=== PATIENT | female | born 1955 | race Caucasian/White ===

== ENCOUNTER → 2020-01-13 12:17 | Outpatient (CLI) | payer BC, SELFPAY ==
[2020-01-13 12:22] LABS: Bacteria 0 SEEN /hpf (None Seen); Mucous, Urine 0 SEEN /hpf (<or=2+); Red Blood Cells-Urine 0 SEEN /hpf (0-5); Squamous Epithelial Cells - UA 0 SEEN /hpf (5-10); White Blood Cells 0 SEEN /hpf (0-5)
[2020-01-13 14:05] LABS: Color, Urine Yellow (Yellow); Glucose, Dipstick 1000 mg/dl (Normal); Ketone-Dipstick Negative (Negative); Leukocyte Esterase-Dipstick Negative /ul (Negative); Nitrite-Dipstick Negative (Negative); Occult Blood-Urine Negative /ul (Negative); Protein-Dipstick Negative (Negative); Urine Bilirubin Dipstick Negative (Negative); Urine Clarity Clear (Clear); Urine Urobilinogen Normal (Normal)
[2020-01-13 14:06] LABS: Absolute Lymphocyte Count 1.62 X10^3/uL (0.83-4.51); Absolute Neutrophil Count 3.5 X10^3/uL (2.0-7.7); Basophil# 0.04 X10^3/uL; Basophil% 0.7 % (0-1); Eosinophil# 0.11 X10^3/uL; Eosinophils% 1.9 % (0-5); Hematocrit 42.9 % (37-47); Hemoglobin 14.7 g/dL (12.0-15.0); Lymphocyte # 1.62 X10^3/ul (4.0); Lymphocyte % 28.3 % (19-41); Mean Corp Hgb Conc 34.3 g/dL (32-36); Mean Corpuscular Hgb 30.1 pg (27.0-32.0); Mean Corpuscular Volume 87.7 fL (81-99); Monocyte# 0.44 X10^3/uL; Monocyte% 7.7 % (0-10); NRBC Flagged by Analyzer 0 % (0-5); Neutrophil # 3.49 X10^3/uL (2.7-7.7); Neutrophil % 61.1 % (47-70); Platelet Count 203 K/mm3 (150-450); RBC Distribution Width CV 12.2 % (11.6-14.6); RBC Distribution Width SD 39.2 fl (35.1-43.9); Red Blood Count 4.89 M/mm3 (4.2-5.4); White Blood Count 5.7 K/mm3 (4.4-11.0)
[2020-01-13 14:43] LABS: AST(SGOT) 16 U/L (15-37); Alanine Aminotransfer ALT/SGPT 37 U/L (13-56); Albumin, Serum 3.6 g/dL (3.2-5.0); Alkaline Phosphatase 80 U/L (45-117); Anion Gap 8 (5-15); BUN 10 mg/dL (7-18); BUN/Creat Ratio 13.3 RATIO (10-20); Chloride 100 mmol/L (98-107); Cholesterol 216 mg/dL (200); Creatinine, Serum 0.75 mg/dL (0.55-1.02); EST Glomerular Filtration Rate 83 mL/min (>60); Est Glom Filt Rate - Afr Amer 100 mL/min (>60); Globulin 3.5 g/dL (2.2-4.2); Glucose 293 mg/dL (74-106); High Density Lipoprotein 50 mg/dL; Potassium 3.8 mmol/L (3.5-5.1); Protein, Total 7.1 g/dL (6.4-8.2); Sodium Level 134 mmol/L (136-145); Thyroid Stim Hormone (TSH) 1.49 uIU/mL (0.358-3.74); Triglycerides 144 mg/dL; Very Low Density Lipoprotein 29 mg/dL (5-40)
[2020-01-13 14:46] LABS: Hemoglobin A1c 12.8 % (4.2-6.3)
[2020-01-13 15:17] LABS: Microalbumin,Random Urine 5.9 mg/L (NO RANGE EST.); Microalbumin:Creatinine Ratio 43.7 mg/g CRE (<30 mg/g CRE)
== END ==
PROVIDERS: PCP Family Medicine; Referring Provider Family Medicine; Visit Provider Family Medicine
DX: E11.9 Type 2 diabetes mellitus without complications (principal); I10 Essential (primary) hypertension
CPT/HCPCS: 36415; 80053; 80061; 81001; 82043; 82570; 83036; 84443; 85025

== ENCOUNTER → 2020-01-21 11:19 | Outpatient (CLI) | payer BC, SELFPAY ==
--- NOTE | 2020-01-21 11:29 | US_ITS ---
STUDY: THYROID ULTRASOUND REASON FOR EXAM: Female, 64 years old. Palpable nodule TECHNIQUE: Ultrasound evaluation of the thyroid was performed with real-time and static pyle-scale imaging. COMPARISON: None. FINDINGS: RIGHT LOBE: The right lobe of the thyroid gland measures 4.1 x 1.3 x 1.5 cm. There is a homogeneous echotexture. There is a 7 mm cyst. LEFT LOBE: The left lobe of the thyroid gland measures 4.2 x 1.2 x 1.4 cm. There is a homogeneous echotexture. There are no demonstrated solid, cystic or complex lesions. ISTHMUS: The isthmus measures 0.4 cm. The regional lymph nodes are normal. US/Thyroid IMPRESSION: Normal size homogeneous thyroid gland with 7 mm simple cyst. No suspicious solid mass lesion or hyperemia Electronically Signed: Lucian Fallon MD at 12:23 EST , Service support ,
== END ==
PROVIDERS: PCP Family Medicine; Referring Provider Family Medicine; Visit Provider Family Medicine
DX: E04.1 Nontoxic single thyroid nodule (principal)
CPT/HCPCS: 76536

== ENCOUNTER → 2020-04-05 11:54 | Outpatient (CLI) | payer BC, SELFPAY ==
[2020-04-05 15:00] LABS: Absolute Lymphocyte Count 1.96 X10^3/uL (0.83-4.51); Absolute Neutrophil Count 5.4 X10^3/uL (2.0-7.7); Basophil# 0.04 X10^3/uL; Basophil% 0.5 % (0-1); Eosinophil# 0.14 X10^3/uL; Eosinophils% 1.7 % (0-5); Hematocrit 45.6 % (37-47); Hemoglobin 14.9 g/dL (12.0-15.0); Lymphocyte # 1.96 X10^3/ul (4.0); Lymphocyte % 24.1 % (19-41); Mean Corp Hgb Conc 32.7 g/dL (32-36); Mean Corpuscular Hgb 29.6 pg (27.0-32.0); Mean Corpuscular Volume 90.7 fL (81-99); Mean Platelet Vol. 11.5 fl (6.2-12.0); Monocyte% 7.4 % (0-10); NRBC Flagged by Analyzer 0 % (0-5); Neutrophil # 5.36 X10^3/uL (2.7-7.7); Neutrophil % 66.1 % (47-70); Platelet Count 249 K/mm3 (150-450); RBC Distribution Width CV 12.1 % (11.6-14.6); RBC Distribution Width SD 39.9 fl (35.1-43.9); Red Blood Count 5.03 M/mm3 (4.2-5.4); White Blood Count 8.1 K/mm3 (4.4-11.0)
[2020-04-05 15:07] LABS: Hemoglobin A1c 7.6 % (3.8-5.6)
[2020-04-05 15:12] LABS: AST(SGOT) 13 U/L (15-37); Alanine Aminotransfer ALT/SGPT 30 U/L (13-56); Albumin, Serum 3.8 g/dL (3.2-5.0); Alkaline Phosphatase 85 U/L (45-117); Anion Gap 6 (5-15); BUN 13 mg/dL (7-18); BUN/Creat Ratio 17.9 RATIO (10-20); Calcium,Total 9.7 mg/dL (8.5-10.1); Chloride 102 mmol/L (98-107); Cholesterol 132 mg/dL (200); Creatinine, Serum 0.73 mg/dL (0.55-1.02); EST Glomerular Filtration Rate 85 mL/min (>60); Est Glom Filt Rate - Afr Amer 103 mL/min (>60); Globulin 3.9 g/dL (2.2-4.2); Glucose 122 mg/dL (74-106); High Density Lipoprotein 52 mg/dL; Potassium 4.3 mmol/L (3.5-5.1); Protein, Total 7.7 g/dL (6.4-8.2); Sodium Level 137 mmol/L (136-145); Triglycerides 83 mg/dL; Very Low Density Lipoprotein 17 mg/dL (5-40)
[2020-04-05 15:18] LABS: Creatinine, Urine (random) < 13.00 mg/dL (NO RANGE EST.); Microalbumin,Random Urine 5.6 mg/L (NO RANGE EST.)
== END ==
PROVIDERS: PCP Family Medicine; Visit Provider Family Medicine
DX: I10 Essential (primary) hypertension (principal); E11.65 Type 2 diabetes mellitus with hyperglycemia; E78.5 Hyperlipidemia, unspecified; R80.9 Proteinuria, unspecified
CPT/HCPCS: 36415; 80053; 80061; 82043; 82570; 83036; 85025

== ENCOUNTER 2020-06-11 17:45 | Emergency (ER) | payer BC, SELFPAY ==
[2020-06-11 17:57] VITALS: BP 107/61; PULSE 97; RESP 22; TEMP 36.9; O2SAT 97; BMI 32.3
--- NOTE | 2020-06-11 18:04 | ED.VIS.GEN ---
History of Present Illness Chief Complaint: Upper Extremity Injury Informant: Patient Narrative: Patient is a 65-year-old female with a past medical history of hypertension and diabetes who presents to the emergency department for left wrist injury. She states she was walking on the sidewalk whenever she tripped. She fell onto her left arm. She does have a deformity to the left wrist. Patient is right-handed at baseline. Sensation in her hand. She did hit her face on the cement but denies any loss of consciousness. She has an abrasion to her nose and upper lip. She denies loose teeth or malalignment with her jaw. No neck pain or back pain. No other injury to her extremities except for minor abrasions to her knees. She is not on any anticoagulation. She did feel slightly nauseous due to pain. EMS did put her in an air splint upon arrival. Past Medical History - Allergies and Home Meds Allergies/Adverse Reactions: Allergies meperidine [From Demerol] Allergy (Verified 06/11/20 17:46) NEEDS FOLLOW-UP Primary Care Physician: Bobby Vazquez MD [Primary Care Provider] - Pavan Sim MD [STAFF PHYSICIAN] - 2 Days Prior records reviewed: Yes Past Medical History: - - Hypertension, diabetes Lives: Spouse/ Significant Other Smoking Status: Never smoker Alcohol: None Review of Systems All systems negative except as indicated General: Denies: Chills, Fever, Sweats Eyes: Denies: Visual changes - bilaterally, Diplopia ENT: Denies: Rhinorrhea, Sore throat Cardiovascular: Denies: Chest pain, Palpitations Respiratory: Denies: Dyspnea, Cough, Dyspnea on exertion Gastrointestinal: Reports: Nausea. Denies: Abdominal pain, Vomiting Genitourinary: Denies: Dysuria, Hematuria, Frequency Musculoskeletal: Reports: Swelling - Left wrist, Extremity Pain. Denies: Neck pain, Back pain Skin: Reports: Wounds - Abrasion to knees. Denies: Rash Neurological: Denies: Headache, Weakness, Numbness Physical Exam Vital Signs/Narrative: Vital Signs Temp Pulse Resp BP Pulse Ox 06/11/20 17:57 98.4 F 97 22 H 107/61 97 Inital Vital Signs reviewed: Yes General: Well nourished, Well developed, No Acute Distress Head: Normocephalic, - - Superficial abrasion over nose and upper lip.. Negative for: Tenderness Eyes: Perrl, EOMI ENT: Moist mucous membranes, No rhinorrhea Neck: Supple, Nontender, - - No spinal tenderness and has good range of motion. Cardiovascular: Regular rate, Regular rhythm, No murmurs Respiratory: No distress, CTA bilaterally, Chest nontender Abdomen: Soft, Nontender, Nondistended, Normal bowel sounds Back: Nontender, Normal Inspection. Negative for: Spinal tenderness Extremities: No edema, Tenderness - Left wrist, - - There is a deformity to left wrist. 2+ radial pulse. 2-second capillary refill. Good transfill technician strength. No loss of sensation. Skin: Normal color, No rash Neurological: Alert, Oriented x3, Cranial nerves II-XII grossly intact, Normal Strength, Normal Sensation Psychological: Normal affect, Normal Mood Diagnostic/Tx/Re-eval - Medical Decision Making Patient presents to the emergency department for left wrist injury after a fall. Will obtain x-rays and treat symptomatically with morphine and Zofran. X-ray showed a distal comminuted radial fracture. This is only mildly displaced and reduction was not attempted. She was placed into a sugar tong splint and given a sling. Will send She for pain management at home. She is also given a follow-up with orthopedic surgery. I did discuss trying to get her rings off here in the emergency department but she states that they will not come off. She is refusing to have them cut off. She states she will come back if her hand starts to swell. She is given return precautions for compartment syndrome as well. She otherwise is to follow-up with orthopedic doctor. At this time will discharge home in stable condition. She understands and is agreeable with this plan. Procedures - Upper Extremity Splints Upper Extremity Splint: Orthoglass, - - Sugar tong Splint Fabrication: Fabricated Location: Left - Patient neurovascularly intact post splinting. ED Disposition - Plan for ED Patient: Disposition: Home or Assisted Living Diagnosis: Distal radius fracture, left Instructions: ED WRIST FRACTURE General Prescriptions: Hydrocodone/Acetaminophen [Richardson 5-325 Tablet] 1 ea PO Q8H PRN PRN 3 Days #8 tab PRN Reason: Pain Score 6-10/10 Transmission Status: Received by [id number] Referrals: Bobby Vazquez MD [Primary Care Provider] - Pavan Sim MD [STAFF PHYSICIAN] - 2 Days
[2020-06-11] MEDS: Ondansetron 4 MG/2 ML Vial IV (18:15)
[2020-06-11] MEDS: Morphine 4 MG/ML Syringe IV (18:18)
[2020-06-11 18:28] VITALS: BP 120/61; PULSE 92; RESP 20; O2SAT 100
--- NOTE | 2020-06-11 18:30 | RAD_ITS ---
STUDY: X-RAY - LEFT RADIUS AND ULNA REASON FOR EXAM: Female, 65 years old. Fall TECHNIQUE: Two view(s) of the forearm. COMPARISON: None. FINDINGS: There is an impacted fracture of the distal radius with overlying soft tissue swelling. The remainder the visualized osseous structures are intact. There are no radiodense foreign bodies. RAD/Forearm 2 Views IMPRESSION: Impacted fracture of the distal radius with overlying soft tissue swelling. Electronically Signed: Pavan Wood, at 18:54 EDT Tel , Service support ,
--- NOTE | 2020-06-11 18:30 | RAD_ITS ---
STUDY: X-RAY - LEFT WRIST REASON FOR EXAM: Female, 65 years old. Fall. TECHNIQUE: Three view(s) of the wrist were obtained. COMPARISON: None. FINDINGS: There is a comminuted, impacted fracture of the distal radius with intra-articular extension. The remainder the visualized osseous structures are intact. There is soft tissue swelling noted. There are no radiodense foreign bodies. RAD/Wrist min 3 Views IMPRESSION: Comminuted, impacted fracture of the distal radius with intra-articular extension. Soft tissue swelling. Electronically Signed: Pavan Wood, at 18:54 EDT Tel , Service support ,
[2020-06-11] MEDS: HYDROcodone Bitartrate/Apap 5/325 Tablet PO (19:32)
== END 2020-06-11 19:43 | disposition home or self-care (01) ==
PROVIDERS: Emergency Provider Emergency Medicine; PCP Family Medicine
DX: S52.502A Unspecified fracture of the lower end of left radius, initial encounter for closed fracture (principal); S80.212A Abrasion, left knee, initial encounter; S80.211A Abrasion, right knee, initial encounter; S00.31XA Abrasion of nose, initial encounter; W18.09XA Striking against other object with subsequent fall, initial encounter; Y93.01 Activity, walking, marching and hiking; Y92.9 Unspecified place or not applicable; Y99.9 Unspecified external cause status; E11.9 Type 2 diabetes mellitus without complications; I10 Essential (primary) hypertension; Z79.4 Long term (current) use of insulin; Z79.899 Other long term (current) drug therapy
CPT/HCPCS: 29125; 73090; 73110; 96374; 96375; 99285; J7030; A4216; J2405

== ENCOUNTER → 2020-07-13 12:42 | Outpatient (CLI) | payer BC, SELFPAY ==
[2020-07-13 16:06] LABS: AST(SGOT) 13 U/L (15-37); Alanine Aminotransfer ALT/SGPT 40 U/L (13-56); Albumin, Serum 3.8 g/dL (3.2-5.0); Alkaline Phosphatase 78 U/L (45-117); Anion Gap 5 (5-15); BUN 11 mg/dL (7-18); BUN/Creat Ratio 16.5 RATIO (10-20); Chloride 103 mmol/L (98-107); Cholesterol 121 mg/dL (200); Creatinine, Serum 0.67 mg/dL (0.55-1.02); EST Glomerular Filtration Rate 94 mL/min (>60); Est Glom Filt Rate - Afr Amer 114 mL/min (>60); Globulin 3.8 g/dL (2.2-4.2); Glucose 111 mg/dL (74-106); High Density Lipoprotein 51 mg/dL; Potassium 3.7 mmol/L (3.5-5.1); Protein, Total 7.6 g/dL (6.4-8.2); Sodium Level 139 mmol/L (136-145); Triglycerides 64 mg/dL; Very Low Density Lipoprotein 13 mg/dL (5-40)
[2020-07-13 16:08] LABS: Hemoglobin A1c 7.1 % (3.8-5.6)
[2020-07-13 16:24] LABS: Microalbumin,Random Urine 5.6 mg/L (NO RANGE EST.); Microalbumin:Creatinine Ratio 11.8 mg/g CRE (<30 mg/g CRE)
== END ==
PROVIDERS: PCP Family Medicine; Referring Provider Family Medicine; Visit Provider Family Medicine
DX: E11.65 Type 2 diabetes mellitus with hyperglycemia (principal); E78.5 Hyperlipidemia, unspecified; R80.9 Proteinuria, unspecified
CPT/HCPCS: 36415; 80053; 80061; 82043; 82570; 83036

== ENCOUNTER → 2020-11-07 11:33 | Outpatient (CLI) | payer BC, SELFPAY ==
[2020-11-07 15:55] LABS: AST(SGOT) 11 U/L (15-37); Alanine Aminotransfer ALT/SGPT 28 U/L (13-56); Albumin, Serum 3.6 g/dL (3.2-5.0); Alkaline Phosphatase 82 U/L (45-117); Anion Gap 8 (5-15); BUN 9 mg/dL (7-18); BUN/Creat Ratio 12.4 RATIO (10-20); Chloride 99 mmol/L (98-107); Cholesterol 118 mg/dL (200); Creatinine, Serum 0.72 mg/dL (0.55-1.02); EST Glomerular Filtration Rate 86 mL/min (>60); Est Glom Filt Rate - Afr Amer 104 mL/min (>60); Globulin 3.7 g/dL (2.2-4.2); Glucose 156 mg/dL (74-106); High Density Lipoprotein 45 mg/dL; Potassium 3.9 mmol/L (3.5-5.1); Protein, Total 7.3 g/dL (6.4-8.2); Sodium Level 136 mmol/L (136-145); Triglycerides 83 mg/dL; Very Low Density Lipoprotein 17 mg/dL (5-40)
[2020-11-07 16:09] LABS: Creatinine, Urine (random) < 13.00 mg/dL (NO RANGE EST.); Microalbumin,Random Urine < 5.0 mg/L (NO RANGE EST.)
[2020-11-07 16:29] LABS: Hemoglobin A1c 6.9 % (3.8-5.6)
== END ==
PROVIDERS: PCP Family Medicine; Referring Provider Family Medicine; Visit Provider Family Medicine
DX: E11.65 Type 2 diabetes mellitus with hyperglycemia (principal); E78.5 Hyperlipidemia, unspecified
CPT/HCPCS: 36415; 80053; 80061; 82043; 82570; 83036

== ENCOUNTER 2021-01-14 09:35 | Emergency (ER) | payer BC, SELFPAY ==
[2021-01-14 09:36] VITALS: BP 149/98; PULSE 110; RESP 16; TEMP 36.6; O2SAT 98; BMI 32.7
[2021-01-14] MEDS: Tetracaine 0.5% Ophthalmic Bottle OPHTHALMIC (10:08)
[2021-01-14] MEDS: Ondansetron ODT 4 MG Tablet PO (10:08)
[2021-01-14] MEDS: Fluorescein 1 MG STRIP 1 STRIP OPHTHALMIC (10:08)
--- NOTE | 2021-01-14 10:26 | ED.DCSUM_ITS ---
- ER Visit Summary Date of Service: 01/14/21 Chief Complaint: Rash History of Present Illness: The patient is a [address] Vazquez. She reports that she has a rash to the right side of her forehead that began yesterday and throbbing pain to her right eye that began yesterday as well. She denies any change in her vision. She does not wear contacts. Patient complains subjective fever and chills. She is been nausea and vomited twice. No blood in her emesis. Physical Examination: Vitals: Stable. Afebrile. General: Well-nourished and well-developed. Head: Normocephalic atraumatic. Eyes: Involvement of her upper eyelid with shingles. There is erythema centrally. Diffuse conjunctival injection on the right. There is no fluorescein dye uptake. No dendritic lesions. No Johnson sign. Neck: Supple, no lymphadenopathy. No JVD. Nontender. Cardiovascular: Regular rate and rhythm. No murmurs. Respiratory: No respiratory distress. Clear to auscultation bilaterally. Abdominal: Soft, nontender, nondistended, normal bowel sounds. No guarding, rebound, or peritoneal signs. Back: Nontender. Extremities: Nontender, no edema. Skin: Vesicular rash to the right side of her forehead in a V1 distribution. Neurologic: Alert and oriented ?3. Cranial nerves II through XII are intact. Normal strength and sensation. Psych: Normal affect. Emergency Department Course and Treatment: Visual acuity is 20/20 OS/OD/OU. Patient was given Zofran and acyclovir p.o. She refused pain medications or an IV. Treatment Plan: Given the proximity of this to her right eye she was discussed with Dr. Cespedes. He would like to have erythromycin ointment placed in her eye. He does not want her to plate be placed on antiviral eyedrops. He will see her in the office now. Return to the emergency department for any worsening symptoms. Disposition: To home in improved and stable condition. Impression: 1. Shingles V1 distribution on right. This note was generated with [employer] software. It may contain incorrect words, spelling, and punctuation that were not noted in review of the chart prior to signing ED Disposition - Plan for ED Patient: Instructions: ED Shingles (Herpes Zoster) Prescriptions: Ondansetron [Zofran Odt] 4 mg PO Q8H PRN PRN #10 tab PRN Reason: Nausea Acyclovir [Zovirax] 800 mg PO 5X/DAY #35 tab Referrals: Hernandez Cespedes MD [STAFF PHYSICIAN] - As soon as possible Bobby Vazquez MD [Primary Care Provider] - 1 Week if not improving
[2021-01-14] MEDS: Acyclovir 800 MG Tablet PO (10:46)
--- NOTE | 2021-01-14 10:53 | ED.RN ---
DISCHARGE INSTRUCTIONS GIVEN TO AND REVIEWED WITH PATIENT, PATIENT DENIES QUESTIONS OR CONCERNS AND VOICES UNDERSTANDING OF DISCHARGE INSTRUCTIONS. PT INSTRUCTED TO GO TO OPHTHALMOLOGY FROM ED. PT AMBULATES OUT OF ROOM WITHOUT DIFFICULTY.
== END 2021-01-14 11:01 | disposition home or self-care (01) ==
PROVIDERS: Emergency Provider Emergency Medicine; PCP Family Medicine
DX: B02.9 Zoster without complications (principal); R11.2 Nausea with vomiting, unspecified; Z79.4 Long term (current) use of insulin; Z79.899 Other long term (current) drug therapy
CPT/HCPCS: 99284

== ENCOUNTER → 2021-03-28 14:18 | Outpatient (CLI) | payer BC, SELFPAY ==
[2021-03-28 18:28] LABS: ALB/GLOB Ratio 1.1 RATIO (0.9-2.4); AST(SGOT) 17 U/L (15-37); Alanine Aminotransfer ALT/SGPT 35 U/L (13-56); Albumin, Serum 3.7 g/dL (3.2-5.0); Alkaline Phosphatase 76 U/L (45-117); Anion Gap 8 (5-15); BUN 10 mg/dL (7-18); BUN/Creat Ratio 14.3 RATIO (10-20); Calcium,Total 9.1 mg/dL (8.5-10.1); Chloride 101 mmol/L (98-107); Cholesterol 130 mg/dL (200); EST Glomerular Filtration Rate 89 mL/min (>60); Est Glom Filt Rate - Afr Amer 108 mL/min (>60); Globulin 3.4 g/dL (2.2-4.2); Glucose 139 mg/dL (74-106); High Density Lipoprotein 50 mg/dL; Potassium 3.5 mmol/L (3.5-5.1); Protein, Total 7.1 g/dL (6.4-8.2); Sodium Level 138 mmol/L (136-145); Triglycerides 107 mg/dL; Very Low Density Lipoprotein 21 mg/dL (5-40)
[2021-03-28 18:51] LABS: Microalbumin,Random Urine 5.5 mg/L (NO RANGE EST.); Microalbumin:Creatinine Ratio 14.6 mg/g CRE (<30 mg/g CRE)
== END ==
PROVIDERS: PCP Family Medicine; Referring Provider Family Medicine; Visit Provider Family Medicine
DX: E11.65 Type 2 diabetes mellitus with hyperglycemia (principal); E78.5 Hyperlipidemia, unspecified; R80.9 Proteinuria, unspecified
CPT/HCPCS: 36415; 80053; 80061; 82043; 82570

== ENCOUNTER → 2021-04-05 12:33 | Outpatient (CLI) | payer BC, SELFPAY ==
--- NOTE | 2021-04-05 12:37 | US_ITS ---
STUDY: THYROID ULTRASOUND REASON FOR EXAM: Female, 66 years old. Abnormal thyroid function tests TECHNIQUE: Ultrasound evaluation of the thyroid was performed with real-time and static pyle-scale imaging. COMPARISON: None. FINDINGS: RIGHT LOBE: The right lobe of the thyroid gland measures 4.3 x 1.0 x 1.6 cm. There is a homogeneous echotexture. There is a solid/cystic 0.4 cm nodule LEFT LOBE: The left lobe of the thyroid gland measures 5.1 x 1.2 x 1.4 cm. There is a homogeneous echotexture. There are no demonstrated solid, cystic or complex lesions. ISTHMUS: The isthmus measures 1.5 mm. The regional lymph nodes are normal. US/Thyroid IMPRESSION: Enlarged left thyroid lobe Solid/cystic 4 mm nodule in the right thyroid lobe, no specific follow-up needed Electronically Signed: Lucian Fallon MD at 13:49 EDT , Service support ,
== END ==
PROVIDERS: PCP Family Medicine; Referring Provider Family Medicine; Visit Provider Family Medicine
DX: E04.1 Nontoxic single thyroid nodule (principal)
CPT/HCPCS: 76536

== ENCOUNTER → 2021-06-20 14:20 | Outpatient (CLI) | payer BC, SELFPAY ==
[2021-06-20 18:00] LABS: Absolute Lymphocyte Count 1.92 X10^3/uL (0.83-4.51); Absolute Neutrophil Count 6.2 X10^3/uL (2.0-7.7); Basophil# 0.04 X10^3/uL; Basophil% 0.5 % (0-1); Eosinophil# 0.11 X10^3/uL; Eosinophils% 1.2 % (0-5); Hemoglobin 13.9 g/dL (12.0-15.0); Lymphocyte # 1.92 X10^3/ul (0.83-4.51); Lymphocyte % 21.7 % (19-41); Mean Corp Hgb Conc 33.1 g/dL (32-36); Mean Corpuscular Hgb 29.4 pg (27.0-32.0); Mean Corpuscular Volume 88.8 fL (81-99); Mean Platelet Vol. 11.4 fl (6.2-12.0); Monocyte# 0.59 X10^3/uL; Monocyte% 6.7 % (0-10); NRBC Flagged by Analyzer 0 % (0-5); Neutrophil # 6.15 X10^3/uL (2.7-7.7); Neutrophil % 69.7 % (47-70); Platelet Count 282 K/mm3 (150-450); RBC Distribution Width CV 12.2 % (11.6-14.6); RBC Distribution Width SD 39.8 fl (35.1-43.9); Red Blood Count 4.73 M/mm3 (4.2-5.4); White Blood Count 8.8 K/mm3 (4.4-11.0)
[2021-06-20 18:25] LABS: Microalbumin,Random Urine 5.9 mg/L (NO RANGE EST.); Microalbumin:Creatinine Ratio 10.4 mg/g CRE (<30 mg/g CRE)
[2021-06-20 18:36] LABS: ALB/GLOB Ratio 1.2 RATIO (0.9-2.4); AST(SGOT) 18 U/L (15-37); Alanine Aminotransfer ALT/SGPT 35 U/L (13-56); Alkaline Phosphatase 74 U/L (45-117); Anion Gap 7 (5-15); BUN 10 mg/dL (7-18); BUN/Creat Ratio 13.4 RATIO (10-20); Calcium,Total 9.3 mg/dL (8.5-10.1); Chloride 101 mmol/L (98-107); Cholesterol 114 mg/dL (200); Creatinine, Serum 0.75 mg/dL (0.55-1.02); EST Glomerular Filtration Rate 83 mL/min (>60); Est Glom Filt Rate - Afr Amer 100 mL/min (>60); Globulin 3.3 g/dL (2.2-4.2); Glucose 88 mg/dL (74-106); High Density Lipoprotein 46 mg/dL; Protein, Total 7.3 g/dL (6.4-8.2); Sodium Level 138 mmol/L (136-145); Triglycerides 88 mg/dL
[2021-06-20 18:37] LABS: Very Low Density Lipoprotein 18 mg/dL (5-40)
[2021-06-20 22:22] LABS: Hemoglobin A1c 7.4 % (3.8-5.6)
== END ==
PROVIDERS: PCP Family Medicine; Visit Provider Family Medicine
DX: E11.65 Type 2 diabetes mellitus with hyperglycemia (principal)
CPT/HCPCS: 36415; 80053; 80061; 82043; 82570; 83036; 85025

== ENCOUNTER → 2021-09-21 09:46 | Outpatient (CLI) | payer BC, SELFPAY ==
[2021-09-21 12:37] LABS: Hemoglobin A1c 8.5 % (3.8-5.6)
[2021-09-21 12:39] LABS: ALB/GLOB Ratio 0.9 RATIO (0.9-2.4); AST(SGOT) 8 U/L (15-37); Alanine Aminotransfer ALT/SGPT 27 U/L (13-56); Albumin, Serum 3.5 g/dL (3.2-5.0); Alkaline Phosphatase 80 U/L (45-117); Anion Gap 7 (5-15); BUN 13 mg/dL (7-18); BUN/Creat Ratio 17.4 RATIO (10-20); Calcium,Total 9.3 mg/dL (8.5-10.1); Chloride 98 mmol/L (98-107); Cholesterol 124 mg/dL (200); Creatinine, Serum 0.75 mg/dL (0.55-1.02); EST Glomerular Filtration Rate 83 mL/min (>60); Est Glom Filt Rate - Afr Amer 100 mL/min (>60); Globulin 3.9 g/dL (2.2-4.2); Glucose 222 mg/dL (74-106); High Density Lipoprotein 48 mg/dL; Potassium 3.8 mmol/L (3.5-5.1); Protein, Total 7.4 g/dL (6.4-8.2); Sodium Level 135 mmol/L (136-145); Triglycerides 82 mg/dL; Very Low Density Lipoprotein 16 mg/dL (5-40)
== END ==
PROVIDERS: PCP Family Medicine; Referring Provider Family Medicine; Visit Provider Family Medicine
DX: E11.65 Type 2 diabetes mellitus with hyperglycemia (principal)
CPT/HCPCS: 36415; 80053; 80061; 83036

== ENCOUNTER 2021-12-28 10:40 | Outpatient (CLI) | payer BC, SELFPAY ==
[2021-12-28 12:07] LABS: Absolute Lymphocyte Count 1.74 X10^3/uL (0.83-4.51); Absolute Neutrophil Count 5.9 X10^3/uL (2.0-7.7); Basophil# 0.04 X10^3/uL; Basophil% 0.5 % (0-1); Eosinophil# 0.16 X10^3/uL; Eosinophils% 1.9 % (0-5); Hematocrit 43.2 % (37-47); Hemoglobin 14.4 g/dL (12.0-15.0); Lymphocyte # 1.74 X10^3/ul (0.83-4.51); Lymphocyte % 20.5 % (19-41); Mean Corp Hgb Conc 33.3 g/dL (32-36); Mean Corpuscular Hgb 29.4 pg (27.0-32.0); Mean Corpuscular Volume 88.2 fL (81-99); Mean Platelet Vol. 10.6 fl (6.2-12.0); Monocyte# 0.65 X10^3/uL; Monocyte% 7.7 % (0-10); NRBC Flagged by Analyzer 0 % (0-5); Neutrophil # 5.86 X10^3/uL (2.7-7.7); Neutrophil % 69.2 % (47-70); Platelet Count 238 K/mm3 (150-450); RBC Distribution Width SD 41.9 fl (35.1-43.9); White Blood Count 8.5 K/mm3 (4.4-11.0)
[2021-12-28 12:22] LABS: BUN 16 mg/dL (7-18); Creatinine, Serum 0.77 mg/dL (0.55-1.02); Glucose 119 mg/dL (74-106)
[2021-12-28 12:23] LABS: AST(SGOT) 13 U/L (15-37); Alanine Aminotransfer ALT/SGPT 27 U/L (13-56); Albumin, Serum 3.7 g/dL (3.2-5.0); Alkaline Phosphatase 74 U/L (45-117); Anion Gap 6 (5-15); BUN/Creat Ratio 20.7 RATIO (10-20); Chloride 103 mmol/L (98-107); Cholesterol 123 mg/dL (200); EST Glomerular Filtration Rate 79 mL/min (>60); Est Glom Filt Rate - Afr Amer 96 mL/min (>60); Globulin 3.7 g/dL (2.2-4.2); High Density Lipoprotein 50 mg/dL; Potassium 3.8 mmol/L (3.5-5.1); Protein, Total 7.4 g/dL (6.4-8.2); Sodium Level 137 mmol/L (136-145); Triglycerides 88 mg/dL; Very Low Density Lipoprotein 18 mg/dL (5-40)
[2021-12-28 12:46] LABS: Creatinine, Urine (random) < 13.00 mg/dL (NO RANGE EST.); Microalbumin,Random Urine < 5.0 mg/L (NO RANGE EST.)
== END 2021-12-28 23:59 | disposition home or self-care (01) ==
LOC: MFPLAB 10:41
PROVIDERS: PCP Family Medicine; Referring Provider Family Medicine; Visit Provider Family Medicine
DX: E11.59 Type 2 diabetes mellitus with other circulatory complications (principal); E11.65 Type 2 diabetes mellitus with hyperglycemia; E11.29 Type 2 diabetes mellitus with other diabetic kidney complication; E66.9 Obesity, unspecified
CPT/HCPCS: 36415; 80053; 80061; 82043; 82570; 83036; 85025

== ENCOUNTER → 2022-03-29 | Outpatient (CLI) | payer BC, SELFPAY ==
[2022-03-29 12:26] LABS: Absolute Lymphocyte Count 1.56 X10^3/uL (0.83-4.51); Absolute Neutrophil Count 5.2 X10^3/uL (2.0-7.7); Basophil# 0.04 X10^3/uL; Basophil% 0.5 % (0-1); Eosinophil# 0.19 X10^3/uL; Eosinophils% 2.5 % (0-5); Hematocrit 43.6 % (37-47); Hemoglobin 14.3 g/dL (12.0-15.0); Lymphocyte # 1.56 X10^3/ul (0.83-4.51); Lymphocyte % 20.5 % (19-41); Mean Corp Hgb Conc 32.8 g/dL (32-36); Mean Corpuscular Hgb 29.5 pg (27.0-32.0); Mean Corpuscular Volume 89.9 fL (81-99); Mean Platelet Vol. 10.8 fl (6.2-12.0); Monocyte# 0.59 X10^3/uL; Monocyte% 7.8 % (0-10); NRBC Flagged by Analyzer 0 % (0-5); Neutrophil # 5.19 X10^3/uL (2.7-7.7); Neutrophil % 68.3 % (47-70); Platelet Count 253 K/mm3 (150-450); RBC Distribution Width SD 42.6 fl (35.1-43.9); Red Blood Count 4.85 M/mm3 (4.2-5.4); White Blood Count 7.6 K/mm3 (4.4-11.0)
[2022-03-29 12:50] LABS: Hemoglobin A1c 7.1 % (3.8-5.6)
[2022-03-29 12:55] LABS: AST(SGOT) 16 U/L (15-37); Alanine Aminotransfer ALT/SGPT 30 U/L (13-56); Albumin, Serum 3.7 g/dL (3.2-5.0); Alkaline Phosphatase 68 U/L (45-117); Anion Gap 7 (5-15); BUN 21 mg/dL (7-18); BUN/Creat Ratio 26.2 RATIO (10-20); Calcium,Total 9.2 mg/dL (8.5-10.1); Chloride 103 mmol/L (98-107); Cholesterol 132 mg/dL (200); EST Glomerular Filtration Rate 76 mL/min (>60); Est Glom Filt Rate - Afr Amer 92 mL/min (>60); Globulin 3.7 g/dL (2.2-4.2); Glucose 126 mg/dL (74-106); High Density Lipoprotein 49 mg/dL; Protein, Total 7.4 g/dL (6.4-8.2); Sodium Level 138 mmol/L (136-145); Triglycerides 91 mg/dL; Very Low Density Lipoprotein 18 mg/dL (5-40)
[2022-03-29 12:59] LABS: Microalbumin,Random Urine < 5.0 mg/L (NO RANGE EST.)
== END | disposition home or self-care (01) ==
LOC: MFPLAB 10:44
PROVIDERS: PCP Family Medicine; Visit Provider Family Medicine
DX: E11.65 Type 2 diabetes mellitus with hyperglycemia (principal); E11.69 Type 2 diabetes mellitus with other specified complication; E11.29 Type 2 diabetes mellitus with other diabetic kidney complication; E66.9 Obesity, unspecified
CPT/HCPCS: 36415; 80053; 80061; 82043; 82570; 83036; 85025

== ENCOUNTER → 2022-08-01 | Outpatient (CLI) | payer BC, SELFPAY ==
[2022-08-01 15:03] LABS: Absolute Lymphocyte Count 1.78 X10^3/uL (0.83-4.51); Absolute Neutrophil Count 5.2 X10^3/uL (2.0-7.7); Basophil# 0.04 X10^3/uL; Basophil% 0.5 % (0-1); Eosinophil# 0.13 X10^3/uL; Eosinophils% 1.7 % (0-5); Hematocrit 43.7 % (37-47); Hemoglobin 14.8 g/dL (12.0-15.0); Lymphocyte # 1.78 X10^3/ul (0.83-4.51); Lymphocyte % 23.2 % (19-41); Mean Corp Hgb Conc 33.9 g/dL (32-36); Mean Corpuscular Hgb 30.4 pg (27.0-32.0); Mean Corpuscular Volume 89.7 fL (81-99); Mean Platelet Vol. 11.4 fl (6.2-12.0); Monocyte# 0.47 X10^3/uL; Monocyte% 6.1 % (0-10); NRBC Flagged by Analyzer 0 % (0-5); Neutrophil # 5.21 X10^3/uL (2.7-7.7); Neutrophil % 68.1 % (47-70); Platelet Count 239 K/mm3 (150-450); RBC Distribution Width CV 13.2 % (11.6-14.6); RBC Distribution Width SD 43.8 fl (35.1-43.9); Red Blood Count 4.87 M/mm3 (4.2-5.4); White Blood Count 7.7 K/mm3 (4.4-11.0)
[2022-08-01 15:20] LABS: AST(SGOT) 14 U/L (15-37); Alanine Aminotransfer ALT/SGPT 29 U/L (13-56); Albumin, Serum 3.7 g/dL (3.2-5.0); Alkaline Phosphatase 72 U/L (45-117); Anion Gap 8 (5-15); BUN 18 mg/dL (7-18); BUN/Creat Ratio 20.2 RATIO (10-20); Calcium,Total 9.4 mg/dL (8.5-10.1); Chloride 103 mmol/L (98-107); Cholesterol 119 mg/dL (200); Creatinine, Serum 0.89 mg/dL (0.55-1.02); EST Glomerular Filtration Rate 67 mL/min (>60); Est Glom Filt Rate - Afr Amer 81 mL/min (>60); Globulin 3.7 g/dL (2.2-4.2); Glucose 99 mg/dL (74-106); High Density Lipoprotein 44 mg/dL; Potassium 3.9 mmol/L (3.5-5.1); Protein, Total 7.4 g/dL (6.4-8.2); Sodium Level 138 mmol/L (136-145); Triglycerides 114 mg/dL; Very Low Density Lipoprotein 23 mg/dL (5-40)
[2022-08-01 15:21] LABS: Hemoglobin A1c 6.8 % (3.8-5.6)
[2022-08-01 15:52] LABS: Microalbumin,Random Urine < 5.0 mg/L (NO RANGE EST.)
== END | disposition home or self-care (01) ==
LOC: MFPLAB 11:40
PROVIDERS: PCP Family Medicine; Referring Provider Family Medicine; Visit Provider Family Medicine
DX: E11.69 Type 2 diabetes mellitus with other specified complication (principal); E11.29 Type 2 diabetes mellitus with other diabetic kidney complication
CPT/HCPCS: 36415; 80053; 80061; 82043; 82570; 83036; 85025

== ENCOUNTER → 2022-12-13 | Outpatient (CLI) | payer BC, SELFPAY ==
[2022-12-13 12:13] LABS: Absolute Lymphocyte Count 1.68 X10^3/uL (0.83-4.51); Absolute Neutrophil Count 5.8 X10^3/uL (2.0-7.7); Basophil# 0.04 X10^3/uL; Basophil% 0.5 % (0-1); Eosinophil# 0.14 X10^3/uL; Eosinophils% 1.7 % (0-5); Hemoglobin 14.9 g/dL (12.0-15.0); Lymphocyte # 1.68 X10^3/ul (0.83-4.51); Lymphocyte % 20.2 % (19-41); Mean Corp Hgb Conc 32.4 g/dL (32-36); Mean Corpuscular Hgb 29.1 pg (27.0-32.0); Mean Corpuscular Volume 89.8 fL (81-99); Mean Platelet Vol. 11.2 fl (6.2-12.0); Monocyte# 0.63 X10^3/uL; Monocyte% 7.6 % (0-10); NRBC Flagged by Analyzer 0 % (0-5); Neutrophil # 5.82 X10^3/uL (2.7-7.7); Neutrophil % 69.8 % (47-70); Platelet Count 233 K/mm3 (150-450); RBC Distribution Width CV 12.7 % (11.6-14.6); RBC Distribution Width SD 41.8 fl (35.1-43.9); Red Blood Count 5.12 M/mm3 (4.2-5.4); White Blood Count 8.3 K/mm3 (4.4-11.0)
[2022-12-13 13:51] LABS: ALB/GLOB Ratio 1.2 RATIO (0.9-2.4); AST(SGOT) 9 U/L (15-37); Alanine Aminotransfer ALT/SGPT 27 U/L (13-56); Albumin, Serum 3.7 g/dL (3.2-5.0); Alkaline Phosphatase 73 U/L (45-117); Anion Gap 10 (5-15); BUN 16 mg/dL (7-18); Calcium,Total 9.3 mg/dL (8.5-10.1); Chloride 101 mmol/L (98-107); Cholesterol 120 mg/dL (200); Creatinine, Serum 0.76 mg/dL (0.55-1.02); EST Glomerular Filtration Rate 80 mL/min (>60); Est Glom Filt Rate - Afr Amer 97 mL/min (>60); Globulin 3.2 g/dL (2.2-4.2); Glucose 128 mg/dL (74-106); High Density Lipoprotein 46 mg/dL; Protein, Total 6.9 g/dL (6.4-8.2); Sodium Level 138 mmol/L (136-145); Triglycerides 103 mg/dL; Very Low Density Lipoprotein 21 mg/dL (5-40)
[2022-12-13 13:53] LABS: Hemoglobin A1c 7.2 % (3.8-5.6)
== END | disposition home or self-care (01) ==
PROVIDERS: PCP Family Medicine; Referring Provider Family Medicine; Visit Provider Nurse Practitioner Family
DX: E11.59 Type 2 diabetes mellitus with other circulatory complications (principal); E11.69 Type 2 diabetes mellitus with other specified complication
CPT/HCPCS: 36415; 80053; 80061; 83036; 85025

== ENCOUNTER → 2023-03-13 | Outpatient (CLI) | payer BC, SELFPAY ==
[2023-03-13 12:42] LABS: Absolute Lymphocyte Count 1.41 X10^3/uL (0.83-4.51); Absolute Neutrophil Count 4.5 X10^3/uL (2.0-7.7); Basophil# 0.03 X10^3/uL; Basophil% 0.5 % (0-1); Eosinophil# 0.13 X10^3/uL; Lymphocyte # 1.41 X10^3/ul (0.83-4.51); Lymphocyte % 21.7 % (19-41); Mean Corp Hgb Conc 32.6 g/dL (32-36); Mean Corpuscular Hgb 29.4 pg (27.0-32.0); Mean Corpuscular Volume 90.1 fL (81-99); Mean Platelet Vol. 10.8 fl (6.2-12.0); Monocyte% 6.2 % (0-10); NRBC Flagged by Analyzer 0 % (0-5); Neutrophil % 69.3 % (47-70); Platelet Count 229 K/mm3 (150-450); RBC Distribution Width CV 13.3 % (11.6-14.6); RBC Distribution Width SD 43.7 fl (35.1-43.9); Red Blood Count 4.77 M/mm3 (4.2-5.4); White Blood Count 6.5 K/mm3 (4.4-11.0)
[2023-03-13 13:11] LABS: Microalbumin,Random Urine < 5.0 mg/L (NO RANGE EST.)
[2023-03-13 13:16] LABS: Hemoglobin A1c 6.4 % (3.8-5.6)
[2023-03-13 13:25] LABS: ALB/GLOB Ratio 0.9 RATIO (0.9-2.4); AST(SGOT) 20 U/L (15-37); Alanine Aminotransfer ALT/SGPT 44 U/L (13-56); Albumin, Serum 3.5 g/dL (3.2-5.0); Alkaline Phosphatase 66 U/L (45-117); Anion Gap 5 (5-15); BUN 15 mg/dL (7-18); BUN/Creat Ratio 22.2 RATIO (10-20); Chloride 106 mmol/L (98-107); Cholesterol 107 mg/dL (200); Creatinine, Serum 0.68 mg/dL (0.55-1.02); EST Glomerular Filtration Rate 92 mL/min (>60); Est Glom Filt Rate - Afr Amer 111 mL/min (>60); Globulin 3.7 g/dL (2.2-4.2); Glucose 92 mg/dL (74-106); High Density Lipoprotein 41 mg/dL; Potassium 3.8 mmol/L (3.5-5.1); Protein, Total 7.2 g/dL (6.4-8.2); Sodium Level 137 mmol/L (136-145); Thyroid Stim Hormone (TSH) 1.57 uIU/mL (0.358-3.74); Triglycerides 84 mg/dL; Very Low Density Lipoprotein 17 mg/dL (5-40)
== END | disposition home or self-care (01) ==
LOC: MFPLAB 10:56
PROVIDERS: PCP Family Medicine; Visit Provider Family Medicine
DX: E11.69 Type 2 diabetes mellitus with other specified complication (principal); E11.29 Type 2 diabetes mellitus with other diabetic kidney complication
CPT/HCPCS: 36415; 80053; 80061; 82043; 82570; 83036; 84443; 85025

== ENCOUNTER → 2023-07-18 | Outpatient (CLI) | payer BC, SELFPAY ==
[2023-07-18 15:23] LABS: Absolute Lymphocyte Count 1.75 X10^3/uL (0.83-4.51); Absolute Neutrophil Count 5.6 X10^3/uL (2.0-7.7); Basophil# 0.04 X10^3/uL; Basophil% 0.5 % (0-1); Eosinophil# 0.12 X10^3/uL; Eosinophils% 1.5 % (0-5); Hematocrit 44.3 % (37-47); Hemoglobin 14.3 g/dL (12.0-15.0); Lymphocyte # 1.75 X10^3/ul (0.83-4.51); Lymphocyte % 21.8 % (19-41); Mean Corp Hgb Conc 32.3 g/dL (32-36); Mean Corpuscular Hgb 29.9 pg (27.0-32.0); Mean Corpuscular Volume 92.5 fL (81-99); Mean Platelet Vol. 11.4 fl (6.2-12.0); Monocyte# 0.54 X10^3/uL; Monocyte% 6.7 % (0-10); NRBC Flagged by Analyzer 0 % (0-5); Neutrophil # 5.55 X10^3/uL (2.7-7.7); Neutrophil % 69.1 % (47-70); Platelet Count 239 K/mm3 (150-450); RBC Distribution Width CV 13.2 % (11.6-14.6); RBC Distribution Width SD 44.5 fl (35.1-43.9); Red Blood Count 4.79 M/mm3 (4.2-5.4)
[2023-07-18 15:43] LABS: ALB/GLOB Ratio 0.9 RATIO (0.9-2.4); AST(SGOT) 12 U/L (15-37); Alanine Aminotransfer ALT/SGPT 27 U/L (13-56); Albumin, Serum 3.5 g/dL (3.2-5.0); Alkaline Phosphatase 71 U/L (45-117); Anion Gap 6 (5-15); BUN 15 mg/dL (7-18); BUN/Creat Ratio 19.3 RATIO (10-20); Calcium,Total 9.3 mg/dL (8.5-10.1); Chloride 103 mmol/L (98-107); Cholesterol 118 mg/dL (200); Creatinine, Serum 0.78 mg/dL (0.55-1.02); EST Glomerular Filtration Rate 78 mL/min (>60); Est Glom Filt Rate - Afr Amer 95 mL/min (>60); Globulin 3.7 g/dL (2.2-4.2); Glucose 127 mg/dL (74-106); High Density Lipoprotein 44 mg/dL; Potassium 3.9 mmol/L (3.5-5.1); Protein, Total 7.2 g/dL (6.4-8.2); Sodium Level 137 mmol/L (136-145); Triglycerides 107 mg/dL; Very Low Density Lipoprotein 21 mg/dL (5-40)
== END | disposition home or self-care (01) ==
LOC: MFPLAB 11:45
PROVIDERS: PCP Family Medicine; Visit Provider Family Medicine
DX: E11.69 Type 2 diabetes mellitus with other specified complication (principal)
CPT/HCPCS: 36415; 80053; 80061; 85025

== ENCOUNTER → 2023-10-23 | Outpatient (CLI) | payer BC, SELFPAY ==
[2023-10-23 12:21] LABS: Absolute Lymphocyte Count 1.99 X10^3/uL (0.83-4.51); Absolute Neutrophil Count 6.1 X10^3/uL (2.0-7.7); Basophil# 0.04 X10^3/uL; Basophil% 0.5 % (0-1); Eosinophil# 0.13 X10^3/uL; Eosinophils% 1.5 % (0-5); Hematocrit 44.6 % (37-47); Hemoglobin 14.4 g/dL (12.0-15.0); Lymphocyte # 1.99 X10^3/ul (0.83-4.51); Lymphocyte % 22.5 % (19-41); Mean Corp Hgb Conc 32.3 g/dL (32-36); Mean Corpuscular Hgb 29.3 pg (27.0-32.0); Mean Corpuscular Volume 90.7 fL (81-99); Mean Platelet Vol. 10.9 fl (6.2-12.0); Monocyte# 0.55 X10^3/uL; Monocyte% 6.2 % (0-10); NRBC Flagged by Analyzer 0 % (0-5); Neutrophil # 6.13 X10^3/uL (2.7-7.7); Neutrophil % 69.1 % (47-70); Platelet Count 260 K/mm3 (150-450); RBC Distribution Width CV 13.1 % (11.6-14.6); RBC Distribution Width SD 43.5 fl (35.1-43.9); Red Blood Count 4.92 M/mm3 (4.2-5.4); White Blood Count 8.9 K/mm3 (4.4-11.0)
[2023-10-23 12:45] LABS: Creatinine, Urine (random) < 13.00 mg/dL (NO RANGE EST.); Microalbumin,Random Urine < 5.0 mg/L (NO RANGE EST.)
[2023-10-23 12:46] LABS: AST(SGOT) 15 U/L (15-37); Alanine Aminotransfer ALT/SGPT 25 U/L (13-56); Albumin, Serum 3.6 g/dL (3.2-5.0); Alkaline Phosphatase 73 U/L (45-117); Anion Gap 7 (5-15); BUN 17 mg/dL (7-18); BUN/Creat Ratio 22.5 RATIO (10-20); Calcium,Total 8.9 mg/dL (8.5-10.1); Chloride 101 mmol/L (98-107); Cholesterol 141 mg/dL (200); Creatinine, Serum 0.76 mg/dL (0.55-1.02); EST Glomerular Filtration Rate 81 mL/min (>60); Est Glom Filt Rate - Afr Amer 98 mL/min (>60); Globulin 3.7 g/dL (2.2-4.2); Glucose 133 mg/dL (74-106); High Density Lipoprotein 48 mg/dL; Potassium 3.6 mmol/L (3.5-5.1); Protein, Total 7.3 g/dL (6.4-8.2); Sodium Level 136 mmol/L (136-145); Triglycerides 93 mg/dL; Very Low Density Lipoprotein 19 mg/dL (5-40)
[2023-10-23 13:43] LABS: Hemoglobin A1c 6.8 % (3.8-5.6)
== END | disposition home or self-care (01) ==
LOC: MFPLAB 10:50
PROVIDERS: PCP Family Medicine; Visit Provider Family Medicine
DX: E11.8 Type 2 diabetes mellitus with unspecified complications (principal)
CPT/HCPCS: 36415; 80053; 80061; 82043; 82570; 83036; 85025

== ENCOUNTER → 2024-05-15 | Outpatient (CLI) | payer BC, SELFPAY ==
[2024-05-15 12:11] LABS: Absolute Neutrophil Count 4.9 X10^3/uL (2.0-7.7); Basophil# 0.06 X10^3/uL; Basophil% 0.8 % (0-1); Eosinophils% 5.3 % (0-5); Hematocrit 42.2 % (37-47); Hemoglobin 14.1 g/dL (12.0-15.0); Lymphocyte % 22.4 % (19-41); Mean Corp Hgb Conc 33.4 g/dL (32-36); Mean Corpuscular Hgb 29.7 pg (27.0-32.0); Mean Corpuscular Volume 88.8 fL (81-99); Monocyte# 0.53 X10^3/uL; NRBC Flagged by Analyzer 0 % (0-5); Neutrophil # 4.87 X10^3/uL (2.7-7.7); Neutrophil % 64.2 % (47-70); Platelet Count 245 K/mm3 (150-450); RBC Distribution Width SD 42.7 fl (35.1-43.9); Red Blood Count 4.75 M/mm3 (4.2-5.4); White Blood Count 7.6 K/mm3 (4.4-11.0)
[2024-05-15 12:32] LABS: Microalbumin,Random Urine < 5.0 mg/L (NO RANGE EST.)
[2024-05-15 12:34] LABS: Hemoglobin A1c 7.8 % (3.8-5.6)
[2024-05-15 12:45] LABS: ALB/GLOB Ratio 1.2 RATIO (0.9-2.4); AST(SGOT) 20 U/L (15-37); Alanine Aminotransfer ALT/SGPT 43 U/L (13-56); Albumin, Serum 3.7 g/dL (3.2-5.0); Alkaline Phosphatase 65 U/L (45-117); Anion Gap 10 (5-15); BUN 15 mg/dL (7-18); BUN/Creat Ratio 20.8 RATIO (10-20); Calcium,Total 9.1 mg/dL (8.5-10.1); Chloride 106 mmol/L (98-107); Cholesterol 126 mg/dL (200); Creatinine, Serum 0.72 mg/dL (0.55-1.02); EST Glomerular Filtration Rate 85 mL/min (>60); Est Glom Filt Rate - Afr Amer 103 mL/min (>60); Globulin 3.2 g/dL (2.2-4.2); Glucose 106 mg/dL (74-106); High Density Lipoprotein 42 mg/dL; Potassium 3.8 mmol/L (3.5-5.1); Protein, Total 6.9 g/dL (6.4-8.2); Sodium Level 139 mmol/L (136-145); Thyroid Stim Hormone (TSH) 2.17 uIU/mL (0.358-3.74); Triglycerides 127 mg/dL; Very Low Density Lipoprotein 25 mg/dL (5-40)
== END | disposition home or self-care (01) ==
LOC: MFPLAB 10:54
PROVIDERS: PCP Family Medicine; Visit Provider Family Medicine
DX: E11.8 Type 2 diabetes mellitus with unspecified complications (principal)
CPT/HCPCS: 36415; 80053; 80061; 82043; 82570; 83036; 84443; 85025

== ENCOUNTER → 2024-08-19 | Outpatient (CLI) | payer BC, SELFPAY ==
[2024-08-19 11:27] LABS: Mucous, Urine 0 SEEN /hpf (<or=2+); Red Blood Cells-Urine 0 SEEN /hpf (0-5)
[2024-08-19 15:21] LABS: Absolute Lymphocyte Count 1.54 X10^3/uL (0.83-4.51); Absolute Neutrophil Count 5.2 X10^3/uL (2.0-7.7); Basophil# 0.05 X10^3/uL; Basophil% 0.7 % (0-1); Eosinophil# 0.13 X10^3/uL; Eosinophils% 1.8 % (0-5); Hematocrit 45.7 % (37-47); Hemoglobin 15.6 g/dL (12.0-15.0); Lymphocyte # 1.54 X10^3/ul (0.83-4.51); Mean Corp Hgb Conc 34.1 g/dL (32-36); Mean Corpuscular Hgb 30.6 pg (27.0-32.0); Mean Corpuscular Volume 89.8 fL (81-99); Monocyte# 0.41 X10^3/uL; Monocyte% 5.6 % (0-10); NRBC Flagged by Analyzer 0 % (0-5); Neutrophil # 5.18 X10^3/uL (2.7-7.7); Neutrophil % 70.6 % (47-70); Platelet Count 251 K/mm3 (150-450); RBC Distribution Width CV 12.8 % (11.6-14.6); RBC Distribution Width SD 42.1 fl (35.1-43.9); Red Blood Count 5.09 M/mm3 (4.2-5.4); White Blood Count 7.3 K/mm3 (4.4-11.0)
[2024-08-19 15:26] LABS: Color, Urine Yellow (Yellow); Glucose, Dipstick 1000 mg/dl (Normal); Ketone-Dipstick Negative (Negative); Leukocyte Esterase-Dipstick Negative /ul (Negative); Nitrite-Dipstick Negative (Negative); Occult Blood-Urine Negative /ul (Negative); Protein-Dipstick Negative (Negative); Specific Gravity, Urine 1.015 (1.002-1.030); Urine Bilirubin Dipstick Negative (Negative); Urine Clarity Sl. Cloudy (Clear); Urine Urobilinogen Normal (Normal)
[2024-08-19 15:43] LABS: Hemoglobin A1c 7.7 % (3.8-5.6)
[2024-08-19 15:48] LABS: ALB/GLOB Ratio 1.1 RATIO (0.9-2.4); AST(SGOT) 19 U/L (15-37); Alanine Aminotransfer ALT/SGPT 33 U/L (13-56); Alkaline Phosphatase 79 U/L (45-117); Anion Gap 6 (5-15); BUN 19 mg/dL (7-18); BUN/Creat Ratio 21.5 RATIO (10-20); Calcium,Total 9.7 mg/dL (8.5-10.1); Chloride 103 mmol/L (98-107); Cholesterol 140 mg/dL (200); Creatinine, Serum 0.88 mg/dL (0.55-1.02); EST Glomerular Filtration Rate 67 mL/min (>60); Est Glom Filt Rate - Afr Amer 82 mL/min (>60); Globulin 3.5 g/dL (2.2-4.2); Glucose 124 mg/dL (74-106); High Density Lipoprotein 46 mg/dL; Potassium 4.6 mmol/L (3.5-5.1); Protein, Total 7.5 g/dL (6.4-8.2); Sodium Level 138 mmol/L (136-145); Triglycerides 134 mg/dL; Very Low Density Lipoprotein 27 mg/dL (5-40)
[2024-08-19 16:01] LABS: Bacteria 1+ /hpf (None Seen); Squamous Epithelial Cells - UA 0-5 SEEN /hpf (5-10); White Blood Cells 0-5 SEEN /hpf (0-5)
== END | disposition home or self-care (01) ==
LOC: MTLAB 11:15
PROVIDERS: PCP Family Medicine; Referring Provider Family Medicine; Visit Provider Family Medicine
DX: E11.8 Type 2 diabetes mellitus with unspecified complications (principal)
CPT/HCPCS: 36415; 80053; 80061; 81001; 83036; 85025

== ENCOUNTER 2024-09-03 13:51 | Outpatient (RCR) | payer BC, SELFPAY ==
[2024-09-03 14:06] VITALS: BP 153/81; PULSE 108; RESP 18; TEMP 37.1; BMI 34.3
--- NOTE | 2024-09-03 16:17 | PCM.WC.HP ---
History of Present Illness Date of Service: 09/03/24 Chief Complaint: Left posterior calf wound History of Wound: Josy Smith is a 69-year-old female who presents today for evaluation and management of a left posterior calf wound as referred by her primary care Dr. Vazquez. She reports that this ulceration has been present since the end of May of this year. She reports that around that time her AC had gone out in her house and was out for several weeks so her house was very warm and she noticed significantly increased lower extremity edema. Eventually, a blister formed on her posterior calf and after rupturing left behind this ulceration. At home, she has been caring for this by applying antibiotic ointment and leaving it open to air. She denies any expanding redness, warmth, excess drainage, foul odor. Her swelling has since improved back to her baseline. She does have significant bilateral lower extremity edema at baseline and this has been ongoing for several years. She is diabetic, last A1c was 7.7. She does not smoke. She denies any history of VTE. She does not wear compression, she reports it makes her legs and feet feel too hot. [facility] Home Medications ?Medication ?Instructions ?Recorded ?Last Taken ?Type hydrochlorothiazide 25 mg tablet 12.5 mg PO DAILY 06/11/20 Unknown History insulin degludec 200 unit/mL (3 42 units SQ BREAKFAST 06/11/20 Unknown History mL) subcutaneous pen losartan 100 mg tablet 100 mg PO DAILY 06/11/20 Unknown History mirabegron 50 mg tablet,extended 50 mg PO DAILY 06/11/20 Unknown History release 24 hr rosuvastatin 5 mg tablet 5 mg PO QHS 06/11/20 Unknown History sitagliptin phosphate 50 1 tab PO BIDCM 06/11/20 Unknown History mg-metformin 1,000 mg tablet acyclovir 800 mg tablet 800 mg PO 5X/DAY #35 tabs 01/14/21 Unknown Rx ondansetron 4 mg disintegrating 4 mg PO Q8H PRN PRN Nausea #10 tabs 01/14/21 Unknown Rx tablet Allergy/AdvReac Type Severity Reaction Status Date / Time dulaglutide (From Trulicity) Allergy Severe Constipatio Verified 09/03/24 14:18 n semaglutide (From Ozempic) Allergy Severe Constipatio Verified 09/03/24 14:18 n meperidine (From Demerol) Allergy NEEDS Verified 09/03/24 14:18 FOLLOW-UP atorvastatin (From Lipitor) AdvReac Mild Other Verified 09/03/24 14:18 Social History Smoking Status: Never smoker Vital Signs Vital Signs Vital Signs: 09/03/24 14:06 Temperature 98.8 F Temperature Source Temporal Pulse Rate 108 H Respiratory Rate 18 Blood Pressure 153/81 H Blood Pressure Mean 105 Blood Pressure Source Monitor Blood Pressure Position Sitting Blood Pressure Location Left Arm Oxygen Delivery Method Room Air Weight Weight: 200 lb Body Mass Index (BMI) 34.3 Physical Exam Const alert, oriented x3 and no apparent distress General Appearance: cooperative and anxious HEENT normocephalic, head/scalp atraumatic, hearing grossly normal bilaterally, external ears normal and external nose normal Eyes EOMs intact bilaterally General Eye: normal appearance of both eyes Neck General: normal visual inspection and trachea midline Resp normal respiratory effort Effort and Inspection: able to speak in complete sentences Cardio regular rate and regular rhythm Extremity Extremity Narrative: Bilateral lower extremity pitting edema, 1+ right leg and 2+ left leg. Skin Wounds: wounds noted Wound Narrative: Posterior left calf ulceration which measures 0.6 x 0.6 x 0.3 cm with moderate adherent slough at the base, but once debrided with pink well bleeding tissue. There is no tunneling or undermining. There is no erythema, focal edema/fluctuance/induration, drainage/purulence, foul odor. Neuro oriented x3, CN's II-XII intact bilaterally and moves all extremities Speech: speech normal Psych mental status grossly normal Appearance: grossly normal Attitude: engaged Speech: normal speech Mood & Affect: euthymic mood Judgement: judgement good Debridement Note Debridement Note Wound debrided: L posterior calf Laterality: Left Type of Debridement: Excisional debridement Anesthesia Used: 5% Lidocaine Gel Depth: Down to and including healthy tissue and in the subcutaneous layer Percentage of wound debrided: 100 Instrument Used: 3mm curette Tissue Removed: slough, devitalized tissue Severity: Fat Layer Exposed Amount of bleeding with debridement: Mild Bleeding Controlled with: Pressure Patient tolerated procedure: Patient tolerated procedure well Post-Debridement Measurements and Additional Note: Post-Debridement Measurements/Treatment BIJAN - Nurse 1 - General Ulcer Assessment Start: 09/03/24 14:04 Freq: Status: Active Protocol: CAMILLA Activity Type Activity Date Activity User E-sign Co-sign Detail Recorded Client Recorded Date Recorded By Document 10/17/24 14:06 KW [id number] 09/03/24 14:16 KW 09/03/24 14:06 WC - Today's Visit Information Type of service Initial Visit Arrival Mode Ambulatory Patient Identification Verified (Name & Yes ) Finger Stick Blood Sugar(mg/dl) (if 120 indicated): Blood Sugar Stated by Patient Height and Weight Height 5 ft 4 in Weight 200 lb Weight in Pounds 200.0 lbs Body Mass Index (BMI) 34.3 BMI Classification Obese BSA - Constantine 1.96 Vital Signs Temperature (97.8 F-99.1 F) 98.8 F Temperature Source Temporal Pulse Rate (60-100) 108 H Pulse Location Monitor Respiratory Rate (12-18) 18 Respiratory rate source Observation Oxygen Delivery Method Room Air Blood Pressure (90/60-120/80) 153/81 H Blood Pressure Mean 105 Source Monitor Position Sitting Blood Pressure Location Left Arm History Since Last Visit- (Skip if this is Patient's initial visit) Left Footwear Regular Shoe Right Footwear Regular Shoe Pain Scale: 0-10 Numeric Is Patient Pain Free? Yes Lower Extremity Assessment/ Foot Assessment/ Toe Nail Assessment Right -Posterior Tibial Palpable Yes -Posterior Tibial Doppler Multiphasic -Dorsalis Pedis Palpable Yes -Dorsalis Pedis Doppler Multiphasic -Hair Growth on Legs Yes -Hair Growth on Toes No -Thick No -Discolored No -Deformed No -Improper Length & Hygeine No Left -Posterior Tibial Palpable Yes -Posterior Tibial Doppler Multiphasic -Dorsalis Pedis Palpable Yes -Dorsalis Pedis Doppler Multiphasic -Extremity Color Red -Hair Growth on Legs Yes -Hair Growth on Toes No -Thick No -Discolored No -Deformed No -Improper Length & Hygeine No Communication Assessment Preferred language Polish Able to Read Yes Able to Write Yes Communication Tools None Caregiver Communication Skills No Impairment Impairment Right Hearing Abillity Normal Left Hearing Abillity Normal Visual Assistive Devices None Teaching Assessment Preferences Verbal,Written, Demonstration Barriers to Learning None Readiness To Learn Excellent Willingness to Engage in Self Management High Activies Readiness to Engage in Self Management High Activities Anxiety Level Calm Cooperation Cooperative Perception Coherent Interest in Health Problem Asks Questions Education Importance Acknowledges Need Does Patient Smoke tobacco or other Yes substances Smoking Status Never smoker Is Patient Diabetic Yes Functional Assessment Recent Decline in Ability to Perform Denies Any Declines Culture/Taoism/Bale Stacker Cultural/Taoism Needs that may affect No Treatment Plan Would you allow our hospital preschool principal to No meet you for the purpose of spiritual/ emotional support? Bale Stacker to contact place of sikh No WC - Nurse 1 - General Ulcer Measurement Start: 09/03/24 14:04 Freq: Status: Active Protocol: Activity Type Activity Date Activity User E-sign Co-sign Detail Recorded Client Recorded Date Recorded By Document 09/03/24 14:06 KW [id number] 09/03/24 14:16 09/03/24 14:06 Wound Center Nurse 1 #1 LT POST LE -Current Size (cm) - Length 0.6 -Current Size (cm) - Width 0.6 -Current Size (cm) - Depth 0.2 -Total Square Cm 0.36 -Date of Last Picture (Recall this 09/03/24 field) -Wound Margin Distinct, Outline Attached -Granulation Amt None Present (0 %) -Necrosis Amt Large (67-100%) -Necrotic Tissue Type Adherent Slough -Texture (Radha-wound Skin Appearance) Assessed -Moisture (Radha-wound Skin Appearance) Assessed -Color (Radha-wound Skin Appearance) Assessed, Erythema -Temperature (Radha-wound Skin No Abnormality Appearance) (Pt Warm) -Tenderness on Palpation (Radha-wound No Skin Appearance) -Ulcer Cleansing Rinsed/ Irrigated with Saline -Foul Odor after Cleansing No -Anesthetic Used 5% Lidocaine Gel Right Calf (cm) 30.4 Right Ankle (cm) 23 Left Calf (cm) 37 Left Ankle (cm) 25 WC - Nurse 2 - General Ulcer CM Notes Start: 09/03/24 14:04 Freq: Status: Active Protocol: Activity Type Activity Date Activity User E-sign Co-sign Detail Recorded Client Recorded Date Recorded By Document 09/03/24 14:27 [id number] 09/03/24 14:39 09/03/24 14:27 Wound Center Nurse 2 #1 LT POST LE -Time 14:27 -Correct Patient Yes -Correct Side, Site, Position Yes -Correct Procedure Yes -Procedure Performed Yes -Type of Procedure Debridement -Clinical Debridement Subcutaneous -Tissue Removed Subcutaneous -Post Debridement (cm) - Length 0.6 -Post Debridement (cm) - Width 0.6 -Post Debridement (cm) - Depth 0.3 -Total Square (Post) (cm) 0.36 -Area of Debridement (cm) - Length 0.6 -Area of Debridement (cm) - Width 0.6 -Total Square (Area) (cm) 0.36 -Tunneling No -Undermining/Tunneling No -Circular Undermining No -Wound/Ulcer Outcome Not Healed -Ulcer Cleansing Rinsed/ Irrigated with Saline -Foul Odor after Cleansing No -Bioengineered Tissue No -Bleeding Controlled with Pressure -Treatment Response Procedure Tolerated Well -Debridement - Subq, 1st 20sq cm Yes Pain Scale: 0-10 Numeric Is Patient Pain Free? Yes Charges/Coding Visit Charges Office Visits / Consults: 82330 OV L3 New 30min Procedures Integumentary [id number]: [id number] Connie subq tissue 20 sq cm/< Assessment/Plan Assessment/Plan (1) Ulcer of left calf with fat layer exposed: CODE(S): L97.222 - Non-pressure chronic ulcer of left calf with fat layer exposed (2) Type 2 diabetes mellitus: CODE(S): E11.9 - Type 2 diabetes mellitus without complications (3) Bilateral lower extremity edema: CODE(S): R60.0 - Localized edema PLAN: Plan For wound care, I have prescribed Santyl. She is instructed to apply a nickel thick layer of Santyl to the wound bed, cover with moist gauze followed by an [place] SAP border dressing. Change this dressing daily or more often as needed to keep clean and dry. With dressing changes, wash the area with soap and water and pat well to dry. It is okay to shower but no submerging the wound such as to take a bath or swim. We discussed the importance of compression in both wound healing and ultimately and prevention of recurrence as well. For now, we will apply double layer medium strength Tubigrip's bilaterally. Ultimately, she will need to get measured for compression stockings, may be able to obtain a more cooling type of fabric. She is out of town next week. She will return to see me in 2 weeks. She will call in or return sooner as needed.
--- NOTE | 2024-09-07 13:22 | WC ---
PHOTO 09/03/24 LEFT POST LE
== END 2024-09-18 11:59 | disposition home or self-care (01) ==
LOC: WC 13:51
PROVIDERS: PCP Family Medicine; Referring Provider Family Medicine; Visit Provider Physician Assistant
DX: E11.622 Type 2 diabetes mellitus with other skin ulcer (principal); L97.222 Non-pressure chronic ulcer of left calf with fat layer exposed; Z79.4 Long term (current) use of insulin; R60.0 Localized edema; Z79.84 Long term (current) use of oral hypoglycemic drugs; Z79.899 Other long term (current) drug therapy
CPT/HCPCS: 11042; 99203; G0463

== ENCOUNTER 2024-10-03 10:39 | Emergency (ER) | payer BC, SELFPAY ==
[2024-10-03 10:40] VITALS: BP 144/73; PULSE 102; RESP 16; TEMP 35.8; O2SAT 100; BMI 34.7
--- NOTE | 2024-10-03 11:14 | RAD_ITS ---
HISTORY: pain, wound. TECHNIQUE: XR Tibia/Fibula 2 Views. COMPARISON: None. FINDINGS: BONES : No acute fracture identified. Mineralization unremarkable. JOINTS: No dislocation. Joint spaces maintained. SOFT TISSUES: Mild soft tissue swelling of the leg. Moderate soft tissue swelling of the ankle. RAD/Tibia & Fibula 2 Views IMPRESSION: Soft tissue swelling of the left leg without acute osseous abnormality identified. Electronically Signed: Breana Santos MD at 12:13 EST ,
[2024-10-03 11:15] VITALS: O2SAT 98
--- NOTE | 2024-10-03 11:18 | ED.VIS.LOWEX ---
HPI History of Present Illness Chief Complaint: Wound Narrative Narrative: 69-year-old female past medical history of diabetes, has had a left lower extremity wound since the end of May, for the last 3 to 4 months. She states it started out as a water blister, and her primary care provider sent her to the wound care clinic. She started having problems and pain on a small area/ulcer that she has had for the last few months. On Saturday, she started having pain of her left lower extremity. She states she was told to wear compression stockings. She remove them this morning and noticed a lot of redness to the anterior aspect of her left lower extremity. Additionally, she is having a lot of pain in the area of a small ulcer behind her leg. She has noticed clear drainage from the area. She felt feverish over the last few days. No nausea or vomiting, no other symptoms. PFSH PFSH Home Medications ?Medication ?Instructions ?Recorded ?Last Taken ?Type hydrochlorothiazide 25 mg tablet 12.5 mg PO DAILY 06/11/20 Unknown History insulin degludec 200 unit/mL (3 42 units SQ BREAKFAST 06/11/20 Unknown History mL) subcutaneous pen losartan 100 mg tablet 100 mg PO DAILY 06/11/20 Unknown History mirabegron 50 mg tablet,extended 50 mg PO DAILY 06/11/20 Unknown History release 24 hr rosuvastatin 5 mg tablet 5 mg PO QHS 06/11/20 Unknown History sitagliptin phosphate 50 1 tab PO BIDCM 06/11/20 Unknown History mg-metformin 1,000 mg tablet acyclovir 800 mg tablet 800 mg PO 5X/DAY #35 tabs 01/14/21 Unknown Rx ondansetron 4 mg disintegrating 4 mg PO Q8H PRN PRN Nausea #10 tabs 01/14/21 Unknown Rx tablet amoxicillin 875 mg-potassium 1 tab PO BID #20 tabs 10/03/24 Unknown Rx clavulanate 125 mg tablet tramadol 50 mg tablet 50 mg PO Q6H PRN pain #12 tabs 10/03/24 Unknown Rx Allergy/AdvReac Type Severity Reaction Status Date / Time dulaglutide (From Trulicity) Allergy Severe Constipatio Verified 09/03/24 14:18 n semaglutide (From Ozempic) Allergy Severe Constipatio Verified 09/03/24 14:18 n meperidine (From Demerol) Allergy NEEDS Verified 09/03/24 14:18 FOLLOW-UP atorvastatin (From Lipitor) AdvReac Mild Other Verified 09/03/24 14:18 Social History Smoking Status: Never smoker ROS ROS ED ROS Narrative Constitutional: Positive subjective fever over the last few days, occasional chills. HEENT: No sore throat. No neck pain. No loss of vision. No rhinorrhea. Cardiovascular: No chest pain. No palpitations. Positive pedal edema. Respiratory: No cough, no shortness of breath. Abdominal: No abdominal pain. No nausea. No vomiting. Genitourinary: No dysuria. No hematuria. Musculoskeletal: Posterior left lower extremity pain. No arthralgias. Neurologic: No headaches. No dizziness. No lightheadedness. Skin: No rash. Positive redness to left anterior tibial area. Psychiatric: No depression. No anxiety. EXAM Physical Exam Narrative Exam Narrative: Afebrile. Vital signs noted. Nontoxic-appearing. Head is normocephalic and atraumatic. Cardiovascular examination reveals a regular rate and rhythm with intermittent tachycardia just above 100 bpm. Lungs are clear to auscultation bilaterally. Abdomen soft and nontender with normal active bowel sounds. Inspection of the left lower extremity does show mild pedal edema with clear drainage from a small ulceration on the posterior calf, or little more distally. There is anterior erythema on the anterior tibial area. Palpable dorsalis pedis pulse. No crepitance. Const Vital Signs: 10/03/24 10:40 10/03/24 11:15 10/03/24 11:41 Temperature 96.4 F L 98.2 F Temperature Source Temporal Oral Pulse Rate 102 H 94 Respiratory Rate 16 19 H Blood Pressure 144/73 H 158/91 H Blood Pressure Mean 96 113 Pulse Ox 100 98 98 Oxygen Delivery Method Room Air Room Air 10/03/24 12:00 Temperature 98.4 F Temperature Source Oral Pulse Rate 89 Respiratory Rate 19 H Blood Pressure 141/78 H Blood Pressure Mean 99 Pulse Ox 98 Oxygen Delivery Method Room Air MDM MDM MDM Narrative Medical decision making narrative: Differential diagnosis includes but not limited to cellulitis with chronic lymphedema skin ulceration posteriorly. Lower on the differential is necrotizing fasciitis versus osteomyelitis. I have low concern for DVT, she is not having chest pain or shortness of breath. Given her clear drainage from her ulcer, I do feel that antibiotics are indicated. I will obtain baseline laboratories. This includes CBC and CMP, and I do feel lactic acid is indicated currently. She is not hypotensive. I reviewed her laboratory work and she has normal white count of 9.1, hemoglobin 14.5, hematocrit 44.4, platelet count normal at 220. CMP is significant for glucose of 165 with a normal anion gap of 7. Sodium and potassium are normal. Lactic acid normal at 1.3. X-rays of the left lower extremity/tibia and fibula interpreted by myself independently shows no evidence of gas in the tissue or bony erosion, no osteomyelitis. I reviewed the radiology report which confirms my independent interpretation and comments on soft tissue swelling. At this point in time, I feel she can be discharged for follow-up with the wound care center regarding the ulcer of her left lower extremity. Given that she has cellulitis she was given her first dose of Augmentin here in the emergency department and prescription to take twice a day for the next 10 days. She will continue wound care at home. Her leg ulceration was dressed by RN. I do not feel she requires observation currently and I have low suspicion for sepsis as she is not really meeting SIRS criteria and she is not tachycardic currently. She was also written a prescription for Ultram. Return instructions to the emergency department were reviewed. Disposition is discharged home in stable condition. History & Record Review Discussion w/independent historian: Patient Additional record(s) reviewed:: Prior ED visit Lab Data Attestation: I reviewed the patient's lab results. Labs: Laboratory Results - last 24 hr 10/03/24 11:28 WBC 9.1 RBC 4.89 Hgb 14.5 Hct 44.4 MCV 90.8 MCH 29.7 MCHC 32.7 RDW Std Deviation 44.2 H RDW Coeff of Ale 13.3 Plt Count 220 MPV 10.8 Immature Gran % (Auto) 0.400 Neut % (Auto) 71.2 H Lymph % (Auto) 18.5 L Shannon % (Auto) 7.4 Eos % (Auto) 2.1 Baso % (Auto) 0.4 Absolute Neuts (auto) 6.5 Absolute Lymphs (auto) 1.69 Nucleated RBC % 0 Sodium 137 Potassium 3.6 Chloride 101 Carbon Dioxide 29.0 Anion Gap 7 BUN 17 Creatinine 0.78 Estim Creat Clear Calc 72.84 Est GFR (MDRD) Af Amer 94 Est GFR (MDRD) Non-Af 78 BUN/Creatinine Ratio 21.8 H Glucose 165 H Lactic Acid 1.3 Calcium 9.4 Total Bilirubin 0.60 AST 21 ALT 35 Alkaline Phosphatase 85 Total Protein 7.4 Albumin 3.7 Globulin 3.7 Albumin/Globulin Ratio 1.0 Radiography Diagnostic Testing: Clinical Impression(s) from Imaging Studies Tibia/Fibula X-Ray 10/03/24 11:14 IMPRESSION: Soft tissue swelling of the left leg without acute osseous abnormality identified. Electronically Signed: Breana Santos MD at 12:13 EST , Discharge Plan Triage Chief Complaint: Wound ED Provider: Nithin Fung Dx/Rx/DC Orders Clinical Impression: Ulcer of left calf with fat layer exposed, Cellulitis of left leg Instructions: ED Cellulitis, ED Venous Leg Ulcer, ED Wound Care Prescriptions: New amoxicillin-pot clavulanate 875-125 mg tablet 1 tab PO BID Qty: 20 0RF tramadol 50 mg tablet 50 mg PO Q6H PRN (Reason: pain) Qty: 12 0RF No Action hydrochlorothiazide 25 MG tablet 12.5 mg PO DAILY losartan 100 MG tablet 100 mg PO DAILY rosuvastatin 5 MG tablet 5 mg PO QHS sitagliptin phos-metformin 1 TABLET tablet 1 tab PO BIDCM mirabegron 50 MG tablet extended release 24 hr 50 mg PO DAILY insulin degludec 200 unit/mL (3 mL) insulin pen 42 units SQ BREAKFAST acyclovir 800 MG tablet 800 mg PO 5X/DAY Qty: 35 0RF ondansetron 4 MG tablet 4 mg PO Q8H PRN PRN (Reason: Nausea) Qty: 10 0RF Primary Care Provider: Bobby Vazquez Referrals: Bobby Vazquez MD [Primary Care Provider] - 3-5 Days if not improving [facility] [Non-Staff] - 3-5 Days Activity Restrictions/Additional Instructions: Continue wound care as previously directed. Take antibiotics. Follow-up with wound care center as scheduled on . Return with fever, drainage of pus from the ulcer. New or worsening symptoms. Print Language: Estonian Disposition Disposition: Home, Self Care
[2024-10-03 11:41] VITALS: BP 158/91; PULSE 94; RESP 19; TEMP 36.8; O2SAT 98
[2024-10-03 11:55] LABS: AST(SGOT) 21 U/L (15-37); Absolute Lymphocyte Count 1.69 X10^3/uL (0.83-4.51); Absolute Neutrophil Count 6.5 X10^3/uL (2.0-7.7); Alanine Aminotransfer ALT/SGPT 35 U/L (13-56); Albumin, Serum 3.7 g/dL (3.2-5.0); Alkaline Phosphatase 85 U/L (45-117); Anion Gap 7 (5-15); BUN 17 mg/dL (7-18); BUN/Creat Ratio 21.8 RATIO (10-20); Basophil# 0.04 X10^3/uL; Basophil% 0.4 % (0-1); Calcium,Total 9.4 mg/dL (8.5-10.1); Chloride 101 mmol/L (98-107); Creatinine, Serum 0.78 mg/dL (0.55-1.02); EST Glomerular Filtration Rate 78 mL/min (>60); Eosinophil# 0.19 X10^3/uL; Eosinophils% 2.1 % (0-5); Est Glom Filt Rate - Afr Amer 94 mL/min (>60); Estimated Creatinine Clearance 72.84 ml/min; Globulin 3.7 g/dL (2.2-4.2); Glucose 165 mg/dL (74-106); Hematocrit 44.4 % (37-47); Hemoglobin 14.5 g/dL (12.0-15.0); Lymphocyte # 1.69 X10^3/ul (0.83-4.51); Lymphocyte % 18.5 % (19-41); Mean Corp Hgb Conc 32.7 g/dL (32-36); Mean Corpuscular Hgb 29.7 pg (27.0-32.0); Mean Corpuscular Volume 90.8 fL (81-99); Mean Platelet Vol. 10.8 fl (6.2-12.0); Monocyte# 0.68 X10^3/uL; Monocyte% 7.4 % (0-10); NRBC Flagged by Analyzer 0 % (0-5); Neutrophil # 6.49 X10^3/uL (2.7-7.7); Neutrophil % 71.2 % (47-70); Platelet Count 220 K/mm3 (150-450); Potassium 3.6 mmol/L (3.5-5.1); Protein, Total 7.4 g/dL (6.4-8.2); RBC Distribution Width CV 13.3 % (11.6-14.6); RBC Distribution Width SD 44.2 fl (35.1-43.9); Red Blood Count 4.89 M/mm3 (4.2-5.4); Sodium Level 137 mmol/L (136-145); White Blood Count 9.1 K/mm3 (4.4-11.0)
[2024-10-03 12:00] VITALS: BP 141/78; PULSE 89; RESP 19; TEMP 36.9; O2SAT 98
[2024-10-03 12:05] LABS: Lactic Acid 1.3 mmol/L (0.4-1.9)
--- NOTE | 2024-10-03 12:33 | ED.RN ---
Patient assisted with ambulating to the bathroom. Patient did state that she had increased pain upon ambulation.
[2024-10-03] MEDS: Amox/Clavulanate 875 MG Tablet PO (12:56)
[2024-10-03 12:57] VITALS: BP 110/59; PULSE 78; RESP 19; TEMP 36.8; O2SAT 97
== END 2024-10-03 12:58 | disposition home or self-care (01) ==
PROVIDERS: Emergency Provider Emergency Medicine; PCP Family Medicine; Visit Provider Emergency Medicine
DX: E11.622 Type 2 diabetes mellitus with other skin ulcer (principal); L97.222 Non-pressure chronic ulcer of left calf with fat layer exposed; E11.628 Type 2 diabetes mellitus with other skin complications; Z79.4 Long term (current) use of insulin; L03.116 Cellulitis of left lower limb; Z79.84 Long term (current) use of oral hypoglycemic drugs
CPT/HCPCS: 73590; 80053; 83605; 85025; 99283; J2405

== ENCOUNTER 2024-10-08 13:51 | Outpatient (RCR) | payer BC, SELFPAY ==
[2024-09-18 00:51] VITALS: BP 153/81; PULSE 108; RESP 18; TEMP 37.1; BMI 34.3
[2024-10-08 14:06] VITALS: BP 130/71; PULSE 102; RESP 15; TEMP 36.3; BMI 34.3
--- NOTE | 2024-10-08 17:38 | HP.PCM_ITS ---
History of Present Illness Date of Service: 10/08/24 Chief Complaint: Left posterior calf wound History of Wound: Josy Smith is a 69-year-old female who returns today for management of a left posterior calf wound. It seen her little over a month ago for the same wound and she was lost to follow-up. Then last week she developed increased redness and pain at the wound along with fevers and presented to the ER. She was prescribed Augmentin and referred back here. Since her last visit, along with the symptoms of infection she also notes the wounds seem to enlarge. She also now has a blister on the anterior aspect of the left nelson. She has not been wearing compression because she reports it was too painful against the wound. She has not really been elevating, she reports she does not have anywhere in her home to elevate. Recall the following: This ulceration has been present since the end of May of this year. She reports that around that time her AC had gone out in her house and was out for several weeks so her house was very warm and she noticed significantly increased lower extremity edema. Eventually, a blister formed on her posterior calf and after rupturing left behind this ulceration. At home, she has been caring for this by applying antibiotic ointment and leaving it open to air. She denies any expanding redness, warmth, excess drainage, foul odor. Her swelling has since improved back to her baseline. She does have significant bilateral lower extremity edema at baseline and this has been ongoing for several years. She is diabetic, last A1c was 7.7. She does not smoke. She denies any history of VTE. She does not wear compression, she reports it makes her legs and feet feel too hot. [facility] Home Medications ?Medication ?Instructions ?Recorded ?Last Taken ?Type hydrochlorothiazide 25 mg tablet 12.5 mg PO DAILY 06/11/20 Unknown History insulin degludec 200 unit/mL (3 42 units SQ BREAKFAST 06/11/20 Unknown History mL) subcutaneous pen losartan 100 mg tablet 100 mg PO DAILY 06/11/20 Unknown History mirabegron 50 mg tablet,extended 50 mg PO DAILY 06/11/20 Unknown History release 24 hr rosuvastatin 5 mg tablet 5 mg PO QHS 06/11/20 Unknown History sitagliptin phosphate 50 1 tab PO BIDCM 06/11/20 Unknown History mg-metformin 1,000 mg tablet acyclovir 800 mg tablet 800 mg PO 5X/DAY #35 tabs 01/14/21 Unknown Rx ondansetron 4 mg disintegrating 4 mg PO Q8H PRN PRN Nausea #10 tabs 01/14/21 Unknown Rx tablet amoxicillin 875 mg-potassium 1 tab PO BID #20 tabs 10/03/24 Unknown Rx clavulanate 125 mg tablet tramadol 50 mg tablet 50 mg PO Q6H PRN pain #12 tabs 10/03/24 Unknown Rx Allergy/AdvReac Type Severity Reaction Status Date / Time dulaglutide (From Trulicity) Allergy Severe Constipatio Verified 09/03/24 14:18 n semaglutide (From Ozempic) Allergy Severe Constipatio Verified 09/03/24 14:18 n meperidine (From Demerol) Allergy NEEDS Verified 09/03/24 14:18 FOLLOW-UP atorvastatin (From Lipitor) AdvReac Mild Other Verified 09/03/24 14:18 Social History Smoking Status: Never smoker Vital Signs Vital Signs Vital Signs: 10/08/24 14:06 Temperature 97.3 F L Temperature Source Temporal Pulse Rate 102 H Respiratory Rate 15 Blood Pressure 130/71 H Blood Pressure Mean 90 Blood Pressure Source Monitor Blood Pressure Position Sitting Blood Pressure Location Left Arm Weight Weight: 200 lb Body Mass Index (BMI) 34.3 Physical Exam Const alert, oriented x3 and no apparent distress General Appearance: cooperative and anxious HEENT normocephalic, head/scalp atraumatic, hearing grossly normal bilaterally, external ears normal and external nose normal Eyes EOMs intact bilaterally General Eye: normal appearance of both eyes Neck General: normal visual inspection and trachea midline Resp normal respiratory effort Effort and Inspection: able to speak in complete sentences Cardio regular rate and regular rhythm Extremity Extremity Narrative: Bilateral lower extremity pitting edema, 1+ right leg and 2+ left leg. Skin Wounds: wounds noted Wound Narrative: Posterior left calf ulceration which is now significantly enlarged to 5.2 x 6.4 x 0.3 cm with moderate slough at the base, but otherwise pink well bleeding tissue. There is no tunneling or undermining. There is no erythema, focal edema/fluctuance/induration, drainage/purulence, foul odor. She also has a large fluid-filled blister on the anterior left nelson which asim sures 4.8 x 5.5 cm Neuro oriented x3, CN's II-XII intact bilaterally and moves all extremities Speech: speech normal Psych mental status grossly normal Appearance: grossly normal Attitude: engaged Speech: normal speech Mood & Affect: euthymic mood Judgement: judgement good Debridement Note Debridement Note Wound debrided: Left posterior calf Type of Debridement: Selective debridement Anesthesia Used: 4% Lidocaine Solution Depth: Down to and including healthy tissue (Epidermis/dermis) Percentage of wound debrided: 50 Instrument Used: - (Moistened gauze) Tissue Removed: Slough Severity: Fat Layer Exposed Amount of bleeding with debridement: None Patient tolerated procedure: Patient tolerated procedure well Post-Debridement Measurements and Additional Note: Post-Debridement Measurements/Treatment - Nurse 1 - General Ulcer Assessment Start: 10/08/24 14:06 Freq: Status: Active Protocol: CAMILLA Activity Type Activity Date Activity User E-sign Co-sign Detail Recorded Client Recorded Date Recorded By Document 10/08/24 14:06 ML [id number] 10/08/24 14:14 ML Edit Result 10/08/24 14:06 ML (1) [id number] 10/08/24 14:16 ML (1) Temperature (97.8 F-99.1 F) => 97.3 F L Temperature Source => Temporal Pulse Rate (60-100) => 102 H Pulse Location => Monitor Respiratory Rate (12-18) => 15 Respiratory rate source => Observation Blood Pressure (90/60-120/80) => 130/71 H Blood Pressure Mean => 90 Source => Monitor Position => Sitting Blood Pressure Location => Left Arm 10/08/24 14:06 - Today's Visit Information Type of service Follow-up Visit (Physician/ROOM SERVICE ASSOCIATE ) Arrival Mode Ambulatory Transfer Assistance None Patient Identification Verified (Name & Yes ) Patient Requires Transmission-Based No Precautions Height and Weight Body Mass Index (BMI) 34.3 BMI Classification Obese Vital Signs Temperature (97.8 F-99.1 F) 97.3 F L Temperature Source Temporal Pulse Rate (60-100) 102 H Pulse Location Monitor Respiratory Rate (12-18) 15 Respiratory rate source Observation Blood Pressure (90/60-120/80) 130/71 H Blood Pressure Mean 90 Source Monitor Position Sitting Blood Pressure Location Left Arm History Since Last Visit- (Skip if this is Patient's initial visit) Have you changed medications since your No last visit? Any new allergies or adverse reactions No Had a fall/change in ADL's that may No increase risk of falls Signs or symptoms of abuse and/or No neglect since last visit Have you been in the hospital since your Yes last visit? Has dressing in place as prescribed No Has compression in place as prescribed N/A Has offloadiing in place as prescribed N/A Experienced any changes in pain level or No management Pain Scale: 0-10 Numeric Is Patient Pain Free? Yes WC - Nurse 1 - General Ulcer Measurement Start: 10/08/24 14:06 Freq: Status: Active Protocol: Activity Type Activity Date Activity User E-sign Co-sign Detail Recorded Client Recorded Date Recorded By Document 10/08/24 14:06 ML [id number] 10/08/24 14:14 ML 10/08/24 14:06 Wound Center Nurse 1 #1 LT POST LE -Current Size (cm) - Length 8 -Current Size (cm) - Width 3 -Current Size (cm) - Depth 0.1 -Total Square Cm 24 -Exudate Amt Medium -Exudate Type Serosanguineous -Wound Margin Distinct, Outline Attached -Granulation Amt Medium (34-66%) -Slough/Fibrin No -Necrosis Amt None Present (0 %) -Texture (Radha-wound Skin Appearance) Not Assessed -Moisture (Radha-wound Skin Appearance) Weeping -Color (Radha-wound Skin Appearance) Assessed -Temperature (Radha-wound Skin No Abnormality Appearance) (Pt Warm) -Tenderness on Palpation (Radha-wound No Skin Appearance) -Ulcer Cleansing Rinsed/ Irrigated with Saline -Foul Odor after Cleansing No -Anesthetic Used 5% Lidocaine Gel Right Calf (cm) 38 Right Ankle (cm) 24 Left Calf (cm) 45 Left Ankle (cm) 29 WC - Nurse 2 - General Ulcer CM Notes Start: 10/08/24 14:06 Freq: Status: Active Protocol: Activity Type Activity Date Activity User E-sign Co-sign Detail Recorded Client Recorded Date Recorded By Document 10/08/24 14:33 GM [id number] 10/08/24 14:47 GM Edit Result 10/08/24 14:33 GM (1) [id number] 10/08/24 16:07 GM (1) #1 LT POST LE - Debridement, Open, ea addt'l 20sq cm => 1 or part thereof 10/08/24 14:33 Wound Center Nurse 2 #2 Left Anterior Lower Leg -Time 14:37 -Correct Patient Yes -Correct Side, Site, Position Yes -Wound Comment(s) Blister from edema 4.8x5.5 #1 LT POST LE -Time 14:37 -Correct Patient Yes -Correct Side, Site, Position Yes -Correct Procedure Yes -Procedure Performed Yes -Type of Procedure Debridement -Clinical Debridement Epidermis / Dermis -Tissue Removed Epidermis -Post Debridement (cm) - Length 5.2 -Post Debridement (cm) - Width 6.4 -Post Debridement (cm) - Depth 0.3 -Total Square (Post) (cm) 33.28 -Area of Debridement (cm) - Length 5.2 -Area of Debridement (cm) - Width 6.4 -Total Square (Area) (cm) 33.28 -Tunneling No -Undermining/Tunneling No -Circular Undermining No -Wound/Ulcer Outcome Not Healed -Ulcer Cleansing Rinsed/ Irrigated with Saline -Foul Odor after Cleansing No -Bioengineered Tissue No -Bleeding Controlled with Pressure -Treatment Response Procedure Tolerated Well -Debridement - Open, 1st 20sq cm Yes -Debridement, Open, ea addt'l 20sq cm 1 or part thereof Pain Scale: 0-10 Numeric Is Patient Pain Free? Yes WC - Nurse 3 - General Ulcer D/C NN Start: 10/08/24 14:06 Freq: Status: Active Protocol: Activity Type Activity Date Activity User E-sign Co-sign Detail Recorded Client Recorded Date Recorded By Document 10/08/24 15:07 [facility] [id number] 10/08/24 15:09 [facility] 10/08/24 15:07 Wound Care Center Nurse 3 #2 Left Anterior Lower Leg -Ulcer Cleansing Rinsed/ Irrigated with Saline -Foul Odor after Cleansing No -Primary Dressing Applied NonAdherent Contact Layer -Primary Dressing Covered/Secured with Dry Gauze & Roll Gauze, Secured with Tape -Other Covering abd #1 LT POST LE -Ulcer Cleansing Rinsed/ Irrigated with Saline -Foul Odor after Cleansing No -Primary Dressing Applied Aquacel AG 4x4, Optilok 6.5x10 -Primary Dressing Covered/Secured with Dry Gauze & Roll Gauze, Secured with Tape -Aquacel AG 4x4 2 -Optilok 6.5x10 1 Left -Tubular Bandage Single Layer -Size of Tubigrip Used Size E -Size E ($) 1 Treatment Response Procedure Tolerated Well Pain Scale: 0-10 Numeric Is Patient Pain Free? Yes WC - Visit Discharge Discharge Condition Stable Ambulatory Status Ambulatory Transportation Private Auto Charges/Coding Wound Center CF Procedures [id number]: 25091 RMVL DEVITAL TIS 20 CM/< Multi Select Codes Wound Center CF Procedures [id number]: [id number] RMVL DEVITAL TIS 20 CM/< Assessment/Plan Assessment/Plan (1) Ulcer of left calf with fat layer exposed: CODE(S): L97.222 - Non-pressure chronic ulcer of left calf with fat layer exposed (2) Type 2 diabetes mellitus: CODE(S): E11.9 - Type 2 diabetes mellitus without complications (3) Bilateral lower extremity edema: CODE(S): R60.0 - Localized edema PLAN: Plan I did obtain wound cultures today. Will follow-up on C&S results and adjust antibiotic regimen as indicated. For wound care, wash the area with antibacterial soap and water then pat to dry, then apply Aquacel silver to the wound bed followed by dry dressing including superabsorbent pad followed by Kerlix/gauze wrap. For the blister, cover with Adaptic and then included dry gauze wrap as above. We again discussed the importance of compression in both wound healing and ultimately and prevention of recurrence as well. I asked that she try to wear the Tubigrip's, hopefully this will be more comfortable as the infection resolves. Will use single layer medium strength Tubigrip's bilaterally. Ultimately, she will need to get measured for compression stockings, may be able to obtain a more cooling type of fabric. I also discussed with her the importance of elevating her legs at all times of rest. Nothing particularly special is necessary. Can sit on a couch and elevate the legs on a few pillows or can lie on a bed with legs elevated on a few pillows or sit in a recliner with legs elevated. Is important not to sit for long periods of time with the legs completely dependent as this will exacerbate her edema and therefore delayed wound healing further. Next week is Thanksgiving so we will plan for her to return in 2 weeks, call sooner with any concerns.
--- NOTE | 2024-10-12 11:20 | WC ---
PTS WOUND CX POSITIVE FOR PSEUDOMONAS. NI AMBROSE WILL CALL IN CIPRO RX TO PHARMACY OF CHOICE. ADVISE PT TO TAKE A PROBIOTIC AND AVOID STRENUOUS ACTIVITY. ATTEMPTED TO NOTIFY PT. NO ANSWER. VOICEMAIL IS FULL. MSG LEFT FOR TO HAVE PT CALL FACILITY.
== END 2024-10-17 23:59 | disposition home or self-care (01) ==
LOC: WC 13:51
PROVIDERS: PCP Family Medicine; Referring Provider Family Medicine; Visit Provider Physician Assistant
DX: E11.622 Type 2 diabetes mellitus with other skin ulcer (principal); L97.222 Non-pressure chronic ulcer of left calf with fat layer exposed; Z79.4 Long term (current) use of insulin; R60.0 Localized edema; S80.822A Blister (nonthermal), left lower leg, initial encounter; X58.XXXA Exposure to other specified factors, initial encounter; Z79.84 Long term (current) use of oral hypoglycemic drugs; Z79.899 Other long term (current) drug therapy
CPT/HCPCS: 87070; 87075; 87077; 87186; 87205; 97597; 97598; 99213; G0463

== ENCOUNTER 2024-11-05 15:30 | Outpatient (RCR) | payer BC, SELFPAY ==
[2024-10-18 00:29] VITALS: BP 153/81; PULSE 108; RESP 18; TEMP 37.1; BMI 34.3
[2024-10-22 14:23] VITALS: RESP 18; TEMP 36.2; BMI 34.3
--- NOTE | 2024-10-23 07:19 | PN.PCM_ITS ---
History of Present Illness Date of Service: 10/22/24 Chief Complaint: Left posterior calf wound History of Wound: Josy Smith is a 69-year-old female who presents today for evaluation and management of a left posterior calf wound as referred by her primary care Dr. Vazquez. She reports that this ulceration has been present since the end of May of this year. She reports that around that time her AC had gone out in her house and was out for several weeks so her house was very warm and she noticed significantly increased lower extremity edema. Eventually, a blister formed on her posterior calf and after rupturing left behind this ulceration. At home, she has been caring for this by applying antibiotic ointment and leaving it open to air. She denies any expanding redness, warmth, excess drainage, foul odor. Her swelling has since improved back to her baseline. She does have significant bilateral lower extremity edema at baseline and this has been ongoing for several years. She is diabetic, last A1c was 7.7. She does not smoke. She denies any history of VTE. She does not wear compression, she reports it makes her legs and feet feel too hot. Subjective Subjective She has been taking the cipro as prescribed, no adverse effects to this point. She has been performing wound care as directed, no issues with this. She reports overall less pain around the wounds but she worries they are enlarging. She has not been wearing compression, she reports she wore the compression stockings to bed one night this week and had so much discomfort that she then stopped wearing them. Objective Data Objective Data Vital Signs: Vital Signs Temp Pulse Resp BP O2 Del Method 97.1 F L 108 H 18 153/81 H Room Air 10/22/24 14:23 10/18/24 00:29 10/22/24 14:23 10/18/24 00:29 10/22/24 14:23 Oxygen Delivery Method Room Air Weight: 200 lb Body Mass Index (BMI) 34.3 Charges/Coding Procedures Integumentary 111xxx-113xx: [id number] Connie subq tissue 20 sq cm/< (debridement dermis/epidermis) Physical Exam Const alert, oriented x3 and no apparent distress General Appearance: cooperative and anxious HEENT normocephalic, head/scalp atraumatic, hearing grossly normal bilaterally, external ears normal and external nose normal Eyes EOMs intact bilaterally General Eye: normal appearance of both eyes Neck General: normal visual inspection and trachea midline Resp normal respiratory effort Effort and Inspection: able to speak in complete sentences Cardio regular rate and regular rhythm Extremity Extremity Narrative: Bilateral lower extremity pitting edema, 1+ right leg and 2+ left leg. Skin Wounds: wounds noted Wound Narrative: Posterior left calf ulceration cluster with mild slough at the base, but otherwise pink well bleeding tissue. There is no tunneling or undermining. There is no erythema, focal edema/fluctuance/induration, drainage/purulence, foul odor. Prior large fluid-filled blister on the anterior nelson has resolved/healed, re- epithelialized. Neuro oriented x3, CN's II-XII intact bilaterally and moves all extremities Speech: speech normal Psych mental status grossly normal Appearance: grossly normal Attitude: engaged Speech: normal speech Mood & Affect: euthymic mood Judgement: judgement good Debridement Note Debridement Note Wound debrided: L posterior calf Laterality: Left Type of Debridement: Selective debridement Anesthesia Used: 5% Lidocaine Gel Depth: Down to and including healthy tissue (limited to epidermis/dermis) Percentage of wound debrided: 70 Instrument Used: - (moistened gauze) Tissue Removed: slough Severity: Limited To Skin Breakdown Amount of bleeding with debridement: Mild Bleeding Controlled with: Pressure Patient tolerated procedure: Patient tolerated procedure well Post-Debridement Measurements and Additional Note: Post-Debridement Measurements/Treatment - Nurse 1 - General Ulcer Assessment Start: 10/22/24 14:22 Freq: Status: Active Protocol: WC.LOWEXT Activity Type Activity Date Activity User E-sign Co-sign Detail Recorded Client Recorded Date Recorded By Document 10/22/24 14:23 [id number] 10/22/24 14:38 10/22/24 14:23 - Today's Visit Information Type of service Follow-up Visit (Physician/CLINICAL PRODUCT SPECIALIST ) Arrival Mode Ambulatory Accompanied by Patient Identification Verified (Name & Yes ) Height and Weight Body Mass Index (BMI) 34.3 BMI Classification Obese Vital Signs Temperature (97.8 F-99.1 F) 97.1 F L Temperature Source Temporal Pulse Location Monitor Respiratory Rate (12-18) 18 Respiratory rate source Observation Oxygen Delivery Method Room Air Source Monitor Position Sitting Blood Pressure Location Left Arm History Since Last Visit- (Skip if this is Patient's initial visit) Have you changed medications since your No last visit? Any new allergies or adverse reactions No Had a fall/change in ADL's that may No increase risk of falls Signs or symptoms of abuse and/or No neglect since last visit Have you been in the hospital since your No last visit? Has dressing in place as prescribed Yes Has compression in place as prescribed Yes Has offloadiing in place as prescribed N/A Experienced any changes in pain level or No management Left Footwear Regular Shoe Right Footwear Regular Shoe Pain Scale: 0-10 Numeric Is Patient Pain Free? Yes WC - Nurse 1 - General Ulcer Measurement Start: 10/22/24 14:22 Freq: Status: Active Protocol: Activity Type Activity Date Activity User E-sign Co-sign Detail Recorded Client Recorded Date Recorded By Document 10/22/24 14:23 [email or web address] [id number] 10/22/24 14:38 KW 10/22/24 14:23 Wound Center Nurse 1 #2 Left Anterior Lower Leg -Current Size (cm) - Length 2 -Current Size (cm) - Width 2 -Current Size (cm) - Depth 0 -Total Square Cm 4 -Date of Last Picture (Recall this 10/22/24 field) -Exudate Amt Small -Exudate Type Serosanguineous -Wound Margin Distinct, Outline Attached -Granulation Amt Large (67-100%) -Granulation Quality Red -Necrosis Amt Medium (34-66%) -Necrotic Tissue Type Adherent Slough -Texture (Radha-wound Skin Appearance) Assessed -Moisture (Radha-wound Skin Appearance) Assessed,Dry/ Scaly -Color (Radha-wound Skin Appearance) Assessed -Temperature (Radha-wound Skin No Abnormality Appearance) (Pt Warm) -Tenderness on Palpation (Radha-wound No Skin Appearance) -Ulcer Cleansing Rinsed/ Irrigated with Saline -Foul Odor after Cleansing No -Anesthetic Used 4% Lidocaine Solution #1 LT POST LE -Current Size (cm) - Length 8 -Current Size (cm) - Width 6 -Current Size (cm) - Depth 0.3 -Total Square Cm 48 -Date of Last Picture (Recall this 10/22/24 field) -Photo Taken Yes -Exudate Amt Small -Exudate Type Serosanguineous -Wound Margin Distinct, Outline Attached -Granulation Amt Large (67-100%) -Granulation Quality Red -Necrosis Amt Small (1-33%) -Necrotic Tissue Type Adherent Slough -Texture (Radha-wound Skin Appearance) Assessed -Moisture (Radha-wound Skin Appearance) Assessed,Dry/ Scaly -Color (Radha-wound Skin Appearance) Assessed -Temperature (Radha-wound Skin No Abnormality Appearance) (Pt Warm) -Tenderness on Palpation (Radha-wound No Skin Appearance) -Ulcer Cleansing Rinsed/ Irrigated with Saline -Foul Odor after Cleansing No -Anesthetic Used 4% Lidocaine Solution Left Calf (cm) 40 Left Ankle (cm) 26.8 WC - Nurse 2 - General Ulcer CM Notes Start: 10/22/24 14:22 Freq: Status: Active Protocol: Activity Type Activity Date Activity User E-sign Co-sign Detail Recorded Client Recorded Date Recorded By Document 10/22/24 15:00 [id number] 10/22/24 15:04 10/22/24 15:00 Wound Center Nurse 2 #1 LT POST LE -Time 15:02 -Correct Patient Yes -Correct Side, Site, Position Yes -Correct Procedure Yes -Procedure Performed Yes -Type of Procedure Debridement -Clinical Debridement Epidermis / Dermis -Tissue Removed Epidermis -Post Debridement (cm) - Length 6.0 -Post Debridement (cm) - Width 7.0 -Post Debridement (cm) - Depth 0.2 -Total Square (Post) (cm) 42.00 -Area of Debridement (cm) - Length 6.0 -Area of Debridement (cm) - Width 7.0 -Total Square (Area) (cm) 42.00 -Tunneling No -Undermining/Tunneling No -Circular Undermining No -Wound/Ulcer Outcome Not Healed -Ulcer Cleansing Rinsed/ Irrigated with Saline -Foul Odor after Cleansing No -Bioengineered Tissue No -Bleeding Controlled with NA -Treatment Response Procedure Tolerated Well -Debridement - Open, 1st 20sq cm Yes -Debridement, Open, ea addt'l 20sq cm 2 or part thereof Pain Scale: 0-10 Numeric Is Patient Pain Free? Yes WC - Nurse 3 - General Ulcer D/C NN Start: 10/22/24 14:22 Freq: Status: Active Protocol: Activity Type Activity Date Activity User E-sign Co-sign Detail Recorded Client Recorded Date Recorded By Document 10/22/24 15:18 [email or web address] [id number] 10/22/24 15:20 KW 10/22/24 15:18 Wound Care Center Nurse 3 #2 Left Anterior Lower Leg -Primary Dressing Covered/Secured with Dry Gauze #1 LT POST LE -Primary Dressing Applied Aquacel AG 4x4, Optilok 6.5x10 -Primary Dressing Covered/Secured with Dry Gauze & Roll Gauze, Secured with Tape -Aquacel AG 4x4 1 -Optilok 6.5x10 1 Right -Tubular Bandage Single Layer -Size of Tubigrip Used Size E -Size E ($) 1 Left -Tubular Bandage Single Layer -Size of Tubigrip Used Size E -Size E ($) 1 Pain Scale: 0-10 Numeric Is Patient Pain Free? Yes WC - Visit Discharge Discharge Condition Stable Ambulatory Status Ambulatory Transportation Private Auto Medication Reconcilliation completed & No provided to patient/care provider Clinical Summary of Care Provided Yes Assessment/Plan Assessment/Plan (1) Ulcer of left calf with fat layer exposed: CODE(S): L97.222 - Non-pressure chronic ulcer of left calf with fat layer exposed (2) Type 2 diabetes mellitus: CODE(S): E11.9 - Type 2 diabetes mellitus without complications (3) Bilateral lower extremity edema: CODE(S): R60.0 - Localized edema PLAN: Plan Wound culture grew Pseudomonas aeruginosa. I prescribed Cipro 500mg BID x 14 days, she is tolerating this well so far. For wound care, continue to wash the area with antibacterial soap and water then pat to dry, then apply Aquacel silver to the wound bed followed by dry dressing including superabsorbent pad followed by Kerlix/gauze wrap. We again discussed the importance of compression in both wound healing and ultimately and prevention of recurrence as well. I have instructed her to wear the Tubigrips during the day but remove them to sleep at night. She should apply them first thing in the morning and remove just before bed. Will use single layer medium strength Tubigrip's bilaterally. Ultimately, she will need to get measured for compression stockings, may be able to obtain a more cooling type of fabric. I also discussed with her the importance of elevating her legs at all times of rest. It is important not to sit for long periods of time with the legs completely dependent as this will exacerbate her edema and therefore delayed wound healing further. Return to the clinic in 1 week, call or return sooner as needed.
--- NOTE | 2024-10-23 12:39 | WC ---
PHOTO 10/22/24 LEFT POST LE
[2024-10-29 15:34] VITALS: BP 154/68; PULSE 107; RESP 16; TEMP 36.4; BMI 34.3
--- NOTE | 2024-10-29 16:28 | PCM.WC.PN ---
History of Present Illness Date of Service: 10/29/24 Chief Complaint: Left posterior calf wound History of Wound: Josy Smith is a 69-year-old female who presents today for evaluation and management of a left posterior calf wound as referred by her primary care Dr. Vazquez. She reports that this ulceration has been present since the end of May of this year. She reports that around that time her AC had gone out in her house and was out for several weeks so her house was very warm and she noticed significantly increased lower extremity edema. Eventually, a blister formed on her posterior calf and after rupturing left behind this ulceration. At home, she has been caring for this by applying antibiotic ointment and leaving it open to air. She denies any expanding redness, warmth, excess drainage, foul odor. Her swelling has since improved back to her baseline. She does have significant bilateral lower extremity edema at baseline and this has been ongoing for several years. She is diabetic, last A1c was 7.7. She does not smoke. She denies any history of VTE. She does not wear compression, she reports it makes her legs and feet feel too hot. Subjective Subjective She is having burning pain at the wound when applying the Aquacel Silver. She has also been applying a lidocaine patch directly over the wound. She completed antibiotics, does feel the pain is overall improved from initial presentation. Objective Data Objective Data Vital Signs: Vital Signs Temp Pulse Resp BP O2 Del Method 97.5 F L 107 H 16 154/68 H Room Air 10/29/24 15:34 10/29/24 15:34 10/29/24 15:34 10/29/24 15:34 10/29/24 15:34 Oxygen Delivery Method Room Air Weight: 200 lb Body Mass Index (BMI) 34.3 Charges/Coding Procedures Integumentary 111xxx-113xx: [id number] Connie subq tissue 20 sq cm/< (debridement dermis/epidermis) Physical Exam Const alert, oriented x3 and no apparent distress General Appearance: cooperative and anxious HEENT normocephalic, head/scalp atraumatic, hearing grossly normal bilaterally, external ears normal and external nose normal Eyes EOMs intact bilaterally General Eye: normal appearance of both eyes Neck General: normal visual inspection and trachea midline Resp normal respiratory effort Effort and Inspection: able to speak in complete sentences Cardio regular rate and regular rhythm Extremity Extremity Narrative: Bilateral lower extremity pitting edema, 1+ right leg and 2+ left leg. Skin Wounds: wounds noted Wound Narrative: Posterior left calf ulceration cluster with mild slough at the base, but otherwise pink well bleeding tissue. There is no tunneling or undermining. There is no erythema, focal edema/fluctuance/induration, drainage/purulence, foul odor. Prior large fluid-filled blister on the anterior nelson has resolved/healed, re-epithelialized. Neuro oriented x3, CN's II-XII intact bilaterally and moves all extremities Speech: speech normal Psych mental status grossly normal Appearance: grossly normal Attitude: engaged Speech: normal speech Mood & Affect: euthymic mood Judgement: judgement good Debridement Note Debridement Note Wound debrided: L posterior calf Laterality: Left Type of Debridement: Selective debridement Anesthesia Used: 5% Lidocaine Gel Depth: Down to and including healthy tissue (limited to epidermis/dermis) Percentage of wound debrided: 70 Instrument Used: - (moistened gauze) Tissue Removed: slough Severity: Limited To Skin Breakdown Amount of bleeding with debridement: Mild Bleeding Controlled with: Pressure Patient tolerated procedure: Patient tolerated procedure well Post-Debridement Measurements and Additional Note: Post-Debridement Measurements/Treatment - Nurse 1 - General Ulcer Assessment Start: 10/22/24 14:22 Freq: Status: Active Protocol: CAMILLA Activity Type Activity Date Activity User E-sign Co-sign Detail Recorded Client Recorded Date Recorded By Document 10/22/24 14:23 [id number] 10/22/24 14:38 Document 10/29/24 15:34 [facility] [id number] 10/29/24 15:46 [facility] 10/22/24 10/29/24 14:23 15:34 - Today's Visit Information Type of service Follow-up Visit Follow-up Visit (Physician/[employer]PARTMENT MANAGER (Physician/[employer] DEPARTMENT MANAGER ) ) Arrival Mode Ambulatory Ambulatory Transfer Assistance None Accompanied by husb Patient Identification Verified (Name & Yes Yes ) Patient Requires Transmission-Based No Precautions Height and Weight Body Mass Index (BMI) 34.3 34.3 BMI Classification Obese Obese Vital Signs Temperature (97.8 F-99.1 F) 97.1 F L 97.5 F L Temperature Source Temporal Temporal Pulse Rate (60-100) 107 H Pulse Location Monitor Monitor Respiratory Rate (12-18) 18 16 Respiratory rate source Observation Observation Oxygen Delivery Method Room Air Room Air Blood Pressure (90/60-120/80) 154/68 H Blood Pressure Mean (mm Hg) 96 Source Monitor Monitor Position Sitting Sitting Blood Pressure Location Left Arm Left Forearm History Since Last Visit- (Skip if this is Patient's initial visit) Have you changed medications since your No No last visit? Any new allergies or adverse reactions No No Had a fall/change in ADL's that may No No increase risk of falls Signs or symptoms of abuse and/or No No neglect since last visit Have you been in the hospital since your No No last visit? Has dressing in place as prescribed Yes Yes Has compression in place as prescribed Yes Yes Has offloadiing in place as prescribed N/A N/A Experienced any changes in pain level or No No management Left Footwear Regular Shoe Regular Shoe Right Footwear Regular Shoe Regular Shoe Pain Scale: 0-10 Numeric Is Patient Pain Free? Yes Yes WC - Nurse 1 - General Ulcer Measurement Start: 10/22/24 14:22 Freq: Status: Active Protocol: Activity Type Activity Date Activity User E-sign Co-sign Detail Recorded Client Recorded Date Recorded By Document 10/22/24 14:23 KW [id number] 10/22/24 14:38 KW Document 10/29/24 15:34 [facility] [id number] 10/29/24 15:46 BM 10/22/24 10/29/24 14:23 15:34 Wound Center Nurse 1 #2 Left Anterior Lower Leg -Combined with other wound No -Current Size (cm) - Length 2 0.1 -Current Size (cm) - Width 2 0.1 -Current Size (cm) - Depth 0 0.1 -Total Square Cm 4 0.01 -Date of Last Picture (Recall this 10/22/24 10/29/24 field) -Photo Taken Yes -Epithelialization Medium 34-66% -Tunneling No -Undermining/Tunneling No -Circular Undermining No -Exudate Amt Small Small -Exudate Type Serosanguineous Serosanguineous -Wound Margin Distinct, Distinct, Outline Outline Attached Attached -Granulation Amt Large (67-100%) None Present (0 %) -Granulation Quality Red -Slough/Fibrin Yes -Necrosis Amt Medium (34-66%) Large (67-100%) -Necrotic Tissue Type Adherent Slough Adherent Slough -Texture (Radha-wound Skin Appearance) Assessed Assessed, Scarring -Moisture (Radha-wound Skin Appearance) Assessed,Dry/ Assessed,Dry/ Scaly Scaly -Color (Radha-wound Skin Appearance) Assessed Assessed -Temperature (Radha-wound Skin No Abnormality No Abnormality Appearance) (Pt Warm) (Pt Warm) -Tenderness on Palpation (Radha-wound No No Skin Appearance) -Ulcer Cleansing Rinsed/ Soap and Water Irrigated with Saline -Foul Odor after Cleansing No No -Anesthetic Used 4% Lidocaine 5% Lidocaine Solution Gel #1 LT POST LE -Combined with other wound No -Current Size (cm) - Length 8 2.5 -Current Size (cm) - Width 6 6.1 -Current Size (cm) - Depth 0.3 0.1 -Total Square Cm 48 15.25 -Date of Last Picture (Recall this 10/22/24 10/29/24 field) -Photo Taken Yes Yes -Epithelialization Small 1-33% -Tunneling No -Undermining/Tunneling No -Circular Undermining No -Exudate Amt Small Medium -Exudate Type Serosanguineous Serosanguineous -Wound Margin Distinct, Distinct, Outline Outline Attached Attached -Granulation Amt Large (67-100%) Small (1-33%) -Granulation Quality Red Red -Slough/Fibrin Yes -Necrosis Amt Small (1-33%) Large (67-100%) -Necrotic Tissue Type Adherent Slough Adherent Slough -Texture (Radha-wound Skin Appearance) Assessed Assessed, Scarring -Moisture (Radha-wound Skin Appearance) Assessed,Dry/ Assessed,Dry/ Scaly Scaly -Color (Radha-wound Skin Appearance) Assessed Assessed, Ecchymosis -Temperature (Radha-wound Skin No Abnormality No Abnormality Appearance) (Pt Warm) (Pt Warm) -Tenderness on Palpation (Radha-wound No No Skin Appearance) -Ulcer Cleansing Rinsed/ Rinsed/ Irrigated with Irrigated with Saline Saline -Foul Odor after Cleansing No No -Anesthetic Used 4% Lidocaine 5% Lidocaine Solution Gel Lower Limb Edema Present Yes Left Calf (cm) 40 39 Left Ankle (cm) 26.8 26.4 WC - Nurse 2 - General Ulcer CM Notes Start: 10/22/24 14:22 Freq: Status: Active Protocol: Activity Type Activity Date Activity User E-sign Co-sign Detail Recorded Client Recorded Date Recorded By Document 10/22/24 15:00 [id number] 10/22/24 15:04 Document 10/29/24 16:07 [id number] 10/29/24 16:09 10/22/24 10/29/24 15:00 16:07 Wound Center Nurse 2 #2 Left Anterior Lower Leg -Time 16:07 -Correct Patient Yes -Correct Side, Site, Position Yes -Correct Procedure No -Procedure Performed No -Tunneling No -Undermining/Tunneling No -Circular Undermining No -Wound/Ulcer Outcome Healed- Epithelialized -Foul Odor after Cleansing No -Bioengineered Tissue No -Bleeding Controlled with NA #1 LT POST LE -Time 15:02 16:08 -Correct Patient Yes Yes -Correct Side, Site, Position Yes Yes -Correct Procedure Yes Yes -Procedure Performed Yes Yes -Type of Procedure Debridement Debridement -Clinical Debridement Epidermis / Subcutaneous Dermis -Tissue Removed Epidermis Subcutaneous -Post Debridement (cm) - Length 6.0 6.0 -Post Debridement (cm) - Width 7.0 6.5 -Post Debridement (cm) - Depth 0.2 0.2 -Total Square (Post) (cm) 42.00 39.00 -Area of Debridement (cm) - Length 6.0 6.0 -Area of Debridement (cm) - Width 7.0 6.5 -Total Square (Area) (cm) 42.00 39.00 -Tunneling No No -Undermining/Tunneling No No -Circular Undermining No No -Wound/Ulcer Outcome Not Healed Not Healed -Ulcer Cleansing Rinsed/ Rinsed/ Irrigated with Irrigated with Saline Saline -Foul Odor after Cleansing No No -Bioengineered Tissue No No -Bleeding Controlled with NA Pressure -Treatment Response Procedure Procedure Tolerated Well Tolerated Well -Debridement - Open, 1st 20sq cm Yes -Debridement, Open, ea addt'l 20sq cm 2 or part thereof -Debridement - Subq, 1st 20sq cm Yes -Debridement, SubQ, ea addt'l 20sq cm 1 or part thereof Pain Scale: 0-10 Numeric Is Patient Pain Free? Yes Yes - Nurse 3 - General Ulcer D/C NN Start: 10/22/24 14:22 Freq: Status: Active Protocol: Activity Type Activity Date Activity User E-sign Co-sign Detail Recorded Client Recorded Date Recorded By Document 10/22/24 15:18 [id number] 10/22/24 15:20 KW Document 10/29/24 16:16 BM [id number] 10/29/24 16:18 [id number] 10/22/24 10/29/24 15:18 16:16 Wound Care Center Nurse 3 #2 Left Anterior Lower Leg -Ulcer Cleansing Rinsed/ Irrigated with Saline -Foul Odor after Cleansing No -Primary Dressing Applied C Hydrogel ($) -Other Dressing per dl district fire management officer -Primary Dressing Covered/Secured with Dry Gauze Dry Gauze & Roll Gauze, Secured with Tape #1 LT POST LE -Ulcer Cleansing Rinsed/ Irrigated with Saline -Foul Odor after Cleansing No -Primary Dressing Applied Aquacel AG 4x4, Aquacel Extra, Optilok 6.5x10 Optilok 6.5x10 -Other Dressing per dl district fire management officer -Primary Dressing Covered/Secured with Dry Gauze & Dry Gauze & Roll Gauze, Roll Gauze, Secured with Secured with Tape Tape -Aquacel Extra 1 -Aquacel AG 4x4 1 -Optilok 6.5x10 1 1 ble -Tubular Bandage Single Layer -Size of Tubigrip Used Size E -Size E ($) 2 Right -Tubular Bandage Single Layer -Size of Tubigrip Used Size E -Size E ($) 1 Left -Tubular Bandage Single Layer -Size of Tubigrip Used Size E -Size E ($) 1 Treatment Response Procedure Tolerated Well Pain Scale: 0-10 Numeric Is Patient Pain Free? Yes Yes WC - Visit Discharge Discharge Condition Stable Stable Ambulatory Status Ambulatory Ambulatory Transportation Private Auto Private Auto Accompanied by Medication Reconcilliation completed & No provided to patient/care provider Clinical Summary of Care Provided Yes Assessment/Plan Assessment/Plan (1) Ulcer of left calf with fat layer exposed: CODE(S): L97.222 - Non-pressure chronic ulcer of left calf with fat layer exposed (2) Type 2 diabetes mellitus: CODE(S): E11.9 - Type 2 diabetes mellitus without complications (3) Bilateral lower extremity edema: CODE(S): R60.0 - Localized edema PLAN: Plan Wound culture grew Pseudomonas aeruginosa. I prescribed Cipro 500mg BID x 14 days, she completed this. I think she is likely having an adverse reaction to the silver. Will change to Aquacel extra. I also emphasized that she should not be applying a lidocaine patch directly over the wound, ensure it is at least 5 cm away from wound edge. For wound care, continue to wash the area with antibacterial soap and water then pat to dry, switch to Aqucel extra to the wound bed followed by dry dressing including superabsorbent pad followed by Kerlix/gauze wrap. We again discussed the importance of compression in both wound healing and ultimately and prevention of recurrence as well. I have instructed her to wear the Tubigrips during the day but remove them to sleep at night. She should apply them first thing in the morning and remove just before bed. Will use single layer medium strength Tubigrip's bilaterally. Ultimately, she will need to get measured for compression stockings, may be able to obtain a more cooling type of fabric. I also discussed with her the importance of elevating her legs at all times of rest. It is important not to sit for long periods of time with the legs completely dependent as this will exacerbate her edema and therefore delayed wound healing further. Return to the clinic in 1 week, call or return sooner as needed.
--- NOTE | 2024-11-03 11:46 | WC ---
PHOTO 10/29/24 LEFT ANT LE
--- NOTE | 2024-11-03 11:46 | WC ---
PHOTO 10/28/24 LEFT LOWER LEG POST
[2024-11-05 15:19] VITALS: BP 139/83; PULSE 103; RESP 18; BMI 34.3
--- NOTE | 2024-11-05 17:29 | PCM.WC.PN ---
History of Present Illness Date of Service: 11/05/24 Chief Complaint: Left posterior calf wound History of Wound: Josy Smith is a 69-year-old female who presents today for evaluation and management of a left posterior calf wound as referred by her primary care Dr. Vazquez. She reports that this ulceration has been present since the end of May of this year. She reports that around that time her AC had gone out in her house and was out for several weeks so her house was very warm and she noticed significantly increased lower extremity edema. Eventually, a blister formed on her posterior calf and after rupturing left behind this ulceration. At home, she has been caring for this by applying antibiotic ointment and leaving it open to air. She denies any expanding redness, warmth, excess drainage, foul odor. Her swelling has since improved back to her baseline. She does have significant bilateral lower extremity edema at baseline and this has been ongoing for several years. She is diabetic, last A1c was 7.7. She does not smoke. She denies any history of VTE. She does not wear compression, she reports it makes her legs and feet feel too hot. Subjective Subjective Switched from Aquacel silver to Aquacel extra last week due to appearance of skin irritation and her report of burning sensation with application. She reports it still seems to burn even just with the Aquacel extra, she reports overall increased pain at the site of the wound. She has been cautious to place any lidocaine patches at least a hands-width away from the wound as directed. Unfortunately all of the area of skin that appeared irritated/macerated last week has broken down to ulceration. She reports to wearing the Tubigrips as directed. She admits she could be doing better with elevation. Objective Data Objective Data Vital Signs: Vital Signs Temp Pulse Resp BP O2 Del Method 97.5 F L 103 H 18 139/83 H Room Air 10/29/24 15:34 11/05/24 15:19 11/05/24 15:19 11/05/24 15:19 11/05/24 15:19 Oxygen Delivery Method Room Air Weight: 200 lb Body Mass Index (BMI) 34.3 Charges/Coding Visit Charges Office Visits / Consults: [id number] OV L3 Est 20min Physical Exam Const alert, oriented x3 and no apparent distress General Appearance: cooperative and anxious HEENT normocephalic, head/scalp atraumatic, hearing grossly normal bilaterally, external ears normal and external nose normal Eyes EOMs intact bilaterally General Eye: normal appearance of both eyes Neck General: normal visual inspection and trachea midline Resp normal respiratory effort Effort and Inspection: able to speak in complete sentences Extremity Extremity Narrative: Bilateral lower extremity pitting edema, 1+ right leg and 2+ left leg. Skin Wounds: wounds noted Wound Narrative: Posterior left calf ulceration cluster with mild slough at the base, but otherwise pink well bleeding tissue. There is no tunneling or undermining. There is no erythema, focal edema/fluctuance/induration, drainage/purulence, foul odor. Enlarged this week. Prior large fluid-filled blister on the anterior nelson has resolved/healed, re-epithelialized. Neuro oriented x3, CN's II-XII intact bilaterally and moves all extremities Speech: speech normal Psych mental status grossly normal Appearance: grossly normal Attitude: engaged Speech: normal speech Mood & Affect: euthymic mood Judgement: judgement good Debridement Note Debridement Note No debridement was completed: No debridement was completed today Post-Debridement Measurements and Additional Note: Post-Debridement Measurements/Treatment - Nurse 1 - General Ulcer Assessment Start: 10/22/24 14:22 Freq: Status: Active Protocol: WC.LOWMARISSAT Activity Type Activity Date Activity User E-sign Co-sign Detail Recorded Client Recorded Date Recorded By Document 10/22/24 14:23 [id number] 10/22/24 14:38 Document 10/29/24 15:34 [facility] [id number] 10/29/24 15:46 [facility] Document 11/05/24 15:19 [id number] 11/05/24 15:27 10/22/24 10/29/24 11/05/24 14:23 15:34 15:19 - Today's Visit Information Type of service Follow-up Visit Follow-up Visit Follow-up Visit (Physician/WEIR FISHER (Physician/WEIR FISHER (Physician/WEIR FISHER ) ) ) Arrival Mode Ambulatory Ambulatory Ambulatory Transfer Assistance None Accompanied by husb Patient Identification Verified (Name & Yes Yes Yes ) Patient Requires Transmission-Based No Precautions Height and Weight Body Mass Index (BMI) 34.3 34.3 34.3 BMI Classification Obese Obese Obese Vital Signs Temperature (97.8 F-99.1 F) 97.1 F L 97.5 F L Temperature Source Temporal Temporal Pulse Rate (60-100) 107 H 103 H Pulse Location Monitor Monitor Monitor Respiratory Rate (12-18) 18 16 18 Respiratory rate source Observation Observation Observation Oxygen Delivery Method Room Air Room Air Room Air Blood Pressure (90/60-120/80) 154/68 H 139/83 H Blood Pressure Mean (mm Hg) 96 101 Source Monitor Monitor Monitor Position Sitting Sitting Semi-Fowlers Blood Pressure Location Left Arm Left Forearm Left Arm History Since Last Visit- (Skip if this is Patient's initial visit) Have you changed medications since your No No No last visit? Any new allergies or adverse reactions No No No Had a fall/change in ADL's that may No No No increase risk of falls Signs or symptoms of abuse and/or No No No neglect since last visit Have you been in the hospital since your No No No last visit? Has dressing in place as prescribed Yes Yes Yes Has compression in place as prescribed Yes Yes Yes Has offloadiing in place as prescribed N/A N/A N/A Experienced any changes in pain level or No No No management Left Footwear Regular Shoe Regular Shoe Regular Shoe Right Footwear Regular Shoe Regular Shoe Regular Shoe Pain Scale: 0-10 Numeric Is Patient Pain Free? Yes Yes Yes WC - Nurse 1 - General Ulcer Measurement Start: 10/22/24 14:22 Freq: Status: Active Protocol: Activity Type Activity Date Activity User E-sign Co-sign Detail Recorded Client Recorded Date Recorded By Document 10/22/24 14:23 [id number] 10/22/24 14:38 Document 10/29/24 15:34 [facility] [id number] 10/29/24 15:46 [facility] Document 11/05/24 15:19 [id number] 11/05/24 15:27 KW 10/22/24 10/29/24 11/05/24 14:23 15:34 15:19 Wound Center Nurse 1 #2 Left Anterior Lower Leg -Combined with other wound No -Current Size (cm) - Length 2 0.1 0 -Current Size (cm) - Width 2 0.1 0 -Current Size (cm) - Depth 0 0.1 0 -Total Square Cm 4 0.01 0 -Date of Last Picture (Recall this 10/22/24 10/29/24 11/05/24 field) -Photo Taken Yes -Epithelialization Medium 34-66% -Tunneling No -Undermining/Tunneling No -Circular Undermining No -Exudate Amt Small Small -Exudate Type Serosanguineous Serosanguineous -Wound Margin Distinct, Distinct, Outline Outline Attached Attached -Granulation Amt Large (67-100%) None Present (0 %) -Granulation Quality Red -Slough/Fibrin Yes -Necrosis Amt Medium (34-66%) Large (67-100%) -Necrotic Tissue Type Adherent Slough Adherent Slough -Texture (Radha-wound Skin Appearance) Assessed Assessed, Assessed Scarring -Moisture (Radha-wound Skin Appearance) Assessed,Dry/ Assessed,Dry/ Assessed,Dry/ Scaly Scaly Scaly -Color (Radha-wound Skin Appearance) Assessed Assessed Assessed -Temperature (Radha-wound Skin No Abnormality No Abnormality Appearance) (Pt Warm) (Pt Warm) -Tenderness on Palpation (Radha-wound No No Skin Appearance) -Ulcer Cleansing Rinsed/ Soap and Water Irrigated with Saline -Foul Odor after Cleansing No No -Anesthetic Used 4% Lidocaine 5% Lidocaine Solution Gel #1 LT POST LE -Combined with other wound No -Current Size (cm) - Length 8 2.5 6 -Current Size (cm) - Width 6 6.1 8.5 -Current Size (cm) - Depth 0.3 0.1 0.2 -Total Square Cm 48 15.25 51.0 -Date of Last Picture (Recall this 10/22/24 10/29/24 11/05/24 field) -Photo Taken Yes Yes -Epithelialization Small 1-33% -Tunneling No -Undermining/Tunneling No -Circular Undermining No -Exudate Amt Small Medium Small -Exudate Type Serosanguineous Serosanguineous Serosanguineous -Wound Margin Distinct, Distinct, Distinct, Outline Outline Outline Attached Attached Attached -Granulation Amt Large (67-100%) Small (1-33%) Large (67-100%) -Granulation Quality Red Red Red -Slough/Fibrin Yes -Necrosis Amt Small (1-33%) Large (67-100%) Medium (34-66%) -Necrotic Tissue Type Adherent Slough Adherent Slough Adherent Slough -Texture (Radha-wound Skin Appearance) Assessed Assessed, Assessed Scarring -Moisture (Radha-wound Skin Appearance) Assessed,Dry/ Assessed,Dry/ Assessed,Dry/ Scaly Scaly Scaly -Color (Radha-wound Skin Appearance) Assessed Assessed, Assessed, Ecchymosis Erythema -Temperature (Radha-wound Skin No Abnormality No Abnormality No Abnormality Appearance) (Pt Warm) (Pt Warm) (Pt Warm) -Tenderness on Palpation (Radha-wound No No No Skin Appearance) -Ulcer Cleansing Rinsed/ Rinsed/ Rinsed/ Irrigated with Irrigated with Irrigated with Saline Saline Saline -Foul Odor after Cleansing No No No -Anesthetic Used 4% Lidocaine 5% Lidocaine 5% Lidocaine Solution Gel Gel Lower Limb Edema Present Yes Left Calf (cm) 40 39 40.5 Left Ankle (cm) 26.8 26.4 26.5 WC - Nurse 2 - General Ulcer CM Notes Start: 10/22/24 14:22 Freq: Status: Active Protocol: Activity Type Activity Date Activity User E-sign Co-sign Detail Recorded Client Recorded Date Recorded By Document 10/22/24 15:00 [id number] 10/22/24 15:04 Document 10/29/24 16:07 [id number] 10/29/24 16:09 GM Document 11/05/24 15:50 [id number] 11/05/24 15:51 10/22/24 10/29/24 11/05/24 15:00 16:07 15:50 Wound Center Nurse 2 #2 Left Anterior Lower Leg -Time 16:07 -Correct Patient Yes -Correct Side, Site, Position Yes -Correct Procedure No -Procedure Performed No -Tunneling No -Undermining/Tunneling No -Circular Undermining No -Wound/Ulcer Outcome Healed- Epithelialized -Foul Odor after Cleansing No -Bioengineered Tissue No -Bleeding Controlled with NA #1 LT POST LE -Time 15:02 16:08 15:50 -Correct Patient Yes Yes Yes -Correct Side, Site, Position Yes Yes Yes -Correct Procedure Yes Yes No -Procedure Performed Yes Yes No -Type of Procedure Debridement Debridement -Clinical Debridement Epidermis / Subcutaneous Dermis -Tissue Removed Epidermis Subcutaneous -Post Debridement (cm) - Length 6.0 6.0 6.0 -Post Debridement (cm) - Width 7.0 6.5 8.3 -Post Debridement (cm) - Depth 0.2 0.2 0.2 -Total Square (Post) (cm) 42.00 39.00 49.80 -Area of Debridement (cm) - Length 6.0 6.0 -Area of Debridement (cm) - Width 7.0 6.5 -Total Square (Area) (cm) 42.00 39.00 -Tunneling No No No -Undermining/Tunneling No No No -Circular Undermining No No No -Wound/Ulcer Outcome Not Healed Not Healed Not Healed -Ulcer Cleansing Rinsed/ Rinsed/ Rinsed/ Irrigated with Irrigated with Irrigated with Saline Saline Saline -Foul Odor after Cleansing No No No -Bioengineered Tissue No No No -Bleeding Controlled with NA Pressure NA -Treatment Response Procedure Procedure Tolerated Well Tolerated Well -Offloading No -Debridement - Open, 1st 20sq cm Yes No -Debridement, Open, ea addt'l 20sq cm 2 or part thereof -Debridement - Subq, 1st 20sq cm Yes No -Debridement, SubQ, ea addt'l 20sq cm 1 or part thereof -Debridement - Muscle / Fascia, 1st No 20sq cm -Debridement - Bone, 1st 20sq cm No Pain Scale: 0-10 Numeric Is Patient Pain Free? Yes Yes Yes - Nurse 3 - General Ulcer D/C NN Start: 10/22/24 14:22 Freq: Status: Active Protocol: Activity Type Activity Date Activity User E-sign Co-sign Detail Recorded Client Recorded Date Recorded By Document 10/22/24 15:18 [id number] 10/22/24 15:20 Document 10/29/24 16:16 [facility] [id number] 10/29/24 16:18 [facility] Document 11/05/24 16:04 DL [id number] 11/05/24 16:05 DL 10/22/24 10/29/24 11/05/24 15:18 16:16 16:04 Wound Care Center Nurse 3 #2 Left Anterior Lower Leg -Ulcer Cleansing Rinsed/ Irrigated with Saline -Foul Odor after Cleansing No -Primary Dressing Applied C Hydrogel ($) -Other Dressing per dl hospice superintendent -Primary Dressing Covered/Secured with Dry Gauze Dry Gauze & Roll Gauze, Secured with Tape #1 LT POST LE -Ulcer Cleansing Rinsed/ Irrigated with Saline -Foul Odor after Cleansing No -Primary Dressing Applied Aquacel AG 4x4, Aquacel Extra, Aquacel Extra, Optilok 6.5x10 Optilok 6.5x10 Optilok 6.5x10 -Other Dressing per dl hospice superintendent -Primary Dressing Covered/Secured with Dry Gauze & Dry Gauze & Roll Gauze, Roll Gauze, Secured with Secured with Tape Tape -Aquacel Extra 1 1 -Aquacel AG 4x4 1 -Optilok 6.5x10 1 1 1 ble -Tubular Bandage Single Layer -Size of Tubigrip Used Size E -Size E ($) 2 Right -Tubular Bandage Single Layer -Size of Tubigrip Used Size E -Size E ($) 1 Left -Tubular Bandage Single Layer Single Layer -Size of Tubigrip Used Size E Size E -Size E ($) 1 1 Treatment Response Procedure Tolerated Well Pain Scale: 0-10 Numeric Is Patient Pain Free? Yes Yes Yes WC - Visit Discharge Discharge Condition Stable Stable Stable Ambulatory Status Ambulatory Ambulatory Ambulatory Transportation Private Auto Private Auto Private Auto Accompanied by Medication Reconcilliation completed & No No provided to patient/care provider Clinical Summary of Care Provided Yes Yes Assessment/Plan Assessment/Plan (1) Ulcer of left calf with fat layer exposed: CODE(S): L97.222 - Non-pressure chronic ulcer of left calf with fat layer exposed (2) Type 2 diabetes mellitus: CODE(S): E11.9 - Type 2 diabetes mellitus without complications (3) Bilateral lower extremity edema: CODE(S): R60.0 - Localized edema PLAN: Plan Due to increased pain and increased size of wound, obtained a wound culture today. She is going out of town for vacation starting tomorrow; due to this I have empirically prescribed cipro 500mg BID x 14 days based on her previous cultures; will adjust as needed per this new C&S. Did not debride due to her discomfort and overall minimal slough. For wound care, continue to wash the area with antibacterial soap and water then pat to dry, switch to Aquacel extra to the wound bed followed by dry dressing including superabsorbent pad followed by Kerlix/gauze wrap. We again discussed the importance of compression and elevation in both wound healing and ultimately and prevention of recurrence as well. Will use single layer medium strength Tubigrip's bilaterally. She is encouraged to elevate her legs at all times of rest, ideally at or above the level of her chest. At minimum, three times a day elevate legs above the level of the chest for 20-30 minutes to assist with edema management. For her upcoming trip, I encourage her to ensure she wears compression on the flight, get up and ambulate the aisle if possible or at least perform a set of calf pumps every half hour. Do not get in the pool or ocean. Make sure the wound is well covered and protected from any sand. Return to the clinic in 2 weeks.
== END 2024-11-17 23:59 | disposition home or self-care (01) ==
LOC: WC 15:30
PROVIDERS: PCP Family Medicine; Referring Provider Family Medicine; Visit Provider Physician Assistant
DX: L97.221 Non-pressure chronic ulcer of left calf limited to breakdown of skin (principal); E11.9 Type 2 diabetes mellitus without complications; Z79.4 Long term (current) use of insulin; R60.0 Localized edema; Z79.84 Long term (current) use of oral hypoglycemic drugs; Z79.899 Other long term (current) drug therapy; S80.822S Blister (nonthermal), left lower leg, sequela; X58.XXXS Exposure to other specified factors, sequela
CPT/HCPCS: 11042; 11045; 87070; 87075; 87077; 87186; 87205; 97597; 97598; 99213; G0463

== ENCOUNTER → 2024-11-19 | Outpatient (CLI) | payer BC, SELFPAY ==
[2024-11-19 11:07] LABS: Bacteria 0 SEEN /hpf (None Seen); Mucous, Urine 0 SEEN /hpf (<or=2+); Red Blood Cells-Urine 0 SEEN /hpf (0-5)
[2024-11-19 12:15] LABS: Color, Urine Straw (Yellow); Glucose, Dipstick 1000 mg/dl (Normal); Ketone-Dipstick Negative (Negative); Leukocyte Esterase-Dipstick 25 /ul (Negative); Nitrite-Dipstick Negative (Negative); Occult Blood-Urine Negative /ul (Negative); Protein-Dipstick Negative (Negative); Urine Bilirubin Dipstick Negative (Negative); Urine Clarity Clear (Clear); Urine Urobilinogen Normal (Normal)
[2024-11-19 12:26] LABS: Absolute Lymphocyte Count 1.46 X10^3/uL (0.83-4.51); Absolute Neutrophil Count 5.6 X10^3/uL (2.0-7.7); Basophil# 0.06 X10^3/uL; Basophil% 0.8 % (0-1); Eosinophil# 0.19 X10^3/uL; Eosinophils% 2.4 % (0-5); Hematocrit 44.6 % (37-47); Hemoglobin 14.5 g/dL (12.0-15.0); Lymphocyte # 1.46 X10^3/ul (0.83-4.51); Lymphocyte % 18.7 % (19-41); Mean Corp Hgb Conc 32.5 g/dL (32-36); Mean Corpuscular Hgb 29.4 pg (27.0-32.0); Mean Corpuscular Volume 90.5 fL (81-99); Monocyte# 0.51 X10^3/uL; Monocyte% 6.5 % (0-10); NRBC Flagged by Analyzer 0 % (0-5); Neutrophil # 5.57 X10^3/uL (2.7-7.7); Neutrophil % 71.3 % (47-70); Platelet Count 266 K/mm3 (150-450); RBC Distribution Width CV 13.2 % (11.6-14.6); RBC Distribution Width SD 43.8 fl (35.1-43.9); Red Blood Count 4.93 M/mm3 (4.2-5.4); White Blood Count 7.8 K/mm3 (4.4-11.0)
[2024-11-19 12:35] LABS: ALB/GLOB Ratio 1.2 RATIO (0.9-2.4); AST(SGOT) 16 U/L (15-37); Alanine Aminotransfer ALT/SGPT 31 U/L (13-56); Albumin, Serum 3.8 g/dL (3.2-5.0); Alkaline Phosphatase 65 U/L (45-117); Anion Gap 3 (5-15); BUN 18 mg/dL (7-18); BUN/Creat Ratio 22.8 RATIO (10-20); Calcium,Total 9.3 mg/dL (8.5-10.1); Chloride 104 mmol/L (98-107); Cholesterol 105 mg/dL (200); Creatinine, Serum 0.79 mg/dL (0.55-1.02); EST Glomerular Filtration Rate 77 mL/min (>60); Est Glom Filt Rate - Afr Amer 93 mL/min (>60); Globulin 3.3 g/dL (2.2-4.2); Glucose 95 mg/dL (74-106); High Density Lipoprotein 51 mg/dL; Protein, Total 7.1 g/dL (6.4-8.2); Sodium Level 137 mmol/L (136-145); Triglycerides 71 mg/dL; Very Low Density Lipoprotein 14 mg/dL (5-40)
[2024-11-19 12:38] LABS: Hemoglobin A1c 6.1 % (3.8-5.6)
[2024-11-19 12:59] LABS: Creatinine, Urine (random) < 13.00 mg/dL (NO RANGE EST.); Microalbumin,Random Urine < 5.0 mg/L (NO RANGE EST.)
[2024-11-19 13:13] LABS: Squamous Epithelial Cells - UA 0-5 SEEN /hpf (5-10); White Blood Cells 0-5 SEEN /hpf (0-5); Yeast-Urine 1+ /hpf (None Seen)
== END | disposition home or self-care (01) ==
LOC: MFPLAB 10:57
PROVIDERS: PCP Family Medicine; Visit Provider Family Medicine
DX: E11.8 Type 2 diabetes mellitus with unspecified complications (principal)
CPT/HCPCS: 36415; 80053; 80061; 81001; 82043; 82570; 83036; 85025

== ENCOUNTER 2024-12-10 15:30 | Outpatient (RCR) | payer BC, SELFPAY ==
[2024-11-18 00:41] VITALS: BP 153/81; PULSE 108; RESP 18; TEMP 37.1; BMI 34.3
[2024-11-19 15:11] VITALS: BP 158/66; PULSE 104; RESP 18; TEMP 36.2; BMI 34.3
--- NOTE | 2024-11-19 17:20 | PCM.WC.PN ---
History of Present Illness Date of Service: 11/19/24 Chief Complaint: Left posterior calf wound History of Wound: Josy Smith is a 69-year-old female who presents today for evaluation and management of a left posterior calf wound as referred by her primary care Dr. Vazquez. She reports that this ulceration has been present since the end of May of this year. She reports that around that time her AC had gone out in her house and was out for several weeks so her house was very warm and she noticed significantly increased lower extremity edema. Eventually, a blister formed on her posterior calf and after rupturing left behind this ulceration. At home, she has been caring for this by applying antibiotic ointment and leaving it open to air. She denies any expanding redness, warmth, excess drainage, foul odor. Her swelling has since improved back to her baseline. She does have significant bilateral lower extremity edema at baseline and this has been ongoing for several years. She is diabetic, last A1c was 7.7. She does not smoke. She denies any history of VTE. She does not wear compression, she reports it makes her legs and feet feel too hot. Subjective Subjective Radha returns to the wound center today after missing last week due to travel. She has not seen much improvement in her wound. She continues to have a lot of pain around her wound, at worse 8-9/10, sometimes brings her to tears at home. She has been applying lidocaine gel that she ordered online to the wound underneath the Aquacel. She is wearing compression as directed. Objective Data Objective Data Vital Signs: Vital Signs Temp Pulse Resp BP O2 Del Method 97.1 F L 104 H 18 158/66 H Room Air 11/19/24 15:11 11/19/24 15:11 11/19/24 15:11 11/19/24 15:11 11/19/24 15:11 Oxygen Delivery Method Room Air Weight: 200 lb Body Mass Index (BMI) 34.3 Charges/Coding Visit Charges Office Visits / Consults: [id number] OV L3 Est 20min Physical Exam Const alert, oriented x3 and no apparent distress General Appearance: cooperative and anxious HEENT normocephalic, head/scalp atraumatic, hearing grossly normal bilaterally, external ears normal and external nose normal Eyes EOMs intact bilaterally General Eye: normal appearance of both eyes Neck General: normal visual inspection and trachea midline Resp normal respiratory effort Effort and Inspection: able to speak in complete sentences Extremity Extremity Narrative: Bilateral lower extremity pitting edema, 1+ right leg and 2+ left leg. Skin Wounds: wounds noted Wound Narrative: Posterior left calf ulceration cluster with significant slough at the base, pink granular tissue visible at the base. It is stable in size. There is mild surrounding erythema but not extending proximally up the leg or distally to the foot. No excess warmth, purulence, foul odor, induration/fluctuance. There is no tunneling or undermining. Neuro oriented x3, CN's II-XII intact bilaterally and moves all extremities Speech: speech normal Psych mental status grossly normal Appearance: grossly normal Attitude: engaged Speech: normal speech Mood & Affect: euthymic mood Judgement: judgement good Debridement Note Debridement Note Wound debrided: L posterior calf Laterality: Left Type of Debridement: Selective debridement Anesthesia Used: 4% Lidocaine Solution Depth: Down to and including healthy tissue Percentage of wound debrided: 70 Instrument Used: - (moistened gauze) Tissue Removed: slough Severity: Limited To Skin Breakdown Amount of bleeding with debridement: None Patient tolerated procedure: Patient tolerated procedure well Post-Debridement Measurements and Additional Note: Post-Debridement Measurements/Treatment - Nurse 1 - General Ulcer Assessment Start: 11/19/24 15:11 Freq: Status: Active Protocol: CAMILLA Activity Type Activity Date Activity User E-sign Co-sign Detail Recorded Client Recorded Date Recorded By Document 11/19/24 15:11 [facility] [id number] 11/19/24 15:23 [facility] 11/19/24 15:11 - Today's Visit Information Type of service Follow-up Visit (Physician/[employer] ) Arrival Mode Ambulatory Transfer Assistance None Accompanied by Patient Identification Verified (Name & Yes ) Patient Requires Transmission-Based No Precautions Height and Weight Body Mass Index (BMI) 34.3 BMI Classification Obese Vital Signs Temperature (97.8 F-99.1 F) 97.1 F L Temperature Source Temporal Pulse Rate (60-100) 104 H Pulse Location Monitor Respiratory Rate (12-18) 18 Respiratory rate source Observation Oxygen Delivery Method Room Air Blood Pressure (90/60-120/80) 158/66 H Blood Pressure Mean (mm Hg) 96 Source Monitor Position Sitting Blood Pressure Location Left Arm History Since Last Visit- (Skip if this is Patient's initial visit) Have you changed medications since your No last visit? Any new allergies or adverse reactions No Had a fall/change in ADL's that may No increase risk of falls Signs or symptoms of abuse and/or No neglect since last visit Have you been in the hospital since your No last visit? Has dressing in place as prescribed Yes Has compression in place as prescribed Yes Has offloadiing in place as prescribed N/A Experienced any changes in pain level or No management Left Footwear Regular Shoe Right Footwear Regular Shoe Pain Scale: 0-10 Numeric Is Patient Pain Free? Yes WC - Nurse 1 - General Ulcer Measurement Start: 11/19/24 15:11 Freq: Status: Active Protocol: Activity Type Activity Date Activity User E-sign Co-sign Detail Recorded Client Recorded Date Recorded By Document 11/19/24 15:11 [facility] [id number] 11/19/24 15:23 [facility] 11/19/24 15:11 Wound Center Nurse 1 #3- L LAT SHORT -Combined with other wound No -Current Size (cm) - Length 1.6 -Current Size (cm) - Width 0.8 -Current Size (cm) - Depth 0.1 -Total Square Cm 1.28 -Date of Last Picture (Recall this 11/19/24 field) -Photo Taken Yes -Tunneling No -Undermining/Tunneling No -Circular Undermining No -Exudate Amt Medium -Exudate Type Serosanguineous -Wound Margin Distinct, Outline Attached -Granulation Amt Small (1-33%) -Granulation Quality Red -Slough/Fibrin Yes -Necrosis Amt Medium (34-66%) -Necrotic Tissue Type Adherent Slough -Texture (Radha-wound Skin Appearance) Assessed -Moisture (Radha-wound Skin Appearance) Assessed,Dry/ Scaly -Color (Radha-wound Skin Appearance) Assessed -Temperature (Radha-wound Skin No Abnormality Appearance) (Pt Warm) -Tenderness on Palpation (Radha-wound No Skin Appearance) -Ulcer Cleansing Soap and Water -Foul Odor after Cleansing No -Anesthetic Used 5% Lidocaine Gel #1 LT POST LE -Combined with other wound No -Current Size (cm) - Length 6.5 -Current Size (cm) - Width 8.5 -Current Size (cm) - Depth 0.1 -Total Square Cm 55.25 -Date of Last Picture (Recall this 11/19/24 field) -Photo Taken Yes -Epithelialization None Present -Tunneling No -Undermining/Tunneling No -Circular Undermining No -Exudate Amt Large -Exudate Type Serosanguineous -Wound Margin Distinct, Outline Attached -Granulation Amt Small (1-33%) -Granulation Quality Red -Slough/Fibrin Yes -Necrosis Amt Large (67-100%) -Necrotic Tissue Type Adherent Slough -Texture (Radha-wound Skin Appearance) Assessed -Moisture (Radha-wound Skin Appearance) Assessed,Dry/ Scaly -Color (Radha-wound Skin Appearance) Assessed -Temperature (Radha-wound Skin No Abnormality Appearance) (Pt Warm) -Tenderness on Palpation (Radha-wound No Skin Appearance) -Ulcer Cleansing Soap and Water -Foul Odor after Cleansing No -Anesthetic Used 4% Lidocaine Solution Lower Limb Edema Present Yes Left Calf (cm) 40.2 Left Ankle (cm) 26 WC - Nurse 2 - General Ulcer CM Notes Start: 11/19/24 15:11 Freq: Status: Active Protocol: Activity Type Activity Date Activity User E-sign Co-sign Detail Recorded Client Recorded Date Recorded By Document 11/19/24 15:33 [id number] 11/19/24 15:45 [facility] 11/19/24 15:33 Wound Center Nurse 2 #3- L LAT SHORT -Time 15:33 -Correct Patient Yes -Correct Side, Site, Position Yes -Correct Procedure Yes -Procedure Performed Yes -Type of Procedure Debridement -Clinical Debridement Epidermis / Dermis -Tissue Removed Epidermis -Post Debridement (cm) - Length 6.6 -Post Debridement (cm) - Width 7.0 -Post Debridement (cm) - Depth 0.1 -Total Square (Post) (cm) 46.20 -Area of Debridement (cm) - Length 6.6 -Area of Debridement (cm) - Width 7.0 -Total Square (Area) (cm) 46.20 -Tunneling No -Undermining/Tunneling No -Circular Undermining No -Wound/Ulcer Outcome Not Healed -Ulcer Cleansing Rinsed/ Irrigated with Saline -Foul Odor after Cleansing No -Bioengineered Tissue No -Bleeding Controlled with Pressure -Treatment Response Procedure Not Tolerated Well -Debridement - Open, 1st 20sq cm Yes -Debridement, Open, ea addt'l 20sq cm 2 or part thereof Pain Scale: 0-10 Numeric Is Patient Pain Free? Yes LEFT LATERAL LOWER LEG -Description Aching -Intensity 2 -Duration (hours) Chronic -Pain Behavior Moaning, Guarding -Alleviating Factors/Interventions Medication, Inactivity/ Resting,Will continue to monitor, Emotional Support WC - Nurse 3 - General Ulcer D/C NN Start: 11/19/24 15:11 Freq: Status: Active Protocol: Activity Type Activity Date Activity User E-sign Co-sign Detail Recorded Client Recorded Date Recorded By Document 11/19/24 15:49 DL [id number] 11/19/24 15:53 DL 11/19/24 15:49 Wound Care Center Nurse 3 #3- L LAT SHORT -Ulcer Cleansing Rinsed/ Irrigated with Saline -Foul Odor after Cleansing No -Primary Dressing Applied NonAdherent Contact Layer -Other Dressing GENTAMYCIN ONIT -Primary Dressing Covered/Secured with Dry Gauze & Roll Gauze, Secured with Tape #1 LT POST LE -Ulcer Cleansing Rinsed/ Irrigated with Saline -Foul Odor after Cleansing No -Primary Dressing Applied NonAdherent Contact Layer -Other Dressing Gentamycin oint -Primary Dressing Covered/Secured with Dry Gauze & Roll Gauze, Secured with Tape Left -Tubular Bandage Single Layer -Size of Tubigrip Used Size E -Size E ($) 1 Treatment Response Procedure Tolerated Well Pain Scale: 0-10 Numeric Is Patient Pain Free? Yes WC - Visit Discharge Discharge Condition Stable Ambulatory Status Ambulatory, Wheelchair Transportation Private Auto Notes: dressing applied per Chauncey Silva today. Assessment/Plan Assessment/Plan (1) Ulcer of left calf with fat layer exposed: CODE(S): L97.222 - Non-pressure chronic ulcer of left calf with fat layer exposed (2) Type 2 diabetes mellitus: CODE(S): E11.9 - Type 2 diabetes mellitus without complications (3) Bilateral lower extremity edema: CODE(S): R60.0 - Localized edema PLAN: Plan Culture grew enterococcus faecalis which was susceptible to all tested antibiotics including gentamicin. She has been on a few courses of oral antibiotics recently, no systemic symptoms, no worsening of the wound this week. Will elect to prescribed topical gentamicin ointment to be applied TID to the wound bed instead of pursuing oral or parenteral therapy/ID consult at this time though will need to consider if we do not see improvement. Provided selective debridement of top layer of slough with moistened gauze, she was not able to tolerate anything further. Due to her significant pain which has been very disruptive to her daily life and making it difficult to sleep, I will prescribed tramadol 50mg tab PO q 6 hours PRN. I advise that she take scheduled tylenol/ibuprofen and take this only as needed. We discussed that the expectation is not to completely eliminate her pain but rather to get it to a more manageable level as we try to address the underlying cause. For wound care, continue to wash the area with antibacterial soap and water then pat to dry, apply gentamicin ointment to the wound bed, cover with Adaptic followed by ABD and dry gauze wrap. Change three times daily or more often as needed to keep clean and dry. We again discussed the importance of compression and elevation in both wound healing and ultimately and prevention of recurrence as well. Will use single layer medium strength Tubigrip's bilaterally. She is encouraged to elevate her legs at all times of rest, ideally at or above the level of her chest. At minimum, three times a day elevate legs above the level of the chest for 20-30 minutes to assist with edema management. Return to the clinic in 1 week.
--- NOTE | 2024-11-23 11:25 | WC ---
PHOTO 11/19/23 LEFT LATERAL SHORT
--- NOTE | 2024-11-23 11:27 | WC ---
PHOTO 11/19/23 LEFT LOWER LEG
[2024-11-26 14:57] VITALS: BP 154/68; PULSE 107; RESP 18; TEMP 36.3; BMI 34.3
--- NOTE | 2024-11-26 15:32 | PN.PCM_ITS ---
History of Present Illness Date of Service: 11/26/24 Chief Complaint: Left posterior calf wound History of Wound: Josy Smith is a 69-year-old female who presents today for evaluation and management of a left posterior calf wound as referred by her primary care Dr. Vazquez. She reports that this ulceration has been present since the end of May of this year. She reports that around that time her AC had gone out in her house and was out for several weeks so her house was very warm and she noticed significantly increased lower extremity edema. Eventually, a blister formed on her posterior calf and after rupturing left behind this ulceration. At home, she has been caring for this by applying antibiotic ointment and leaving it open to air. She denies any expanding redness, warmth, excess drainage, foul odor. Her swelling has since improved back to her baseline. She does have significant bilateral lower extremity edema at baseline and this has been ongoing for several years. She is diabetic, last A1c was 7.7. She does not smoke. She denies any history of VTE. She does not wear compression, she reports it makes her legs and feet feel too hot. Subjective Subjective Radha reports that the pain around her wound has been a bit better this week. She is taking the tramadol only at night before bed, this is helping. She says she is elevating every chance she gets. As advised, she stopped applying the topical lidocaine to her wound. States at this time that she is apply dressings exactly as instructed. Objective Data Objective Data Vital Signs: Vital Signs Temp Pulse Resp BP O2 Del Method 97.3 F L 107 H 18 154/68 H Room Air 11/26/24 14:57 11/26/24 14:57 11/26/24 14:57 11/26/24 14:57 11/26/24 14:57 Oxygen Delivery Method Room Air Weight: 200 lb Body Mass Index (BMI) 34.3 Charges/Coding Procedures Integumentary 111xxx-113xx: [id number] Connie subq tissue 20 sq cm/< (wound area 48 sqcm) Physical Exam Const alert, oriented x3 and no apparent distress General Appearance: cooperative and anxious HEENT normocephalic, head/scalp atraumatic, hearing grossly normal bilaterally, external ears normal and external nose normal Eyes EOMs intact bilaterally General Eye: normal appearance of both eyes Neck General: normal visual inspection and trachea midline Resp normal respiratory effort Effort and Inspection: able to speak in complete sentences Extremity Extremity Narrative: Bilateral lower extremity pitting edema, 1+ right leg and 2+ left leg. Skin Wounds: wounds noted Wound Narrative: Posterior left calf ulceration cluster with significant increased yellow slough at the base, pink granular tissue visible at the base. It is stable in size. There is mild surrounding erythema but not extending proximally up the leg or distally to the foot. No excess warmth, purulence, foul odor, induration/fluctuance. There is no tunneling or undermining. Neuro oriented x3, CN's II-XII intact bilaterally and moves all extremities Speech: speech normal Psych mental status grossly normal Appearance: grossly normal Attitude: engaged Speech: normal speech Mood & Affect: euthymic mood Judgement: judgement good Debridement Note Debridement Note Wound debrided: L posterior calf Laterality: Left Type of Debridement: Excisional debridement Anesthesia Used: 4% Lidocaine Solution Depth: Down to and including healthy tissue and in the subcutaneous layer Percentage of wound debrided: 100 Instrument Used: 7mm curette Tissue Removed: slough Severity: Fat Layer Exposed Amount of bleeding with debridement: Mild Bleeding Controlled with: Pressure Patient tolerated procedure: Patient tolerated procedure well Post-Debridement Measurements and Additional Note: Post-Debridement Measurements/Treatment - Nurse 1 - General Ulcer Assessment Start: 11/19/24 15:11 Freq: Status: Active Protocol: CMAILLA Activity Type Activity Date Activity User E-sign Co-sign Detail Recorded Client Recorded Date Recorded By Document 11/19/24 15:11 [facility] [id number] 11/19/24 15:23 [facility] Document 11/26/24 14:57 [id number] 11/26/24 15:01 11/19/24 11/26/24 15:11 14:57 - Today's Visit Information Type of service Follow-up Visit Follow-up Visit (Physician/EARLY CHILDHOOD EDUCATOR AIDE (Physician/EARLY CHILDHOOD EDUCATOR AIDE ) ) Arrival Mode Ambulatory Ambulatory Transfer Assistance None Accompanied by Patient Identification Verified (Name & Yes Yes ) Patient Requires Transmission-Based No Precautions Height and Weight Body Mass Index (BMI) 34.3 34.3 BMI Classification Obese Obese Vital Signs Temperature (97.8 F-99.1 F) 97.1 F L 97.3 F L Temperature Source Temporal Temporal Pulse Rate (60-100) 104 H 107 H Pulse Location Monitor Monitor Respiratory Rate (12-18) 18 18 Respiratory rate source Observation Observation Oxygen Delivery Method Room Air Room Air Blood Pressure (90/60-120/80) 158/66 H 154/68 H Blood Pressure Mean (mm Hg) 96 96 Source Monitor Monitor Position Sitting Semi-Fowlers Blood Pressure Location Left Arm Left Arm History Since Last Visit- (Skip if this is Patient's initial visit) Have you changed medications since your No No last visit? Any new allergies or adverse reactions No No Had a fall/change in ADL's that may No No increase risk of falls Signs or symptoms of abuse and/or No No neglect since last visit Have you been in the hospital since your No No last visit? Has dressing in place as prescribed Yes Yes Has compression in place as prescribed Yes Yes Has offloadiing in place as prescribed N/A N/A Experienced any changes in pain level or No No management Left Footwear Regular Shoe Regular Shoe Right Footwear Regular Shoe Regular Shoe Pain Scale: 0-10 Numeric Is Patient Pain Free? Yes No LEFT LATERAL LOWER LEG -Description Sharp,Burning -Alleviating Factors/Interventions Medication, Medicate when due WC - Nurse 1 - General Ulcer Measurement Start: 11/19/24 15:11 Freq: Status: Active Protocol: Activity Type Activity Date Activity User E-sign Co-sign Detail Recorded Client Recorded Date Recorded By Document 11/19/24 15:11 [facility] [id number] 11/19/24 15:23 [facility] Document 11/26/24 14:57 [id number] 11/26/24 15:01 11/19/24 11/26/24 15:11 14:57 Wound Center Nurse 1 #3- L LAT SHORT -Combined with other wound No -Current Size (cm) - Length 1.6 6.7 -Current Size (cm) - Width 0.8 7.1 -Current Size (cm) - Depth 0.1 0.1 -Total Square Cm 1.28 47.57 -Date of Last Picture (Recall this 11/19/24 field) -Photo Taken Yes -Tunneling No -Undermining/Tunneling No -Circular Undermining No -Exudate Amt Medium Large -Exudate Type Serosanguineous Serosanguineous -Wound Margin Distinct, Distinct, Outline Outline Attached Attached -Granulation Amt Small (1-33%) Small (1-33%) -Granulation Quality [place] -Slough/Fibrin Yes -Necrosis Amt Medium (34-66%) Large (67-100%) -Necrotic Tissue Type Adherent Slough Adherent Slough -Texture (Radha-wound Skin Appearance) Assessed Assessed -Moisture (Radha-wound Skin Appearance) Assessed,Dry/ Assessed,Dry/ Scaly Scaly -Color (Radha-wound Skin Appearance) Assessed Assessed, Erythema -Temperature (Radha-wound Skin No Abnormality No Abnormality Appearance) (Pt Warm) (Pt Warm) -Tenderness on Palpation (Radha-wound No No Skin Appearance) -Ulcer Cleansing Soap and Water Rinsed/ Irrigated with Saline -Foul Odor after Cleansing No No -Anesthetic Used 5% Lidocaine 4% Lidocaine Gel Solution #1 LT POST LE -Combined with other wound No -Current Size (cm) - Length 6.5 6.7 -Current Size (cm) - Width 8.5 7.1 -Current Size (cm) - Depth 0.1 0.1 -Total Square Cm 55.25 47.57 -Date of Last Picture (Recall this 11/19/24 field) -Photo Taken Yes -Epithelialization None Present -Tunneling No -Undermining/Tunneling No -Circular Undermining No -Exudate Amt Large Large -Exudate Type Serosanguineous Serosanguineous -Wound Margin Distinct, Distinct, Outline Outline Attached Attached -Granulation Amt Small (1-33%) Small (1-33%) -Granulation Quality [place] -Slough/Fibrin Yes -Necrosis Amt Large (67-100%) Large (67-100%) -Necrotic Tissue Type Adherent Slough Adherent Slough -Texture (Radha-wound Skin Appearance) Assessed Assessed -Moisture (Radha-wound Skin Appearance) Assessed,Dry/ Assessed,Dry/ Scaly Scaly -Color (Radha-wound Skin Appearance) Assessed Assessed -Temperature (Radha-wound Skin No Abnormality No Abnormality Appearance) (Pt Warm) (Pt Warm) -Tenderness on Palpation (Radha-wound No No Skin Appearance) -Ulcer Cleansing Soap and Water Rinsed/ Irrigated with Saline -Foul Odor after Cleansing No No -Anesthetic Used 4% Lidocaine 4% Lidocaine Solution Solution Lower Limb Edema Present Yes Left Calf (cm) 40.2 39.5 Left Ankle (cm) 26 26.4 WC - Nurse 2 - General Ulcer CM Notes Start: 11/19/24 15:11 Freq: Status: Active Protocol: Activity Type Activity Date Activity User E-sign Co-sign Detail Recorded Client Recorded Date Recorded By Document 11/19/24 15:33 [id number] 11/19/24 15:45 Document 11/26/24 15:20 [id number] 11/26/24 15:26 11/19/24 11/26/24 15:33 15:20 Wound Center Nurse 2 #3- L LAT SHORT -Time 15:33 -Correct Patient Yes -Correct Side, Site, Position Yes -Correct Procedure Yes -Procedure Performed Yes -Type of Procedure Debridement -Clinical Debridement Epidermis / Dermis -Tissue Removed Epidermis -Post Debridement (cm) - Length 6.6 -Post Debridement (cm) - Width 7.0 -Post Debridement (cm) - Depth 0.1 -Total Square (Post) (cm) 46.20 -Area of Debridement (cm) - Length 6.6 -Area of Debridement (cm) - Width 7.0 -Total Square (Area) (cm) 46.20 -Tunneling No -Undermining/Tunneling No -Circular Undermining No -Wound/Ulcer Outcome Not Healed -Ulcer Cleansing Rinsed/ Irrigated with Saline -Foul Odor after Cleansing No -Bioengineered Tissue No -Bleeding Controlled with Pressure -Treatment Response Procedure Not Tolerated Well -Debridement - Open, 1st 20sq cm Yes -Debridement, Open, ea addt'l 20sq cm 2 or part thereof #1 LT POST LE -Time 15:20 -Correct Patient Yes -Correct Side, Site, Position Yes -Correct Procedure Yes -Procedure Performed Yes -Type of Procedure Debridement -Clinical Debridement Subcutaneous -Tissue Removed Subcutaneous -Post Debridement (cm) - Length 6.0 -Post Debridement (cm) - Width 8.0 -Post Debridement (cm) - Depth 0.1 -Total Square (Post) (cm) 48.00 -Area of Debridement (cm) - Length 6.0 -Area of Debridement (cm) - Width 8.0 -Total Square (Area) (cm) 48.00 -Tunneling No -Undermining/Tunneling No -Circular Undermining No -Wound/Ulcer Outcome Not Healed -Ulcer Cleansing Rinsed/ Irrigated with Saline -Foul Odor after Cleansing No -Bioengineered Tissue No -Bleeding Controlled with Pressure -Treatment Response Procedure Tolerated Well -Offloading No -Debridement - Subq, 1st 20sq cm Yes -Debridement, SubQ, ea addt'l 20sq cm 2 or part thereof Pain Scale: 0-10 Numeric Is Patient Pain Free? Yes Yes LEFT LATERAL LOWER LEG -Description Aching -Intensity 2 -Duration (hours) Chronic -Pain Behavior Moaning, Guarding -Alleviating Factors/Interventions Medication, Inactivity/ Resting,Will continue to monitor, Emotional Support - Nurse 3 - General Ulcer D/C NN Start: 11/19/24 15:11 Freq: Status: Active Protocol: Activity Type Activity Date Activity User E-sign Co-sign Detail Recorded Client Recorded Date Recorded By Document 11/19/24 15:49 DL [id number] 11/19/24 15:53 DL 11/19/24 15:49 Wound Care Center Nurse 3 #3- L LAT SHORT -Ulcer Cleansing Rinsed/ Irrigated with Saline -Foul Odor after Cleansing No -Primary Dressing Applied NonAdherent Contact Layer -Other Dressing GENTAMYCIN ONIT -Primary Dressing Covered/Secured with Dry Gauze & Roll Gauze, Secured with Tape #1 LT POST LE -Ulcer Cleansing Rinsed/ Irrigated with Saline -Foul Odor after Cleansing No -Primary Dressing Applied NonAdherent Contact Layer -Other Dressing Gentamycin oint -Primary Dressing Covered/Secured with Dry Gauze & Roll Gauze, Secured with Tape Left -Tubular Bandage Single Layer -Size of Tubigrip Used Size E -Size E ($) 1 Treatment Response Procedure Tolerated Well Pain Scale: 0-10 Numeric Is Patient Pain Free? Yes WC - Visit Discharge Discharge Condition Stable Ambulatory Status Ambulatory, Wheelchair Transportation Private Auto Notes: dressing applied per Chauncey Silva today. Assessment/Plan Assessment/Plan (1) Ulcer of left calf with fat layer exposed: CODE(S): L97.222 - Non-pressure chronic ulcer of left calf with fat layer exposed (2) Type 2 diabetes mellitus: CODE(S): E11.9 - Type 2 diabetes mellitus without complications (3) Bilateral lower extremity edema: CODE(S): R60.0 - Localized edema PLAN: Plan Culture grew enterococcus faecalis which was susceptible to all tested antibiotics including gentamicin. She has been on a few courses of oral antibiotics recently, no systemic symptoms, no worsening of the wound this week. For now, will continue to apply Gentamicin ointment at least BID (TID if possible). Will need to consider ID referral if we do not see improvement. She had significant amount of yellow slough covering the entire wound bed today. She was agreeable to sharp debridement which I did perform and she tolerated well overall. For wound care, continue to wash the area with antibacterial soap and water then pat to dry, apply gentamicin ointment to the wound bed, cover with Adaptic followed by ABD and dry gauze wrap. Change three times daily or more often as needed to keep clean and dry. We again discussed the importance of compression and elevation in both wound healing and ultimately and prevention of recurrence as well. Will use single layer medium strength Tubigrip's bilaterally. She is encouraged to elevate her legs at all times of rest, ideally at or above the level of her chest. At minimum, three times a day elevate legs above the level of the chest for 20-30 minutes to assist with edema management. Return to the clinic in 1 week.
[2024-12-03 14:36] VITALS: BP 142/65; PULSE 106; RESP 16; TEMP 35.8; BMI 34.3
--- NOTE | 2024-12-04 07:17 | PCM.WC.PN ---
History of Present Illness Date of Service: 12/03/24 Chief Complaint: Left posterior calf wound History of Wound: Josy Smith is a 69-year-old female who presents today for evaluation and management of a left posterior calf wound as referred by her primary care Dr. Vazquez. She reports that this ulceration has been present since the end of May of this year. She reports that around that time her AC had gone out in her house and was out for several weeks so her house was very warm and she noticed significantly increased lower extremity edema. Eventually, a blister formed on her posterior calf and after rupturing left behind this ulceration. At home, she has been caring for this by applying antibiotic ointment and leaving it open to air. She denies any expanding redness, warmth, excess drainage, foul odor. Her swelling has since improved back to her baseline. She does have significant bilateral lower extremity edema at baseline and this has been ongoing for several years. She is diabetic, last A1c was 7.7. She does not smoke. She denies any history of VTE. She does not wear compression, she reports it makes her legs and feet feel too hot. Subjective Subjective Overall, the pain around her wound has been better over this last week though she notes it was bad last night when she was trying to sleep. She has been applying the gentamicin ointment and performing other wound care as directed. She has not had any worsened drainage, foul odor, redness. Her swelling appears much improved this week, she said she did ultimately tolerate the higher compression Tubigrips last week. Objective Data Objective Data Vital Signs: Vital Signs Temp Pulse Resp BP O2 Del Method 96.4 F L 106 H 16 142/65 H Room Air 12/03/24 14:36 12/03/24 14:36 12/03/24 14:36 12/03/24 14:36 12/03/24 14:36 Oxygen Delivery Method Room Air Weight: 200 lb Body Mass Index (BMI) 34.3 Charges/Coding Procedures Integumentary 111xxx-113xx: [id number] Connie subq tissue 20 sq cm/< (wound area 36.92 sqcm) Physical Exam Const alert, oriented x3 and no apparent distress General Appearance: cooperative and anxious HEENT normocephalic, head/scalp atraumatic, hearing grossly normal bilaterally, external ears normal and external nose normal Eyes EOMs intact bilaterally General Eye: normal appearance of both eyes Neck General: normal visual inspection and trachea midline Resp normal respiratory effort Effort and Inspection: able to speak in complete sentences Extremity Extremity Narrative: Bilateral lower extremity pitting edema, 1+ right leg and 2+ left leg. Skin Wounds: wounds noted Wound Narrative: Posterior left calf ulceration cluster with improved but still moderate burden of yellow slough at the base, pink granular tissue visible at the base. It is improved in size this week. There is mild reactive erythema just around the wound margins but not extending proximally up the leg or distally to the foot. No excess warmth, purulence, foul odor, induration/fluctuance. There is no tunneling or undermining. Neuro oriented x3, CN's II-XII intact bilaterally and moves all extremities Speech: speech normal Psych mental status grossly normal Appearance: grossly normal Attitude: engaged Speech: normal speech Mood & Affect: euthymic mood Judgement: judgement good Debridement Note Debridement Note Wound debrided: L posterior calf Laterality: Left Type of Debridement: Excisional debridement Anesthesia Used: 4% Lidocaine Solution Depth: Down to and including healthy tissue and in the subcutaneous layer Percentage of wound debrided: 100 Instrument Used: 7mm curette Tissue Removed: slough Severity: Fat Layer Exposed Amount of bleeding with debridement: Mild Bleeding Controlled with: Pressure Patient tolerated procedure: Patient tolerated procedure well Post-Debridement Measurements and Additional Note: Post-Debridement Measurements/Treatment - Nurse 1 - General Ulcer Assessment Start: 11/19/24 15:11 Freq: Status: Active Protocol: [email or web address].[place] Activity Type Activity Date Activity User E-sign Co-sign Detail Recorded Client Recorded Date Recorded By Document 11/19/24 15:11 [facility] [id number] 11/19/24 15:23 [facility] Document 11/26/24 14:57 KW [id number] 11/26/24 15:01 KW Document 12/03/24 14:36 KW [id number] 12/03/24 14:40 KW 11/19/24 11/26/24 12/03/24 15:11 14:57 14:36 - Today's Visit Information Type of service Follow-up Visit Follow-up Visit Follow-up Visit (Physician/GAS MAIN FITTER HELPER (Physician/GAS MAIN FITTER HELPER (Physician/GAS MAIN FITTER HELPER ) ) ) Arrival Mode Ambulatory Ambulatory Ambulatory Transfer Assistance None Accompanied by Patient Identification Verified (Name & Yes Yes ) Patient Requires Transmission-Based No Precautions Height and Weight Body Mass Index (BMI) 34.3 34.3 34.3 BMI Classification Obese Obese Obese Vital Signs Temperature (97.8 F-99.1 F) 97.1 F L 97.3 F L 96.4 F L Temperature Source Temporal Temporal Temporal Pulse Rate (60-100) 104 H 107 H 106 H Pulse Location Monitor Monitor Monitor Respiratory Rate (12-18) 18 18 16 Respiratory rate source Observation Observation Observation Oxygen Delivery Method Room Air Room Air Room Air Blood Pressure (90/60-120/80) 158/66 H 154/68 H 142/65 H Blood Pressure Mean (mm Hg) 96 96 90 Source Monitor Monitor Monitor Position Sitting Semi-Fowlers Semi-Fowlers Blood Pressure Location Left Arm Left Arm Left Arm History Since Last Visit- (Skip if this is Patient's initial visit) Have you changed medications since your No No No last visit? Any new allergies or adverse reactions No No No Had a fall/change in ADL's that may No No No increase risk of falls Signs or symptoms of abuse and/or No No No neglect since last visit Have you been in the hospital since your No No No last visit? Has dressing in place as prescribed Yes Yes Yes Has compression in place as prescribed Yes Yes Yes Has offloadiing in place as prescribed N/A N/A N/A Experienced any changes in pain level or No No No management Left Footwear Regular Shoe Regular Shoe Regular Shoe Right Footwear Regular Shoe Regular Shoe Regular Shoe Pain Scale: 0-10 Numeric Is Patient Pain Free? Yes No Yes LEFT LATERAL LOWER LEG -Description Sharp,Burning -Alleviating Factors/Interventions Medication, Medicate when due WC - Nurse 1 - General Ulcer Measurement Start: 11/19/24 15:11 Freq: Status: Active Protocol: Activity Type Activity Date Activity User E-sign Co-sign Detail Recorded Client Recorded Date Recorded By Document 11/19/24 15:11 BM [id number] 11/19/24 15:23 BMF Document 11/26/24 14:57 KW [id number] 11/26/24 15:01 KW Document 12/03/24 14:36 KW [id number] 12/03/24 14:40 KW 11/19/24 11/26/24 12/03/24 15:11 14:57 14:36 Wound Center Nurse 1 #3- L LAT SHORT -Combined with other wound No -Current Size (cm) - Length 1.6 6.7 -Current Size (cm) - Width 0.8 7.1 -Current Size (cm) - Depth 0.1 0.1 -Total Square Cm 1.28 47.57 -Date of Last Picture (Recall this 11/19/24 field) -Photo Taken Yes -Tunneling No -Undermining/Tunneling No -Circular Undermining No -Exudate Amt Medium Large -Exudate Type Serosanguineous Serosanguineous -Wound Margin Distinct, Distinct, Outline Outline Attached Attached -Granulation Amt Small (1-33%) Small (1-33%) -Granulation Quality Red [place] -Slough/Fibrin Yes -Necrosis Amt Medium (34-66%) Large (67-100%) -Necrotic Tissue Type Adherent Slough Adherent Slough -Texture (Radha-wound Skin Appearance) Assessed Assessed -Moisture (Radha-wound Skin Appearance) Assessed,Dry/ Assessed,Dry/ Scaly Scaly -Color (Radha-wound Skin Appearance) Assessed Assessed, Erythema -Temperature (Radha-wound Skin No Abnormality No Abnormality Appearance) (Pt Warm) (Pt Warm) -Tenderness on Palpation (Radha-wound No No Skin Appearance) -Ulcer Cleansing Soap and Water Rinsed/ Irrigated with Saline -Foul Odor after Cleansing No No -Anesthetic Used 5% Lidocaine 4% Lidocaine Gel Solution #1 LT POST LE -Combined with other wound No -Current Size (cm) - Length 6.5 6.7 6 -Current Size (cm) - Width 8.5 7.1 7.6 -Current Size (cm) - Depth 0.1 0.1 0.1 -Total Square Cm 55.25 47.57 45.6 -Date of Last Picture (Recall this 11/19/24 field) -Photo Taken Yes -Epithelialization None Present Small 1-33% -Tunneling No -Undermining/Tunneling No -Circular Undermining No -Exudate Amt Large Large Medium -Exudate Type Serosanguineous Serosanguineous Serosanguineous -Wound Margin Distinct, Distinct, Distinct, Outline Outline Outline Attached Attached Attached -Granulation Amt Small (1-33%) Small (1-33%) Small (1-33%) -Granulation Quality [place] -Slough/Fibrin Yes -Necrosis Amt Large (67-100%) Large (67-100%) Large (67-100%) -Necrotic Tissue Type Adherent Slough Adherent Slough Adherent Slough -Texture (Radha-wound Skin Appearance) Assessed Assessed Assessed -Moisture (Radha-wound Skin Appearance) Assessed,Dry/ Assessed,Dry/ Assessed Scaly Scaly -Color (Radha-wound Skin Appearance) Assessed Assessed Assessed, Erythema -Temperature (Radha-wound Skin No Abnormality No Abnormality No Abnormality Appearance) (Pt Warm) (Pt Warm) (Pt Warm) -Tenderness on Palpation (Radha-wound No No No Skin Appearance) -Ulcer Cleansing Soap and Water Rinsed/ Soap and Water Irrigated with Saline -Foul Odor after Cleansing No No No -Anesthetic Used 4% Lidocaine 4% Lidocaine 5% Lidocaine Solution Solution Gel Lower Limb Edema Present Yes Left Calf (cm) 40.2 39.5 38.8 Left Ankle (cm) 26 26.4 25.1 WC - Nurse 2 - General Ulcer CM Notes Start: 11/19/24 15:11 Freq: Status: Active Protocol: Activity Type Activity Date Activity User E-sign Co-sign Detail Recorded Client Recorded Date Recorded By Document 11/19/24 15:33 [id number] 11/19/24 15:45 Document 11/26/24 15:20 [id number] 11/26/24 15:26 Document 12/03/24 14:54 [id number] 12/03/24 15:03 11/19/24 11/26/24 12/03/24 15:33 15:20 14:54 Wound Center Nurse 2 #3- L LAT SHORT -Time 15:33 -Correct Patient Yes -Correct Side, Site, Position Yes -Correct Procedure Yes -Procedure Performed Yes -Type of Procedure Debridement -Clinical Debridement Epidermis / Dermis -Tissue Removed Epidermis -Post Debridement (cm) - Length 6.6 -Post Debridement (cm) - Width 7.0 -Post Debridement (cm) - Depth 0.1 -Total Square (Post) (cm) 46.20 -Area of Debridement (cm) - Length 6.6 -Area of Debridement (cm) - Width 7.0 -Total Square (Area) (cm) 46.20 -Tunneling No -Undermining/Tunneling No -Circular Undermining No -Wound/Ulcer Outcome Not Healed -Ulcer Cleansing Rinsed/ Irrigated with Saline -Foul Odor after Cleansing No -Bioengineered Tissue No -Bleeding Controlled with Pressure -Treatment Response Procedure Not Tolerated Well -Debridement - Open, 1st 20sq cm Yes -Debridement, Open, ea addt'l 20sq cm 2 or part thereof #1 LT POST LE -Time 15:20 14:54 -Correct Patient Yes Yes -Correct Side, Site, Position Yes Yes -Correct Procedure Yes Yes -Procedure Performed Yes Yes -Type of Procedure Debridement Debridement -Clinical Debridement Subcutaneous Subcutaneous -Tissue Removed Subcutaneous Subcutaneous -Post Debridement (cm) - Length 6.0 5.2 -Post Debridement (cm) - Width 8.0 7.1 -Post Debridement (cm) - Depth 0.1 0.2 -Total Square (Post) (cm) 48.00 36.92 -Area of Debridement (cm) - Length 6.0 5.2 -Area of Debridement (cm) - Width 8.0 7.1 -Total Square (Area) (cm) 48.00 36.92 -Tunneling No No -Undermining/Tunneling No No -Circular Undermining No No -Wound/Ulcer Outcome Not Healed Not Healed -Ulcer Cleansing Rinsed/ Rinsed/ Irrigated with Irrigated with Saline Saline -Foul Odor after Cleansing No No -Bioengineered Tissue No No -Bleeding Controlled with Pressure Pressure -Treatment Response Procedure Procedure Tolerated Well Tolerated Well -Offloading No -Debridement - Subq, 1st 20sq cm Yes Yes -Debridement, SubQ, ea addt'l 20sq cm 2 or part thereof Pain Scale: 0-10 Numeric Is Patient Pain Free? Yes Yes Yes LEFT LATERAL LOWER LEG -Description Aching -Intensity 2 -Duration (hours) Chronic -Pain Behavior Moaning, Guarding -Alleviating Factors/Interventions Medication, Inactivity/ Resting,Will continue to monitor, Emotional Support - Nurse 3 - General Ulcer D/C NN Start: 11/19/24 15:11 Freq: Status: Active Protocol: Activity Type Activity Date Activity User E-sign Co-sign Detail Recorded Client Recorded Date Recorded By Document 11/19/24 15:49 DL [id number] 11/19/24 15:53 DL Document 11/26/24 15:38 KW [id number] 11/26/24 15:39 KW Document 12/03/24 15:15 DL [id number] 12/03/24 15:17 DL 11/19/24 11/26/24 12/03/24 15:49 15:38 15:15 Wound Care Center Nurse 3 #3- L LAT SHORT -Ulcer Cleansing Rinsed/ Irrigated with Saline -Foul Odor after Cleansing No -Primary Dressing Applied NonAdherent Contact Layer -Other Dressing GENTAMYCIN ONIT -Primary Dressing Covered/Secured with Dry Gauze & Roll Gauze, Secured with Tape #1 LT POST LE -Ulcer Cleansing Rinsed/ Rinsed/ Irrigated with Irrigated with Saline Saline -Foul Odor after Cleansing No No -Primary Dressing Applied NonAdherent NonAdherent Contact Layer Contact Layer -Primary Dressing Applied NonAdherent Contact Layer -Other Dressing Gentamycin oint Gentamycin oint -Primary Dressing Covered/Secured with Dry Gauze & Dry Gauze & Dry Gauze & Roll Gauze, Roll Gauze, Roll Gauze, Secured with Secured with Secured with Tape Tape Tape Left -Tubular Bandage Single Layer Single Layer Single Layer -Size of Tubigrip Used Size E Size E Size E -Size E ($) 1 1 1 Treatment Response Procedure Procedure Tolerated Well Tolerated Well Pain Scale: 0-10 Numeric Is Patient Pain Free? Yes Yes Yes WC - Visit Discharge Discharge Condition Stable Stable Stable Ambulatory Status Ambulatory, Ambulatory Ambulatory Wheelchair Transportation Private Auto Private Auto Private Auto Medication Reconcilliation completed & No provided to patient/care provider Clinical Summary of Care Provided Yes Notes: dressing applied per Chauncey Silva today. Assessment/Plan Assessment/Plan (1) Ulcer of left calf with fat layer exposed: CODE(S): L97.222 - Non-pressure chronic ulcer of left calf with fat layer exposed (2) Type 2 diabetes mellitus: CODE(S): E11.9 - Type 2 diabetes mellitus without complications (3) Bilateral lower extremity edema: CODE(S): R60.0 - Localized edema PLAN: Plan Debridement was quite painful for her today so not able to remove as much slough as last week, but still made some improvement. She is instructed to apply the Gentamicin as directed until she has used the entire tube, then change back to Santyl. For wound care, continue to wash the area with antibacterial soap and water then pat to dry. Until the tube runs out, apply gentamicin ointment to the wound bed, cover with Adaptic followed by ABD and dry gauze wrap. Change three times daily or more often as needed to keep clean and dry. If the gentamicin is completed then instead apply nickel-thick layer of santyl followed by lightly moistened gauze followed by ABD and dry gauze wrap. Change at least once daily, more often as needed to manage drainage. She actually did tolerate the increase to high-strength Tubigrips last week and ended up continuing to use that instead of reducing down to the mediums. Her swelling has noticeably improved. Will continue high-strength tubigrips for compression. She is encouraged to continue with leg elevation at all times of rest. Return to the clinic in 1 week.
[2024-12-10 16:22] VITALS: BP 159/81; PULSE 101; RESP 18; TEMP 35.8; BMI 34.3
--- NOTE | 2024-12-10 17:58 | PCM.WC.PN ---
History of Present Illness Date of Service: 12/10/24 Chief Complaint: Left posterior calf wound History of Wound: Josy Smith is a 69-year-old female who presents today for evaluation and management of a left posterior calf wound as referred by her primary care Dr. Vazquez. She reports that this ulceration has been present since the end of May of this year. She reports that around that time her AC had gone out in her house and was out for several weeks so her house was very warm and she noticed significantly increased lower extremity edema. Eventually, a blister formed on her posterior calf and after rupturing left behind this ulceration. At home, she has been caring for this by applying antibiotic ointment and leaving it open to air. She denies any expanding redness, warmth, excess drainage, foul odor. Her swelling has since improved back to her baseline. She does have significant bilateral lower extremity edema at baseline and this has been ongoing for several years. She is diabetic, last A1c was 7.7. She does not smoke. She denies any history of VTE. She does not wear compression, she reports it makes her legs and feet feel too hot. Subjective Subjective She has been doing well with the high-strength Tubigrip's for compression and her swelling is improving. Pain/discomforts been generally stable over this week. She uses tramadol responsibly only as needed, typically just at night to allow her to be able to be comfortable enough to fall asleep. I last prescribed her 1 week supply on 11/19/2024 which she has stretched to this point, but only has 3-4 tabs left. She is continue to apply the gentamicin ointment this past week, has just a bit left. Objective Data Objective Data Vital Signs: Vital Signs Temp Pulse Resp BP O2 Del Method 96.5 F L 101 H 18 159/81 H Room Air 12/10/24 16:22 12/10/24 16:22 12/10/24 16:22 12/10/24 16:22 12/10/24 16:22 Oxygen Delivery Method Room Air Weight: 200 lb Body Mass Index (BMI) 34.3 Charges/Coding Procedures Integumentary [id number]: [id number] Connie subq tissue 20 sq cm/< (wound area 46 sqcm) Physical Exam Const alert, oriented x3 and no apparent distress General Appearance: cooperative and anxious HEENT normocephalic, head/scalp atraumatic, hearing grossly normal bilaterally, external ears normal and external nose normal Eyes EOMs intact bilaterally General Eye: normal appearance of both eyes Neck General: normal visual inspection and trachea midline Resp normal respiratory effort Effort and Inspection: able to speak in complete sentences Extremity Extremity Narrative: Bilateral lower extremity pitting edema, 1+ right leg and 2+ left leg. Skin Wounds: wounds noted Wound Narrative: Posterior left calf ulceration cluster with moderate burden of yellow slough at the base, pink granular tissue visible at the base. It is improved in size this week. There is mild reactive erythema just around the wound margins but not extending proximally up the leg or distally to the foot. No excess warmth, purulence, foul odor, induration/fluctuance. There is no tunneling or undermining. Neuro oriented x3, CN's II-XII intact bilaterally and moves all extremities Speech: speech normal Psych mental status grossly normal Appearance: grossly normal Attitude: engaged Speech: normal speech Mood & Affect: euthymic mood Judgement: judgement good Debridement Note Debridement Note Wound debrided: L posterior calf Laterality: Left Type of Debridement: Excisional debridement Anesthesia Used: 4% Lidocaine Solution Depth: Down to and including healthy tissue and in the subcutaneous layer Percentage of wound debrided: 100 Instrument Used: 7mm curette Tissue Removed: slough Severity: Fat Layer Exposed Amount of bleeding with debridement: Mild Bleeding Controlled with: Pressure Patient tolerated procedure: Patient tolerated procedure well Post-Debridement Measurements and Additional Note: Post-Debridement Measurements/Treatment - Nurse 1 - General Ulcer Assessment Start: 11/19/24 15:11 Freq: Status: Active Protocol: CAMILLA Activity Type Activity Date Activity User E-sign Co-sign Detail Recorded Client Recorded Date Recorded By Document 11/19/24 15:11 [facility] [id number] 11/19/24 15:23 BM Document 11/26/24 14:57 KW [id number] 11/26/24 15:01 KW Document 12/03/24 14:36 KW [id number] 12/03/24 14:40 KW Document 12/10/24 16:22 KW [id number] 12/10/24 16:24 KW 11/19/24 11/26/24 12/03/24 15:11 14:57 14:36 - Today's Visit Information Type of service Follow-up Visit Follow-up Visit Follow-up Visit (Physician/BAND SAW FILER (Physician/BAND SAW FILER (Physician/BAND SAW FILER ) ) ) Arrival Mode Ambulatory Ambulatory Ambulatory Transfer Assistance None Accompanied by Patient Identification Verified (Name & Yes Yes ) Patient Requires Transmission-Based No Precautions Height and Weight Body Mass Index (BMI) 34.3 34.3 34.3 BMI Classification Obese Obese Obese Vital Signs Temperature (97.8 F-99.1 F) 97.1 F L 97.3 F L 96.4 F L Temperature Source Temporal Temporal Temporal Pulse Rate (60-100) 104 H 107 H 106 H Pulse Location Monitor Monitor Monitor Respiratory Rate (12-18) 18 18 16 Respiratory rate source Observation Observation Observation Oxygen Delivery Method Room Air Room Air Room Air Blood Pressure (90/60-120/80) 158/66 H 154/68 H 142/65 H Blood Pressure Mean (mm Hg) 96 96 90 Source Monitor Monitor Monitor Position Sitting Semi-Fowlers Semi-Fowlers Blood Pressure Location Left Arm Left Arm Left Arm History Since Last Visit- (Skip if this is Patient's initial visit) Have you changed medications since your No No No last visit? Any new allergies or adverse reactions No No No Had a fall/change in ADL's that may No No No increase risk of falls Signs or symptoms of abuse and/or No No No neglect since last visit Have you been in the hospital since your No No No last visit? Has dressing in place as prescribed Yes Yes Yes Has compression in place as prescribed Yes Yes Yes Has offloadiing in place as prescribed N/A N/A N/A Experienced any changes in pain level or No No No management Left Footwear Regular Shoe Regular Shoe Regular Shoe Right Footwear Regular Shoe Regular Shoe Regular Shoe Pain Scale: 0-10 Numeric Is Patient Pain Free? Yes No Yes LEFT LATERAL LOWER LEG -Description Sharp,Burning -Alleviating Factors/Interventions Medication, Medicate when due 12/10/24 16:22 WC - Today's Visit Information Type of service Follow-up Visit (Physician/BAND SAW FILER ) Arrival Mode Ambulatory Transfer Assistance Accompanied by Patient Identification Verified (Name & Yes ) Patient Requires Transmission-Based Precautions Height and Weight Body Mass Index (BMI) 34.3 BMI Classification Obese Vital Signs Temperature (97.8 F-99.1 F) 96.5 F L Temperature Source Temporal Pulse Rate (60-100) 101 H Pulse Location Monitor Respiratory Rate (12-18) 18 Respiratory rate source Observation Oxygen Delivery Method Room Air Blood Pressure (90/60-120/80) 159/81 H Blood Pressure Mean (mm Hg) 107 Source Monitor Position Semi-Fowlers Blood Pressure Location Left Arm History Since Last Visit- (Skip if this is Patient's initial visit) Have you changed medications since your No last visit? Any new allergies or adverse reactions No Had a fall/change in ADL's that may No increase risk of falls Signs or symptoms of abuse and/or No neglect since last visit Have you been in the hospital since your No last visit? Has dressing in place as prescribed Yes Has compression in place as prescribed Yes Has offloadiing in place as prescribed N/A Experienced any changes in pain level or No management Left Footwear Regular Shoe Right Footwear Regular Shoe Pain Scale: 0-10 Numeric Is Patient Pain Free? No LEFT LATERAL LOWER LEG -Description Burning -Alleviating Factors/Interventions WC - Nurse 1 - General Ulcer Measurement Start: 11/19/24 15:11 Freq: Status: Active Protocol: Activity Type Activity Date Activity User E-sign Co-sign Detail Recorded Client Recorded Date Recorded By Document 11/19/24 15:11 [facility] [id number] 11/19/24 15:23 BM Document 11/26/24 14:57 KW [id number] 11/26/24 15:01 KW Document 12/03/24 14:36 KW [id number] 12/03/24 14:40 KW Document 12/10/24 16:22 KW [id number] 12/10/24 16:24 KW 11/19/24 11/26/24 12/03/24 15:11 14:57 14:36 Wound Center Nurse 1 #3- L LAT SHORT -Combined with other wound No -Current Size (cm) - Length 1.6 6.7 -Current Size (cm) - Width 0.8 7.1 -Current Size (cm) - Depth 0.1 0.1 -Total Square Cm 1.28 47.57 -Date of Last Picture (Recall this 11/19/24 field) -Photo Taken Yes -Tunneling No -Undermining/Tunneling No -Circular Undermining No -Exudate Amt Medium Large -Exudate Type Serosanguineous Serosanguineous -Wound Margin Distinct, Distinct, Outline Outline Attached Attached -Granulation Amt Small (1-33%) Small (1-33%) -Granulation Quality [place] -Slough/Fibrin Yes -Necrosis Amt Medium (34-66%) Large (67-100%) -Necrotic Tissue Type Adherent Slough Adherent Slough -Texture (Radha-wound Skin Appearance) Assessed Assessed -Moisture (Radha-wound Skin Appearance) Assessed,Dry/ Assessed,Dry/ Scaly Scaly -Color (Radha-wound Skin Appearance) Assessed Assessed, Erythema -Temperature (Radha-wound Skin No Abnormality No Abnormality Appearance) (Pt Warm) (Pt Warm) -Tenderness on Palpation (Radha-wound No No Skin Appearance) -Ulcer Cleansing Soap and Water Rinsed/ Irrigated with Saline -Foul Odor after Cleansing No No -Anesthetic Used 5% Lidocaine 4% Lidocaine Gel Solution #1 LT POST LE -Combined with other wound No -Current Size (cm) - Length 6.5 6.7 6 -Current Size (cm) - Width 8.5 7.1 7.6 -Current Size (cm) - Depth 0.1 0.1 0.1 -Total Square Cm 55.25 47.57 45.6 -Date of Last Picture (Recall this 11/19/24 field) -Photo Taken Yes -Epithelialization None Present Small 1-33% -Tunneling No -Undermining/Tunneling No -Circular Undermining No -Exudate Amt Large Large Medium -Exudate Type Serosanguineous Serosanguineous Serosanguineous -Wound Margin Distinct, Distinct, Distinct, Outline Outline Outline Attached Attached Attached -Granulation Amt Small (1-33%) Small (1-33%) Small (1-33%) -Granulation Quality [place] -Slough/Fibrin Yes -Necrosis Amt Large (67-100%) Large (67-100%) Large (67-100%) -Necrotic Tissue Type Adherent Slough Adherent Slough Adherent Slough -Texture (Radha-wound Skin Appearance) Assessed Assessed Assessed -Moisture (Radha-wound Skin Appearance) Assessed,Dry/ Assessed,Dry/ Assessed Scaly Scaly -Color (Radha-wound Skin Appearance) Assessed Assessed Assessed, Erythema -Temperature (Radha-wound Skin No Abnormality No Abnormality No Abnormality Appearance) (Pt Warm) (Pt Warm) (Pt Warm) -Tenderness on Palpation (Radha-wound No No No Skin Appearance) -Ulcer Cleansing Soap and Water Rinsed/ Soap and Water Irrigated with Saline -Foul Odor after Cleansing No No No -Anesthetic Used 4% Lidocaine 4% Lidocaine 5% Lidocaine Solution Solution Gel Lower Limb Edema Present Yes Left Calf (cm) 40.2 39.5 38.8 Left Ankle (cm) 26 26.4 25.1 12/10/24 16:22 Wound Center Nurse 1 #3- L LAT SHORT -Combined with other wound -Current Size (cm) - Length -Current Size (cm) - Width -Current Size (cm) - Depth -Total Square Cm -Date of Last Picture (Recall this field) -Photo Taken -Tunneling -Undermining/Tunneling -Circular Undermining -Exudate Amt -Exudate Type -Wound Margin -Granulation Amt -Granulation Quality -Slough/Fibrin -Necrosis Amt -Necrotic Tissue Type -Texture (Radha-wound Skin Appearance) -Moisture (Radha-wound Skin Appearance) -Color (Radha-wound Skin Appearance) -Temperature (Radha-wound Skin Appearance) -Tenderness on Palpation (Radha-wound Skin Appearance) -Ulcer Cleansing -Foul Odor after Cleansing -Anesthetic Used #1 LT POST LE -Combined with other wound -Current Size (cm) - Length 6.1 -Current Size (cm) - Width 6.7 -Current Size (cm) - Depth 0.1 -Total Square Cm 40.87 -Date of Last Picture (Recall this field) -Photo Taken -Epithelialization -Tunneling -Undermining/Tunneling -Circular Undermining -Exudate Amt Medium -Exudate Type Serosanguineous -Wound Margin Distinct, Outline Attached -Granulation Amt Large (67-100%) -Granulation Quality [place] -Slough/Fibrin -Necrosis Amt Medium (34-66%) -Necrotic Tissue Type Adherent Slough -Texture (Radha-wound Skin Appearance) Assessed -Moisture (Radha-wound Skin Appearance) Assessed -Color (Radha-wound Skin Appearance) Assessed -Temperature (Radha-wound Skin No Abnormality Appearance) (Pt Warm) -Tenderness on Palpation (Radha-wound No Skin Appearance) -Ulcer Cleansing Rinsed/ Irrigated with Saline -Foul Odor after Cleansing No -Anesthetic Used 5% Lidocaine Gel Lower Limb Edema Present Left Calf (cm) 37.2 Left Ankle (cm) 24.7 WC - Nurse 2 - General Ulcer CM Notes Start: 11/19/24 15:11 Freq: Status: Active Protocol: Activity Type Activity Date Activity User E-sign Co-sign Detail Recorded Client Recorded Date Recorded By Document 11/19/24 15:33 GM [id number] 11/19/24 15:45 GM Document 11/26/24 15:20 GM [id number] 11/26/24 15:26 GM Document 12/03/24 14:54 GM [id number] 12/03/24 15:03 GM Edit Result 12/03/24 14:54 GM (1) [id number] 12/09/24 15:11 GM Document 12/10/24 16:34 GM [id number] 12/10/24 16:42 GM (1) #1 LT POST LE - Debridement, SubQ, ea addt'l 20sq cm => 1 or part thereof 11/19/24 11/26/24 12/03/24 15:33 15:20 14:54 Wound Center Nurse 2 #3- L LAT SHORT -Time 15:33 -Correct Patient Yes -Correct Side, Site, Position Yes -Correct Procedure Yes -Procedure Performed Yes -Type of Procedure Debridement -Clinical Debridement Epidermis / Dermis -Tissue Removed Epidermis -Post Debridement (cm) - Length 6.6 -Post Debridement (cm) - Width 7.0 -Post Debridement (cm) - Depth 0.1 -Total Square (Post) (cm) 46.20 -Area of Debridement (cm) - Length 6.6 -Area of Debridement (cm) - Width 7.0 -Total Square (Area) (cm) 46.20 -Tunneling No -Undermining/Tunneling No -Circular Undermining No -Wound/Ulcer Outcome Not Healed -Ulcer Cleansing Rinsed/ Irrigated with Saline -Foul Odor after Cleansing No -Bioengineered Tissue No -Bleeding Controlled with Pressure -Treatment Response Procedure Not Tolerated Well -Debridement - Open, 1st 20sq cm Yes -Debridement, Open, ea addt'l 20sq cm 2 or part thereof #1 LT POST LE -Time 15:20 14:54 -Correct Patient Yes Yes -Correct Side, Site, Position Yes Yes -Correct Procedure Yes Yes -Procedure Performed Yes Yes -Type of Procedure Debridement Debridement -Clinical Debridement Subcutaneous Subcutaneous -Tissue Removed Subcutaneous Subcutaneous -Post Debridement (cm) - Length 6.0 5.2 -Post Debridement (cm) - Width 8.0 7.1 -Post Debridement (cm) - Depth 0.1 0.2 -Total Square (Post) (cm) 48.00 36.92 -Area of Debridement (cm) - Length 6.0 5.2 -Area of Debridement (cm) - Width 8.0 7.1 -Total Square (Area) (cm) 48.00 36.92 -Tunneling No No -Undermining/Tunneling No No -Circular Undermining No No -Wound/Ulcer Outcome Not Healed Not Healed -Ulcer Cleansing Rinsed/ Rinsed/ Irrigated with Irrigated with Saline Saline -Foul Odor after Cleansing No No -Bioengineered Tissue No No -Bleeding Controlled with Pressure Pressure -Treatment Response Procedure Procedure Tolerated Well Tolerated Well -Offloading No -Debridement - Subq, 1st 20sq cm Yes Yes -Debridement, SubQ, ea addt'l 20sq cm 2 1 or part thereof Pain Scale: 0-10 Numeric Is Patient Pain Free? Yes Yes Yes LEFT LATERAL LOWER LEG -Description Aching -Intensity 2 -Duration (hours) Chronic -Pain Behavior Moaning, Guarding -Alleviating Factors/Interventions Medication, Inactivity/ Resting,Will continue to monitor, Emotional Support 12/10/24 16:34 Wound Center Nurse 2 #3- L LAT SHORT -Time -Correct Patient -Correct Side, Site, Position -Correct Procedure -Procedure Performed -Type of Procedure -Clinical Debridement -Tissue Removed -Post Debridement (cm) - Length -Post Debridement (cm) - Width -Post Debridement (cm) - Depth -Total Square (Post) (cm) -Area of Debridement (cm) - Length -Area of Debridement (cm) - Width -Total Square (Area) (cm) -Tunneling -Undermining/Tunneling -Circular Undermining -Wound/Ulcer Outcome -Ulcer Cleansing -Foul Odor after Cleansing -Bioengineered Tissue -Bleeding Controlled with -Treatment Response -Debridement - Open, 1st 20sq cm -Debridement, Open, ea addt'l 20sq cm or part thereof #1 LT POST LE -Time 16:35 -Correct Patient Yes -Correct Side, Site, Position Yes -Correct Procedure Yes -Procedure Performed Yes -Type of Procedure Debridement -Clinical Debridement Subcutaneous -Tissue Removed Subcutaneous -Post Debridement (cm) - Length 6.0 -Post Debridement (cm) - Width 7.7 -Post Debridement (cm) - Depth 0.2 -Total Square (Post) (cm) 46.20 -Area of Debridement (cm) - Length 6.0 -Area of Debridement (cm) - Width 7.7 -Total Square (Area) (cm) 46.20 -Tunneling No -Undermining/Tunneling No -Circular Undermining No -Wound/Ulcer Outcome Not Healed -Ulcer Cleansing Rinsed/ Irrigated with Saline -Foul Odor after Cleansing No -Bioengineered Tissue No -Bleeding Controlled with Pressure -Treatment Response Procedure Tolerated Well -Offloading -Debridement - Subq, 1st 20sq cm Yes -Debridement, SubQ, ea addt'l 20sq cm 2 or part thereof Pain Scale: 0-10 Numeric Is Patient Pain Free? Yes LEFT LATERAL LOWER LEG -Description -Intensity -Duration (hours) -Pain Behavior -Alleviating Factors/Interventions WC - Nurse 3 - General Ulcer D/C NN Start: 11/19/24 15:11 Freq: Status: Active Protocol: Activity Type Activity Date Activity User E-sign Co-sign Detail Recorded Client Recorded Date Recorded By Document 11/19/24 15:49 DL [id number] 11/19/24 15:53 DL Document 11/26/24 15:38 KW [id number] 11/26/24 15:39 KW Document 12/03/24 15:15 DL [id number] 12/03/24 15:17 DL Document 12/10/24 16:49 BMF [id number] 12/10/24 16:51 BMF 11/19/24 11/26/24 12/03/24 15:49 15:38 15:15 Wound Care Center Nurse 3 #3- L LAT SHORT -Ulcer Cleansing Rinsed/ Irrigated with Saline -Foul Odor after Cleansing No -Primary Dressing Applied NonAdherent Contact Layer -Other Dressing GENTAMYCIN ONIT -Primary Dressing Covered/Secured with Dry Gauze & Roll Gauze, Secured with Tape #1 LT POST LE -Ulcer Cleansing Rinsed/ Rinsed/ Irrigated with Irrigated with Saline Saline -Foul Odor after Cleansing No No -Primary Dressing Applied NonAdherent NonAdherent Contact Layer Contact Layer -Primary Dressing Applied NonAdherent Contact Layer -Other Dressing Gentamycin oint Gentamycin oint -Primary Dressing Covered/Secured with Dry Gauze & Dry Gauze & Dry Gauze & Roll Gauze, Roll Gauze, Roll Gauze, Secured with Secured with Secured with Tape Tape Tape Left -Tubular Bandage Single Layer Single Layer Single Layer -Size of Tubigrip Used Size E Size E Size E -Size E ($) 1 1 1 Treatment Response Procedure Procedure Tolerated Well Tolerated Well Pain Scale: 0-10 Numeric Is Patient Pain Free? Yes Yes Yes WC - Visit Discharge Discharge Condition Stable Stable Stable Ambulatory Status Ambulatory, Ambulatory Ambulatory Wheelchair Transportation Private Auto Private Auto Private Auto Accompanied by Medication Reconcilliation completed & No provided to patient/care provider Clinical Summary of Care Provided Yes Notes: dressing applied per Chauncey Silva today. 12/10/24 16:49 Wound Care Center Nurse 3 #3- L LAT SHORT -Ulcer Cleansing -Foul Odor after Cleansing -Primary Dressing Applied -Other Dressing -Primary Dressing Covered/Secured with #1 LT POST LE -Ulcer Cleansing Rinsed/ Irrigated with Saline -Foul Odor after Cleansing No -Primary Dressing Applied -Primary Dressing Applied NonAdherent Contact Layer -Other Dressing ATB OINT, ABD PAD; DRSG PER DL RELIGIOUS ACTIVITIES DIRECTOR -Primary Dressing Covered/Secured with Dry Gauze & Roll Gauze, Secured with Tape Left -Tubular Bandage Single Layer -Size of Tubigrip Used Size E -Size E ($) 1 Treatment Response Procedure Tolerated Well Pain Scale: 0-10 Numeric Is Patient Pain Free? Yes WC - Visit Discharge Discharge Condition Stable Ambulatory Status Ambulatory Transportation Private Auto Accompanied by Medication Reconcilliation completed & provided to patient/care provider Clinical Summary of Care Provided Notes: Assessment/Plan Assessment/Plan (1) Ulcer of left calf with fat layer exposed: CODE(S): L97.222 - Non-pressure chronic ulcer of left calf with fat layer exposed (2) Type 2 diabetes mellitus: CODE(S): E11.9 - Type 2 diabetes mellitus without complications (3) Bilateral lower extremity edema: CODE(S): R60.0 - Localized edema PLAN: Plan Debridement was quite painful for her today so not able to remove as much slough as last week, but still made some improvement. She is instructed to apply the Gentamicin as directed until she has used the entire tube, then change back to Santyl. Will plan for Misonix at her next visit. For wound care, continue to wash the area with antibacterial soap and water then pat to dry. Until the tube runs out, apply gentamicin ointment to the wound bed, cover with Adaptic followed by ABD and dry gauze wrap. Change three times daily or more often as needed to keep clean and dry. If the gentamicin is completed then instead apply nickel-thick layer of santyl followed by lightly moistened gauze followed by ABD and dry gauze wrap. Change at least once daily, more often as needed to manage drainage. She actually did tolerate the increase to high-strength Tubigrips last week and ended up continuing to use that instead of reducing down to the mediums. Her swelling has noticeably improved. Will continue high-strength tubigrips for compression. She is encouraged to continue with leg elevation at all times of rest. Return to the clinic in 2 weeks to see me as I am out next week, but encouraged to call for courtesy visit if she feels wound is looking worse or other concerns arise next week.
== END 2024-12-18 23:59 | disposition home or self-care (01) ==
LOC: WC 15:30
PROVIDERS: PCP Family Medicine; Referring Provider Family Medicine; Visit Provider Physician Assistant
DX: L97.222 Non-pressure chronic ulcer of left calf with fat layer exposed (principal); E11.9 Type 2 diabetes mellitus without complications; Z79.4 Long term (current) use of insulin; R60.0 Localized edema; S80.822S Blister (nonthermal), left lower leg, sequela; X58.XXXS Exposure to other specified factors, sequela; Z79.891 Long term (current) use of opiate analgesic; Z79.899 Other long term (current) drug therapy
CPT/HCPCS: 11042; 11045; 97597; 97598

== ENCOUNTER 2025-01-14 14:45 | Outpatient (RCR) | payer BC, SELFPAY ==
[2024-12-19 01:05] VITALS: BP 159/81; PULSE 101; RESP 18; TEMP 35.8; BMI 34.3
[2024-12-24 15:06] VITALS: BP 131/59; PULSE 103; RESP 20; TEMP 36.3; BMI 34.3
--- NOTE | 2024-12-24 16:47 | PN.PCM_ITS ---
History of Present Illness Date of Service: 12/24/24 Chief Complaint: Left posterior calf wound History of Wound: Josy Smith is a 69-year-old female who presents today for evaluation and management of a left posterior calf wound as referred by her primary care Dr. Vazquez. She reports that this ulceration has been present since the end of May of this year. She reports that around that time her AC had gone out in her house and was out for several weeks so her house was very warm and she noticed significantly increased lower extremity edema. Eventually, a blister formed on her posterior calf and after rupturing left behind this ulceration. At home, she has been caring for this by applying antibiotic ointment and leaving it open to air. She denies any expanding redness, warmth, excess drainage, foul odor. Her swelling has since improved back to her baseline. She does have significant bilateral lower extremity edema at baseline and this has been ongoing for several years. She is diabetic, last A1c was 7.7. She does not smoke. She denies any history of VTE. She does not wear compression, she reports it makes her legs and feet feel too hot. Subjective Subjective Josy is doing quite well this week, she has noticed much less pain but perhaps some increased itching around the wound. She is also noticing less drainage. She has no new concerns. Objective Data Objective Data Vital Signs: Vital Signs Temp Pulse Resp BP 97.4 F L 103 H 20 H 131/59 H 12/24/24 15:06 12/24/24 15:06 12/24/24 15:06 12/24/24 15:06 Weight: 200 lb Body Mass Index (BMI) 34.3 Charges/Coding Procedures Integumentary 111xxx-113xx: [id number] Connie subq tissue 20 sq cm/< (wound area 41.76 sqcm) Physical Exam Const alert, oriented x3 and no apparent distress General Appearance: cooperative and anxious HEENT normocephalic, head/scalp atraumatic, hearing grossly normal bilaterally, external ears normal and external nose normal Eyes EOMs intact bilaterally General Eye: normal appearance of both eyes Neck General: normal visual inspection and trachea midline Resp normal respiratory effort Effort and Inspection: able to speak in complete sentences Extremity Extremity Narrative: Bilateral lower extremity pitting edema, trace right leg and 1+ left leg. Skin Wounds: wounds noted Wound Narrative: Posterior left calf ulceration cluster with moderate but reduced burden of yellow slough at the base compared to last visit, pink granular tissue visible at the base. It is improved in size this week. There is mild reactive erythema just around the wound margins but not extending proximally up the leg or distally to the foot. No excess warmth, purulence, foul odor, induration/fluctuance. There is no tunneling or undermining. Do not appreciate any significant drainage. Neuro oriented x3, CN's II-XII intact bilaterally and moves all extremities Speech: speech normal Psych mental status grossly normal Appearance: grossly normal Attitude: engaged Speech: normal speech Mood & Affect: euthymic mood Judgement: judgement good Debridement Note Debridement Note Wound debrided: L posterior calf Laterality: Left Type of Debridement: Excisional debridement and - (Misonix) Anesthesia Used: 4% Lidocaine Solution Depth: Down to and including healthy tissue and in the subcutaneous layer Percentage of wound debrided: 100 Instrument Used: - (Misonix) Tissue Removed: slough Severity: Fat Layer Exposed Amount of bleeding with debridement: Mild Bleeding Controlled with: Pressure Patient tolerated procedure: Patient tolerated procedure well Post-Debridement Measurements and Additional Note: Post-Debridement Measurements/Treatment - Nurse 1 - General Ulcer Assessment Start: 12/24/24 15:06 Freq: Status: Active Protocol: [facility] Activity Type Activity Date Activity User E-sign Co-sign Detail Recorded Client Recorded Date Recorded By Document 12/24/24 15:06 DL [id number] 12/24/24 15:13 DL 12/24/24 15:06 - Today's Visit Information Type of service Follow-up Visit (Physician/INDUSTRIAL CLEANING TECHNICIAN ) Arrival Mode Ambulatory Transfer Assistance None Patient Identification Verified (Name & Yes ) Patient Requires Transmission-Based No Precautions Height and Weight Body Mass Index (BMI) 34.3 BMI Classification Obese Vital Signs Temperature (97.8 F-99.1 F) 97.4 F L Temperature Source Temporal Pulse Rate (60-100) 103 H Pulse Location Monitor Respiratory Rate (12-18) 20 H Respiratory rate source Observation Blood Pressure (90/60-120/80) 131/59 H Blood Pressure Mean (mm Hg) 83 Source Monitor History Since Last Visit- (Skip if this is Patient's initial visit) Have you changed medications since your No last visit? Any new allergies or adverse reactions No Had a fall/change in ADL's that may No increase risk of falls Signs or symptoms of abuse and/or No neglect since last visit Have you been in the hospital since your No last visit? Has dressing in place as prescribed Yes Has compression in place as prescribed Yes Has offloadiing in place as prescribed Yes Experienced any changes in pain level or No management Pain Scale: 0-10 Numeric Is Patient Pain Free? Yes WC - Nurse 1 - General Ulcer Measurement Start: 12/24/24 15:06 Freq: Status: Active Protocol: Activity Type Activity Date Activity User E-sign Co-sign Detail Recorded Client Recorded Date Recorded By Document 12/24/24 15:06 DL [id number] 12/24/24 15:13 DL 12/24/24 15:06 Wound Center Nurse 1 #1 LT POST LE -Current Size (cm) - Length 5.7 -Current Size (cm) - Width 7 -Current Size (cm) - Depth 0.1 -Total Square Cm 39.9 -Exudate Amt Medium -Exudate Type Serosanguineous -Wound Margin Distinct, Outline Attached -Granulation Amt None Present (0 %) -Necrosis Amt Large (67-100%) -Necrotic Tissue Type Adherent Slough -Structure Exposed N/A -Texture (Radha-wound Skin Appearance) Scarring -Moisture (Radha-wound Skin Appearance) Dry/Scaly -Color (Radha-wound Skin Appearance) Erythema -Temperature (Radha-wound Skin No Abnormality Appearance) (Pt Warm) -Ulcer Cleansing Rinsed/ Irrigated with Saline -Foul Odor after Cleansing No -Anesthetic Used 4% Lidocaine Solution Left Calf (cm) 38.5 Left Ankle (cm) 25.5 WC - Nurse 2 - General Ulcer CM Notes Start: 12/24/24 15:06 Freq: Status: Active Protocol: Activity Type Activity Date Activity User E-sign Co-sign Detail Recorded Client Recorded Date Recorded By Document 12/24/24 16:00 GM [id number] 12/24/24 16:08 GM Edit Result 12/24/24 16:00 GM (1) [id number] 12/24/24 16:16 GM (1) #1 LT POST LE - Post Debridement (cm) - Length => 5.8 - Post Debridement (cm) - Width => 7.2 - Post Debridement (cm) - Depth => 0.2 - Total Square (Post) (cm) => 41.76 - Area of Debridement (cm) - Length => 5.8 - Area of Debridement (cm) - Width => 7.2 - Total Square (Area) (cm) => 41.76 - Debridement, SubQ, ea addt'l 20sq cm => 2 or part thereof 12/24/24 16:00 Wound Center Nurse 2 #1 LT POST LE -Time 16:00 -Correct Patient Yes -Correct Side, Site, Position Yes -Correct Procedure Yes -Procedure Performed Yes -Type of Procedure Debridement -Clinical Debridement Subcutaneous -Tissue Removed Subcutaneous -Post Debridement (cm) - Length 5.8 -Post Debridement (cm) - Width 7.2 -Post Debridement (cm) - Depth 0.2 -Total Square (Post) (cm) 41.76 -Area of Debridement (cm) - Length 5.8 -Area of Debridement (cm) - Width 7.2 -Total Square (Area) (cm) 41.76 -Tunneling No -Undermining/Tunneling No -Circular Undermining No -Wound/Ulcer Outcome Not Healed -Ulcer Cleansing Rinsed/ Irrigated with Saline -Foul Odor after Cleansing No -Bioengineered Tissue No -Bleeding Controlled with Pressure -Treatment Response Procedure Tolerated Well -Debridement - Subq, 1st 20sq cm Yes -Debridement, SubQ, ea addt'l 20sq cm 2 or part thereof Pain Scale: 0-10 Numeric Is Patient Pain Free? Yes - Nurse 3 - General Ulcer D/C NN Start: 12/24/24 15:06 Freq: Status: Active Protocol: Activity Type Activity Date Activity User E-sign Co-sign Detail Recorded Client Recorded Date Recorded By Document 12/24/24 16:17 DL [id number] 12/24/24 16:19 DL 12/24/24 16:17 Wound Care Center Nurse 3 #1 LT POST LE -Ulcer Cleansing Rinsed/ Irrigated with Saline -Foul Odor after Cleansing No -Other Dressing HYDROGEL -Primary Dressing Covered/Secured with Dry Gauze & Roll Gauze, Secured with Tape Left -Tubular Bandage Single Layer -Size of Tubigrip Used Size E -Size E ($) 1 Treatment Response Procedure Tolerated Well Pain Scale: 0-10 Numeric Is Patient Pain Free? Yes WC - Visit Discharge Discharge Condition Stable Ambulatory Status Ambulatory Transportation Private Auto Notes: Pt to resume santyl at home. Assessment/Plan Assessment/Plan (1) Ulcer of left calf with fat layer exposed: CODE(S): L97.222 - Non-pressure chronic ulcer of left calf with fat layer exposed (2) Type 2 diabetes mellitus: CODE(S): E11.9 - Type 2 diabetes mellitus without complications (3) Bilateral lower extremity edema: CODE(S): R60.0 - Localized edema PLAN: Plan She really tolerated the Misonix well this week, she did overall find it more comfortable than sharp debridement with the curette. Will plan to continue with this. Her wound culture showed no significant bacterial growth but did grow mild- moderate Lisbeth. Will treat with diflucan 150mg tab once and monitor for improvement. For wound care, continue to wash the area with antibacterial soap and water then pat to dry. Apply nickel-thick layer of santyl followed by lightly moistened gauze followed by ABD and dry gauze wrap. Change at least once daily, more often as needed to manage drainage and keep the area clean and dry. She continues to tolerate high-strength tubigrips so will continue with these, she has had noticeable improvement in her edema. She is encouraged to continue with leg elevation at all times of rest. Return to the clinic in 1 week.
[2024-12-31 14:27] VITALS: BP 142/69; PULSE 100; RESP 20; TEMP 36.3; BMI 34.3
--- NOTE | 2024-12-31 21:49 | PN.PCM_ITS ---
History of Present Illness Date of Service: 12/31/24 Chief Complaint: Left posterior calf wound History of Wound: Josy Smith is a 69-year-old female who presents today for evaluation and management of a left posterior calf wound as referred by her primary care Dr. Vazquez. She reports that this ulceration has been present since the end of May of this year. She reports that around that time her AC had gone out in her house and was out for several weeks so her house was very warm and she noticed significantly increased lower extremity edema. Eventually, a blister formed on her posterior calf and after rupturing left behind this ulceration. At home, she has been caring for this by applying antibiotic ointment and leaving it open to air. She denies any expanding redness, warmth, excess drainage, foul odor. Her swelling has since improved back to her baseline. She does have significant bilateral lower extremity edema at baseline and this has been ongoing for several years. She is diabetic, last A1c was 7.7. She does not smoke. She denies any history of VTE. She does not wear compression, she reports it makes her legs and feet feel too hot. Subjective Subjective Josy is doing well this week, she has noticed improved itching this week. She has no new concerns. Objective Data Objective Data Vital Signs: Vital Signs Temp Pulse Resp BP 97.3 F L 100 20 H 142/69 H 12/31/24 14:27 12/31/24 14:27 12/31/24 14:27 12/31/24 14:27 Weight: 200 lb Body Mass Index (BMI) 34.3 Charges/Coding Procedures Integumentary 111xxx-113xx: 24830 Connie subq tissue 20 sq cm/< (wound area 35.19 sqcm) Physical Exam Const alert, oriented x3 and no apparent distress General Appearance: cooperative and anxious HEENT normocephalic, head/scalp atraumatic, hearing grossly normal bilaterally, external ears normal and external nose normal Eyes EOMs intact bilaterally General Eye: normal appearance of both eyes Neck General: normal visual inspection and trachea midline Resp normal respiratory effort Effort and Inspection: able to speak in complete sentences Extremity Extremity Narrative: Bilateral lower extremity pitting edema, trace right leg and 1+ left leg. Skin Wounds: wounds noted Wound Narrative: Posterior left calf ulceration cluster with moderate but reduced burden of yellow slough at the base compared to last visit, pink granular tissue visible at the base. There are two tissue buds centrally. It is improved in size this week. There is mild reactive erythema just around the wound margins but not extending proximally up the leg or distally to the foot. No excess warmth, purulence, foul odor, induration/fluctuance. There is no tunneling or undermining. Do not appreciate any significant drainage. Neuro oriented x3, CN's II-XII intact bilaterally and moves all extremities Speech: speech normal Psych mental status grossly normal Appearance: grossly normal Attitude: engaged Speech: normal speech Mood & Affect: euthymic mood Judgement: judgement good Debridement Note Debridement Note Wound debrided: L posterior calf Laterality: Left Type of Debridement: Excisional debridement and - (Misonix) Anesthesia Used: 4% Lidocaine Solution Depth: Down to and including healthy tissue and in the subcutaneous layer Percentage of wound debrided: 100 Instrument Used: - (Misonix) Tissue Removed: slough Severity: Fat Layer Exposed Amount of bleeding with debridement: Mild Bleeding Controlled with: Pressure Patient tolerated procedure: Patient tolerated procedure well Post-Debridement Measurements and Additional Note: Post-Debridement Measurements/Treatment - Nurse 1 - General Ulcer Assessment Start: 12/24/24 15:06 Freq: Status: Active Protocol: [email or web address] Activity Type Activity Date Activity User E-sign Co-sign Detail Recorded Client Recorded Date Recorded By Document 12/24/24 15:06 DL [id number] 12/24/24 15:13 DL Document 12/31/24 14:27 DL [id number] 12/31/24 14:29 DL 12/24/24 12/31/24 15:06 14:27 - Today's Visit Information Type of service Follow-up Visit Follow-up Visit (Physician/PRECISION AGRICULTURE TECHNICIAN (Physician/PRECISION AGRICULTURE TECHNICIAN ) ) Arrival Mode Ambulatory Ambulatory Transfer Assistance None None Patient Identification Verified (Name & Yes Yes ) Patient Requires Transmission-Based No No Precautions Height and Weight Body Mass Index (BMI) 34.3 34.3 BMI Classification Obese Obese Vital Signs Temperature (97.8 F-99.1 F) 97.4 F L 97.3 F L Temperature Source Temporal Temporal Pulse Rate (60-100) 103 H 100 Pulse Location Monitor Monitor Respiratory Rate (12-18) 20 H 20 H Respiratory rate source Observation Observation Blood Pressure (90/60-120/80) 131/59 H 142/69 H Blood Pressure Mean (mm Hg) 83 93 Source Monitor Monitor History Since Last Visit- (Skip if this is Patient's initial visit) Have you changed medications since your No No last visit? Any new allergies or adverse reactions No No Had a fall/change in ADL's that may No No increase risk of falls Signs or symptoms of abuse and/or No No neglect since last visit Have you been in the hospital since your No No last visit? Has dressing in place as prescribed Yes Yes Has compression in place as prescribed Yes Yes Has offloadiing in place as prescribed Yes N/A Experienced any changes in pain level or No No management Pain Scale: 0-10 Numeric Is Patient Pain Free? Yes Yes WC - Nurse 1 - General Ulcer Measurement Start: 12/24/24 15:06 Freq: Status: Active Protocol: Activity Type Activity Date Activity User E-sign Co-sign Detail Recorded Client Recorded Date Recorded By Document 12/24/24 15:06 DL [id number] 12/24/24 15:13 DL Document 12/31/24 14:27 DL [id number] 12/31/24 14:29 DL 12/24/24 12/31/24 15:06 14:27 Wound Center Nurse 1 #1 LT POST LE -Current Size (cm) - Length 5.7 3.5 -Current Size (cm) - Width 7 7.5 -Current Size (cm) - Depth 0.1 0.1 -Total Square Cm 39.9 26.25 -Photo Taken Yes -Exudate Amt Medium Medium -Exudate Type Serosanguineous Serosanguineous -Wound Margin Distinct, Distinct, Outline Outline Attached Attached -Granulation Amt None Present (0 Small (1-33%) %) -Granulation Quality [place] -Necrosis Amt Large (67-100%) Large (67-100%) -Necrotic Tissue Type Adherent Slough Adherent Slough -Structure Exposed N/A N/A -Texture (Radha-wound Skin Appearance) Scarring Scarring -Moisture (Radha-wound Skin Appearance) Dry/Scaly No Abnormality -Color (Radha-wound Skin Appearance) Erythema No Abnormality -Temperature (Radha-wound Skin No Abnormality No Abnormality Appearance) (Pt Warm) (Pt Warm) -Tenderness on Palpation (Radha-wound No Skin Appearance) -Ulcer Cleansing Rinsed/ Soap and Water Irrigated with Saline -Foul Odor after Cleansing No No -Anesthetic Used 4% Lidocaine 5% Lidocaine Solution Gel Left Calf (cm) 38.5 38 Left Ankle (cm) 25.5 25 WC - Nurse 2 - General Ulcer CM Notes Start: 12/24/24 15:06 Freq: Status: Active Protocol: Activity Type Activity Date Activity User E-sign Co-sign Detail Recorded Client Recorded Date Recorded By Document 12/24/24 16:00 GM [id number] 12/24/24 16:08 GM Edit Result 12/24/24 16:00 GM (1) [id number] 12/24/24 16:16 GM Document 12/31/24 15:02 GM [id number] 12/31/24 15:07 GM (1) #1 LT POST LE - Post Debridement (cm) - Length => 5.8 - Post Debridement (cm) - Width => 7.2 - Post Debridement (cm) - Depth => 0.2 - Total Square (Post) (cm) => 41.76 - Area of Debridement (cm) - Length => 5.8 - Area of Debridement (cm) - Width => 7.2 - Total Square (Area) (cm) => 41.76 - Debridement, SubQ, ea addt'l 20sq cm => 2 or part thereof 12/24/24 12/31/24 16:00 15:02 Wound Center Nurse 2 #1 LT POST LE -Time 16:00 15:02 -Correct Patient Yes Yes -Correct Side, Site, Position Yes Yes -Correct Procedure Yes Yes -Procedure Performed Yes Yes -Type of Procedure Debridement Debridement -Clinical Debridement Subcutaneous Subcutaneous -Tissue Removed Subcutaneous Subcutaneous -Post Debridement (cm) - Length 5.8 5.1 -Post Debridement (cm) - Width 7.2 6.9 -Post Debridement (cm) - Depth 0.2 0.1 -Total Square (Post) (cm) 41.76 35.19 -Area of Debridement (cm) - Length 5.8 5.1 -Area of Debridement (cm) - Width 7.2 6.9 -Total Square (Area) (cm) 41.76 35.19 -Tunneling No No -Undermining/Tunneling No No -Circular Undermining No No -Wound/Ulcer Outcome Not Healed Not Healed -Ulcer Cleansing Rinsed/ Rinsed/ Irrigated with Irrigated with Saline Saline -Foul Odor after Cleansing No No -Bioengineered Tissue No No -Bleeding Controlled with Pressure Pressure -Treatment Response Procedure Procedure Tolerated Well Tolerated Well -Debridement - Subq, 1st 20sq cm Yes Yes -Debridement, SubQ, ea addt'l 20sq cm 2 1 or part thereof Pain Scale: 0-10 Numeric Is Patient Pain Free? Yes Yes - Nurse 3 - General Ulcer D/C NN Start: 12/24/24 15:06 Freq: Status: Active Protocol: Activity Type Activity Date Activity User E-sign Co-sign Detail Recorded Client Recorded Date Recorded By Document 12/24/24 16:17 DL [id number] 12/24/24 16:19 DL Document 12/31/24 15:14 KW [id number] 12/31/24 15:15 KW 12/24/24 12/31/24 16:17 15:14 Wound Care Center Nurse 3 #1 LT POST LE -Ulcer Cleansing Rinsed/ Irrigated with Saline -Foul Odor after Cleansing No -Primary Dressing Applied NonAdherent Contact Layer -Other Dressing HYDROGEL HYDROGEL -Primary Dressing Covered/Secured with Dry Gauze & Dry Gauze & Roll Gauze, Roll Gauze, Secured with Secured with Tape Tape Left -Tubular Bandage Single Layer Single Layer -Size of Tubigrip Used Size E Size E -Size E ($) 1 1 Treatment Response Procedure Tolerated Well Pain Scale: 0-10 Numeric Is Patient Pain Free? Yes Yes - Visit Discharge Discharge Condition Stable Stable Ambulatory Status Ambulatory Ambulatory Transportation Private Auto Private Auto Medication Reconcilliation completed & No provided to patient/care provider Clinical Summary of Care Provided Yes Notes: Pt to resume santyl at home. Assessment/Plan Assessment/Plan (1) Ulcer of left calf with fat layer exposed: CODE(S): L97.222 - Non-pressure chronic ulcer of left calf with fat layer exposed (2) Type 2 diabetes mellitus: CODE(S): E11.9 - Type 2 diabetes mellitus without complications (3) Bilateral lower extremity edema: CODE(S): R60.0 - Localized edema PLAN: Plan She again tolerated the Misonix debridement well this week. For wound care, continue to wash the area with antibacterial soap and water then pat to dry. Apply nickel-thick layer of santyl followed by lightly moistened gauze followed by ABD and dry gauze wrap. Change at least once daily, more often as needed to manage drainage and keep the area clean and dry. She continues to tolerate high-strength tubigrips so will continue with these, she has had noticeable improvement in her edema. She is encouraged to continue with leg elevation at all times of rest. Return to the clinic in 1 week.
--- NOTE | 2025-01-01 09:46 | WC ---
PHOTO 12/31/24 [facility]
[2025-01-07 14:52] VITALS: BP 144/63; PULSE 90; RESP 16; TEMP 37.2; BMI 34.3
--- NOTE | 2025-01-07 17:06 | PN.PCM_ITS ---
History of Present Illness Date of Service: 01/07/25 Chief Complaint: Left posterior calf wound History of Wound: Josy Smith is a 69-year-old female who presents today for evaluation and management of a left posterior calf wound as referred by her primary care Dr. Vazquez. She reports that this ulceration has been present since the end of May of this year. She reports that around that time her AC had gone out in her house and was out for several weeks so her house was very warm and she noticed significantly increased lower extremity edema. Eventually, a blister formed on her posterior calf and after rupturing left behind this ulceration. At home, she has been caring for this by applying antibiotic ointment and leaving it open to air. She denies any expanding redness, warmth, excess drainage, foul odor. Her swelling has since improved back to her baseline. She does have significant bilateral lower extremity edema at baseline and this has been ongoing for several years. She is diabetic, last A1c was 7.7. She does not smoke. She denies any history of VTE. She does not wear compression, she reports it makes her legs and feet feel too hot. Subjective Subjective Josy has been doing well this week. She does need a tramadol refill, she has been using it very responsibly and only when absolutely necessary to allow her to sleep or right after debridement. She has not had any new concerns, drainage has remained fairly minimal now. Objective Data Objective Data Vital Signs: Vital Signs Temp Pulse Resp BP O2 Del Method 98.9 F 90 16 144/63 H Room Air 01/07/25 14:52 01/07/25 14:52 01/07/25 14:52 01/07/25 14:52 01/07/25 14:52 Oxygen Delivery Method Room Air Weight: 200 lb Body Mass Index (BMI) 34.3 Charges/Coding Procedures Integumentary 111xxx-113xx: 01956 Connie subq tissue 20 sq cm/< (wound area 32 sqcm) Physical Exam Const alert, oriented x3 and no apparent distress General Appearance: cooperative and anxious HEENT normocephalic, head/scalp atraumatic, hearing grossly normal bilaterally, external ears normal and external nose normal Eyes EOMs intact bilaterally General Eye: normal appearance of both eyes Neck General: normal visual inspection and trachea midline Resp normal respiratory effort Effort and Inspection: able to speak in complete sentences Extremity Extremity Narrative: Bilateral lower extremity pitting edema, trace right leg and 1+ left leg. Skin Wounds: wounds noted Wound Narrative: Posterior left calf ulceration cluster with moderate but reduced burden of yellow slough at the base compared to last visit, pink granular tissue visible at the base. There are multiple tissue buds centrally and the posterior aspect is really filling in. It is improved in size this week. There is mild reactive erythema just around the wound margins but not extending proximally up the leg or distally to the foot. No excess warmth, purulence, foul odor, induration/fluctuance. There is no tunneling or undermining. Do not appreciate any significant drainage. Neuro oriented x3, CN's II-XII intact bilaterally and moves all extremities Speech: speech normal Psych mental status grossly normal Appearance: grossly normal Attitude: engaged Speech: normal speech Mood & Affect: euthymic mood Judgement: judgement good Debridement Note Debridement Note Wound debrided: L posterior calf Laterality: Left Type of Debridement: Excisional debridement and - (Misonix) Anesthesia Used: 4% Lidocaine Solution Depth: Down to and including healthy tissue and in the subcutaneous layer Percentage of wound debrided: 100 Instrument Used: - (Misonix) Tissue Removed: slough Severity: Fat Layer Exposed Amount of bleeding with debridement: Mild Bleeding Controlled with: Pressure Patient tolerated procedure: Patient tolerated procedure well Post-Debridement Measurements and Additional Note: Post-Debridement Measurements/Treatment - Nurse 1 - General Ulcer Assessment Start: 12/24/24 15:06 Freq: Status: Active Protocol: [email or web address].[email or web address] Activity Type Activity Date Activity User E-sign Co-sign Detail Recorded Client Recorded Date Recorded By Document 12/24/24 15:06 DL [id number] 12/24/24 15:13 DL Document 12/31/24 14:27 DL [id number] 12/31/24 14:29 DL Document 01/07/25 14:52 [facility] [id number] 01/07/25 15:00 BM 12/24/24 12/31/24 01/07/25 15:06 14:27 14:52 - Today's Visit Information Type of service Follow-up Visit Follow-up Visit Follow-up Visit (Physician/OWNER OPERATOR (Physician/OWNER OPERATOR (Physician/OWNER OPERATOR ) ) ) Arrival Mode Ambulatory Ambulatory Ambulatory Transfer Assistance None None None Patient Identification Verified (Name & Yes Yes Yes ) Patient Requires Transmission-Based No No No Precautions Height and Weight Body Mass Index (BMI) 34.3 34.3 34.3 BMI Classification Obese Obese Obese Vital Signs Temperature (97.8 F-99.1 F) 97.4 F L 97.3 F L 98.9 F Temperature Source Temporal Temporal Temporal Pulse Rate (60-100) 103 H 100 90 Pulse Location Monitor Monitor Monitor Respiratory Rate (12-18) 20 H 20 H 16 Respiratory rate source Observation Observation Observation Oxygen Delivery Method Room Air Blood Pressure (90/60-120/80) 131/59 H 142/69 H 144/63 H Blood Pressure Mean (mm Hg) 83 93 90 Source Monitor Monitor Monitor Position Sitting Blood Pressure Location Left Arm History Since Last Visit- (Skip if this is Patient's initial visit) Have you changed medications since your No No No last visit? Any new allergies or adverse reactions No No No Had a fall/change in ADL's that may No No No increase risk of falls Signs or symptoms of abuse and/or No No No neglect since last visit Have you been in the hospital since your No No No last visit? Has dressing in place as prescribed Yes Yes Yes Has compression in place as prescribed Yes Yes Yes Has offloadiing in place as prescribed Yes N/A N/A Experienced any changes in pain level or No No No management Left Footwear Regular Shoe Right Footwear Regular Shoe Pain Scale: 0-10 Numeric Is Patient Pain Free? Yes Yes Yes WC - Nurse 1 - General Ulcer Measurement Start: 12/24/24 15:06 Freq: Status: Active Protocol: Activity Type Activity Date Activity User E-sign Co-sign Detail Recorded Client Recorded Date Recorded By Document 12/24/24 15:06 DL [id number] 12/24/24 15:13 DL Document 12/31/24 14:27 DL [id number] 12/31/24 14:29 DL Document 01/07/25 14:52 BM [id number] 01/07/25 15:00 BMF 12/24/24 12/31/24 01/07/25 15:06 14:27 14:52 Wound Center Nurse 1 #1 LT POST LE -Combined with other wound No -Current Size (cm) - Length 5.7 3.5 5.2 -Current Size (cm) - Width 7 7.5 6.1 -Current Size (cm) - Depth 0.1 0.1 0.1 -Total Square Cm 39.9 26.25 31.72 -Date of Last Picture (Recall this 01/07/25 field) -Photo Taken Yes -Epithelialization Small 1-33% -Tunneling No -Undermining/Tunneling No -Circular Undermining No -Exudate Amt Medium Medium Large -Exudate Type Serosanguineous Serosanguineous Serous -Wound Margin Distinct, Distinct, Distinct, Outline Outline Outline Attached Attached Attached -Granulation Amt None Present (0 Small (1-33%) None Present (0 %) %) -Granulation Quality [place] -Slough/Fibrin Yes -Necrosis Amt Large (67-100%) Large (67-100%) Large (67-100%) -Necrotic Tissue Type Adherent Slough Adherent Slough Adherent Slough -Structure Exposed N/A N/A -Texture (Radha-wound Skin Appearance) Scarring Scarring Assessed, Scarring -Moisture (Radha-wound Skin Appearance) Dry/Scaly No Abnormality Assessed -Color (Radha-wound Skin Appearance) Erythema No Abnormality Assessed -Temperature (Radha-wound Skin No Abnormality No Abnormality No Abnormality Appearance) (Pt Warm) (Pt Warm) (Pt Warm) -Tenderness on Palpation (Radha-wound No No Skin Appearance) -Ulcer Cleansing Rinsed/ Soap and Water Rinsed/ Irrigated with Irrigated with Saline Saline -Foul Odor after Cleansing No No No -Anesthetic Used 4% Lidocaine 5% Lidocaine 5% Lidocaine Solution Gel Gel Lower Limb Edema Present Yes Left Calf (cm) 38.5 38 37.2 Left Ankle (cm) 25.5 25 26 WC - Nurse 2 - General Ulcer CM Notes Start: 12/24/24 15:06 Freq: Status: Active Protocol: Activity Type Activity Date Activity User E-sign Co-sign Detail Recorded Client Recorded Date Recorded By Document 12/24/24 16:00 GM [id number] 12/24/24 16:08 GM Edit Result 12/24/24 16:00 GM (1) [id number] 12/24/24 16:16 GM Document 12/31/24 15:02 GM [id number] 12/31/24 15:07 GM Document 01/07/25 15:18 GM [id number] 01/07/25 15:24 GM (1) #1 LT POST LE - Post Debridement (cm) - Length => 5.8 - Post Debridement (cm) - Width => 7.2 - Post Debridement (cm) - Depth => 0.2 - Total Square (Post) (cm) => 41.76 - Area of Debridement (cm) - Length => 5.8 - Area of Debridement (cm) - Width => 7.2 - Total Square (Area) (cm) => 41.76 - Debridement, SubQ, ea addt'l 20sq cm => 2 or part thereof 12/24/24 12/31/24 01/07/25 16:00 15:02 15:18 Wound Center Nurse 2 #1 LT POST LE -Time 16: 15:02 15:18 -Correct Patient Yes Yes Yes -Correct Side, Site, Position Yes Yes Yes -Correct Procedure Yes Yes Yes -Procedure Performed Yes Yes Yes -Type of Procedure Debridement Debridement Debridement -Clinical Debridement Subcutaneous Subcutaneous Subcutaneous -Tissue Removed Subcutaneous Subcutaneous Subcutaneous -Post Debridement (cm) - Length 5.8 5.1 5.0 -Post Debridement (cm) - Width 7.2 6.9 6.4 -Post Debridement (cm) - Depth 0.2 0.1 0.1 -Total Square (Post) (cm) 41.76 35.19 32.00 -Area of Debridement (cm) - Length 5.8 5.1 5.0 -Area of Debridement (cm) - Width 7.2 6.9 6.4 -Total Square (Area) (cm) 41.76 35.19 32.00 -Tunneling No No No -Undermining/Tunneling No No No -Circular Undermining No No No -Wound/Ulcer Outcome Not Healed Not Healed Not Healed -Ulcer Cleansing Rinsed/ Rinsed/ Not Cleansed Irrigated with Irrigated with Saline Saline -Foul Odor after Cleansing No No No -Bioengineered Tissue No No No -Bleeding Controlled with Pressure Pressure Pressure -Treatment Response Procedure Procedure Procedure Tolerated Well Tolerated Well Tolerated Well -Offloading No -Debridement - Subq, 1st 20sq cm Yes Yes Yes -Debridement, SubQ, ea addt'l 20sq cm 2 1 1 or part thereof Pain Scale: 0-10 Numeric Is Patient Pain Free? Yes Yes Yes WC - Nurse 3 - General Ulcer D/C NN Start: 12/24/24 15:06 Freq: Status: Active Protocol: Activity Type Activity Date Activity User E-sign Co-sign Detail Recorded Client Recorded Date Recorded By Document 12/24/24 16:17 DL [id number] 12/24/24 16:19 DL Document 12/31/24 15:14 KW [id number] 12/31/24 15:15 KW Document 01/07/25 15:33 KW [id number] 01/07/25 15:34 KW 12/24/24 12/31/24 01/07/25 16:17 15:14 15:33 Wound Care Center Nurse 3 #1 LT POST LE -Ulcer Cleansing Rinsed/ Irrigated with Saline -Foul Odor after Cleansing No -Primary Dressing Applied NonAdherent Contact Layer -Other Dressing HYDROGEL HYDROGEL -Primary Dressing Covered/Secured with Dry Gauze & Dry Gauze & Roll Gauze, Roll Gauze, Secured with Secured with Tape Tape Left -Tubular Bandage Single Layer Single Layer -Size of Tubigrip Used Size E Size E -Size E ($) 1 1 Treatment Response Procedure Tolerated Well Pain Scale: 0-10 Numeric Is Patient Pain Free? Yes Yes Yes WC - Visit Discharge Discharge Condition Stable Stable Stable Ambulatory Status Ambulatory Ambulatory Ambulatory Transportation Private Auto Private Auto Private Auto Medication Reconcilliation completed & No provided to patient/care provider Clinical Summary of Care Provided Yes Notes: Pt to resume santyl at home. #1 LT POST LE -Ulcer Cleansing Rinsed/ Irrigated with Saline -Foul Odor after Cleansing No -Primary Dressing Applied NonAdherent Contact Layer -Other Dressing hydrogel -Primary Dressing Covered/Secured with Dry Gauze & Roll Gauze, Secured with Tape Left -Tubular Bandage Single Layer -Size of Tubigrip Used Size E -Size E ($) 1 Treatment Response Procedure Tolerated Well Assessment/Plan Assessment/Plan (1) Ulcer of left calf with fat layer exposed: CODE(S): L97.222 - Non-pressure chronic ulcer of left calf with fat layer exposed (2) Type 2 diabetes mellitus: CODE(S): E11.9 - Type 2 diabetes mellitus without complications (3) Bilateral lower extremity edema: CODE(S): R60.0 - Localized edema PLAN: Plan She again tolerated the Misonix debridement well this week. For wound care, continue to wash the area with antibacterial soap and water then pat to dry. Apply nickel-thick layer of santyl followed by lightly moistened gauze followed by ABD and dry gauze wrap. Change at least once daily, more often as needed to manage drainage and keep the area clean and dry. She continues to tolerate high-strength tubigrips so will continue with these, she has had noticeable improvement in her edema. She is encouraged to continue with leg elevation at all times of rest. Return to the clinic in 1 week.
--- NOTE | 2025-01-08 12:22 | WC ---
PHOTO 01/07/25 Left Post LE
[2025-01-14 14:53] VITALS: BP 128/55; PULSE 103; RESP 18; TEMP 36; BMI 34.3
--- NOTE | 2025-01-14 18:17 | PN.PCM_ITS ---
History of Present Illness Date of Service: 01/14/25 Chief Complaint: Left posterior calf wound History of Wound: Josy Smith is a 69-year-old female who presents today for evaluation and management of a left posterior calf wound as referred by her primary care Dr. Vazquez. She reports that this ulceration has been present since the end of May of this year. She reports that around that time her AC had gone out in her house and was out for several weeks so her house was very warm and she noticed significantly increased lower extremity edema. Eventually, a blister formed on her posterior calf and after rupturing left behind this ulceration. At home, she has been caring for this by applying antibiotic ointment and leaving it open to air. She denies any expanding redness, warmth, excess drainage, foul odor. Her swelling has since improved back to her baseline. She does have significant bilateral lower extremity edema at baseline and this has been ongoing for several years. She is diabetic, last A1c was 7.7. She does not smoke. She denies any history of VTE. She does not wear compression, she reports it makes her legs and feet feel too hot. Subjective Subjective Josy has been doing well this week. She has not had any new concerns, drainage has remained fairly minimal now. Objective Data Objective Data Vital Signs: Vital Signs Temp Pulse Resp BP O2 Del Method 96.8 F L 103 H 18 128/55 H Room Air 01/14/25 14:53 01/14/25 14:53 01/14/25 14:53 01/14/25 14:53 01/14/25 14:53 Oxygen Delivery Method Room Air Weight: 200 lb Body Mass Index (BMI) 34.3 Charges/Coding Procedures Integumentary 111xxx-113xx: [id number] Connie subq tissue 20 sq cm/< (wound area 30 sqcm) Physical Exam Const alert, oriented x3 and no apparent distress General Appearance: cooperative and anxious HEENT normocephalic, head/scalp atraumatic, hearing grossly normal bilaterally, external ears normal and external nose normal Eyes EOMs intact bilaterally General Eye: normal appearance of both eyes Neck General: normal visual inspection and trachea midline Resp normal respiratory effort Effort and Inspection: able to speak in complete sentences Extremity Extremity Narrative: Bilateral lower extremity pitting edema, trace right leg and 1+ left leg. Skin Wounds: wounds noted Wound Narrative: Posterior left calf ulceration cluster with moderate burden of yellow slough at the base compared to last visit, pink granular tissue visible at the base. There are multiple tissue buds centrally and the posterior aspect continues to fill in. It is improved in size this week. There is mild reactive erythema just around the wound margins but not extending proximally up the leg or distally to the foot. No excess warmth, purulence, foul odor, induration/fluctuance. There is no tunneling or undermining. Do not appreciate any significant drainage. Neuro oriented x3, CN's II-XII intact bilaterally and moves all extremities Speech: speech normal Psych mental status grossly normal Appearance: grossly normal Attitude: engaged Speech: normal speech Mood & Affect: euthymic mood Judgement: judgement good Debridement Note Debridement Note Wound debrided: L posterior calf Laterality: Left Type of Debridement: Excisional debridement and - (Misonix) Anesthesia Used: 4% Lidocaine Solution Depth: Down to and including healthy tissue and in the subcutaneous layer Percentage of wound debrided: 100 Instrument Used: - (Misonix) Tissue Removed: slough Severity: Fat Layer Exposed Amount of bleeding with debridement: Mild Bleeding Controlled with: Pressure Patient tolerated procedure: Patient tolerated procedure well Post-Debridement Measurements and Additional Note: Post-Debridement Measurements/Treatment - Nurse 1 - General Ulcer Assessment Start: 12/24/24 15:06 Freq: Status: Active Protocol: CAMILLA Activity Type Activity Date Activity User E-sign Co-sign Detail Recorded Client Recorded Date Recorded By Document 12/24/24 15:06 DL [id number] 12/24/24 15:13 DL Document 12/31/24 14:27 DL [id number] 12/31/24 14:29 DL Document 01/07/25 14:52 BMF [id number] 01/07/25 15:00 BMF Document 01/14/25 14:53 KW [id number] 01/14/25 15:00 KW 12/24/24 12/31/24 01/07/25 15:06 14:27 14:52 - Today's Visit Information Type of service Follow-up Visit Follow-up Visit Follow-up Visit (Physician/VICE PRESIDENT INVESTOR RELATIONS (Physician/VICE PRESIDENT INVESTOR RELATIONS (Physician/VICE PRESIDENT INVESTOR RELATIONS ) ) ) Arrival Mode Ambulatory Ambulatory Ambulatory Transfer Assistance None None None Accompanied by Patient Identification Verified (Name & Yes Yes Yes ) Patient Requires Transmission-Based No No No Precautions Height and Weight Body Mass Index (BMI) 34.3 34.3 34.3 BMI Classification Obese Obese Obese Vital Signs Temperature (97.8 F-99.1 F) 97.4 F L 97.3 F L 98.9 F Temperature Source Temporal Temporal Temporal Pulse Rate (60-100) 103 H 100 90 Pulse Location Monitor Monitor Monitor Respiratory Rate (12-18) 20 H 20 H 16 Respiratory rate source Observation Observation Observation Oxygen Delivery Method Room Air Blood Pressure (90/60-120/80) 131/59 H 142/69 H 144/63 H Blood Pressure Mean (mm Hg) 83 93 90 Source Monitor Monitor Monitor Position Sitting Blood Pressure Location Left Arm History Since Last Visit- (Skip if this is Patient's initial visit) Have you changed medications since your No No No last visit? Any new allergies or adverse reactions No No No Had a fall/change in ADL's that may No No No increase risk of falls Signs or symptoms of abuse and/or No No No neglect since last visit Have you been in the hospital since your No No No last visit? Has dressing in place as prescribed Yes Yes Yes Has compression in place as prescribed Yes Yes Yes Has offloadiing in place as prescribed Yes N/A N/A Experienced any changes in pain level or No No No management Left Footwear Regular Shoe Right Footwear Regular Shoe Pain Scale: 0-10 Numeric Is Patient Pain Free? Yes Yes Yes 01/14/25 14:53 WC - Today's Visit Information Type of service Follow-up Visit (Physician/VICE PRESIDENT INVESTOR RELATIONS ) Arrival Mode Ambulatory Transfer Assistance Accompanied by Patient Identification Verified (Name & Yes ) Patient Requires Transmission-Based Precautions Height and Weight Body Mass Index (BMI) 34.3 BMI Classification Obese Vital Signs Temperature (97.8 F-99.1 F) 96.8 F L Temperature Source Temporal Pulse Rate (60-100) 103 H Pulse Location Monitor Respiratory Rate (12-18) 18 Respiratory rate source Observation Oxygen Delivery Method Room Air Blood Pressure (90/60-120/80) 128/55 H Blood Pressure Mean (mm Hg) 79 Source Monitor Position Semi-Fowlers Blood Pressure Location Right Arm History Since Last Visit- (Skip if this is Patient's initial visit) Have you changed medications since your No last visit? Any new allergies or adverse reactions No Had a fall/change in ADL's that may No increase risk of falls Signs or symptoms of abuse and/or No neglect since last visit Have you been in the hospital since your No last visit? Has dressing in place as prescribed Yes Has compression in place as prescribed Yes Has offloadiing in place as prescribed N/A Experienced any changes in pain level or No management Left Footwear Regular Shoe Right Footwear Regular Shoe Pain Scale: 0-10 Numeric Is Patient Pain Free? Yes WC - Nurse 1 - General Ulcer Measurement Start: 12/24/24 15:06 Freq: Status: Active Protocol: Activity Type Activity Date Activity User E-sign Co-sign Detail Recorded Client Recorded Date Recorded By Document 12/24/24 15:06 DL [id number] 12/24/24 15:13 DL Document 12/31/24 14:27 DL [id number] 12/31/24 14:29 DL Document 01/07/25 14:52 BMF [id number] 01/07/25 15:00 BMF Document 01/14/25 14:53 KW [id number] 01/14/25 15:00 KW 12/24/24 12/31/24 01/07/25 15:06 14:27 14:52 Wound Center Nurse 1 #1 LT POST LE -Combined with other wound No -Current Size (cm) - Length 5.7 3.5 5.2 -Current Size (cm) - Width 7 7.5 6.1 -Current Size (cm) - Depth 0.1 0.1 0.1 -Total Square Cm 39.9 26.25 31.72 -Date of Last Picture (Recall this 01/07/25 field) -Photo Taken Yes -Epithelialization Small 1-33% -Tunneling No -Undermining/Tunneling No -Circular Undermining No -Exudate Amt Medium Medium Large -Exudate Type Serosanguineous Serosanguineous Serous -Wound Margin Distinct, Distinct, Distinct, Outline Outline Outline Attached Attached Attached -Granulation Amt None Present (0 Small (1-33%) None Present (0 %) %) -Granulation Quality Ball -Slough/Fibrin Yes -Necrosis Amt Large (67-100%) Large (67-100%) Large (67-100%) -Necrotic Tissue Type Adherent Slough Adherent Slough Adherent Slough -Structure Exposed N/A N/A -Texture (Radha-wound Skin Appearance) Scarring Scarring Assessed, Scarring -Moisture (Radha-wound Skin Appearance) Dry/Scaly No Abnormality Assessed -Color (Radha-wound Skin Appearance) Erythema No Abnormality Assessed -Temperature (Radha-wound Skin No Abnormality No Abnormality No Abnormality Appearance) (Pt Warm) (Pt Warm) (Pt Warm) -Tenderness on Palpation (Radha-wound No No Skin Appearance) -Ulcer Cleansing Rinsed/ Soap and Water Rinsed/ Irrigated with Irrigated with Saline Saline -Foul Odor after Cleansing No No No -Anesthetic Used 4% Lidocaine 5% Lidocaine 5% Lidocaine Solution Gel Gel Lower Limb Edema Present Yes Left Calf (cm) 38.5 38 37.2 Left Ankle (cm) 25.5 25 26 01/14/25 14:53 Wound Center Nurse 1 #1 LT POST LE -Combined with other wound -Current Size (cm) - Length 5 -Current Size (cm) - Width 6.5 -Current Size (cm) - Depth 0.1 -Total Square Cm 32.5 -Date of Last Picture (Recall this 01/14/25 field) -Photo Taken -Epithelialization Medium 34-66% -Tunneling -Undermining/Tunneling -Circular Undermining -Exudate Amt Medium -Exudate Type Serosanguineous -Wound Margin Distinct, Outline Attached -Granulation Amt Small (1-33%) -Granulation Quality Red -Slough/Fibrin -Necrosis Amt Large (67-100%) -Necrotic Tissue Type Adherent Slough -Structure Exposed -Texture (Radha-wound Skin Appearance) Assessed -Moisture (Radha-wound Skin Appearance) Assessed -Color (Radha-wound Skin Appearance) Assessed, Erythema -Temperature (Radha-wound Skin No Abnormality Appearance) (Pt Warm) -Tenderness on Palpation (Radha-wound No Skin Appearance) -Ulcer Cleansing Rinsed/ Irrigated with Saline -Foul Odor after Cleansing No -Anesthetic Used 4% Lidocaine Solution Lower Limb Edema Present Left Calf (cm) 38.5 Left Ankle (cm) 25 WC - Nurse 2 - General Ulcer CM Notes Start: 12/24/24 15:06 Freq: Status: Active Protocol: Activity Type Activity Date Activity User E-sign Co-sign Detail Recorded Client Recorded Date Recorded By Document 12/24/24 16:00 GM [id number] 12/24/24 16:08 GM Edit Result 12/24/24 16:00 GM (1) [id number] 12/24/24 16:16 GM Document 12/31/24 15:02 [id number] 12/31/24 15:07 Document 01/07/25 15:18 [id number] 01/07/25 15:24 Document 01/14/25 15:41 [id number] 01/14/25 15:50 GM (1) #1 LT POST LE - Post Debridement (cm) - Length => 5.8 - Post Debridement (cm) - Width => 7.2 - Post Debridement (cm) - Depth => 0.2 - Total Square (Post) (cm) => 41.76 - Area of Debridement (cm) - Length => 5.8 - Area of Debridement (cm) - Width => 7.2 - Total Square (Area) (cm) => 41.76 - Debridement, SubQ, ea addt'l 20sq cm => 2 or part thereof 12/24/24 12/31/24 01/07/25 16:00 15:02 15:18 Wound Center Nurse 2 #1 LT POST LE -Time 16:00 15:02 15:18 -Correct Patient Yes Yes Yes -Correct Side, Site, Position Yes Yes Yes -Correct Procedure Yes Yes Yes -Procedure Performed Yes Yes Yes -Type of Procedure Debridement Debridement Debridement -Clinical Debridement Subcutaneous Subcutaneous Subcutaneous -Tissue Removed Subcutaneous Subcutaneous Subcutaneous -Post Debridement (cm) - Length 5.8 5.1 5.0 -Post Debridement (cm) - Width 7.2 6.9 6.4 -Post Debridement (cm) - Depth 0.2 0.1 0.1 -Total Square (Post) (cm) 41.76 35.19 32.00 -Area of Debridement (cm) - Length 5.8 5.1 5.0 -Area of Debridement (cm) - Width 7.2 6.9 6.4 -Total Square (Area) (cm) 41.76 35.19 32.00 -Tunneling No No No -Undermining/Tunneling No No No -Circular Undermining No No No -Wound/Ulcer Outcome Not Healed Not Healed Not Healed -Ulcer Cleansing Rinsed/ Rinsed/ Not Cleansed Irrigated with Irrigated with Saline Saline -Foul Odor after Cleansing No No No -Bioengineered Tissue No No No -Bleeding Controlled with Pressure Pressure Pressure -Treatment Response Procedure Procedure Procedure Tolerated Well Tolerated Well Tolerated Well -Offloading No -Debridement - Subq, 1st 20sq cm Yes Yes Yes -Debridement, SubQ, ea addt'l 20sq cm 2 1 1 or part thereof Pain Scale: 0-10 Numeric Is Patient Pain Free? Yes Yes Yes 01/14/25 15:41 Wound Center Nurse 2 #1 LT POST LE -Time 15:42 -Correct Patient Yes -Correct Side, Site, Position Yes -Correct Procedure Yes -Procedure Performed Yes -Type of Procedure Debridement -Clinical Debridement Subcutaneous -Tissue Removed Subcutaneous -Post Debridement (cm) - Length 5.0 -Post Debridement (cm) - Width 6.0 -Post Debridement (cm) - Depth 0.1 -Total Square (Post) (cm) 30.00 -Area of Debridement (cm) - Length 5.0 -Area of Debridement (cm) - Width 6.0 -Total Square (Area) (cm) 30.00 -Tunneling No -Undermining/Tunneling No -Circular Undermining No -Wound/Ulcer Outcome Not Healed -Ulcer Cleansing Rinsed/ Irrigated with Saline -Foul Odor after Cleansing No -Bioengineered Tissue No -Bleeding Controlled with Pressure -Treatment Response Procedure Tolerated Well -Offloading No -Debridement - Subq, 1st 20sq cm Yes -Debridement, SubQ, ea addt'l 20sq cm 1 or part thereof Pain Scale: 0-10 Numeric Is Patient Pain Free? Yes - Nurse 3 - General Ulcer D/C NN Start: 12/24/24 15:06 Freq: Status: Active Protocol: Activity Type Activity Date Activity User E-sign Co-sign Detail Recorded Client Recorded Date Recorded By Document 12/24/24 16:17 DL [id number] 12/24/24 16:19 DL Document 12/31/24 15:14 KW [id number] 12/31/24 15:15 KW Document 01/07/25 15:33 KW [id number] 01/07/25 15:34 KW 12/24/24 12/31/24 01/07/25 16:17 15:14 15:33 Wound Care Center Nurse 3 #1 LT POST LE -Ulcer Cleansing Rinsed/ Irrigated with Saline -Foul Odor after Cleansing No -Primary Dressing Applied NonAdherent Contact Layer -Other Dressing HYDROGEL HYDROGEL -Primary Dressing Covered/Secured with Dry Gauze & Dry Gauze & Roll Gauze, Roll Gauze, Secured with Secured with Tape Tape Left -Tubular Bandage Single Layer Single Layer -Size of Tubigrip Used Size E Size E -Size E ($) 1 1 Treatment Response Procedure Tolerated Well Pain Scale: 0-10 Numeric Is Patient Pain Free? Yes Yes Yes WC - Visit Discharge Discharge Condition Stable Stable Stable Ambulatory Status Ambulatory Ambulatory Ambulatory Transportation Private Auto Private Auto Private Auto Medication Reconcilliation completed & No provided to patient/care provider Clinical Summary of Care Provided Yes Notes: Pt to resume santyl at home. #1 LT POST LE -Ulcer Cleansing Rinsed/ Irrigated with Saline -Foul Odor after Cleansing No -<Query Deleted From Dictionary> [id number] NONADHEREN -Other Dressing hydrogel -Primary Dressing Covered/Secured with Dry Gauze & Roll Gauze, Secured with Tape Left -Tubular Bandage Single Layer -Size of Tubigrip Used Size E -Size E ($) 1 Treatment Response Procedure Tolerated Well Assessment/Plan Assessment/Plan (1) Ulcer of left calf with fat layer exposed: CODE(S): L97.222 - Non-pressure chronic ulcer of left calf with fat layer exposed (2) Type 2 diabetes mellitus: CODE(S): E11.9 - Type 2 diabetes mellitus without complications (3) Bilateral lower extremity edema: CODE(S): R60.0 - Localized edema PLAN: Plan She again tolerated the Misonix debridement well this week. For wound care, continue to wash the area with antibacterial soap and water then pat to dry. Apply nickel-thick layer of santyl followed by lightly moistened gauze followed by ABD and dry gauze wrap. Change at least once daily, more often as needed to manage drainage and keep the area clean and dry. She continues to tolerate high-strength tubigrips so will continue with these, she has had noticeable improvement in her edema. She is encouraged to continue with leg elevation at all times of rest. Return to the clinic in 1 week.
--- NOTE | 2025-01-15 09:27 | WC ---
PHOTO 01/14/25 DALE
== END 2025-01-15 23:59 | disposition home or self-care (01) ==
LOC: WC 14:45
PROVIDERS: PCP Family Medicine; Referring Provider Family Medicine; Visit Provider Physician Assistant
DX: L97.222 Non-pressure chronic ulcer of left calf with fat layer exposed (principal); E11.9 Type 2 diabetes mellitus without complications; Z79.4 Long term (current) use of insulin; S80.822S Blister (nonthermal), left lower leg, sequela; X58.XXXS Exposure to other specified factors, sequela; R60.0 Localized edema; Z79.899 Other long term (current) drug therapy
CPT/HCPCS: 11042; 11045

== ENCOUNTER 2025-02-11 14:45 | Outpatient (RCR) | payer BC, SELFPAY ==
[2025-01-16 00:51] VITALS: BP 128/55; PULSE 103; RESP 18; TEMP 36; BMI 34.3
[2025-01-21 15:00] VITALS: BP 147/75; PULSE 104; RESP 16; TEMP 36.1; BMI 34.3
--- NOTE | 2025-01-21 17:26 | PN.PCM_ITS ---
History of Present Illness Date of Service: 01/21/25 Chief Complaint: Left posterior calf wound History of Wound: Josy Smith is a 69-year-old female who presents today for evaluation and management of a left posterior calf wound as referred by her primary care Dr. Vazquez. She reports that this ulceration has been present since the end of May of this year. She reports that around that time her AC had gone out in her house and was out for several weeks so her house was very warm and she noticed significantly increased lower extremity edema. Eventually, a blister formed on her posterior calf and after rupturing left behind this ulceration. At home, she has been caring for this by applying antibiotic ointment and leaving it open to air. She denies any expanding redness, warmth, excess drainage, foul odor. Her swelling has since improved back to her baseline. She does have significant bilateral lower extremity edema at baseline and this has been ongoing for several years. She is diabetic, last A1c was 7.7. She does not smoke. She denies any history of VTE. She does not wear compression, she reports it makes her legs and feet feel too hot. Subjective Subjective Josy has been doing well this week. She has not had any new concerns. Pain is improving and drainage remains fairly minimal. Objective Data Objective Data Vital Signs: Vital Signs Temp Pulse Resp BP O2 Del Method 97.0 F L 104 H 16 147/75 H Room Air 01/21/25 15:00 01/21/25 15:00 01/21/25 15:00 01/21/25 15:00 01/21/25 15:00 Oxygen Delivery Method Room Air Weight: 200 lb Body Mass Index (BMI) 34.3 Physical Exam Const alert, oriented x3 and no apparent distress General Appearance: cooperative and anxious HEENT normocephalic, head/scalp atraumatic, hearing grossly normal bilaterally, external ears normal and external nose normal Eyes EOMs intact bilaterally General Eye: normal appearance of both eyes Neck General: normal visual inspection and trachea midline Resp normal respiratory effort Effort and Inspection: able to speak in complete sentences Extremity Extremity Narrative: Bilateral lower extremity pitting edema, trace right leg and 1+ left leg. Skin Wounds: wounds noted Wound Narrative: Posterior left calf ulceration cluster with moderate burden of yellow slough at the base compared to last visit, pink granular tissue visible at the base. There are multiple tissue buds centrally and the posterior aspect continues to fill in. It is improved in size this week. There is mild reactive erythema just around the wound margins but not extending proximally up the leg or distally to the foot. No excess warmth, purulence, foul odor, induration/fluctuance. There is no tunneling or undermining. Do not appreciate any significant drainage. Neuro oriented x3, CN's II-XII intact bilaterally and moves all extremities Speech: speech normal Psych mental status grossly normal Appearance: grossly normal Attitude: engaged Speech: normal speech Mood & Affect: euthymic mood Judgement: judgement good Debridement Note Debridement Note Wound debrided: L posterior calf Laterality: Left Type of Debridement: Excisional debridement and - (Misonix) Anesthesia Used: 4% Lidocaine Solution Depth: Down to and including healthy tissue and in the subcutaneous layer Percentage of wound debrided: 100 Instrument Used: - (Misonix) Tissue Removed: slough Severity: Fat Layer Exposed Amount of bleeding with debridement: Mild Bleeding Controlled with: Pressure Patient tolerated procedure: Patient tolerated procedure well Post-Debridement Measurements and Additional Note: Post-Debridement Measurements/Treatment - Nurse 1 - General Ulcer Assessment Start: 01/21/25 15:00 Freq: Status: Active Protocol: CAMILLA Activity Type Activity Date Activity User E-sign Co-sign Detail Recorded Client Recorded Date Recorded By Document 01/21/25 15:00 [id number] 01/21/25 15:11 KW 01/21/25 15:00 - Today's Visit Information Type of service Follow-up Visit (Physician/APIGEE DEVELOPER ) Arrival Mode Ambulatory Accompanied by Patient Identification Verified (Name & Yes ) Height and Weight Body Mass Index (BMI) 34.3 BMI Classification Obese Vital Signs Temperature (97.8 F-99.1 F) 97.0 F L Temperature Source Temporal Pulse Rate (60-100) 104 H Pulse Location Monitor Respiratory Rate (12-18) 16 Respiratory rate source Observation Oxygen Delivery Method Room Air Blood Pressure (90/60-120/80) 147/75 H Blood Pressure Mean (mm Hg) 99 Source Monitor Position Semi-Fowlers Blood Pressure Location Left Arm History Since Last Visit- (Skip if this is Patient's initial visit) Have you changed medications since your No last visit? Any new allergies or adverse reactions No Had a fall/change in ADL's that may No increase risk of falls Signs or symptoms of abuse and/or No neglect since last visit Have you been in the hospital since your No last visit? Has dressing in place as prescribed Yes Has compression in place as prescribed Yes Has offloadiing in place as prescribed N/A Experienced any changes in pain level or No management Left Footwear Regular Shoe Right Footwear Regular Shoe Pain Scale: 0-10 Numeric Is Patient Pain Free? Yes WC - Nurse 1 - General Ulcer Measurement Start: 01/21/25 15:00 Freq: Status: Active Protocol: Activity Type Activity Date Activity User E-sign Co-sign Detail Recorded Client Recorded Date Recorded By Document 01/21/25 15:00 KW [id number] 01/21/25 15:11 KW 01/21/25 15:00 Wound Center Nurse 1 #1 LT POST LE -Current Size (cm) - Length 6.5 -Current Size (cm) - Width 7 -Current Size (cm) - Depth 0.1 -Total Square Cm 45.5 -Exudate Amt Small -Exudate Type Serosanguineous -Wound Margin Distinct, Outline Attached -Granulation Amt Large (67-100%) -Granulation Quality [place] -Necrosis Amt Medium (34-66%) -Necrotic Tissue Type Adherent Slough -Texture (Radha-wound Skin Appearance) Assessed -Moisture (Radha-wound Skin Appearance) Assessed -Color (Radha-wound Skin Appearance) Assessed -Temperature (Radha-wound Skin No Abnormality Appearance) (Pt Warm) -Tenderness on Palpation (Radha-wound No Skin Appearance) -Ulcer Cleansing Soap and Water -Foul Odor after Cleansing No -Anesthetic Used 5% Lidocaine Gel Left Calf (cm) 39 Left Ankle (cm) 26.2 WC - Nurse 2 - General Ulcer CM Notes Start: 01/21/25 15:00 Freq: Status: Active Protocol: Activity Type Activity Date Activity User E-sign Co-sign Detail Recorded Client Recorded Date Recorded By Document 01/21/25 15:56 [id number] 01/21/25 16:00 GM 01/21/25 15:56 Wound Center Nurse 2 #1 LT POST LE -Time 15:57 -Correct Patient Yes -Correct Side, Site, Position Yes -Correct Procedure Yes -Procedure Performed Yes -Type of Procedure Debridement -Clinical Debridement Subcutaneous -Tissue Removed Subcutaneous -Post Debridement (cm) - Length 5.1 -Post Debridement (cm) - Width 6.4 -Post Debridement (cm) - Depth 0.1 -Total Square (Post) (cm) 32.64 -Area of Debridement (cm) - Length 5.1 -Area of Debridement (cm) - Width 6.4 -Total Square (Area) (cm) 32.64 -Tunneling No -Undermining/Tunneling No -Circular Undermining No -Wound/Ulcer Outcome Not Healed -Ulcer Cleansing Rinsed/ Irrigated with Saline -Foul Odor after Cleansing No -Bioengineered Tissue No -Bleeding Controlled with Pressure -Treatment Response Procedure Tolerated Well -Offloading No -Debridement - Subq, 1st 20sq cm Yes -Debridement, SubQ, ea addt'l 20sq cm 1 or part thereof Pain Scale: 0-10 Numeric Is Patient Pain Free? Yes Assessment/Plan Assessment/Plan (1) Ulcer of left calf with fat layer exposed: CODE(S): L97.222 - Non-pressure chronic ulcer of left calf with fat layer exposed (2) Type 2 diabetes mellitus: CODE(S): E11.9 - Type 2 diabetes mellitus without complications (3) Bilateral lower extremity edema: CODE(S): R60.0 - Localized edema PLAN: Plan She again tolerated the Misonix debridement well this week. For wound care, continue to wash the area with antibacterial soap and water then pat to dry. Apply nickel-thick layer of santyl followed by lightly moistened gauze followed by ABD and dry gauze wrap. Change at least once daily, more often as needed to manage drainage and keep the area clean and dry. She continues to tolerate high-strength tubigrips so will continue with these, she has had noticeable improvement in her edema. She is encouraged to continue with leg elevation at all times of rest. Return to the clinic in 1 week.
[2025-01-28 13:25] VITALS: BP 131/75; PULSE 107; RESP 16; TEMP 37.1; BMI 34.3
--- NOTE | 2025-01-28 13:57 | PN.PCM_ITS ---
History of Present Illness Date of Service: 01/28/25 Chief Complaint: Left posterior calf wound History of Wound: Josy Smith is a 69-year-old female who presents today for evaluation and management of a left posterior calf wound as referred by her primary care Dr. Vazquez. She reports that this ulceration has been present since the end of May of this year. She reports that around that time her AC had gone out in her house and was out for several weeks so her house was very warm and she noticed significantly increased lower extremity edema. Eventually, a blister formed on her posterior calf and after rupturing left behind this ulceration. At home, she has been caring for this by applying antibiotic ointment and leaving it open to air. She denies any expanding redness, warmth, excess drainage, foul odor. Her swelling has since improved back to her baseline. She does have significant bilateral lower extremity edema at baseline and this has been ongoing for several years. She is diabetic, last A1c was 7.7. She does not smoke. She denies any history of VTE. She does not wear compression, she reports it makes her legs and feet feel too hot. Subjective Subjective Josy is doing well this week, pain continues to become more tolerable; mostly bothers her at night when she tries to sleep and this is when she utilizes the tramadol (as well as with debridements). She has continued to utilize the tramadol responsibly; a two week supply is lasting about 1 month. SHe does need a refill. She is going to be travelling to [place] to spend time with her grandkids this next week. Objective Data Objective Data Vital Signs: Vital Signs Temp Pulse Resp BP O2 Del Method 98.7 F 107 H 16 131/75 H Room Air 01/28/25 13:25 01/28/25 13:25 01/28/25 13:25 01/28/25 13:25 01/28/25 13:25 Oxygen Delivery Method Room Air Weight: 200 lb Body Mass Index (BMI) 34.3 Charges/Coding Visit Charges Office Visits / Consults: [id number] OV L3 Est 20min Physical Exam Const alert, oriented x3 and no apparent distress General Appearance: cooperative and anxious HEENT normocephalic, head/scalp atraumatic, hearing grossly normal bilaterally, external ears normal and external nose normal Eyes EOMs intact bilaterally General Eye: normal appearance of both eyes Neck General: normal visual inspection and trachea midline Resp normal respiratory effort Effort and Inspection: able to speak in complete sentences Extremity Extremity Narrative: Bilateral lower extremity pitting edema, trace right leg and 1+ left leg. Skin Wounds: wounds noted Wound Narrative: Posterior left calf ulceration cluster with minimal slough at the base compared to last visit, pink granular tissue visible at the base. There are multiple tissue buds centrally and the posterior aspect continues to fill in. There is mild reactive erythema just around the wound margins but not extending proximally up the leg or distally to the foot. No excess warmth, purulence, foul odor, induration/fluctuance. There is no tunneling or undermining. Do not appreciate any significant drainage. Neuro oriented x3, CN's II-XII intact bilaterally and moves all extremities Speech: speech normal Psych mental status grossly normal Appearance: grossly normal Attitude: engaged Speech: normal speech Mood & Affect: euthymic mood Judgement: judgement good Debridement Note Debridement Note No debridement was completed: No debridement was completed today Post-Debridement Measurements and Additional Note: Post-Debridement Measurements/Treatment - Nurse 1 - General Ulcer Assessment Start: 01/21/25 15:00 Freq: Status: Active Protocol: WC.LOWEXT Activity Type Activity Date Activity User E-sign Co-sign Detail Recorded Client Recorded Date Recorded By Document 01/21/25 15:00 [id number] 01/21/25 15:11 KW Document 01/28/25 13:25 [id number] 01/28/25 13:29 01/21/25 01/28/25 15:00 13:25 - Today's Visit Information Type of service Follow-up Visit Follow-up Visit (Physician/CUSTOMER SUCCESS ADVOCATE (Physician/CUSTOMER SUCCESS ADVOCATE ) ) Arrival Mode Ambulatory Ambulatory Transfer Assistance None Accompanied by Patient Identification Verified (Name & Yes Yes ) Patient Requires Transmission-Based No Precautions Height and Weight Body Mass Index (BMI) 34.3 34.3 BMI Classification Obese Obese Vital Signs Temperature (97.8 F-99.1 F) 97.0 F L 98.7 F Temperature Source Temporal Temporal Pulse Rate (60-100) 104 H 107 H Pulse Location Monitor Monitor Respiratory Rate (12-18) 16 16 Respiratory rate source Observation Observation Oxygen Delivery Method Room Air Room Air Blood Pressure (90/60-120/80) 147/75 H 131/75 H Blood Pressure Mean (mm Hg) 99 93 Source Monitor Monitor Position Semi-Fowlers Sitting Blood Pressure Location Left Arm Left Arm History Since Last Visit- (Skip if this is Patient's initial visit) Have you changed medications since your No No last visit? Any new allergies or adverse reactions No No Had a fall/change in ADL's that may No No increase risk of falls Signs or symptoms of abuse and/or No No neglect since last visit Have you been in the hospital since your No No last visit? Has dressing in place as prescribed Yes Yes Has compression in place as prescribed Yes Yes Has offloadiing in place as prescribed N/A N/A Experienced any changes in pain level or No No management Left Footwear Regular Shoe Regular Shoe Right Footwear Regular Shoe Regular Shoe Pain Scale: 0-10 Numeric Is Patient Pain Free? Yes Yes WC - Nurse 1 - General Ulcer Measurement Start: 01/21/25 15:00 Freq: Status: Active Protocol: Activity Type Activity Date Activity User E-sign Co-sign Detail Recorded Client Recorded Date Recorded By Document 01/21/25 15:00 [id number] 01/21/25 15:11 Document 01/28/25 13:25 [id number] 01/28/25 13:29 01/21/25 01/28/25 15:00 13:25 Wound Center Nurse 1 #1 LT POST LE -Current Size (cm) - Length 6.5 0.1 -Current Size (cm) - Width 7 0.1 -Current Size (cm) - Depth 0.1 0.1 -Total Square Cm 45.5 0.01 -Photo Taken No -Epithelialization Small 1-33% -Tunneling No -Undermining/Tunneling No -Circular Undermining No -Exudate Amt Small Small -Exudate Type Serosanguineous Yellow/Green -Wound Margin Distinct, Distinct, Outline Outline Attached Attached -Granulation Amt Large (67-100%) Medium (34-66%) -Granulation Quality [place] -Slough/Fibrin Yes -Necrosis Amt Medium (34-66%) Small (1-33%) -Necrotic Tissue Type Adherent Slough Adherent Slough -Texture (Radha-wound Skin Appearance) Assessed Assessed -Moisture (Radha-wound Skin Appearance) Assessed Assessed -Color (Radha-wound Skin Appearance) Assessed Assessed -Temperature (Radha-wound Skin No Abnormality No Abnormality Appearance) (Pt Warm) (Pt Warm) -Tenderness on Palpation (Radha-wound No No Skin Appearance) -Ulcer Cleansing Soap and Water Rinsed/ Irrigated with Saline -Foul Odor after Cleansing No No -Anesthetic Used 5% Lidocaine 5% Lidocaine Gel Gel Left Calf (cm) 39 Left Ankle (cm) 26.2 WC - Nurse 2 - General Ulcer CM Notes Start: 01/21/25 15:00 Freq: Status: Active Protocol: Activity Type Activity Date Activity User E-sign Co-sign Detail Recorded Client Recorded Date Recorded By Document 01/21/25 15:56 GM [id number] 01/21/25 16:00 GM Document 01/28/25 13:47 GM [id number] 01/28/25 13:50 GM Edit Result 01/28/25 13:47 GM (1) [id number] 01/28/25 13:50 GM (1) #1 LT POST LE - Post Debridement (cm) - Length => 5.1 - Post Debridement (cm) - Width => 6.3 - Post Debridement (cm) - Depth => 0.1 - Total Square (Post) (cm) => 32.13 01/21/25 01/28/25 15:56 13:47 Wound Center Nurse 2 #1 LT POST LE -Time 15:57 13:48 -Correct Patient Yes Yes -Correct Side, Site, Position Yes Yes -Correct Procedure Yes No -Procedure Performed Yes No -Type of Procedure Debridement -Clinical Debridement Subcutaneous -Tissue Removed Subcutaneous -Post Debridement (cm) - Length 5.1 5.1 -Post Debridement (cm) - Width 6.4 6.3 -Post Debridement (cm) - Depth 0.1 0.1 -Total Square (Post) (cm) 32.64 32.13 -Area of Debridement (cm) - Length 5.1 -Area of Debridement (cm) - Width 6.4 -Total Square (Area) (cm) 32.64 -Tunneling No No -Undermining/Tunneling No No -Circular Undermining No No -Wound/Ulcer Outcome Not Healed Not Healed -Ulcer Cleansing Rinsed/ Rinsed/ Irrigated with Irrigated with Saline Saline -Foul Odor after Cleansing No No -Bioengineered Tissue No No -Bleeding Controlled with Pressure NA -Treatment Response Procedure Tolerated Well -Offloading No -Debridement - Subq, 1st 20sq cm Yes -Debridement, SubQ, ea addt'l 20sq cm 1 or part thereof Pain Scale: 0-10 Numeric Is Patient Pain Free? Yes Yes Assessment/Plan Assessment/Plan (1) Ulcer of left calf with fat layer exposed: CODE(S): L97.222 - Non-pressure chronic ulcer of left calf with fat layer exposed (2) Type 2 diabetes mellitus: CODE(S): E11.9 - Type 2 diabetes mellitus without complications (3) Bilateral lower extremity edema: CODE(S): R60.0 - Localized edema PLAN: Plan For wound care, continue to wash the area with antibacterial soap and water then pat to dry. Apply nickel-thick layer of santyl followed by lightly moistened gauze followed by ABD and dry gauze wrap. Change at least once daily, more often as needed to manage drainage and keep the area clean and dry. She continues to tolerate high-strength tubigrips so will continue with these, she has had noticeable improvement in her edema. She is encouraged to continue with leg elevation at all times of rest. She is reminded not to swim in the pool or the ocean and to take care to protect the wound from the sand while on her trip. Return to the clinic in 2 weeks.
[2025-02-11 14:57] VITALS: BP 139/82; PULSE 98; RESP 20; TEMP 36.3; BMI 34.3
--- NOTE | 2025-02-11 15:20 | PCM.WC.PN ---
History of Present Illness Date of Service: 02/11/25 Chief Complaint: Left posterior calf wound History of Wound: Josy Smith is a 69-year-old female who presents today for evaluation and management of a left posterior calf wound as referred by her primary care Dr. Vazquez. She reports that this ulceration has been present since the end of May of this year. She reports that around that time her AC had gone out in her house and was out for several weeks so her house was very warm and she noticed significantly increased lower extremity edema. Eventually, a blister formed on her posterior calf and after rupturing left behind this ulceration. At home, she has been caring for this by applying antibiotic ointment and leaving it open to air. She denies any expanding redness, warmth, excess drainage, foul odor. Her swelling has since improved back to her baseline. She does have significant bilateral lower extremity edema at baseline and this has been ongoing for several years. She is diabetic, last A1c was 7.7. She does not smoke. She denies any history of VTE. She does not wear compression, she reports it makes her legs and feet feel too hot. Subjective Subjective Josy has been doing well. She was in [place] last week, she had a good trip. Her wound continues to have reduced pain in general. She has not noticed any increased drainage, redness, or other signs of infection. Objective Data Objective Data Vital Signs: Vital Signs Temp Pulse Resp BP O2 Del Method 97.4 F L 98 20 H 139/82 H Room Air 02/11/25 14:57 02/11/25 14:57 02/11/25 14:57 02/11/25 14:57 01/28/25 13:25 Oxygen Delivery Method Room Air Weight: 200 lb Body Mass Index (BMI) 34.3 Charges/Coding Procedures Integumentary 111xxx-113xx: 76792 Connie subq tissue 20 sq cm/< (32 sq cm) Physical Exam Const alert, oriented x3 and no apparent distress General Appearance: cooperative and anxious HEENT normocephalic, head/scalp atraumatic, hearing grossly normal bilaterally, external ears normal and external nose normal Eyes EOMs intact bilaterally General Eye: normal appearance of both eyes Neck General: normal visual inspection and trachea midline Resp normal respiratory effort Effort and Inspection: able to speak in complete sentences Extremity Extremity Narrative: Bilateral lower extremity pitting edema, trace right leg and 1+ left leg. Skin Wounds: wounds noted Wound Narrative: Posterior left calf ulceration cluster with minimal slough at the base compared to last visit, pink granular tissue visible at the base. There are central tissue buds are coalescing which is great; the widest/longest measures remain stable. There is mild reactive erythema just around the wound margins but not extending proximally up the leg or distally to the foot. No excess warmth, purulence, foul odor, induration/fluctuance. There is no tunneling or undermining. Do not appreciate any significant drainage. Neuro oriented x3, CN's II-XII intact bilaterally and moves all extremities Speech: speech normal Psych mental status grossly normal Appearance: grossly normal Attitude: engaged Speech: normal speech Mood & Affect: euthymic mood Judgement: judgement good Debridement Note Debridement Note Wound debrided: L posterior calf Laterality: Left Type of Debridement: Excisional debridement and - (Misonix) Anesthesia Used: 4% Lidocaine Solution Depth: Down to and including healthy tissue and in the subcutaneous layer Percentage of wound debrided: 100 Instrument Used: 5mm curette Tissue Removed: slough Severity: Fat Layer Exposed Amount of bleeding with debridement: Mild Bleeding Controlled with: Pressure Patient tolerated procedure: Patient tolerated procedure well Post-Debridement Measurements and Additional Note: Post-Debridement Measurements/Treatment - Nurse 1 - General Ulcer Assessment Start: 01/21/25 15:00 Freq: Status: Active Protocol: [email or web address] Activity Type Activity Date Activity User E-sign Co-sign Detail Recorded Client Recorded Date Recorded By Document 01/21/25 15:00 [id number] 01/21/25 15:11 KW 01/21/25 15:00 - Today's Visit Information 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 ) Arrival Mode Ambulatory Accompanied by Patient Identification Verified (Name & Yes ) Height and Weight Body Mass Index (BMI) 34.3 BMI Classification Obese Vital Signs Temperature (97.8 F-99.1 F) 97.0 F L Temperature Source Temporal Pulse Rate (60-100) 104 H Pulse Location Monitor Respiratory Rate (12-18) 16 Respiratory rate source Observation Oxygen Delivery Method Room Air Blood Pressure (90/60-120/80) 147/75 H Blood Pressure Mean (mm Hg) 99 Source Monitor Position Semi-Fowlers Blood Pressure Location Left Arm History Since Last Visit- (Skip if this is Patient's initial visit) Have you changed medications since your No last visit? Any new allergies or adverse reactions No Had a fall/change in ADL's that may No increase risk of falls Signs or symptoms of abuse and/or No neglect since last visit Have you been in the hospital since your No last visit? Has dressing in place as prescribed Yes Has compression in place as prescribed Yes Has offloadiing in place as prescribed N/A Experienced any changes in pain level or No management Left Footwear Regular Shoe Right Footwear Regular Shoe Pain Scale: 0-10 Numeric Is Patient Pain Free? Yes WC - Nurse 1 - General Ulcer Measurement Start: 01/21/25 15:00 Freq: Status: Active Protocol: Activity Type Activity Date Activity User E-sign Co-sign Detail Recorded Client Recorded Date Recorded By Document 01/21/25 15:00 KW [id number] 01/21/25 15:11 KW 01/21/25 15:00 Wound Center Nurse 1 #1 LT POST LE -Current Size (cm) - Length 6.5 -Current Size (cm) - Width 7 -Current Size (cm) - Depth 0.1 -Total Square Cm 45.5 -Exudate Amt Small -Exudate Type Serosanguineous -Wound Margin Distinct, Outline Attached -Granulation Amt Large (67-100%) -Granulation Quality [place] -Necrosis Amt Medium (34-66%) -Necrotic Tissue Type Adherent Slough -Texture (Radha-wound Skin Appearance) Assessed -Moisture (Radha-wound Skin Appearance) Assessed -Color (Radha-wound Skin Appearance) Assessed -Temperature (Radha-wound Skin No Abnormality Appearance) (Pt Warm) -Tenderness on Palpation (Radha-wound No Skin Appearance) -Ulcer Cleansing Soap and Water -Foul Odor after Cleansing No -Anesthetic Used 5% Lidocaine Gel Left Calf (cm) 39 Left Ankle (cm) 26.2 WC - Nurse 2 - General Ulcer CM Notes Start: 01/21/25 15:00 Freq: Status: Active Protocol: Activity Type Activity Date Activity User E-sign Co-sign Detail Recorded Client Recorded Date Recorded By Document 01/21/25 15:56 GM [id number] 01/21/25 16:00 GM 01/21/25 15:56 Wound Center Nurse 2 #1 LT POST LE -Time 15:57 -Correct Patient Yes -Correct Side, Site, Position Yes -Correct Procedure Yes -Procedure Performed Yes -Type of Procedure Debridement -Clinical Debridement Subcutaneous -Tissue Removed Subcutaneous -Post Debridement (cm) - Length 5.1 -Post Debridement (cm) - Width 6.4 -Post Debridement (cm) - Depth 0.1 -Total Square (Post) (cm) 32.64 -Area of Debridement (cm) - Length 5.1 -Area of Debridement (cm) - Width 6.4 -Total Square (Area) (cm) 32.64 -Tunneling No -Undermining/Tunneling No -Circular Undermining No -Wound/Ulcer Outcome Not Healed -Ulcer Cleansing Rinsed/ Irrigated with Saline -Foul Odor after Cleansing No -Bioengineered Tissue No -Bleeding Controlled with Pressure -Treatment Response Procedure Tolerated Well -Offloading No -Debridement - Subq, 1st 20sq cm Yes -Debridement, SubQ, ea addt'l 20sq cm 1 or part thereof Pain Scale: 0-10 Numeric Is Patient Pain Free? Yes Assessment/Plan Assessment/Plan (1) Ulcer of left calf with fat layer exposed: CODE(S): L97.222 - Non-pressure chronic ulcer of left calf with fat layer exposed (2) Type 2 diabetes mellitus: CODE(S): E11.9 - Type 2 diabetes mellitus without complications (3) Bilateral lower extremity edema: CODE(S): R60.0 - Localized edema PLAN: Plan For wound care, continue to wash the area with antibacterial soap and water then pat to dry. Apply nickel-thick layer of santyl followed by lightly moistened gauze followed by ABD and dry gauze wrap. Change at least once daily, more often as needed to manage drainage and keep the area clean and dry. She continues to tolerate high-strength tubigrips so will continue with these, she has had noticeable improvement in her edema. She is encouraged to continue with leg elevation at all times of rest. We have submitted for [employer], prior auth is still pending with her insurance. Return to the clinic in 2 weeks.
== END 2025-02-15 23:59 | disposition home or self-care (01) ==
LOC: WC 14:45
PROVIDERS: PCP Family Medicine; Referring Provider Family Medicine; Visit Provider Physician Assistant
DX: E11.622 Type 2 diabetes mellitus with other skin ulcer (principal); L97.222 Non-pressure chronic ulcer of left calf with fat layer exposed; R60.0 Localized edema
CPT/HCPCS: 11042; 11045; 99213; G0463

== ENCOUNTER 2025-03-11 14:45 | Outpatient (RCR) | payer BC, SELFPAY ==
[2025-02-16 00:42] VITALS: BP 139/82; PULSE 98; RESP 20; TEMP 36.3; BMI 34.3
[2025-02-18 15:09] VITALS: BP 143/73; PULSE 106; RESP 16; TEMP 36.3; BMI 34.3
--- NOTE | 2025-02-18 16:11 | PCM.WC.PN ---
History of Present Illness Date of Service: 02/18/25 Chief Complaint: Left posterior calf wound History of Wound: Josy Smith is a 69-year-old female who presents today for evaluation and management of a left posterior calf wound as referred by her primary care Dr. Vazquez. She reports that this ulceration has been present since the end of May of this year. She reports that around that time her AC had gone out in her house and was out for several weeks so her house was very warm and she noticed significantly increased lower extremity edema. Eventually, a blister formed on her posterior calf and after rupturing left behind this ulceration. At home, she has been caring for this by applying antibiotic ointment and leaving it open to air. She denies any expanding redness, warmth, excess drainage, foul odor. Her swelling has since improved back to her baseline. She does have significant bilateral lower extremity edema at baseline and this has been ongoing for several years. She is diabetic, last A1c was 7.7. She does not smoke. She denies any history of VTE. She does not wear compression, she reports it makes her legs and feet feel too hot. Subjective Subjective Josy returns for evaluation of her LLE wound. She reports she continues to have less pain, except for the days she is here for debridement. She has not noticed any increased drainage. Objective Data Objective Data Vital Signs: Vital Signs Temp Pulse Resp BP O2 Del Method 97.3 F L 106 H 16 143/73 H Room Air 02/18/25 15:09 02/18/25 15:09 02/18/25 15:09 02/18/25 15:09 02/18/25 15:09 Oxygen Delivery Method Room Air Weight: 200 lb Body Mass Index (BMI) 34.3 Charges/Coding Procedures Integumentary 111xxx-113xx: 46704 Connie subq tissue 20 sq cm/< (31 sq cm) Physical Exam Const alert, oriented x3 and no apparent distress General Appearance: cooperative and anxious HEENT normocephalic, head/scalp atraumatic, hearing grossly normal bilaterally, external ears normal and external nose normal Eyes EOMs intact bilaterally General Eye: normal appearance of both eyes Neck General: normal visual inspection and trachea midline Resp normal respiratory effort Effort and Inspection: able to speak in complete sentences Extremity Extremity Narrative: Bilateral lower extremity pitting edema, trace right leg and trace left leg. Skin Wounds: wounds noted Wound Narrative: Posterior left calf ulceration cluster with moderate slough at the base compared to last visit, pink granular tissue visible at the base. Central tissue buds have coalesced and now extend the full inferior to superior length of the wound and appear to be widening medial to lateral as well from the center; the widest/longest measures remain stable. There is increased erythema just around the wound margins but not extending proximally up the leg or distally to the foot. No excess warmth, purulence, foul odor, induration/fluctuance. There is no tunneling or undermining. Do not appreciate any significant drainage. Neuro oriented x3, CN's II-XII intact bilaterally and moves all extremities Speech: speech normal Psych mental status grossly normal Appearance: grossly normal Attitude: engaged Speech: normal speech Mood & Affect: euthymic mood Judgement: judgement good Debridement Note Debridement Note Wound debrided: L posterior calf Laterality: Left Type of Debridement: Excisional debridement and - (Misonix) Anesthesia Used: 4% Lidocaine Solution Depth: Down to and including healthy tissue and in the subcutaneous layer Percentage of wound debrided: 100 Instrument Used: - (misonix) Tissue Removed: slough Severity: Fat Layer Exposed Amount of bleeding with debridement: Mild Bleeding Controlled with: Pressure Patient tolerated procedure: Patient tolerated procedure well Post-Debridement Measurements and Additional Note: Post-Debridement Measurements/Treatment - Nurse 1 - General Ulcer Assessment Start: 02/18/25 15:09 Freq: Status: Active Protocol: .LOWEXT Activity Type Activity Date Activity User E-sign Co-sign Detail Recorded Client Recorded Date Recorded By Document 02/18/25 15:09 [facility] [id number] 02/18/25 15:12 [facility] 02/18/25 15:09 - Today's Visit Information 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 ) Arrival Mode Ambulatory Transfer Assistance None Accompanied by husb Patient Identification Verified (Name & Yes ) Patient Requires Transmission-Based No Precautions Height and Weight Body Mass Index (BMI) 34.3 BMI Classification Obese Vital Signs Temperature (97.8 F-99.1 F) 97.3 F L Temperature Source Temporal Pulse Rate (60-100) 106 H Pulse Location Monitor Respiratory Rate (12-18) 16 Respiratory rate source Observation Oxygen Delivery Method Room Air Blood Pressure (90/60-120/80) 143/73 H Blood Pressure Mean (mm Hg) 96 Source Monitor Position Sitting Blood Pressure Location Left Arm History Since Last Visit- (Skip if this is Patient's initial visit) Have you changed medications since your No last visit? Any new allergies or adverse reactions No Had a fall/change in ADL's that may No increase risk of falls Signs or symptoms of abuse and/or No neglect since last visit Have you been in the hospital since your No last visit? Has dressing in place as prescribed Yes Has compression in place as prescribed Yes Has offloadiing in place as prescribed N/A Experienced any changes in pain level or No management Left Footwear Regular Shoe Right Footwear Regular Shoe Pain Scale: 0-10 Numeric Is Patient Pain Free? Yes - Nurse 1 - General Ulcer Measurement Start: 02/18/25 15:09 Freq: Status: Active Protocol: Activity Type Activity Date Activity User E-sign Co-sign Detail Recorded Client Recorded Date Recorded By Document 02/18/25 15:09 [facility] [id number] 02/18/25 15:12 [facility] 02/18/25 15:09 Wound Center Nurse 1 #1 LT POST LE -Combined with other wound No -Current Size (cm) - Length 4.8 -Current Size (cm) - Width 6.8 -Current Size (cm) - Depth 0.1 -Total Square Cm 32.64 -Date of Last Picture (Recall this 02/18/25 field) -Photo Taken Yes -Epithelialization Small 1-33% -Tunneling No -Undermining/Tunneling No -Circular Undermining No -Exudate Amt Medium -Exudate Type Serosanguineous -Wound Margin Distinct, Outline Attached -Granulation Amt Medium (34-66%) -Slough/Fibrin Yes -Necrosis Amt Medium (34-66%) -Necrotic Tissue Type Adherent Slough -Texture (Radha-wound Skin Appearance) Assessed -Moisture (Radha-wound Skin Appearance) Assessed -Color (Radha-wound Skin Appearance) Assessed, Erythema -Temperature (Radha-wound Skin No Abnormality Appearance) (Pt Warm) -Tenderness on Palpation (Radha-wound Yes Skin Appearance) -Ulcer Cleansing Rinsed/ Irrigated with Saline -Foul Odor after Cleansing No -Anesthetic Used 5% Lidocaine Gel Lower Limb Edema Present Yes Left Calf (cm) 39 Left Ankle (cm) 26 WC - Nurse 2 - General Ulcer CM Notes Start: 02/18/25 15:09 Freq: Status: Active Protocol: Activity Type Activity Date Activity User E-sign Co-sign Detail Recorded Client Recorded Date Recorded By Document 02/18/25 15:25 [id number] 02/18/25 15:34 02/18/25 15:25 Wound Center Nurse 2 #1 LT POST LE -Time 15:27 -Correct Patient Yes -Correct Side, Site, Position Yes -Correct Procedure Yes -Procedure Performed Yes -Type of Procedure Debridement -Clinical Debridement Subcutaneous -Tissue Removed Subcutaneous -Post Debridement (cm) - Length 5.0 -Post Debridement (cm) - Width 6.2 -Post Debridement (cm) - Depth 0.1 -Total Square (Post) (cm) 31.00 -Area of Debridement (cm) - Length 5.0 -Area of Debridement (cm) - Width 6.2 -Total Square (Area) (cm) 31.00 -Tunneling No -Undermining/Tunneling No -Circular Undermining No -Wound/Ulcer Outcome Not Healed -Ulcer Cleansing Rinsed/ Irrigated with Saline -Foul Odor after Cleansing No -Bioengineered Tissue No -Bleeding Controlled with Pressure -Treatment Response Procedure Tolerated Well -Offloading No -Debridement - Subq, 1st 20sq cm Yes -Debridement, SubQ, ea addt'l 20sq cm 1 or part thereof Pain Scale: 0-10 Numeric Is Patient Pain Free? Yes Assessment/Plan Assessment/Plan (1) Ulcer of left calf with fat layer exposed: CODE(S): L97.222 - Non-pressure chronic ulcer of left calf with fat layer exposed (2) Type 2 diabetes mellitus: CODE(S): E11.9 - Type 2 diabetes mellitus without complications (3) Bilateral lower extremity edema: CODE(S): R60.0 - Localized edema PLAN: Plan She has increased erythema around the wound edges today so I did obtain a wound culture. I will prescribed antibiotics as per C&S results. For wound care, continue to wash the area with antibacterial soap and water then pat to dry. Apply nickel-thick layer of santyl followed by lightly moistened gauze followed by ABD and dry gauze wrap. Change at least once daily, more often as needed to manage drainage and keep the area clean and dry. She continues to tolerate high-strength tubigrips so will continue with these, she has had noticeable improvement in her edema. She is encouraged to continue with leg elevation at all times of rest. We have submitted for [employer], prior auth is still pending with her insurance. Return to the clinic in 2 weeks.
--- NOTE | 2025-02-19 10:58 | WC ---
PHOTO 02/18/25 LEFT POST LE
[2025-02-25 14:52] VITALS: BP 107/82; PULSE 104; RESP 14; BMI 34.3
[2025-03-04 14:52] VITALS: BP 126/57; PULSE 107; RESP 18; TEMP 36; BMI 34.3
--- NOTE | 2025-03-04 15:37 | PCM.WC.PN ---
History of Present Illness Date of Service: 03/04/25 Chief Complaint: Left posterior calf wound History of Wound: Josy Smith is a 69-year-old female who presents today for evaluation and management of a left posterior calf wound as referred by her primary care Dr. Vazquez. She reports that this ulceration has been present since the end of May of this year. She reports that around that time her AC had gone out in her house and was out for several weeks so her house was very warm and she noticed significantly increased lower extremity edema. Eventually, a blister formed on her posterior calf and after rupturing left behind this ulceration. At home, she has been caring for this by applying antibiotic ointment and leaving it open to air. She denies any expanding redness, warmth, excess drainage, foul odor. Her swelling has since improved back to her baseline. She does have significant bilateral lower extremity edema at baseline and this has been ongoing for several years. She is diabetic, last A1c was 7.7. She does not smoke. She denies any history of VTE. She does not wear compression, she reports it makes her legs and feet feel too hot. Subjective Subjective Josy is doing very well this weak, reports less pain. Taking antibiotic as prescribed and tolerating well. No complaints. Objective Data Objective Data Vital Signs: Vital Signs Temp Pulse Resp BP O2 Del Method 96.8 F L 107 H 18 126/57 H Room Air 03/04/25 14:52 03/04/25 14:52 03/04/25 14:52 03/04/25 14:52 03/04/25 14:52 Oxygen Delivery Method Room Air Weight: 200 lb Body Mass Index (BMI) 34.3 Lab / Micro Data Micro: Microbiology 02/18/25 15:31 Wound - Leg, Left Gram Stain - Final 02/18/25 15:31 Wound - Leg, Left Wound Culture - Final Klebsiella pneumoniae sp pneum Staphylococcus lugdunensis Corynebact. pseudodiphtheritic 02/18/25 15:31 Wound - Leg, Left Anaerobic Culture - Final No anaerobic bacteria isolated. Charges/Coding Procedures Integumentary 150xxx-152xx: [id number] Skin sub graft trnk/arm/leg (wound area 29.5 sq cm) Physical Exam Const alert, oriented x3 and no apparent distress General Appearance: cooperative and anxious HEENT normocephalic, head/scalp atraumatic, hearing grossly normal bilaterally, external ears normal and external nose normal Eyes EOMs intact bilaterally General Eye: normal appearance of both eyes Neck General: normal visual inspection and trachea midline Resp normal respiratory effort Effort and Inspection: able to speak in complete sentences Extremity Extremity Narrative: Bilateral lower extremity pitting edema, trace right leg and trace left leg. Skin Wounds: wounds noted Wound Narrative: Posterior left calf ulceration cluster with moderate slough at the base compared to last visit, pink granular tissue visible at the base. Central tissue buds have coalesced and now extend the full inferior to superior length of the wound and appear to be widening medial to lateral as well from the center; the widest/longest measures remain stable. Improved erythema around the wound margins. No excess warmth, purulence, foul odor, induration/fluctuance. There is no tunneling or undermining. Do not appreciate any significant drainage. Neuro oriented x3, CN's II-XII intact bilaterally and moves all extremities Speech: speech normal Psych mental status grossly normal Appearance: grossly normal Attitude: engaged Speech: normal speech Mood & Affect: euthymic mood Judgement: judgement good Debridement Note Debridement Note Wound debrided: L posterior calf Laterality: Left Type of Debridement: Excisional debridement and - (Misonix) Anesthesia Used: 4% Lidocaine Solution Depth: Down to and including healthy tissue and in the subcutaneous layer Percentage of wound debrided: 100 Instrument Used: - (misonix) Tissue Removed: slough Severity: Fat Layer Exposed Amount of bleeding with debridement: Mild Bleeding Controlled with: Pressure Patient tolerated procedure: Patient tolerated procedure well Post-Debridement Measurements and Additional Note: Post-Debridement Measurements/Treatment - Nurse 1 - General Ulcer Assessment Start: 02/18/25 15:09 Freq: Status: Active Protocol: [email or web address] Activity Type Activity Date Activity User E-sign Co-sign Detail Recorded Client Recorded Date Recorded By Document 02/18/25 15:09 BMF [id number] 02/18/25 15:12 BMF Document 02/25/25 14:52 ML [id number] 02/25/25 14:57 ML Document 03/04/25 14:52 [facility] [id number] 03/04/25 15:00 BMF 02/18/25 02/25/25 03/04/25 15:09 14:52 14:52 - Today's Visit Information Type of service Follow-up Visit Follow-up Visit Follow-up Visit (Physician/MAIL HANDLER (Physician/MAIL HANDLER (Physician/MAIL HANDLER ) ) ) Arrival Mode Ambulatory Ambulatory Ambulatory Transfer Assistance None None None Accompanied by husb husb Patient Identification Verified (Name & Yes Yes Yes ) Patient Requires Transmission-Based No No No Precautions Finger Stick Blood Sugar(mg/dl) (if 120 indicated): Blood Sugar Stated by Patient Height and Weight Body Mass Index (BMI) 34.3 34.3 34.3 BMI Classification Obese Obese Obese Vital Signs Temperature (97.8 F-99.1 F) 97.3 F L 96.8 F L Temperature Source Temporal Temporal Pulse Rate (60-100) 106 H 104 H 107 H Pulse Location Monitor Monitor Monitor Respiratory Rate (12-18) 16 14 18 Respiratory rate source Observation Observation Observation Oxygen Delivery Method Room Air Room Air Blood Pressure (90/60-120/80) 143/73 H 107/82 H 126/57 H Blood Pressure Mean (mm Hg) 96 90 80 Source Monitor Monitor Monitor Position Sitting Sitting Sitting Blood Pressure Location Left Arm Right Arm Left Arm History Since Last Visit- (Skip if this is Patient's initial visit) Have you changed medications since your No No No last visit? Any new allergies or adverse reactions No No No Had a fall/change in ADL's that may No No No increase risk of falls Signs or symptoms of abuse and/or No No No neglect since last visit Have you been in the hospital since your No No No last visit? Has dressing in place as prescribed Yes Yes Yes Has compression in place as prescribed Yes N/A Yes Has offloadiing in place as prescribed N/A N/A N/A Experienced any changes in pain level or No No No management Left Footwear Regular Shoe Regular Shoe Right Footwear Regular Shoe Regular Shoe Pain Scale: 0-10 Numeric Is Patient Pain Free? Yes Yes Yes WC - Nurse 1 - General Ulcer Measurement Start: 02/18/25 15:09 Freq: Status: Active Protocol: Activity Type Activity Date Activity User E-sign Co-sign Detail Recorded Client Recorded Date Recorded By Document 02/18/25 15:09 BMF [id number] 02/18/25 15:12 BMF Document 02/25/25 14:52 ML [id number] 02/25/25 14:57 ML Document 03/04/25 14:52 BMF [id number] 03/04/25 15:00 [facility] 02/18/25 02/25/25 03/04/25 15:09 14:52 14:52 Wound Center Nurse 1 #1 LT POST LE -Combined with other wound No No -Current Size (cm) - Length 4.8 6 4.8 -Current Size (cm) - Width 6.8 7.5 5.9 -Current Size (cm) - Depth 0.1 0.1 0.1 -Total Square Cm 32.64 45.0 28.32 -Date of Last Picture (Recall this 02/18/25 03/04/25 field) -Photo Taken Yes Yes -Epithelialization Small 1-33% -Tunneling No No -Undermining/Tunneling No No -Circular Undermining No No -Exudate Amt Medium Medium Medium -Exudate Type Serosanguineous Serosanguineous Serosanguineous -Wound Margin Distinct, Flat & Intact Outline Attached -Granulation Amt Medium (34-66%) Medium (34-66%) -Slough/Fibrin Yes Yes -Necrosis Amt Medium (34-66%) Medium (34-66%) -Necrotic Tissue Type Adherent Slough Adherent Slough -Texture (Radha-wound Skin Appearance) Assessed Assessed Assessed -Moisture (Radha-wound Skin Appearance) Assessed Assessed Assessed -Color (Radha-wound Skin Appearance) Assessed, Assessed Assessed Erythema -Temperature (Radha-wound Skin No Abnormality No Abnormality No Abnormality Appearance) (Pt Warm) (Pt Warm) (Pt Warm) -Tenderness on Palpation (Radha-wound Yes Yes No Skin Appearance) -Ulcer Cleansing Rinsed/ Rinsed/ Soap and Water Irrigated with Irrigated with Saline Saline -Foul Odor after Cleansing No No No -Anesthetic Used 5% Lidocaine 5% Lidocaine 5% Lidocaine Gel Gel Gel -Wound Comment(s) product adhered well and not removed during initial nurse 1 eval. measurements are approximate Lower Limb Edema Present Yes Yes Left Calf (cm) 39 37 Left Ankle (cm) 26 25.5 WC - Nurse 2 - General Ulcer CM Notes Start: 02/18/25 15:09 Freq: Status: Active Protocol: Activity Type Activity Date Activity User E-sign Co-sign Detail Recorded Client Recorded Date Recorded By Document 02/18/25 15:25 [id number] 02/18/25 15:34 Document 02/25/25 15:13 [id number] 02/25/25 15:21 Document 03/04/25 15:15 [id number] 03/04/25 15:25 02/18/25 02/25/25 03/04/25 15:25 15:13 15:15 Wound Center Nurse 2 #1 LT POST LE -Time 15: 15:13 15:15 -Correct Patient Yes Yes Yes -Correct Side, Site, Position Yes Yes Yes -Correct Procedure Yes Yes Yes -Procedure Performed Yes Yes Yes -Type of Procedure Debridement Debridement Debridement -Clinical Debridement Subcutaneous Subcutaneous Subcutaneous -Tissue Removed Subcutaneous Subcutaneous Subcutaneous -Post Debridement (cm) - Length 5.0 5.0 5.0 -Post Debridement (cm) - Width 6.2 6.0 5.9 -Post Debridement (cm) - Depth 0.1 0.1 0.1 -Total Square (Post) (cm) 31. 30.00 29.50 -Area of Debridement (cm) - Length 5.0 5.0 5.0 -Area of Debridement (cm) - Width 6.2 6.0 5.9 -Total Square (Area) (cm) 31.00 30.00 29.50 -Tunneling No No No -Undermining/Tunneling No No No -Circular Undermining No No No -Wound/Ulcer Outcome Not Healed Not Healed Not Healed -Ulcer Cleansing Rinsed/ Rinsed/ Rinsed/ Irrigated with Irrigated with Irrigated with Saline Saline Saline -Foul Odor after Cleansing No No No -Bioengineered Tissue No Yes Yes -Type of Bioengineered Tissue Theraskin Theraskin -Expiration Date 04/07/29 10/02/28 -Product Lot Number [id number] -Percent Used 100 100 -Lot number of Saline Used [id number] -Bleeding Controlled with Pressure Pressure Pressure -Treatment Response Procedure Procedure Procedure Tolerated Well Tolerated Well Tolerated Well -Offloading No No -Debridement - Subq, 1st 20sq cm Yes Yes Yes -Debridement, SubQ, ea addt'l 20sq cm 1 1 1 or part thereof -Apply Skin Sub - 1st 25 sq cm - Legs 1 -Theraskin - 102TSL (39 SQ CM) 39 39 Application 1-4 (per sq cm) Pain Scale: 0-10 Numeric Is Patient Pain Free? Yes Yes Yes WC - Nurse 3 - General Ulcer D/C NN Start: 02/18/25 15:09 Freq: Status: Active Protocol: Activity Type Activity Date Activity User E-sign Co-sign Detail Recorded Client Recorded Date Recorded By Document 02/25/25 15:27 MEGA [id number] 02/25/25 15:28 KW 02/25/25 15:27 Wound Care Center Nurse 3 #1 LT POST LE -Primary Dressing Covered/Secured with Dry Gauze & Roll Gauze, Secured with Tape Left -Tubular Bandage Single Layer -Size of Tubigrip Used Size E -Size E ($) 1 Pain Scale: 0-10 Numeric Is Patient Pain Free? Yes WC - Visit Discharge Discharge Condition Stable Ambulatory Status Ambulatory Transportation Private Auto Medication Reconcilliation completed & No provided to patient/care provider Clinical Summary of Care Provided Yes Assessment/Plan Assessment/Plan (1) Ulcer of left calf with fat layer exposed: CODE(S): L97.222 - Non-pressure chronic ulcer of left calf with fat layer exposed (2) Type 2 diabetes mellitus: CODE(S): E11.9 - Type 2 diabetes mellitus without complications (3) Bilateral lower extremity edema: CODE(S): R60.0 - Localized edema PLAN: Plan She will complete antibiotics as prescribed; monitor for symptoms of recurrent infection. Will continue with Theraskin applications. I performed sharp debridement of the wound bed to remove slough and obtain a well-bleeding base. The area was then cleansed with sterile saline. Then using sterile precautions Theraskin graft #2 was applied to the wound base in the appropriate orientation. This was secured with wound veil and steri-strips and then covered with a foam-border dressing. She was instructed to leave this dressing in place for the next week. She is instructed to change the outer dressing as needed to manage drainage. She is otherwise instructed to ensure this remains clean and dry. She continues to tolerate high-strength tubigrips so will continue with these, she has had noticeable improvement in her edema. She is encouraged to continue with leg elevation at all times of rest. Return to the clinic in 1 week.
--- NOTE | 2025-03-04 16:26 | PCM.WC.PN ---
History of Present Illness Date of Service: 02/25/25 Chief Complaint: Left posterior calf wound History of Wound: Josy Smith is a 69-year-old female who presents today for evaluation and management of a left posterior calf wound as referred by her primary care Dr. Vazquez. She reports that this ulceration has been present since the end of May of this year. She reports that around that time her AC had gone out in her house and was out for several weeks so her house was very warm and she noticed significantly increased lower extremity edema. Eventually, a blister formed on her posterior calf and after rupturing left behind this ulceration. At home, she has been caring for this by applying antibiotic ointment and leaving it open to air. She denies any expanding redness, warmth, excess drainage, foul odor. Her swelling has since improved back to her baseline. She does have significant bilateral lower extremity edema at baseline and this has been ongoing for several years. She is diabetic, last A1c was 7.7. She does not smoke. She denies any history of VTE. She does not wear compression, she reports it makes her legs and feet feel too hot. Subjective Subjective Josy is doing well this week. She just picked up the Bactrim that I prescribed based upon her C&S results. No other concerns. Objective Data Objective Data Vital Signs: Vital Signs Temp Pulse Resp BP O2 Del Method 96.8 F L 107 H 18 126/57 H Room Air 03/04/25 14:52 03/04/25 14:52 03/04/25 14:52 03/04/25 14:52 03/04/25 14:52 Oxygen Delivery Method Room Air Weight: 200 lb Body Mass Index (BMI) 34.3 Lab / Micro Data Micro: Microbiology 02/18/25 15:31 Wound - Leg, Left Gram Stain - Final 02/18/25 15:31 Wound - Leg, Left Wound Culture - Final Klebsiella pneumoniae sp pneum Staphylococcus lugdunensis Corynebact. pseudodiphtheritic 02/18/25 15:31 Wound - Leg, Left Anaerobic Culture - Final No anaerobic bacteria isolated. Charges/Coding Procedures Integumentary 150xxx-152xx: [id number] Skin sub graft trnk/arm/leg (30 sq cm) Physical Exam Const alert, oriented x3 and no apparent distress General Appearance: cooperative and anxious HEENT normocephalic, head/scalp atraumatic, hearing grossly normal bilaterally, external ears normal and external nose normal Eyes EOMs intact bilaterally General Eye: normal appearance of both eyes Neck General: normal visual inspection and trachea midline Resp normal respiratory effort Effort and Inspection: able to speak in complete sentences Extremity Extremity Narrative: Bilateral lower extremity pitting edema, trace right leg and trace left leg. Skin Wounds: wounds noted Wound Narrative: Posterior left calf ulceration cluster with moderate slough at the base compared to last visit, pink granular tissue visible at the base. Central tissue buds have coalesced and now extend the full inferior to superior length of the wound and appear to be widening medial to lateral as well from the center; the widest/longest measures remain stable. Improved erythema around the wound margins. No excess warmth, purulence, foul odor, induration/fluctuance. There is no tunneling or undermining. Do not appreciate any significant drainage. Neuro oriented x3, CN's II-XII intact bilaterally and moves all extremities Speech: speech normal Psych mental status grossly normal Appearance: grossly normal Attitude: engaged Speech: normal speech Mood & Affect: euthymic mood Judgement: judgement good Debridement Note Debridement Note Wound debrided: L posterior calf Laterality: Left Type of Debridement: Excisional debridement and - (Misonix) Anesthesia Used: 4% Lidocaine Solution Depth: Down to and including healthy tissue and in the subcutaneous layer Percentage of wound debrided: 100 Instrument Used: 5mm curette Tissue Removed: slough Severity: Fat Layer Exposed Amount of bleeding with debridement: Mild Bleeding Controlled with: Pressure Patient tolerated procedure: Patient tolerated procedure well Post-Debridement Measurements and Additional Note: Post-Debridement Measurements/Treatment - Nurse 1 - General Ulcer Assessment Start: 02/18/25 15:09 Freq: Status: Active Protocol: [email or web address].[email or web address] Activity Type Activity Date Activity User E-sign Co-sign Detail Recorded Client Recorded Date Recorded By Document 02/18/25 15:09 BMF [id number] 02/18/25 15:12 BMF Document 02/25/25 14:52 ML [id number] 02/25/25 14:57 ML Document 03/04/25 14:52 [facility] [id number] 03/04/25 15:00 BMF 02/18/25 02/25/25 03/04/25 15:09 14:52 14:52 - Today's Visit Information Type of service Follow-up Visit Follow-up Visit Follow-up Visit (Physician/WET ROOM SUPERVISOR (Physician/WET ROOM SUPERVISOR (Physician/WET ROOM SUPERVISOR ) ) ) Arrival Mode Ambulatory Ambulatory Ambulatory Transfer Assistance None None None Accompanied by husb husb Patient Identification Verified (Name & Yes Yes Yes ) Patient Requires Transmission-Based No No No Precautions Finger Stick Blood Sugar(mg/dl) (if 120 indicated): Blood Sugar Stated by Patient Height and Weight Body Mass Index (BMI) 34.3 34.3 34.3 BMI Classification Obese Obese Obese Vital Signs Temperature (97.8 F-99.1 F) 97.3 F L 96.8 F L Temperature Source Temporal Temporal Pulse Rate (60-100) 106 H 104 H 107 H Pulse Location Monitor Monitor Monitor Respiratory Rate (12-18) 16 14 18 Respiratory rate source Observation Observation Observation Oxygen Delivery Method Room Air Room Air Blood Pressure (90/60-120/80) 143/73 H 107/82 H 126/57 H Blood Pressure Mean (mm Hg) 96 90 80 Source Monitor Monitor Monitor Position Sitting Sitting Sitting Blood Pressure Location Left Arm Right Arm Left Arm History Since Last Visit- (Skip if this is Patient's initial visit) Have you changed medications since your No No No last visit? Any new allergies or adverse reactions No No No Had a fall/change in ADL's that may No No No increase risk of falls Signs or symptoms of abuse and/or No No No neglect since last visit Have you been in the hospital since your No No No last visit? Has dressing in place as prescribed Yes Yes Yes Has compression in place as prescribed Yes N/A Yes Has offloadiing in place as prescribed N/A N/A N/A Experienced any changes in pain level or No No No management Left Footwear Regular Shoe Regular Shoe Right Footwear Regular Shoe Regular Shoe Pain Scale: 0-10 Numeric Is Patient Pain Free? Yes Yes Yes WC - Nurse 1 - General Ulcer Measurement Start: 02/18/25 15:09 Freq: Status: Active Protocol: Activity Type Activity Date Activity User E-sign Co-sign Detail Recorded Client Recorded Date Recorded By Document 02/18/25 15:09 BMF [id number] 02/18/25 15:12 BMF Document 02/25/25 14:52 ML [id number] 02/25/25 14:57 ML Document 03/04/25 14:52 BMF [id number] 03/04/25 15:00 [facility] 02/18/25 02/25/25 03/04/25 15:09 14:52 14:52 Wound Center Nurse 1 #1 LT POST LE -Combined with other wound No No -Current Size (cm) - Length 4.8 6 4.8 -Current Size (cm) - Width 6.8 7.5 5.9 -Current Size (cm) - Depth 0.1 0.1 0.1 -Total Square Cm 32.64 45.0 28.32 -Date of Last Picture (Recall this 02/18/25 03/04/25 field) -Photo Taken Yes Yes -Epithelialization Small 1-33% -Tunneling No No -Undermining/Tunneling No No -Circular Undermining No No -Exudate Amt Medium Medium Medium -Exudate Type Serosanguineous Serosanguineous Serosanguineous -Wound Margin Distinct, Flat & Intact Outline Attached -Granulation Amt Medium (34-66%) Medium (34-66%) -Slough/Fibrin Yes Yes -Necrosis Amt Medium (34-66%) Medium (34-66%) -Necrotic Tissue Type Adherent Slough Adherent Slough -Texture (Radha-wound Skin Appearance) Assessed Assessed Assessed -Moisture (Radha-wound Skin Appearance) Assessed Assessed Assessed -Color (Radha-wound Skin Appearance) Assessed, Assessed Assessed Erythema -Temperature (Radha-wound Skin No Abnormality No Abnormality No Abnormality Appearance) (Pt Warm) (Pt Warm) (Pt Warm) -Tenderness on Palpation (Radha-wound Yes Yes No Skin Appearance) -Ulcer Cleansing Rinsed/ Rinsed/ Soap and Water Irrigated with Irrigated with Saline Saline -Foul Odor after Cleansing No No No -Anesthetic Used 5% Lidocaine 5% Lidocaine 5% Lidocaine Gel Gel Gel -Wound Comment(s) product adhered well and not removed during initial nurse 1 eval. measurements are approximate Lower Limb Edema Present Yes Yes Left Calf (cm) 39 37 Left Ankle (cm) 26 25.5 WC - Nurse 2 - General Ulcer CM Notes Start: 02/18/25 15:09 Freq: Status: Active Protocol: Activity Type Activity Date Activity User E-sign Co-sign Detail Recorded Client Recorded Date Recorded By Document 02/18/25 15:25 [id number] 02/18/25 15:34 Document 02/25/25 15:13 [id number] 02/25/25 15:21 Document 03/04/25 15:15 [id number] 03/04/25 15:25 02/18/25 02/25/25 03/04/25 15:25 15:13 15:15 Wound Center Nurse 2 #1 LT POST LE -Time 15: 15:13 15:15 -Correct Patient Yes Yes Yes -Correct Side, Site, Position Yes Yes Yes -Correct Procedure Yes Yes Yes -Procedure Performed Yes Yes Yes -Type of Procedure Debridement Debridement Debridement -Clinical Debridement Subcutaneous Subcutaneous Subcutaneous -Tissue Removed Subcutaneous Subcutaneous Subcutaneous -Post Debridement (cm) - Length 5.0 5.0 5.0 -Post Debridement (cm) - Width 6.2 6.0 5.9 -Post Debridement (cm) - Depth 0.1 0.1 0.1 -Total Square (Post) (cm) 31. 30.00 29.50 -Area of Debridement (cm) - Length 5.0 5.0 5.0 -Area of Debridement (cm) - Width 6.2 6.0 5.9 -Total Square (Area) (cm) 31.00 30.00 29.50 -Tunneling No No No -Undermining/Tunneling No No No -Circular Undermining No No No -Wound/Ulcer Outcome Not Healed Not Healed Not Healed -Ulcer Cleansing Rinsed/ Rinsed/ Rinsed/ Irrigated with Irrigated with Irrigated with Saline Saline Saline -Foul Odor after Cleansing No No No -Bioengineered Tissue No Yes Yes -Type of Bioengineered Tissue Theraskin Theraskin -Expiration Date 04/07/29 10/02/28 -Product Lot Number [id number] -Percent Used 100 100 -Lot number of Saline Used [id number] -Bleeding Controlled with Pressure Pressure Pressure -Treatment Response Procedure Procedure Procedure Tolerated Well Tolerated Well Tolerated Well -Offloading No No -Debridement - Subq, 1st 20sq cm Yes Yes Yes -Debridement, SubQ, ea addt'l 20sq cm 1 1 1 or part thereof -Apply Skin Sub - 1st 25 sq cm - Legs 1 -Theraskin - 102TSL (39 SQ CM) 39 39 Application 1-4 (per sq cm) Pain Scale: 0-10 Numeric Is Patient Pain Free? Yes Yes Yes WC - Nurse 3 - General Ulcer D/C NN Start: 02/18/25 15:09 Freq: Status: Active Protocol: Activity Type Activity Date Activity User E-sign Co-sign Detail Recorded Client Recorded Date Recorded By Document 02/25/25 15:27 KW [id number] 02/25/25 15:28 KW Document 03/04/25 15:40 DL [id number] 03/04/25 15:41 DL 02/25/25 03/04/25 15:27 15:40 Wound Care Center Nurse 3 #1 LT POST LE -Foul Odor after Cleansing No -Other Dressing Theraskin -Primary Dressing Covered/Secured with Dry Gauze & Dry Gauze & Roll Gauze, Roll Gauze, Secured with Secured with Tape Tape -Wound Comment(s) Tubigrip D used today. Left -Tubular Bandage Single Layer Single Layer -Size of Tubigrip Used Size E Size D -Size D ($) 1 -Size E ($) 1 Treatment Response Procedure Tolerated Well Pain Scale: 0-10 Numeric Is Patient Pain Free? Yes Yes WC - Visit Discharge Discharge Condition Stable Stable Ambulatory Status Ambulatory Ambulatory Transportation Private Auto Private Auto Medication Reconcilliation completed & No provided to patient/care provider Clinical Summary of Care Provided Yes Assessment/Plan Assessment/Plan (1) Ulcer of left calf with fat layer exposed: CODE(S): L97.222 - Non-pressure chronic ulcer of left calf with fat layer exposed (2) Type 2 diabetes mellitus: CODE(S): E11.9 - Type 2 diabetes mellitus without complications (3) Bilateral lower extremity edema: CODE(S): R60.0 - Localized edema PLAN: Plan She will start antibiotics as prescribed. She will let me know if she has any trouble with this or worsening infection symptoms. She was approved for Theraskin application by her insurance; she will have a $50 copay per application which she is agreeable to. I performed sharp debridement of the wound bed to remove slough and obtain a well-bleeding base. The area was then cleansed with sterile saline. Then using sterile precautions Theraskin graft #1 was applied to the wound base in the appropriate orientation. This was secured with wound veil and steri-strips and then covered with a foam-border dressing. She was instructed to leave this dressing in place for the next week. She is instructed to change the outer dressing as needed to manage drainage. She is otherwise instructed to ensure this remains clean and dry. She continues to tolerate high-strength tubigrips so will continue with these, she has had noticeable improvement in her edema. She is encouraged to continue with leg elevation at all times of rest. Return to the clinic in 1 week.
--- NOTE | 2025-03-05 10:54 | WC ---
PHOTO 03/04/25 LEFT POST LEG
[2025-03-11 14:57] VITALS: BP 131/68; PULSE 102; RESP 16; TEMP 36.3; BMI 34.3
--- NOTE | 2025-03-11 15:32 | PN.PCM_ITS ---
History of Present Illness Date of Service: 03/11/25 Chief Complaint: Left posterior calf wound History of Wound: Josy Smith is a 69-year-old female who presents today for evaluation and management of a left posterior calf wound as referred by her primary care Dr. Vazquez. She reports that this ulceration has been present since the end of May of this year. She reports that around that time her AC had gone out in her house and was out for several weeks so her house was very warm and she noticed significantly increased lower extremity edema. Eventually, a blister formed on her posterior calf and after rupturing left behind this ulceration. At home, she has been caring for this by applying antibiotic ointment and leaving it open to air. She denies any expanding redness, warmth, excess drainage, foul odor. Her swelling has since improved back to her baseline. She does have significant bilateral lower extremity edema at baseline and this has been ongoing for several years. She is diabetic, last A1c was 7.7. She does not smoke. She denies any history of VTE. She does not wear compression, she reports it makes her legs and feet feel too hot. Subjective Subjective Josy is doing well this week. She is taking antibiotics as prescribed. She notes much less drainage this week compared to last. She did well with dressings again this week, keeping them clean and dry. She reminds me that she is going out of town next week so will not be able to be here . Objective Data Objective Data Vital Signs: Vital Signs Temp Pulse Resp BP O2 Del Method 97.4 F L 102 H 16 131/68 H Room Air 03/11/25 14:57 03/11/25 14:57 03/11/25 14:57 03/11/25 14:57 03/11/25 14:57 Oxygen Delivery Method Room Air Weight: 200 lb Body Mass Index (BMI) 34.3 Lab / Micro Data Micro: Microbiology 02/18/25 15:31 Wound - Leg, Left Gram Stain - Final 02/18/25 15:31 Wound - Leg, Left Wound Culture - Final Klebsiella pneumoniae sp pneum Staphylococcus lugdunensis Corynebact. pseudodiphtheritic 02/18/25 15:31 Wound - Leg, Left Anaerobic Culture - Final No anaerobic bacteria isolated. Charges/Coding Procedures Integumentary [id number]: [id number] Skin sub graft trnk/arm/leg (31.5 sq cm) Physical Exam Const alert, oriented x3 and no apparent distress General Appearance: cooperative and anxious HEENT normocephalic, head/scalp atraumatic, hearing grossly normal bilaterally, external ears normal and external nose normal Eyes EOMs intact bilaterally General Eye: normal appearance of both eyes Neck General: normal visual inspection and trachea midline Resp normal respiratory effort Effort and Inspection: able to speak in complete sentences Extremity Extremity Narrative: Bilateral lower extremity pitting edema, trace right leg and trace left leg. Skin Wounds: wounds noted Wound Narrative: Posterior left calf ulceration cluster with lessened slough at the base compared to last visit, pink granular tissue visible at the base. Central tissue buds have coalesced and now extend the full inferior to superior length of the wound and continue to widen medial to lateral as well from the center; the widest/longest measures remain stable. New tissue buds noted centrally as well. Inferior edge of the wound is becoming more superficial. erythema around the wound margins is improved. No excess warmth, purulence, foul odor, induration/fluctuance. There is no tunneling or undermining. Do not appreciate any significant drainage. Neuro oriented x3, CN's II-XII intact bilaterally and moves all extremities Speech: speech normal Psych mental status grossly normal Appearance: grossly normal Attitude: engaged Speech: normal speech Mood & Affect: euthymic mood Judgement: judgement good Debridement Note Debridement Note Wound debrided: L posterior calf Laterality: Left Type of Debridement: Excisional debridement Anesthesia Used: 4% Lidocaine Solution Depth: Down to and including healthy tissue and in the subcutaneous layer Percentage of wound debrided: 100 Instrument Used: 5mm curette Tissue Removed: slough Severity: Fat Layer Exposed Amount of bleeding with debridement: Mild Bleeding Controlled with: Pressure Patient tolerated procedure: Patient tolerated procedure well Post-Debridement Measurements and Additional Note: Post-Debridement Measurements/Treatment WC - Nurse 1 - General Ulcer Assessment Start: 02/18/25 15:09 Freq: Status: Active Protocol: CAMILLA Activity Type Activity Date Activity User E-sign Co-sign Detail Recorded Client Recorded Date Recorded By Document 02/18/25 15:09 BMF [id number] 02/18/25 15:12 BMF Document 02/25/25 14:52 ML [id number] 02/25/25 14:57 ML Document 03/04/25 14:52 BMF [id number] 03/04/25 15:00 BMF Document 03/11/25 14:57 [id number] 03/11/25 15:02 02/18/25 02/25/25 03/04/25 15:09 14:52 14:52 - Today's Visit Information Type of service Follow-up Visit Follow-up Visit Follow-up Visit (Physician/PIPE FITTER SOFT COPPER (Physician/PIPE FITTER SOFT COPPER (Physician/PIPE FITTER SOFT COPPER ) ) ) Arrival Mode Ambulatory Ambulatory Ambulatory Transfer Assistance None None None Accompanied by husb husb Patient Identification Verified (Name & Yes Yes Yes ) Patient Requires Transmission-Based No No No Precautions Finger Stick Blood Sugar(mg/dl) (if 120 indicated): Blood Sugar Stated by Patient Height and Weight Body Mass Index (BMI) 34.3 34.3 34.3 BMI Classification Obese Obese Obese Vital Signs Temperature (97.8 F-99.1 F) 97.3 F L 96.8 F L Temperature Source Temporal Temporal Pulse Rate (60-100) 106 H 104 H 107 H Pulse Location Monitor Monitor Monitor Respiratory Rate (12-18) 16 14 18 Respiratory rate source Observation Observation Observation Oxygen Delivery Method Room Air Room Air Blood Pressure (90/60-120/80) 143/73 H 107/82 H 126/57 H Blood Pressure Mean (mm Hg) 96 90 80 Source Monitor Monitor Monitor Position Sitting Sitting Sitting Blood Pressure Location Left Arm Right Arm Left Arm History Since Last Visit- (Skip if this is Patient's initial visit) Have you changed medications since your No No No last visit? Any new allergies or adverse reactions No No No Had a fall/change in ADL's that may No No No increase risk of falls Signs or symptoms of abuse and/or No No No neglect since last visit Have you been in the hospital since your No No No last visit? Has dressing in place as prescribed Yes Yes Yes Has compression in place as prescribed Yes N/A Yes Has offloadiing in place as prescribed N/A N/A N/A Experienced any changes in pain level or No No No management Left Footwear Regular Shoe Regular Shoe Right Footwear Regular Shoe Regular Shoe Pain Scale: 0-10 Numeric Is Patient Pain Free? Yes Yes Yes 03/11/25 14:57 WC - Today's Visit Information Type of service Follow-up Visit (Physician/PIPE FITTER SOFT COPPER ) Arrival Mode Ambulatory Transfer Assistance None Accompanied by Patient Identification Verified (Name & Yes ) Patient Requires Transmission-Based Precautions Finger Stick Blood Sugar(mg/dl) (if indicated): Blood Sugar Height and Weight Body Mass Index (BMI) 34.3 BMI Classification Obese Vital Signs Temperature (97.8 F-99.1 F) 97.4 F L Temperature Source Temporal Pulse Rate (60-100) 102 H Pulse Location Monitor Respiratory Rate (12-18) 16 Respiratory rate source Observation Oxygen Delivery Method Room Air Blood Pressure (90/60-120/80) 131/68 H Blood Pressure Mean (mm Hg) 89 Source Monitor Position Sitting Blood Pressure Location Left Arm History Since Last Visit- (Skip if this is Patient's initial visit) Have you changed medications since your No last visit? Any new allergies or adverse reactions No Had a fall/change in ADL's that may No increase risk of falls Signs or symptoms of abuse and/or No neglect since last visit Have you been in the hospital since your No last visit? Has dressing in place as prescribed Yes Has compression in place as prescribed Yes Has offloadiing in place as prescribed N/A Experienced any changes in pain level or No management Left Footwear Regular Shoe Right Footwear Regular Shoe Pain Scale: 0-10 Numeric Is Patient Pain Free? Yes WC - Nurse 1 - General Ulcer Measurement Start: 02/18/25 15:09 Freq: Status: Active Protocol: Activity Type Activity Date Activity User E-sign Co-sign Detail Recorded Client Recorded Date Recorded By Document 02/18/25 15:09 BMF [id number] 02/18/25 15:12 BMF Document 02/25/25 14:52 ML [id number] 02/25/25 14:57 ML Document 03/04/25 14:52 BMF [id number] 03/04/25 15:00 BMF Document 03/11/25 14:57 GM [id number] 03/11/25 15:02 GM 02/18/25 02/25/25 03/04/25 15:09 14:52 14:52 Wound Center Nurse 1 #1 LT POST LE -Combined with other wound No No -Current Size (cm) - Length 4.8 6 4.8 -Current Size (cm) - Width 6.8 7.5 5.9 -Current Size (cm) - Depth 0.1 0.1 0.1 -Total Square Cm 32.64 45.0 28.32 -Date of Last Picture (Recall this 02/18/25 03/04/25 field) -Photo Taken Yes Yes -Epithelialization Small 1-33% -Tunneling No No -Undermining/Tunneling No No -Circular Undermining No No -Exudate Amt Medium Medium Medium -Exudate Type Serosanguineous Serosanguineous Serosanguineous -Wound Margin Distinct, Flat & Intact Outline Attached -Granulation Amt Medium (34-66%) Medium (34-66%) -Granulation Quality -Slough/Fibrin Yes Yes -Necrosis Amt Medium (34-66%) Medium (34-66%) -Necrotic Tissue Type Adherent Slough Adherent Slough -Texture (Radha-wound Skin Appearance) Assessed Assessed Assessed -Moisture (Radha-wound Skin Appearance) Assessed Assessed Assessed -Color (Radha-wound Skin Appearance) Assessed, Assessed Assessed Erythema -Temperature (Radha-wound Skin No Abnormality No Abnormality No Abnormality Appearance) (Pt Warm) (Pt Warm) (Pt Warm) -Tenderness on Palpation (Radha-wound Yes Yes No Skin Appearance) -Ulcer Cleansing Rinsed/ Rinsed/ Soap and Water Irrigated with Irrigated with Saline Saline -Foul Odor after Cleansing No No No -Anesthetic Used 5% Lidocaine 5% Lidocaine 5% Lidocaine Gel Gel Gel -Wound Comment(s) product adhered well and not removed during initial nurse 1 eval. measurements are approximate Lower Limb Edema Present Yes Yes Right Calf (cm) Right Ankle (cm) Left Calf (cm) 39 37 Left Ankle (cm) 26 25.5 03/11/25 14:57 Wound Center Nurse 1 #1 LT POST LE -Combined with other wound No -Current Size (cm) - Length 5.1 -Current Size (cm) - Width 6.1 -Current Size (cm) - Depth 0.1 -Total Square Cm 31.11 -Date of Last Picture (Recall this field) -Photo Taken No -Epithelialization Medium 34-66% -Tunneling No -Undermining/Tunneling No -Circular Undermining No -Exudate Amt Small -Exudate Type Yellow/Green -Wound Margin Distinct, Outline Attached -Granulation Amt Medium (34-66%) -Granulation Quality Red -Slough/Fibrin -Necrosis Amt -Necrotic Tissue Type Adherent Slough -Texture (Radha-wound Skin Appearance) Not Assessed -Moisture (Radha-wound Skin Appearance) Assessed -Color (Radha-wound Skin Appearance) Assessed -Temperature (Radha-wound Skin No Abnormality Appearance) (Pt Warm) -Tenderness on Palpation (Radha-wound Yes Skin Appearance) -Ulcer Cleansing Soap and Water -Foul Odor after Cleansing No -Anesthetic Used 5% Lidocaine Gel -Wound Comment(s) Lower Limb Edema Present No Right Calf (cm) 39 Right Ankle (cm) 23.5 Left Calf (cm) 39.5 Left Ankle (cm) 26.5 WC - Nurse 2 - General Ulcer CM Notes Start: 02/18/25 15:09 Freq: Status: Active Protocol: Activity Type Activity Date Activity User E-sign Co-sign Detail Recorded Client Recorded Date Recorded By Document 02/18/25 15:25 GM [id number] 02/18/25 15:34 GM Document 02/25/25 15:13 GM [id number] 02/25/25 15:21 GM Document 03/04/25 15:15 GM [id number] 03/04/25 15:25 GM Edit Result 03/04/25 15:15 GM (1) [id number] 03/05/25 13:16 GM Document 03/11/25 15:14 GM [id number] 03/11/25 15:23 GM Edit Result 03/11/25 15:14 GM (2) [id number] 03/11/25 15:23 GM (1) #1 LT POST LE - Apply Skin Sub - 1st 25 sq cm - Legs => 1 (2) #1 LT POST LE - Debridement, SubQ, ea addt'l 20sq cm => 1 or part thereof 02/18/25 02/25/25 03/04/25 15:25 15:13 15:15 Wound Center Nurse 2 #1 LT POST LE -Time 15:27 15:13 15:15 -Correct Patient Yes Yes Yes -Correct Side, Site, Position Yes Yes Yes -Correct Procedure Yes Yes Yes -Procedure Performed Yes Yes Yes -Type of Procedure Debridement Debridement Debridement -Clinical Debridement Subcutaneous Subcutaneous Subcutaneous -Tissue Removed Subcutaneous Subcutaneous Subcutaneous -Post Debridement (cm) - Length 5.0 5.0 5.0 -Post Debridement (cm) - Width 6.2 6.0 5.9 -Post Debridement (cm) - Depth 0.1 0.1 0.1 -Total Square (Post) (cm) 31.00 30.00 29.50 -Area of Debridement (cm) - Length 5.0 5.0 5.0 -Area of Debridement (cm) - Width 6.2 6.0 5.9 -Total Square (Area) (cm) 31.00 30.00 29.50 -Tunneling No No No -Undermining/Tunneling No No No -Circular Undermining No No No -Wound/Ulcer Outcome Not Healed Not Healed Not Healed -Ulcer Cleansing Rinsed/ Rinsed/ Rinsed/ Irrigated with Irrigated with Irrigated with Saline Saline Saline -Foul Odor after Cleansing No No No -Bioengineered Tissue No Yes Yes -Type of Bioengineered Tissue Theraskin Theraskin -Expiration Date 04/07/29 10/02/28 -Product Lot Number [id number] -Percent Used 100 100 -Lot number of Saline Used [id number] -Bleeding Controlled with Pressure Pressure Pressure -Treatment Response Procedure Procedure Procedure Tolerated Well Tolerated Well Tolerated Well -Offloading No No -Debridement - Subq, 1st 20sq cm Yes Yes Yes -Debridement, SubQ, ea addt'l 20sq cm 1 1 1 or part thereof -Apply Skin Sub - 1st 25 sq cm - Legs 1 1 -Theraskin - 102TSL (39 SQ CM) 39 39 Application 1-4 (per sq cm) Pain Scale: 0-10 Numeric Is Patient Pain Free? Yes Yes Yes 03/11/25 15:14 Wound Center Nurse 2 #1 LT POST LE -Time 15:14 -Correct Patient Yes -Correct Side, Site, Position Yes -Correct Procedure Yes -Procedure Performed Yes -Type of Procedure Debridement -Clinical Debridement Subcutaneous -Tissue Removed Subcutaneous -Post Debridement (cm) - Length 5.0 -Post Debridement (cm) - Width 6.3 -Post Debridement (cm) - Depth 0.1 -Total Square (Post) (cm) 31.50 -Area of Debridement (cm) - Length 5.0 -Area of Debridement (cm) - Width 6.3 -Total Square (Area) (cm) 31.50 -Tunneling No -Undermining/Tunneling No -Circular Undermining No -Wound/Ulcer Outcome Not Healed -Ulcer Cleansing Rinsed/ Irrigated with Saline -Foul Odor after Cleansing No -Bioengineered Tissue Yes -Type of Bioengineered Tissue Theraskin -Expiration Date 11/20/28 -Product Lot Number [id number] -Percent Used 100 -Lot number of Saline Used [id number] -Bleeding Controlled with Pressure -Treatment Response Procedure Tolerated Well -Offloading No -Debridement - Subq, 1st 20sq cm Yes -Debridement, SubQ, ea addt'l 20sq cm 1 or part thereof -Apply Skin Sub - 1st 25 sq cm - Legs 1 -Theraskin - 102TSL (39 SQ CM) 39 Application 1-4 (per sq cm) Pain Scale: 0-10 Numeric Is Patient Pain Free? Yes - Nurse 3 - General Ulcer D/C NN Start: 02/18/25 15:09 Freq: Status: Active Protocol: Activity Type Activity Date Activity User E-sign Co-sign Detail Recorded Client Recorded Date Recorded By Document 02/18/25 15:20 DS [id number] 03/11/25 14:12 DS Document 02/25/25 15:27 KW [id number] 02/25/25 15:28 KW Document 03/04/25 15:40 DL [id number] 03/04/25 15:41 DL 02/18/25 02/25/25 03/04/25 15:20 15:27 15:40 Wound Care Center Nurse 3 #1 LT POST LE -Foul Odor after Cleansing No -Primary Dressing Applied C Hydrogel, NonAdherent Contact Layer -Other Dressing santyl Theraskin -Primary Dressing Covered/Secured with Dry Gauze Dry Gauze & Dry Gauze & Roll Gauze, Roll Gauze, Secured with Secured with Tape Tape -Hydrogel 0 -Wound Comment(s) Tubigrip D used today. Left -Tubular Bandage Single Layer Single Layer Single Layer -Size of Tubigrip Used Size E Size E Size D -Size D ($) 1 -Size E ($) 1 1 Treatment Response Procedure Tolerated Well Pain Scale: 0-10 Numeric Is Patient Pain Free? Yes Yes Yes - Visit Discharge Discharge Condition Stable Stable Stable Ambulatory Status Ambulatory Ambulatory Transportation Private Auto Private Auto Medication Reconcilliation completed & No provided to patient/care provider Clinical Summary of Care Provided Yes Assessment/Plan Assessment/Plan (1) Ulcer of left calf with fat layer exposed: CODE(S): L97.222 - Non-pressure chronic ulcer of left calf with fat layer exposed (2) Type 2 diabetes mellitus: CODE(S): E11.9 - Type 2 diabetes mellitus without complications (3) Bilateral lower extremity edema: CODE(S): R60.0 - Localized edema PLAN: Plan She will start antibiotics as prescribed. She will let me know if she has any trouble with this or worsening infection symptoms. She was approved for Theraskin application by her insurance; she will have a $50 copay per application which she is agreeable to. I performed sharp debridement of the wound bed to remove slough and obtain a well-bleeding base. The area was then cleansed with sterile saline. Then using sterile precautions Theraskin graft #3 was applied to the wound base in the appropriate orientation. This was secured with wound veil and steri-strips and then covered with a foam-border dressing. She was instructed to leave this dressing in place for the next week. She is instructed to change the outer dressing as needed to manage drainage. She is otherwise instructed to ensure this remains clean and dry. She continues to tolerate high-strength tubigrips so will continue with these, she has had noticeable improvement in her edema. She is encouraged to continue with leg elevation at all times of rest. Return to the clinic in 2 weeks, call sooner with concerns.
== END 2025-03-17 23:59 | disposition home or self-care (01) ==
LOC: WC 14:45
PROVIDERS: PCP Family Medicine; Referring Provider Family Medicine; Visit Provider Physician Assistant
DX: L97.222 Non-pressure chronic ulcer of left calf with fat layer exposed (principal); Z79.4 Long term (current) use of insulin; E11.9 Type 2 diabetes mellitus without complications; R60.0 Localized edema; S80.822S Blister (nonthermal), left lower leg, sequela; X58.XXXS Exposure to other specified factors, sequela; Z79.2 Long term (current) use of antibiotics; Z79.899 Other long term (current) drug therapy
CPT/HCPCS: 11042; 11045; 15271; 87070; 87075; 87077; 87186; 87205; Q4121

== ENCOUNTER → 2025-03-25 | Outpatient (CLI) | payer BC, SELFPAY ==
[2025-03-25 14:11] LABS: Hemoglobin A1c 7.3 % (<=5.6)
[2025-03-25 14:13] LABS: ALB/GLOB Ratio 1.3 RATIO (0.9-2.4); AST(SGOT) 22 U/L (<=31); Alanine Aminotransfer ALT/SGPT 30 U/L (<=34); Alkaline Phosphatase 85 U/L (35-104); Anion Gap 12 (5-15); BUN 12 mg/dL (4-19); Calcium,Total 9.2 mg/dL (7.6-11.0); Carbon Dioxide 24.7 mmol/L (21.0-32.0); Chloride 100 mmol/L (98-108); Cholesterol 127 mg/dL (<=200); EST Glomerular Filtration Rate 93 (>60); Glucose 136 mg/dL (70-99); High Density Lipoprotein 42 mg/dL; Low Density Lipoprotein Calc. 63 mg/dL; Potassium 3.9 mmol/L (3.3-5.1); Sodium Level 137 mmol/L (133-145); Total Bilirubin 0.37 mg/dL (0.00-1.30); Triglycerides 109 mg/dL; Very Low Density Lipoprotein 22 mg/dL (5-40); cholesterol:hdl ratio screen 3.01
== END | disposition home or self-care (01) ==
LOC: MFPLAB 10:40
PROVIDERS: PCP Family Medicine; Referring Provider Family Medicine; Visit Provider Family Medicine
DX: E11.8 Type 2 diabetes mellitus with unspecified complications (principal)
CPT/HCPCS: 36415; 80053; 80061; 83036

== ENCOUNTER 2025-04-08 14:45 | Outpatient (RCR) | payer BC, SELFPAY ==
[2025-03-18 00:15] VITALS: BP 131/68; PULSE 102; RESP 16; TEMP 36.3; BMI 34.3
[2025-03-25 14:59] VITALS: BP 131/71; PULSE 103; RESP 18; TEMP 36.6; BMI 34.3
--- NOTE | 2025-03-25 16:12 | PN.PCM_ITS ---
History of Present Illness Date of Service: 03/25/25 Chief Complaint: Left posterior calf wound History of Wound: Josy Smith is a 70-year-old female who was initially referred and seen in August 2024 for evaluation and management of a left posterior calf wound as referred by her primary care Dr. Vazquez. The ulceration has been present since the end of May 2024. She reports that around that time her AC had gone out in her house and was out for several weeks so her house was very warm and she noticed significantly increased lower extremity edema. Eventually, a blister formed on her posterior calf and after rupturing left behind this ulceration. She does have significant bilateral lower extremity edema at baseline and this has been ongoing for several years. She is diabetic, last A1c was 7.7. She does not smoke. She denies any history of VTE. She did not wear compression previously. Subjective Subjective Josy did well the last two weeks. They enjoyed their trip and she was able to keep the Theraskin dressing C/D/I. She continues to report less drainage and pain. She denies any constitutional symptoms. Objective Data Objective Data Vital Signs: Vital Signs Temp Pulse Resp BP O2 Del Method 97.9 F 103 H 18 131/71 H Room Air 03/25/25 14:59 03/25/25 14:59 03/25/25 14:59 03/25/25 14:59 03/25/25 14:59 Oxygen Delivery Method Room Air Weight: 200 lb Body Mass Index (BMI) 34.3 Charges/Coding Procedures Integumentary 150xxx-152xx: 22803 Skin sub graft trnk/arm/leg (31 sq cm) Physical Exam Const alert, oriented x3 and no apparent distress General Appearance: cooperative and anxious HEENT normocephalic, head/scalp atraumatic, hearing grossly normal bilaterally, external ears normal and external nose normal Eyes EOMs intact bilaterally General Eye: normal appearance of both eyes Neck General: normal visual inspection and trachea midline Resp normal respiratory effort Effort and Inspection: able to speak in complete sentences Extremity Extremity Narrative: Bilateral lower extremity pitting edema, trace right leg and trace left leg. Skin Wounds: wounds noted Wound Narrative: Posterior left calf ulceration cluster with lessened slough at the base compared to last visit, pink granular tissue visible at the base. Central tissue buds have coalesced and now extend the full inferior to superior length of the wound and continue to widen medial to lateral as well from the center; the widest/longest measures remain stable. Inferior edge of the wound is now very superficial. No excess warmth, purulence, foul odor, induration/fluctuance. There is no tunneling or undermining. Do not appreciate any significant drainage. Neuro oriented x3, CN's II-XII intact bilaterally and moves all extremities Speech: speech normal Psych mental status grossly normal Appearance: grossly normal Attitude: engaged Speech: normal speech Mood & Affect: euthymic mood Judgement: judgement good Debridement Note Debridement Note Wound debrided: L posterior calf Laterality: Left Type of Debridement: Excisional debridement Anesthesia Used: 4% Lidocaine Solution Depth: Down to and including healthy tissue and in the subcutaneous layer Percentage of wound debrided: 100 Instrument Used: 5mm curette Tissue Removed: slough Severity: Fat Layer Exposed Amount of bleeding with debridement: Mild Bleeding Controlled with: Pressure Patient tolerated procedure: Patient tolerated procedure well Post-Debridement Measurements and Additional Note: Post-Debridement Measurements/Treatment - Nurse 1 - General Ulcer Assessment Start: 03/25/25 14:58 Freq: Status: Active Protocol: [email or web address].[email or web address] Activity Type Activity Date Activity User E-sign Co-sign Detail Recorded Client Recorded Date Recorded By Document 03/25/25 14:59 KW [id number] 03/25/25 15:03 KW 03/25/25 14:59 Height and Weight Body Mass Index (BMI) 34.3 BMI Classification Obese Vital Signs Temperature (97.8 F-99.1 F) 97.9 F Temperature Source Temporal Pulse Rate (60-100) 103 H Pulse Location Monitor Respiratory Rate (12-18) 18 Respiratory rate source Observation Oxygen Delivery Method Room Air Blood Pressure (90/60-120/80) 131/71 H Blood Pressure Mean (mm Hg) 91 Source Monitor Position Semi-Fowlers Blood Pressure Location Left Arm History Since Last Visit- (Skip if this is Patient's initial visit) Have you changed medications since your No last visit? Any new allergies or adverse reactions No Had a fall/change in ADL's that may No increase risk of falls Signs or symptoms of abuse and/or No neglect since last visit Have you been in the hospital since your No last visit? Has dressing in place as prescribed Yes Has compression in place as prescribed Yes Has offloadiing in place as prescribed N/A Experienced any changes in pain level or No management Left Footwear Regular Shoe Right Footwear Regular Shoe Pain Scale: 0-10 Numeric Is Patient Pain Free? Yes - Nurse 1 - General Ulcer Measurement Start: 03/25/25 14:58 Freq: Status: Active Protocol: Activity Type Activity Date Activity User E-sign Co-sign Detail Recorded Client Recorded Date Recorded By Document 03/25/25 14:59 [id number] 03/25/25 15:03 03/25/25 14:59 Wound Center Nurse 1 #1 LT POST LE -Exudate Amt Medium -Exudate Type Serosanguineous -Wound Margin Distinct, Outline Attached -Granulation Amt Medium (34-66%) -Granulation Quality Red -Necrosis Amt Medium (34-66%) -Necrotic Tissue Type Adherent Slough -Texture (Radha-wound Skin Appearance) Assessed -Moisture (Radha-wound Skin Appearance) Assessed -Color (Radha-wound Skin Appearance) Assessed, Erythema -Temperature (Radha-wound Skin No Abnormality Appearance) (Pt Warm) -Tenderness on Palpation (Radha-wound No Skin Appearance) -Ulcer Cleansing Soap and Water -Foul Odor after Cleansing No -Anesthetic Used 5% Lidocaine Gel Left Calf (cm) 39.5 Left Ankle (cm) 27.2 WC - Nurse 2 - General Ulcer CM Notes Start: 03/25/25 14:58 Freq: Status: Active Protocol: Activity Type Activity Date Activity User E-sign Co-sign Detail Recorded Client Recorded Date Recorded By Document 03/25/25 15:20 [id number] 03/25/25 15:23 03/25/25 15:20 Wound Center Nurse 2 #1 LT POST LE -Time 15:21 -Correct Patient Yes -Correct Side, Site, Position Yes -Correct Procedure Yes -Procedure Performed Yes -Type of Procedure Debridement -Clinical Debridement Subcutaneous -Tissue Removed Subcutaneous -Post Debridement (cm) - Length 5.0 -Post Debridement (cm) - Width 6.2 -Post Debridement (cm) - Depth 0.1 -Total Square (Post) (cm) 31.00 -Area of Debridement (cm) - Length 5.0 -Area of Debridement (cm) - Width 6.2 -Total Square (Area) (cm) 31.00 -Tunneling No -Undermining/Tunneling No -Circular Undermining No -Wound/Ulcer Outcome Not Healed -Ulcer Cleansing Rinsed/ Irrigated with Saline -Foul Odor after Cleansing No -Bioengineered Tissue Yes -Type of Bioengineered Tissue Theraskin -Expiration Date 02/26/29 -Product Lot Number [id number] -Percent Used 100 -Lot number of Saline Used [id number] -Bleeding Controlled with Pressure -Treatment Response Procedure Tolerated Well -Debridement - Subq, 1st 20sq cm Yes -Debridement, SubQ, ea addt'l 20sq cm 1 or part thereof -Apply Skin Sub - 1st 25 sq cm - Legs 1 -Theraskin - 102TSL (39 SQ CM) 39 Application 1-4 (per sq cm) Pain Scale: 0-10 Numeric Is Patient Pain Free? Yes - Nurse 3 - General Ulcer D/C NN Start: 03/25/25 14:58 Freq: Status: Active Protocol: Activity Type Activity Date Activity User E-sign Co-sign Detail Recorded Client Recorded Date Recorded By Document 03/25/25 15:30 [facility] [id number] 03/25/25 15:31 [facility] 03/25/25 15:30 Wound Care Center Nurse 3 #1 LT POST LE -Other Dressing THERASKIN -Primary Dressing Covered/Secured with Dry Gauze & Roll Gauze, Secured with Tape Left -Other PT WILL REAPPLY TUBI WHEN GETS HOME. DOESN'T LIKE IT ON RIGHT AFTER DEBRIDE Treatment Response Procedure Tolerated Well Pain Scale: 0-10 Numeric Is Patient Pain Free? Yes - Visit Discharge Discharge Condition Stable Ambulatory Status Ambulatory Transportation Private Auto Accompanied by Assessment/Plan Assessment/Plan (1) Ulcer of left calf with fat layer exposed: CODE(S): L97.222 - Non-pressure chronic ulcer of left calf with fat layer exposed (2) Type 2 diabetes mellitus: CODE(S): E11.9 - Type 2 diabetes mellitus without complications (3) Bilateral lower extremity edema: CODE(S): R60.0 - Localized edema PLAN: Plan Her wound has continued to show good improvement with Theraskin applications and we will plan to continue these. I performed sharp debridement of the wound bed to remove slough and obtain a well-bleeding base. The area was then cleansed with sterile saline. Then using sterile precautions Theraskin graft #4 was applied to the wound base in the appropriate orientation. This was secured with wound veil and steri-strips and then covered with a foam-border dressing. She was instructed to leave this dressing in place for the next week. She is instructed to change the outer dressing as needed to manage drainage. She is otherwise instructed to ensure this remains clean and dry. She continues to tolerate high-strength tubigrips so will continue with these, she has had noticeable improvement in her edema. She is encouraged to continue with leg elevation at all times of rest. Return to the clinic in 1 week, call sooner with concerns.
[2025-04-01 14:45] VITALS: BP 148/68; PULSE 110; RESP 18; BMI 34.3
--- NOTE | 2025-04-01 15:24 | PCM.WC.PN ---
History of Present Illness Date of Service: 04/01/25 Chief Complaint: Left posterior calf wound History of Wound: Josy Smith is a 70-year-old female who was initially referred and seen in August 2024 for evaluation and management of a left posterior calf wound as referred by her primary care Dr. Vazquez. The ulceration has been present since the end of May 2024. She reports that around that time her AC had gone out in her house and was out for several weeks so her house was very warm and she noticed significantly increased lower extremity edema. Eventually, a blister formed on her posterior calf and after rupturing left behind this ulceration. She does have significant bilateral lower extremity edema at baseline and this has been ongoing for several years. She is diabetic, last A1c was 7.7. She does not smoke. She denies any history of VTE. She did not wear compression previously. Subjective Subjective Josy returns this week for evaluation of her L posterior calf wound. She has done well this past week, has kept the Theraskin dressing clean, dry, and intact as directed. She continues to note much less pain, she is only taking tramadol on debridement days. She is not noticing much drainage at all. No new symptoms or concerns. Objective Data Objective Data Vital Signs: Vital Signs Temp Pulse Resp BP O2 Del Method 97.9 F 110 H 18 148/68 H Room Air 03/25/25 14:59 04/01/25 14:45 04/01/25 14:45 04/01/25 14:45 04/01/25 14:45 Oxygen Delivery Method Room Air Weight: 200 lb Body Mass Index (BMI) 34.3 Charges/Coding Visit Charges Office Visits / Consults: 30852 OV L2 Est 10min Physical Exam Const alert, oriented x3 and no apparent distress General Appearance: cooperative and anxious HEENT normocephalic, head/scalp atraumatic, hearing grossly normal bilaterally, external ears normal and external nose normal Eyes EOMs intact bilaterally General Eye: normal appearance of both eyes Neck General: normal visual inspection and trachea midline Resp normal respiratory effort Effort and Inspection: able to speak in complete sentences Extremity Extremity Narrative: Bilateral lower extremity pitting edema, trace right leg and trace left leg. Skin Wounds: wounds noted Wound Narrative: Posterior left calf ulceration cluster with Theraskin graft in place, positioned well, good wound coverage, wound veil intact over top. No surrounding erythema, foul odor, excess drainage. Neuro oriented x3, CN's II-XII intact bilaterally and moves all extremities Speech: speech normal Psych mental status grossly normal Appearance: grossly normal Attitude: engaged Speech: normal speech Mood & Affect: euthymic mood Judgement: judgement good Debridement Note Debridement Note No debridement was completed: No debridement was completed today Post-Debridement Measurements and Additional Note: Post-Debridement Measurements/Treatment - Nurse 1 - General Ulcer Assessment Start: 03/25/25 14:58 Freq: Status: Active Protocol: [facility] [facility] Activity Type Activity Date Activity User E-sign Co-sign Detail Recorded Client Recorded Date Recorded By Document 03/25/25 14:59 KW [id number] 03/25/25 15:03 KW Document 04/01/25 14:45 KW [id number] 04/01/25 14:53 KW 03/25/25 04/01/25 14:59 14:45 - Today's Visit Information Type of service Follow-up Visit (Physician/SUPERVISOR METALIZING ) Arrival Mode Ambulatory Accompanied by Patient Identification Verified (Name & Yes ) Height and Weight Body Mass Index (BMI) 34.3 34.3 BMI Classification Obese Obese Vital Signs Temperature (97.8 F-99.1 F) 97.9 F Temperature Source Temporal Pulse Rate (60-100) 103 H 110 H Pulse Location Monitor Monitor Respiratory Rate (12-18) 18 18 Respiratory rate source Observation Observation Oxygen Delivery Method Room Air Room Air Blood Pressure (90/60-120/80) 131/71 H 148/68 H Blood Pressure Mean (mm Hg) 91 94 Source Monitor Monitor Position Semi-Fowlers Semi-Fowlers Blood Pressure Location Left Arm Left Arm History Since Last Visit- (Skip if this is Patient's initial visit) Have you changed medications since your No No last visit? Any new allergies or adverse reactions No No Had a fall/change in ADL's that may No No increase risk of falls Signs or symptoms of abuse and/or No No neglect since last visit Have you been in the hospital since your No No last visit? Has dressing in place as prescribed Yes Yes Has compression in place as prescribed Yes Yes Has offloadiing in place as prescribed N/A N/A Experienced any changes in pain level or No No management Left Footwear Regular Shoe Regular Shoe Right Footwear Regular Shoe Regular Shoe Pain Scale: 0-10 Numeric Is Patient Pain Free? Yes Yes - Nurse 1 - General Ulcer Measurement Start: 03/25/25 14:58 Freq: Status: Active Protocol: Activity Type Activity Date Activity User E-sign Co-sign Detail Recorded Client Recorded Date Recorded By Document 03/25/25 14:59 KW [id number] 03/25/25 15:03 Document 04/01/25 14:45 [id number] 04/01/25 14:53 03/25/25 04/01/25 14:59 14:45 Wound Center Nurse 1 #1 LT POST LE -Exudate Amt Medium -Exudate Type Serosanguineous -Wound Margin Distinct, Outline Attached -Granulation Amt Medium (34-66%) -Granulation Quality Red -Necrosis Amt Medium (34-66%) -Necrotic Tissue Type Adherent Slough -Texture (Radha-wound Skin Appearance) Assessed Assessed -Moisture (Radha-wound Skin Appearance) Assessed Assessed -Color (Radha-wound Skin Appearance) Assessed, Assessed Erythema -Temperature (Radha-wound Skin No Abnormality No Abnormality Appearance) (Pt Warm) (Pt Warm) -Tenderness on Palpation (Radha-wound No No Skin Appearance) -Ulcer Cleansing Soap and Water Soap and Water -Foul Odor after Cleansing No No -Anesthetic Used 5% Lidocaine Gel -Wound Comment(s) theraskin left intact Left Calf (cm) 39.5 41 Left Ankle (cm) 27.2 27 - Nurse 2 - General Ulcer CM Notes Start: 03/25/25 14:58 Freq: Status: Active Protocol: Activity Type Activity Date Activity User E-sign Co-sign Detail Recorded Client Recorded Date Recorded By Document 03/25/25 15:20 [id number] 03/25/25 15:23 Document 04/01/25 15:00 [id number] 04/01/25 15:01 03/25/25 04/01/25 15:20 15:00 Wound Center Nurse 2 #1 LT POST LE -Time 15:21 15:00 -Correct Patient Yes Yes -Correct Side, Site, Position Yes Yes -Correct Procedure Yes No -Procedure Performed Yes No -Type of Procedure Debridement -Clinical Debridement Subcutaneous -Tissue Removed Subcutaneous -Post Debridement (cm) - Length 5.0 -Post Debridement (cm) - Width 6.2 -Post Debridement (cm) - Depth 0.1 -Total Square (Post) (cm) 31.00 -Area of Debridement (cm) - Length 5.0 -Area of Debridement (cm) - Width 6.2 -Total Square (Area) (cm) 31.00 -Tunneling No No -Undermining/Tunneling No No -Circular Undermining No No -Wound/Ulcer Outcome Not Healed Not Healed -Ulcer Cleansing Rinsed/ Not Cleansed Irrigated with Saline -Foul Odor after Cleansing No No -Bioengineered Tissue Yes -Type of Bioengineered Tissue Theraskin -Expiration Date 02/26/29 -Product Lot Number [id number] -Percent Used 100 -Lot number of Saline Used [id number] -Bleeding Controlled with Pressure -Treatment Response Procedure Tolerated Well -Debridement - Subq, 1st 20sq cm Yes No -Debridement, SubQ, ea addt'l 20sq cm 1 or part thereof -Apply Skin Sub - 1st 25 sq cm - Legs 1 -Theraskin - 102TSL (39 SQ CM) 39 Application 1-4 (per sq cm) -Wound Comment(s) theraskin left in place Pain Scale: 0-10 Numeric Is Patient Pain Free? Yes Yes WC - Nurse 3 - General Ulcer D/C NN Start: 03/25/25 14:58 Freq: Status: Active Protocol: Activity Type Activity Date Activity User E-sign Co-sign Detail Recorded Client Recorded Date Recorded By Document 03/25/25 15:30 [facility] [id number] 03/25/25 15:31 [facility] Document 04/01/25 15:09 [id number] 04/01/25 15:09 03/25/25 04/01/25 15:30 15:09 Wound Care Center Nurse 3 #1 LT POST LE -Ulcer Cleansing Not Cleansed -Foul Odor after Cleansing No -Other Dressing THERASKIN -Primary Dressing Covered/Secured with Dry Gauze & Dry Gauze & Roll Gauze, Roll Gauze, Secured with Secured with Tape Tape Right -Lotion applied to leg before No compression wrap -Tubular Bandage Single Layer -Size of Tubigrip Used Size E -Size E ($) 1 Left -Lotion applied to leg before No compression wrap -Tubular Bandage Single Layer -Size of Tubigrip Used Size E -Size E ($) 1 -Other PT WILL REAPPLY TUBI WHEN GETS HOME. DOESN'T LIKE IT ON RIGHT AFTER DEBRIDE Treatment Response Procedure Tolerated Well Pain Scale: 0-10 Numeric Is Patient Pain Free? Yes Yes WC - Visit Discharge Discharge Condition Stable Stable Ambulatory Status Ambulatory Ambulatory Transportation Private Auto Private Auto Accompanied by Clinical Summary of Care Provided Yes Assessment/Plan Assessment/Plan (1) Ulcer of left calf with fat layer exposed: CODE(S): L97.222 - Non-pressure chronic ulcer of left calf with fat layer exposed (2) Type 2 diabetes mellitus: CODE(S): E11.9 - Type 2 diabetes mellitus without complications (3) Bilateral lower extremity edema: CODE(S): R60.0 - Localized edema PLAN: Plan We did not get Theraskin order today so will be leaving current Theraskin graft in place today. It is satisfactory in appearance, in proper position and without signs of infection. Outer dressing was replaced. 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 Will continue with high-strength tubigrips for compression. She is encouraged to continue with leg elevation at all times of rest. Return to the clinic in 1 week, call sooner with concerns.
[2025-04-08 15:02] VITALS: BP 154/68; PULSE 99; RESP 16; TEMP 36.3; BMI 34.3
--- NOTE | 2025-04-08 16:43 | PCM.WC.PN ---
History of Present Illness Date of Service: 04/08/25 Chief Complaint: Left posterior calf wound History of Wound: Josy Smith is a 70-year-old female who was initially referred and seen in August 2024 for evaluation and management of a left posterior calf wound as referred by her primary care Dr. Vazquez. The ulceration has been present since the end of May 2024. She reports that around that time her AC had gone out in her house and was out for several weeks so her house was very warm and she noticed significantly increased lower extremity edema. Eventually, a blister formed on her posterior calf and after rupturing left behind this ulceration. She does have significant bilateral lower extremity edema at baseline and this has been ongoing for several years. She is diabetic, last A1c was 7.7. She does not smoke. She denies any history of VTE. She did not wear compression previously. Subjective Subjective Josy returns this week for evaluation of her L posterior calf wound. She has done well this past week, has kept the Theraskin dressing clean, dry, and intact as directed. She continues to note much less pain, she is only taking tramadol on debridement days. She is not noticing much drainage at all. No new symptoms or concerns. Objective Data Objective Data Vital Signs: Vital Signs Temp Pulse Resp BP O2 Del Method 97.3 F L 99 16 154/68 H Room Air 04/08/25 15:02 04/08/25 15:02 04/08/25 15:02 04/08/25 15:02 04/08/25 15:02 Oxygen Delivery Method Room Air Weight: 200 lb Body Mass Index (BMI) 34.3 Charges/Coding Procedures Integumentary 150xxx-152xx: 20581 Skin sub graft trnk/arm/leg (29.89 sq cm) Physical Exam Const alert, oriented x3 and no apparent distress General Appearance: cooperative and anxious HEENT normocephalic, head/scalp atraumatic, hearing grossly normal bilaterally, external ears normal and external nose normal Eyes EOMs intact bilaterally General Eye: normal appearance of both eyes Neck General: normal visual inspection and trachea midline Resp normal respiratory effort Effort and Inspection: able to speak in complete sentences Extremity Extremity Narrative: Bilateral lower extremity pitting edema, trace right leg and trace left leg. Skin Wounds: wounds noted Wound Narrative: Posterior left calf ulceration cluster with pink wound base with moderate slough, there is an enlarging island of healed skin centrally which has been steadily expanding outward. No surrounding erythema, foul odor, excess drainage. Neuro oriented x3, CN's II-XII intact bilaterally and moves all extremities Speech: speech normal Psych mental status grossly normal Appearance: grossly normal Attitude: engaged Speech: normal speech Mood & Affect: euthymic mood Judgement: judgement good Debridement Note Debridement Note Wound debrided: L posterior calf Laterality: Left Type of Debridement: Excisional debridement Anesthesia Used: 4% Lidocaine Solution Depth: Down to and including healthy tissue and in the subcutaneous layer Percentage of wound debrided: 100 Instrument Used: 5mm curette Tissue Removed: slough Severity: Fat Layer Exposed Amount of bleeding with debridement: Mild Bleeding Controlled with: Pressure Patient tolerated procedure: Patient tolerated procedure well Post-Debridement Measurements and Additional Note: Post-Debridement Measurements/Treatment - Nurse 1 - General Ulcer Assessment Start: 03/25/25 14:58 Freq: Status: Active Protocol: .[place] Activity Type Activity Date Activity User E-sign Co-sign Detail Recorded Client Recorded Date Recorded By Document 03/25/25 14:59 [id number] 03/25/25 15:03 KW Document 04/01/25 14:45 [id number] 04/01/25 14:53 KW Document 04/08/25 15:02 [facility] [id number] 04/08/25 15:12 [facility] 03/25/25 04/01/25 04/08/25 14:59 14:45 15:02 - Today's Visit Information Type of service Follow-up Visit Follow-up Visit (Physician/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 (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/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 ) ) Arrival Mode Ambulatory Ambulatory Transfer Assistance None Accompanied by Patient Identification Verified (Name & Yes Yes ) Patient Requires Transmission-Based No Precautions Height and Weight Body Mass Index (BMI) 34.3 34.3 34.3 BMI Classification Obese Obese Obese Vital Signs Temperature (97.8 F-99.1 F) 97.9 F 97.3 F L Temperature Source Temporal Temporal Pulse Rate (60-100) 103 H 110 H 99 Pulse Location Monitor Monitor Monitor Respiratory Rate (12-18) 18 18 16 Respiratory rate source Observation Observation Observation Oxygen Delivery Method Room Air Room Air Room Air Blood Pressure (90/60-120/80) 131/71 H 148/68 H 154/68 H Blood Pressure Mean (mm Hg) 91 94 96 Source Monitor Monitor Monitor Position Semi-Fowlers Semi-Fowlers Sitting Blood Pressure Location Left Arm Left Arm Left Arm History Since Last Visit- (Skip if this is Patient's initial visit) Have you changed medications since your No No No last visit? Any new allergies or adverse reactions No No No Had a fall/change in ADL's that may No No No increase risk of falls Signs or symptoms of abuse and/or No No No neglect since last visit Have you been in the hospital since your No No No last visit? Has dressing in place as prescribed Yes Yes Yes Has compression in place as prescribed Yes Yes Yes Has offloadiing in place as prescribed N/A N/A N/A Experienced any changes in pain level or No No No management Left Footwear Regular Shoe Regular Shoe Regular Shoe Right Footwear Regular Shoe Regular Shoe Regular Shoe Pain Scale: 0-10 Numeric Is Patient Pain Free? Yes Yes Yes WC - Nurse 1 - General Ulcer Measurement Start: 03/25/25 14:58 Freq: Status: Active Protocol: Activity Type Activity Date Activity User E-sign Co-sign Detail Recorded Client Recorded Date Recorded By Document 03/25/25 14:59 KW [id number] 03/25/25 15:03 KW Document 04/01/25 14:45 KW [id number] 04/01/25 14:53 KW Document 04/08/25 15:02 [facility] [id number] 04/08/25 15:12 [facility] 03/25/25 04/01/25 04/08/25 14:59 14:45 15:02 Wound Center Nurse 1 #1 LT POST LE -Combined with other wound No -Current Size (cm) - Length 5.3 -Current Size (cm) - Width 6 -Current Size (cm) - Depth 0.1 -Total Square Cm 31.8 -Date of Last Picture (Recall this 04/08/25 field) -Photo Taken Yes -Epithelialization Small 1-33% -Tunneling No -Undermining/Tunneling No -Circular Undermining No -Exudate Amt Medium Medium -Exudate Type Serosanguineous Serous -Wound Margin Distinct, Flat & Intact Outline Attached -Granulation Amt Medium (34-66%) Medium (34-66%) -Granulation Quality Red [place] -Slough/Fibrin Yes -Necrosis Amt Medium (34-66%) Medium (34-66%) -Necrotic Tissue Type Adherent Slough Adherent Slough -Texture (Radha-wound Skin Appearance) Assessed Assessed Assessed -Moisture (Radha-wound Skin Appearance) Assessed Assessed Assessed -Color (Radha-wound Skin Appearance) Assessed, Assessed Assessed Erythema -Temperature (Radha-wound Skin No Abnormality No Abnormality No Abnormality Appearance) (Pt Warm) (Pt Warm) (Pt Warm) -Tenderness on Palpation (Radha-wound No No No Skin Appearance) -Ulcer Cleansing Soap and Water Soap and Water Soap and Water -Foul Odor after Cleansing No No No -Anesthetic Used 5% Lidocaine 5% Lidocaine Gel Gel -Wound Comment(s) theraskin left intact Lower Limb Edema Present Yes Left Calf (cm) 39.5 41 40.7 Left Ankle (cm) 27.2 27 26.3 WC - Nurse 2 - General Ulcer CM Notes Start: 03/25/25 14:58 Freq: Status: Active Protocol: Activity Type Activity Date Activity User E-sign Co-sign Detail Recorded Client Recorded Date Recorded By Document 03/25/25 15:20 [id number] 03/25/25 15:23 Document 04/01/25 15:00 [id number] 04/01/25 15:01 Document 04/08/25 15:22 [id number] 04/08/25 15:32 03/25/25 04/01/25 04/08/25 15:20 15:00 15:22 Wound Center Nurse 2 #1 LT POST LE -Time 15:21 15:00 15:24 -Correct Patient Yes Yes Yes -Correct Side, Site, Position Yes Yes Yes -Correct Procedure Yes No Yes -Procedure Performed Yes No Yes -Type of Procedure Debridement Debridement -Clinical Debridement Subcutaneous Subcutaneous -Tissue Removed Subcutaneous Subcutaneous -Post Debridement (cm) - Length 5.0 4.9 -Post Debridement (cm) - Width 6.2 6.1 -Post Debridement (cm) - Depth 0.1 0.1 -Total Square (Post) (cm) 31.00 29.89 -Area of Debridement (cm) - Length 5.0 4.9 -Area of Debridement (cm) - Width 6.2 6.1 -Total Square (Area) (cm) 31.00 29.89 -Tunneling No No No -Undermining/Tunneling No No No -Circular Undermining No No No -Wound/Ulcer Outcome Not Healed Not Healed Not Healed -Ulcer Cleansing Rinsed/ Not Cleansed Rinsed/ Irrigated with Irrigated with Saline Saline -Foul Odor after Cleansing No No No -Bioengineered Tissue Yes Yes -Type of Bioengineered Tissue Theraskin Theraskin -Expiration Date 02/26/29 07/13/27 -Product Lot Number [id number] -Percent Used 100 100 -Lot number of Saline Used [id number] -Bleeding Controlled with Pressure Pressure -Treatment Response Procedure Procedure Tolerated Well Tolerated Well -Offloading No -Debridement - Subq, 1st 20sq cm Yes No Yes -Debridement, SubQ, ea addt'l 20sq cm 1 2 or part thereof -Apply Skin Sub - 1st 25 sq cm - Legs 1 1 -Theraskin - 102TSL (39 SQ CM) 39 39 Application 1-4 (per sq cm) -Wound Comment(s) theraskin left in place Pain Scale: 0-10 Numeric Is Patient Pain Free? Yes Yes Yes - Nurse 3 - General Ulcer D/C NN Start: 03/25/25 14:58 Freq: Status: Active Protocol: Activity Type Activity Date Activity User E-sign Co-sign Detail Recorded Client Recorded Date Recorded By Document 03/25/25 15:30 [facility] [id number] 03/25/25 15:31 [facility] Document 04/01/25 15:09 [id number] 04/01/25 15:09 Document 04/08/25 15:45 [id number] 04/08/25 15:45 03/25/25 04/01/25 04/08/25 15:30 15:09 15:45 Wound Care Center Nurse 3 #1 LT POST LE -Ulcer Cleansing Not Cleansed -Foul Odor after Cleansing No -Other Dressing THERASKIN -Primary Dressing Covered/Secured with Dry Gauze & Dry Gauze & Dry Gauze & Roll Gauze, Roll Gauze, Roll Gauze, Secured with Secured with Secured with Tape Tape Tape Right -Lotion applied to leg before No compression wrap -Tubular Bandage Single Layer -Size of Tubigrip Used Size E -Size E ($) 1 Left -Lotion applied to leg before No compression wrap -Tubular Bandage Single Layer Single Layer -Size of Tubigrip Used Size E Size E -Size E ($) 1 1 -Other PT WILL REAPPLY TUBI WHEN GETS HOME. DOESN'T LIKE IT ON RIGHT AFTER DEBRIDE Treatment Response Procedure Tolerated Well Pain Scale: 0-10 Numeric Is Patient Pain Free? Yes Yes Yes WC - Visit Discharge Discharge Condition Stable Stable Stable Ambulatory Status Ambulatory Ambulatory Ambulatory Transportation Private Auto Private Auto Private Auto Accompanied by Medication Reconcilliation completed & No provided to patient/care provider Clinical Summary of Care Provided Yes Yes Assessment/Plan Assessment/Plan (1) Ulcer of left calf with fat layer exposed: CODE(S): L97.222 - Non-pressure chronic ulcer of left calf with fat layer exposed (2) Type 2 diabetes mellitus: CODE(S): E11.9 - Type 2 diabetes mellitus without complications (3) Bilateral lower extremity edema: CODE(S): R60.0 - Localized edema PLAN: Plan Her wound has continued to show good improvement with Theraskin applications and we will plan to continue these. I performed sharp debridement of the wound bed to remove slough and obtain a well-bleeding base. The area was then cleansed with sterile saline. Then using sterile precautions Theraskin graft #5 was applied to the wound base in the appropriate orientation. This was secured with wound veil and steri-strips and then covered with a foam-border dressing. She was instructed to leave this dressing in place for the next 2 weeks. She is instructed to change the outer dressing as needed to manage drainage. She is otherwise instructed to ensure this remains clean and dry. She continues to tolerate high-strength tubigrips so will continue with these, she has had noticeable improvement in her edema. She is encouraged to continue with leg elevation at all times of rest. Return to the clinic in 2 weeks, call sooner with concerns.
--- NOTE | 2025-04-09 12:25 | WC ---
PHOTO 04/08/25 LEFT POST LE
== END 2025-04-17 23:59 | disposition home or self-care (01) ==
LOC: WC 14:45
PROVIDERS: PCP Family Medicine; Referring Provider Family Medicine; Visit Provider Physician Assistant
DX: L97.222 Non-pressure chronic ulcer of left calf with fat layer exposed (principal); E11.9 Type 2 diabetes mellitus without complications; Z79.4 Long term (current) use of insulin; R60.0 Localized edema; S80.822S Blister (nonthermal), left lower leg, sequela; X58.XXXS Exposure to other specified factors, sequela; Z79.891 Long term (current) use of opiate analgesic; Z79.899 Other long term (current) drug therapy
CPT/HCPCS: 11042; 11045; 15271; 99213; Q4121; G0463

== ENCOUNTER 2025-05-13 14:45 | Outpatient (RCR) | payer BC, SELFPAY ==
[2025-04-18 00:30] VITALS: BP 154/68; PULSE 99; RESP 16; TEMP 36.3; BMI 34.3
[2025-04-22 15:02] VITALS: BP 145/66; PULSE 98; RESP 16; TEMP 36.6; BMI 34.3
--- NOTE | 2025-04-22 16:23 | PCM.WC.PN ---
History of Present Illness Date of Service: 04/22/25 Chief Complaint: Left posterior calf wound History of Wound: Josy Smith is a 70-year-old female who was initially referred and seen in August 2024 for evaluation and management of a left posterior calf wound as referred by her primary care Dr. Vazquez. The ulceration has been present since the end of May 2024. She reports that around that time her AC had gone out in her house and was out for several weeks so her house was very warm and she noticed significantly increased lower extremity edema. Eventually, a blister formed on her posterior calf and after rupturing left behind this ulceration. She does have significant bilateral lower extremity edema at baseline and this has been ongoing for several years. She is diabetic, last A1c was 7.7. She does not smoke. She denies any history of VTE. She did not wear compression previously. Subjective Subjective Josy returns this week for evaluation of her L posterior calf wound. She has done well the past 2 weeks, has kept the Theraskin dressing clean, dry, and intact as directed. She continues to note much less pain, she is only taking tramadol on debridement days. She is not noticing much drainage at all. No new symptoms or concerns. She is going to [place] again next week. Objective Data Objective Data Vital Signs: Vital Signs Temp Pulse Resp BP 98 F 98 16 145/66 H 04/22/25 15:02 04/22/25 15:02 04/22/25 15:02 04/22/25 15:02 Weight: 200 lb Body Mass Index (BMI) 34.3 Charges/Coding Procedures Integumentary 150xxx-152xx: 24946 Skin sub graft trnk/arm/leg (27 sq cm) Physical Exam Const alert, oriented x3 and no apparent distress General Appearance: cooperative and anxious HEENT normocephalic, head/scalp atraumatic, hearing grossly normal bilaterally, external ears normal and external nose normal Eyes EOMs intact bilaterally General Eye: normal appearance of both eyes Neck General: normal visual inspection and trachea midline Resp normal respiratory effort Effort and Inspection: able to speak in complete sentences Extremity Extremity Narrative: Bilateral lower extremity pitting edema, trace right leg and trace left leg. Skin Wounds: wounds noted Wound Narrative: Posterior left calf ulceration cluster with pink wound base with moderate slough, there is an enlarging island of healed skin centrally which has been steadily expanding outward. No surrounding erythema, foul odor, excess drainage. Neuro oriented x3, CN's II-XII intact bilaterally and moves all extremities Speech: speech normal Psych mental status grossly normal Appearance: grossly normal Attitude: engaged Speech: normal speech Mood & Affect: euthymic mood Judgement: judgement good Debridement Note Debridement Note Wound debrided: L posterior calf Laterality: Left Type of Debridement: Excisional debridement Anesthesia Used: 4% Lidocaine Solution Depth: Down to and including healthy tissue and in the subcutaneous layer Percentage of wound debrided: 100 Instrument Used: 5mm curette Tissue Removed: slough Severity: Fat Layer Exposed Amount of bleeding with debridement: Mild Bleeding Controlled with: Pressure Patient tolerated procedure: Patient tolerated procedure well Post-Debridement Measurements and Additional Note: Post-Debridement Measurements/Treatment WC - Nurse 1 - General Ulcer Assessment Start: 04/22/25 15:02 Freq: Status: Active Protocol: [place] Activity Type Activity Date Activity User E-sign Co-sign Detail Recorded Client Recorded Date Recorded By Document 04/22/25 15:02 IAN [id number] 04/22/25 15:04 IAN 04/22/25 15:02 WC - Today's Visit Information Type of service Follow-up Visit (Physician/PUBLIC HEALTH SANITARIAN TECHNICIAN ) Arrival Mode Ambulatory Transfer Assistance None Patient Identification Verified (Name & Yes ) Patient Requires Transmission-Based No Precautions Height and Weight Body Mass Index (BMI) 34.3 BMI Classification Obese Vital Signs Temperature (97.8 F-99.1 F) 98 F Temperature Source Temporal Pulse Rate (60-100) 98 Pulse Location Monitor Respiratory Rate (12-18) 16 Respiratory rate source Observation Blood Pressure (90/60-120/80) 145/66 H Blood Pressure Mean (mm Hg) 92 Source Monitor History Since Last Visit- (Skip if this is Patient's initial visit) Have you changed medications since your No last visit? Any new allergies or adverse reactions No Had a fall/change in ADL's that may No increase risk of falls Signs or symptoms of abuse and/or No neglect since last visit Have you been in the hospital since your No last visit? Has dressing in place as prescribed Yes Has compression in place as prescribed Yes Has offloadiing in place as prescribed Yes Experienced any changes in pain level or No management Pain Scale: 0-10 Numeric Is Patient Pain Free? Yes - Nurse 1 - General Ulcer Measurement Start: 04/22/25 15:02 Freq: Status: Active Protocol: Activity Type Activity Date Activity User E-sign Co-sign Detail Recorded Client Recorded Date Recorded By Document 04/22/25 15:02 [id number] 04/22/25 15:04 DL 04/22/25 15:02 Wound Center Nurse 1 #1 LT POST LE -Current Size (cm) - Length 4.8 -Current Size (cm) - Width 6.2 -Current Size (cm) - Depth 0.1 -Total Square Cm 29.76 -Exudate Amt Medium -Exudate Type Serosanguineous -Wound Margin Distinct, Outline Attached -Granulation Amt Medium (34-66%) -Granulation Quality [place] -Necrosis Amt Medium (34-66%) -Necrotic Tissue Type Adherent Slough -Structure Exposed N/A -Texture (Radha-wound Skin Appearance) Scarring -Moisture (Radha-wound Skin Appearance) No Abnormality -Color (Radha-wound Skin Appearance) No Abnormality -Temperature (Radha-wound Skin No Abnormality Appearance) (Pt Warm) -Tenderness on Palpation (Radha-wound No Skin Appearance) -Ulcer Cleansing Soap and Water -Foul Odor after Cleansing No -Anesthetic Used 5% Lidocaine Gel Left Calf (cm) 38.5 Left Ankle (cm) 26.4 WC - Nurse 2 - General Ulcer CM Notes Start: 04/22/25 15:02 Freq: Status: Active Protocol: Activity Type Activity Date Activity User E-sign Co-sign Detail Recorded Client Recorded Date Recorded By Document 04/22/25 15:16 [id number] 04/22/25 15:25 04/22/25 15:16 Wound Center Nurse 2 #1 LT POST LE -Time 15:18 -Correct Patient Yes -Correct Side, Site, Position Yes -Correct Procedure Yes -Procedure Performed Yes -Type of Procedure Debridement -Clinical Debridement Subcutaneous -Tissue Removed Subcutaneous -Post Debridement (cm) - Length 4.5 -Post Debridement (cm) - Width 6.0 -Post Debridement (cm) - Depth 0.1 -Total Square (Post) (cm) 27.00 -Area of Debridement (cm) - Length 4.5 -Area of Debridement (cm) - Width 6.0 -Total Square (Area) (cm) 27.00 -Tunneling No -Undermining/Tunneling No -Circular Undermining No -Wound/Ulcer Outcome Not Healed -Ulcer Cleansing Rinsed/ Irrigated with Saline -Foul Odor after Cleansing No -Bioengineered Tissue Yes -Type of Bioengineered Tissue Theraskin -Expiration Date 05/04/29 -Product Lot Number [id number] -Percent Used 100 -Lot number of Saline Used [id number] -Bleeding Controlled with Pressure -Treatment Response Procedure Tolerated Well -Offloading No -Debridement - Subq, 1st 20sq cm Yes -Apply Skin Sub - 1st 25 sq cm - Legs 1 -Theraskin - 102TSL (39 SQ CM) 39 Application 1-4 (per sq cm) Pain Scale: 0-10 Numeric Is Patient Pain Free? Yes - Nurse 3 - General Ulcer D/C NN Start: 04/22/25 15:02 Freq: Status: Active Protocol: Activity Type Activity Date Activity User E-sign Co-sign Detail Recorded Client Recorded Date Recorded By Document 04/22/25 15:40 KW [id number] 04/22/25 15:41 KW 04/22/25 15:40 Wound Care Center Nurse 3 #1 LT POST LE -Primary Dressing Covered/Secured with Dry Gauze & Roll Gauze, Secured with Tape BLE -Lotion applied to leg before Yes compression wrap -Tubular Bandage Single Layer -Size of Tubigrip Used Size E -Size E ($) 2 Pain Scale: 0-10 Numeric Is Patient Pain Free? Yes WC - Visit Discharge Discharge Condition Stable Ambulatory Status Ambulatory Transportation Private Auto Medication Reconcilliation completed & No provided to patient/care provider Clinical Summary of Care Provided Yes Assessment/Plan Assessment/Plan (1) Ulcer of left calf with fat layer exposed: CODE(S): L97.222 - Non-pressure chronic ulcer of left calf with fat layer exposed (2) Type 2 diabetes mellitus: CODE(S): E11.9 - Type 2 diabetes mellitus without complications (3) Bilateral lower extremity edema: CODE(S): R60.0 - Localized edema PLAN: Plan Her wound has continued to show good improvement with Theraskin applications and we will plan to continue these. I performed sharp debridement of the wound bed to remove slough and obtain a well-bleeding base. The area was then cleansed with sterile saline. Then using sterile precautions Theraskin graft #6 was applied to the wound base in the appropriate orientation. This was secured with wound veil and steri-strips and then covered with a foam-border dressing. She was instructed to leave this dressing in place for the next 2 weeks. She is instructed to change the outer dressing as needed to manage drainage. She is otherwise instructed to ensure this remains clean and dry. She continues to tolerate high-strength tubigrips so will continue with these, she has had noticeable improvement in her edema. She is encouraged to continue with leg elevation at all times of rest. Return to the clinic in 2 weeks, call sooner with concerns.
--- NOTE | 2025-04-23 08:48 | WC ---
PHOTO 04/22/25 LEFT LATERAL LEG
[2025-05-13 14:54] VITALS: BP 157/76; PULSE 100; RESP 18; TEMP 36.6; BMI 34.3
--- NOTE | 2025-05-13 16:08 | PCM.WC.PN ---
History of Present Illness Date of Service: 05/14/25 Chief Complaint: Left posterior calf wound History of Wound: Josy Smith is a 70-year-old female who was initially referred and seen in August 2024 for evaluation and management of a left posterior calf wound as referred by her primary care Dr. Vazquez. The ulceration has been present since the end of May 2024. She reports that around that time her AC had gone out in her house and was out for several weeks so her house was very warm and she noticed significantly increased lower extremity edema. Eventually, a blister formed on her posterior calf and after rupturing left behind this ulceration. She does have significant bilateral lower extremity edema at baseline and this has been ongoing for several years. She is diabetic, last A1c was 7.7. She does not smoke. She denies any history of VTE. She did not wear compression previously. Subjective Subjective Josy has been doing well overall; she missed her appt last week. She has noticed a bit of increased tenderness again. She has noticed new areas of discoloration around her toes, she is prone to fungal infections. No fevers, chills, or other acute concerns. Objective Data Objective Data Vital Signs: Vital Signs Temp Pulse Resp BP 98 F 100 18 157/76 H 05/13/25 14:54 05/13/25 14:54 05/13/25 14:54 05/13/25 14:54 Weight: 200 lb Body Mass Index (BMI) 34.3 Charges/Coding Procedures Integumentary 150xxx-152xx: [id number] Skin sub graft trnk/arm/leg (26.32 sq cm) Physical Exam Const alert, oriented x3 and no apparent distress General Appearance: cooperative and anxious HEENT normocephalic, head/scalp atraumatic, hearing grossly normal bilaterally, external ears normal and external nose normal Eyes EOMs intact bilaterally General Eye: normal appearance of both eyes Neck General: normal visual inspection and trachea midline Resp normal respiratory effort Effort and Inspection: able to speak in complete sentences Extremity Extremity Narrative: Bilateral lower extremity pitting edema, trace right leg and trace left leg. Skin Wounds: wounds noted Wound Narrative: Posterior left calf ulceration cluster with pink wound base with moderate slough, there is an enlarging island of healed skin centrally which has been steadily expanding outward. There is mild erythema around the inferior wound edge with slightly increased warmth. No foul odor, excess drainage. Neuro oriented x3, CN's II-XII intact bilaterally and moves all extremities Speech: speech normal Psych mental status grossly normal Appearance: grossly normal Attitude: engaged Speech: normal speech Mood & Affect: euthymic mood Judgement: judgement good Debridement Note Debridement Note Wound debrided: L posterior calf Laterality: Left Type of Debridement: Excisional debridement Anesthesia Used: 4% Lidocaine Solution Depth: Down to and including healthy tissue and in the subcutaneous layer Percentage of wound debrided: 100 Instrument Used: 5mm curette Tissue Removed: slough Severity: Fat Layer Exposed Amount of bleeding with debridement: Mild Bleeding Controlled with: Pressure Patient tolerated procedure: Patient tolerated procedure well Post-Debridement Measurements and Additional Note: Post-Debridement Measurements/Treatment WC - Nurse 1 - General Ulcer Assessment Start: 04/22/25 15:02 Freq: Status: Active Protocol: CAMILLA Activity Type Activity Date Activity User E-sign Co-sign Detail Recorded Client Recorded Date Recorded By Document 04/22/25 15:02 DL [id number] 04/22/25 15:04 DL Document 05/13/25 14:54 DL [id number] 05/13/25 15:03 DL 04/22/25 05/13/25 15:02 14:54 - Today's Visit Information Type of service Follow-up Visit Follow-up Visit (Physician/HELP DESK CONSULTANT (Physician/HELP DESK CONSULTANT ) ) Arrival Mode Ambulatory Ambulatory Transfer Assistance None None Patient Identification Verified (Name & Yes Yes ) Patient Requires Transmission-Based No No Precautions Height and Weight Body Mass Index (BMI) 34.3 34.3 BMI Classification Obese Obese Vital Signs Temperature (97.8 F-99.1 F) 98 F 98 F Temperature Source Temporal Temporal Pulse Rate (60-100) 98 100 Pulse Location Monitor Monitor Respiratory Rate (12-18) 16 18 Respiratory rate source Observation Observation Blood Pressure (90/60-120/80) 145/66 H 157/76 H Blood Pressure Mean (mm Hg) 92 103 Source Monitor Monitor History Since Last Visit- (Skip if this is Patient's initial visit) Have you changed medications since your No No last visit? Any new allergies or adverse reactions No No Had a fall/change in ADL's that may No No increase risk of falls Signs or symptoms of abuse and/or No No neglect since last visit Have you been in the hospital since your No No last visit? Has dressing in place as prescribed Yes Yes Has compression in place as prescribed Yes Yes Has offloadiing in place as prescribed Yes N/A Experienced any changes in pain level or No No management Pain Scale: 0-10 Numeric Is Patient Pain Free? Yes Yes BIJAN - Nurse 1 - General Ulcer Measurement Start: 04/22/25 15:02 Freq: Status: Active Protocol: Activity Type Activity Date Activity User E-sign Co-sign Detail Recorded Client Recorded Date Recorded By Document 04/22/25 15:02 [id number] 04/22/25 15:04 Document 05/13/25 14:54 [id number] 05/13/25 15:03 DL 04/22/25 05/13/25 15:02 14:54 Wound Center Nurse 1 #1 LT POST LE -Current Size (cm) - Length 4.8 4.8 -Current Size (cm) - Width 6.2 6 -Current Size (cm) - Depth 0.1 0.1 -Total Square Cm 29.76 28.8 -Photo Taken Yes -Exudate Amt Medium Medium -Exudate Type Serosanguineous Serosanguineous -Wound Margin Distinct, Distinct, Outline Outline Attached Attached -Granulation Amt Medium (34-66%) Medium (34-66%) -Granulation Quality [place] Red -Necrosis Amt Medium (34-66%) Medium (34-66%) -Necrotic Tissue Type Adherent Slough Adherent Slough -Structure Exposed N/A N/A -Texture (Radha-wound Skin Appearance) Scarring Scarring -Moisture (Radha-wound Skin Appearance) No Abnormality No Abnormality -Color (Radha-wound Skin Appearance) No Abnormality No Abnormality -Temperature (Radha-wound Skin No Abnormality No Abnormality Appearance) (Pt Warm) (Pt Warm) -Tenderness on Palpation (Radha-wound No No Skin Appearance) -Ulcer Cleansing Soap and Water Soap and Water -Foul Odor after Cleansing No No -Anesthetic Used 5% Lidocaine 5% Lidocaine Gel Gel Left Calf (cm) 38.5 Left Ankle (cm) 26.4 WC - Nurse 2 - General Ulcer CM Notes Start: 04/22/25 15:02 Freq: Status: Active Protocol: Activity Type Activity Date Activity User E-sign Co-sign Detail Recorded Client Recorded Date Recorded By Document 04/22/25 15:16 [id number] 04/22/25 15:25 Document 05/13/25 15:18 [id number] 05/13/25 15:26 04/22/25 05/13/25 15:16 15:18 Wound Center Nurse 2 #1 LT POST LE -Time 15:18 15:23 -Correct Patient Yes Yes -Correct Side, Site, Position Yes Yes -Correct Procedure Yes Yes -Procedure Performed Yes Yes -Type of Procedure Debridement Debridement -Clinical Debridement Subcutaneous Subcutaneous -Tissue Removed Subcutaneous Subcutaneous -Post Debridement (cm) - Length 4.5 4.7 -Post Debridement (cm) - Width 6.0 5.6 -Post Debridement (cm) - Depth 0.1 0.2 -Total Square (Post) (cm) 27.00 26.32 -Area of Debridement (cm) - Length 4.5 4.7 -Area of Debridement (cm) - Width 6.0 5.6 -Total Square (Area) (cm) 27.00 26.32 -Tunneling No No -Undermining/Tunneling No No -Circular Undermining No No -Wound/Ulcer Outcome Not Healed Not Healed -Ulcer Cleansing Rinsed/ Rinsed/ Irrigated with Irrigated with Saline Saline -Foul Odor after Cleansing No No -Bioengineered Tissue Yes Yes -Type of Bioengineered Tissue Theraskin Theraskin -Expiration Date 05/04/29 06/02/29 -Product Lot Number [id number] -Percent Used 100 100 -Lot number of Saline Used [id number] -Bleeding Controlled with Pressure Pressure -Treatment Response Procedure Procedure Tolerated Well Tolerated Well -Offloading No No -Debridement - Subq, 1st 20sq cm Yes Yes -Debridement, SubQ, ea addt'l 20sq cm 1 or part thereof -Apply Skin Sub - 1st 25 sq cm - Legs 1 1 -Theraskin - 102TSL (39 SQ CM) 39 39 Application 1-4 (per sq cm) Pain Scale: 0-10 Numeric Is Patient Pain Free? Yes Yes WC - Nurse 3 - General Ulcer D/C NN Start: 04/22/25 15:02 Freq: Status: Active Protocol: Activity Type Activity Date Activity User E-sign Co-sign Detail Recorded Client Recorded Date Recorded By Document 04/22/25 15:40 KW [id number] 04/22/25 15:41 KW Document 05/13/25 15:40 DL [id number] 05/13/25 15:42 DL 04/22/25 05/13/25 15:40 15:40 Wound Care Center Nurse 3 #1 LT POST LE -Foul Odor after Cleansing No -Other Dressing Theraskin -Primary Dressing Covered/Secured with Dry Gauze & Dry Gauze & Roll Gauze, Roll Gauze, Secured with Secured with Tape Tape -Other Covering ABD BLE -Lotion applied to leg before Yes compression wrap -Tubular Bandage Single Layer Single Layer -Size of Tubigrip Used Size E Size E -Size E ($) 2 1 Treatment Response Procedure Tolerated Well Pain Scale: 0-10 Numeric Is Patient Pain Free? Yes Yes WC - Visit Discharge Discharge Condition Stable Stable Ambulatory Status Ambulatory Ambulatory Transportation Private Auto Private Auto Medication Reconcilliation completed & No provided to patient/care provider Clinical Summary of Care Provided Yes Assessment/Plan Assessment/Plan (1) Ulcer of left calf with fat layer exposed: CODE(S): L97.222 - Non-pressure chronic ulcer of left calf with fat layer exposed (2) Type 2 diabetes mellitus: CODE(S): E11.9 - Type 2 diabetes mellitus without complications (3) Bilateral lower extremity edema: CODE(S): R60.0 - Localized edema PLAN: Plan Her wound has continued to show good improvement with Theraskin applications and we will plan to continue these. I performed sharp debridement of the wound bed to remove slough and obtain a well-bleeding base. The area was then cleansed with sterile saline. Then using sterile precautions Theraskin graft #7 was applied to the wound base in the appropriate orientation. This was secured with wound veil and steri-strips and then covered with a foam-border dressing. She was instructed to leave this dressing in place for the next 2 weeks. She is instructed to change the outer dressing as needed to manage drainage. She is otherwise instructed to ensure this remains clean and dry. This will be the final application of Theraskin as the 12 week approval window will close next week. She continues to tolerate high-strength tubigrips so will continue with these, she has had noticeable improvement in her edema. She is encouraged to continue with leg elevation at all times of rest. Return to the clinic in 2 weeks, call sooner with concerns.
--- NOTE | 2025-05-14 11:13 | WC ---
PHOTO 04/22/25 LEFT POST LEG
== END 2025-05-17 23:59 | disposition home or self-care (01) ==
LOC: WC 14:45
PROVIDERS: PCP Family Medicine; Referring Provider Family Medicine; Visit Provider Physician Assistant
DX: E11.622 Type 2 diabetes mellitus with other skin ulcer (principal); L97.222 Non-pressure chronic ulcer of left calf with fat layer exposed; Z79.4 Long term (current) use of insulin; R60.0 Localized edema; S80.822S Blister (nonthermal), left lower leg, sequela; X58.XXXS Exposure to other specified factors, sequela; Z79.891 Long term (current) use of opiate analgesic; Z79.899 Other long term (current) drug therapy
CPT/HCPCS: 11042; 11045; 15271; 87070; 87075; 87077; 87186; 87205; Q4121

== ENCOUNTER 2025-06-17 14:45 | Outpatient (RCR) | payer BC, SELFPAY ==
[2025-05-27 14:57] VITALS: BP 156/74; PULSE 102; RESP 18; TEMP 36.7
--- NOTE | 2025-05-27 17:25 | PN.PCM_ITS ---
History of Present Illness Date of Service: 05/27/25 Chief Complaint: Left posterior calf wound History of Wound: Josy Smith is a 70-year-old female who was initially referred and seen in August 2024 for evaluation and management of a left posterior calf wound as referred by her primary care Dr. Vazquez. The ulceration has been present since the end of May 2024. She reports that around that time her AC had gone out in her house and was out for several weeks so her house was very warm and she noticed significantly increased lower extremity edema. Eventually, a blister formed on her posterior calf and after rupturing left behind this ulceration. She does have significant bilateral lower extremity edema at baseline and this has been ongoing for several years. She is diabetic, last A1c was 7.7. She does not smoke. She denies any history of VTE. She did not wear compression previously. Subjective Subjective Josy has done well the last 2 weeks; her last Theraskin graft was left in place and she did well keeping this clean and dry. She does have some persistent redness around the wound and more tenderness than she'd had the last few weeks. Objective Data Objective Data Vital Signs: Vital Signs Temp Pulse Resp BP O2 Del Method 98.1 F 102 H 18 156/74 H Room Air 05/27/25 14:57 05/27/25 14:57 05/27/25 14:57 05/27/25 14:57 05/27/25 14:57 Oxygen Delivery Method Room Air Charges/Coding Procedures Integumentary 111xxx-113xx: [id number] Connie subq tissue 20 sq cm/< (27 sqcm) Physical Exam Const alert, oriented x3 and no apparent distress General Appearance: cooperative and anxious HEENT normocephalic, head/scalp atraumatic, hearing grossly normal bilaterally, external ears normal and external nose normal Eyes EOMs intact bilaterally General Eye: normal appearance of both eyes Neck General: normal visual inspection and trachea midline Resp normal respiratory effort Effort and Inspection: able to speak in complete sentences Extremity Extremity Narrative: Bilateral lower extremity pitting edema, trace right leg and trace left leg. Skin Wounds: wounds noted Wound Narrative: Posterior left calf ulceration cluster with pink wound base with moderate slough, there is an enlarging island of healed skin centrally which has been steadily expanding outward. There is mild erythema around the inferior wound edge with slightly increased warmth. No foul odor, excess drainage. Neuro oriented x3, CN's II-XII intact bilaterally and moves all extremities Speech: speech normal Psych mental status grossly normal Appearance: grossly normal Attitude: engaged Speech: normal speech Mood & Affect: euthymic mood Judgement: judgement good Debridement Note Debridement Note Wound debrided: L posterior calf Laterality: Left Type of Debridement: Excisional debridement Anesthesia Used: 4% Lidocaine Solution Depth: Down to and including healthy tissue and in the subcutaneous layer Percentage of wound debrided: 100 Instrument Used: 5mm curette Tissue Removed: slough Severity: Fat Layer Exposed Amount of bleeding with debridement: Mild Bleeding Controlled with: Pressure Patient tolerated procedure: Patient tolerated procedure well Post-Debridement Measurements and Additional Note: Post-Debridement Measurements/Treatment BIJAN - Nurse 1 - General Ulcer Assessment Start: 05/27/25 14:56 Freq: Status: Active Protocol: CAMILLA Activity Type Activity Date Activity User E-sign Co-sign Detail Recorded Client Recorded Date Recorded By Document 05/27/25 14:57 MEGA [id number] 05/27/25 15:09 MEGA 05/27/25 14:57 BIJAN - Today's Visit Information Type of service Follow-up Visit (Physician/CASHIER AND WAITER/WAITRESS ) Arrival Mode Ambulatory Accompanied by Patient Identification Verified (Name & Yes ) Vital Signs Temperature (97.8 F-99.1 F) 98.1 F Temperature Source Temporal Pulse Rate (60-100) 102 H Pulse Location Monitor Respiratory Rate (12-18) 18 Respiratory rate source Observation Oxygen Delivery Method Room Air Blood Pressure (90/60-120/80) 156/74 H Blood Pressure Mean (mm Hg) 101 Source Monitor Position Semi-Fowlers Blood Pressure Location Left Arm History Since Last Visit- (Skip if this is Patient's initial visit) Have you changed medications since your No last visit? Any new allergies or adverse reactions No Had a fall/change in ADL's that may No increase risk of falls Signs or symptoms of abuse and/or No neglect since last visit Have you been in the hospital since your No last visit? Has dressing in place as prescribed Yes Has compression in place as prescribed Yes Has offloadiing in place as prescribed N/A Experienced any changes in pain level or No management Left Footwear Regular Shoe Right Footwear Regular Shoe Pain Scale: 0-10 Numeric Is Patient Pain Free? Yes - Nurse 1 - General Ulcer Measurement Start: 05/27/25 14:56 Freq: Status: Active Protocol: Activity Type Activity Date Activity User E-sign Co-sign Detail Recorded Client Recorded Date Recorded By Document 05/27/25 14:57 [id number] 05/27/25 15:09 05/27/25 14:57 Wound Center Nurse 1 #1 LT POST LE -Current Size (cm) - Length 3 -Current Size (cm) - Width 6 -Current Size (cm) - Depth 0.2 -Total Square Cm 18 -Date of Last Picture (Recall this 05/27/25 field) -Exudate Amt Medium -Exudate Type Serosanguineous -Wound Margin Distinct, Outline Attached -Granulation Amt Large (67-100%) -Granulation Quality [place] -Necrosis Amt Small (1-33%) -Necrotic Tissue Type Adherent Slough -Texture (Radha-wound Skin Appearance) Assessed -Moisture (Radha-wound Skin Appearance) Assessed -Color (Radha-wound Skin Appearance) Assessed, Erythema -Temperature (Radha-wound Skin No Abnormality Appearance) (Pt Warm) -Tenderness on Palpation (Radha-wound No Skin Appearance) -Ulcer Cleansing Soap and Water -Foul Odor after Cleansing No -Anesthetic Used 5% Lidocaine Gel Left Calf (cm) 48 Left Ankle (cm) 27 WC - Nurse 2 - General Ulcer CM Notes Start: 05/27/25 14:56 Freq: Status: Active Protocol: Activity Type Activity Date Activity User E-sign Co-sign Detail Recorded Client Recorded Date Recorded By Document 05/27/25 15:45 [id number] 05/27/25 15:48 05/27/25 15:45 Wound Center Nurse 2 #1 LT POST LE -Time 15:45 -Correct Patient Yes -Correct Side, Site, Position Yes -Correct Procedure Yes -Procedure Performed Yes -Type of Procedure Debridement -Clinical Debridement Subcutaneous -Tissue Removed Subcutaneous -Post Debridement (cm) - Length 4.5 -Post Debridement (cm) - Width 6.0 -Post Debridement (cm) - Depth 0.2 -Total Square (Post) (cm) 27.00 -Area of Debridement (cm) - Length 4.5 -Area of Debridement (cm) - Width 6.0 -Total Square (Area) (cm) 27.00 -Tunneling No -Undermining/Tunneling No -Circular Undermining No -Wound/Ulcer Outcome Not Healed -Ulcer Cleansing Rinsed/ Irrigated with Saline -Foul Odor after Cleansing No -Bioengineered Tissue No -Bleeding Controlled with Pressure -Treatment Response Procedure Tolerated Well -Offloading No -Debridement - Subq, 1st 20sq cm Yes Pain Scale: 0-10 Numeric Is Patient Pain Free? Yes Assessment/Plan Assessment/Plan (1) Ulcer of left calf with fat layer exposed: CODE(S): L97.222 - Non-pressure chronic ulcer of left calf with fat layer exposed (2) Type 2 diabetes mellitus: CODE(S): E11.9 - Type 2 diabetes mellitus without complications (3) Bilateral lower extremity edema: CODE(S): R60.0 - Localized edema PLAN: Plan We have completed 12 weeks of Theraskin applications to her wound and no further applications have been approved by her insurance. She does have some increased erythema and tenderness; wound cultures obtained last visit grew skin contaminants but will treat with topical gentamicin given signs of possible infection on exam today and given she is leaving for vacation and will miss the next 2 weeks here. For wound care: (1) Cleanse the area of the wound with antibacterial soap and water (2) Apply gentamicin ointment (3) Apply Aquacel (4) Cover with ABD and soft gauze wrap (5) Apply Tubigrips for compression (6) Change twice daily, more often as needed to keep clean and dry. She is encouraged to continue with leg elevation at all times of rest and to optimize glycemic control. Return to the clinic in 3 weeks due to her vacation, call sooner with concerns.
[2025-06-17 14:56] VITALS: BP 155/78; PULSE 105; RESP 18; TEMP 36.1
--- NOTE | 2025-06-17 15:37 | PCM.WC.PN ---
History of Present Illness Date of Service: 06/17/25 Chief Complaint: Left posterior calf wound History of Wound: Josy Smith is a 70-year-old female who was initially referred and seen in August 2024 for evaluation and management of a left posterior calf wound as referred by her primary care Dr. Vazquez. The ulceration has been present since the end of May 2024. She reports that around that time her AC had gone out in her house and was out for several weeks so her house was very warm and she noticed significantly increased lower extremity edema. Eventually, a blister formed on her posterior calf and after rupturing left behind this ulceration. She does have significant bilateral lower extremity edema at baseline and this has been ongoing for several years. She is diabetic, last A1c was 7.7. She does not smoke. She denies any history of VTE. She did not wear compression previously. Subjective Subjective Josy returns to the clinic today after 2 weeks, she was on vacation which she really enjoyed. She did a great job with wound care while on vacation, she has been applying the antibiotic ointment and dressings as directed. She has not noticed any worsening. She reports minimal pain, mild drainage. Objective Data Objective Data Vital Signs: Vital Signs Temp Pulse Resp BP O2 Del Method 96.9 F L 105 H 18 155/78 H Room Air 06/17/25 14:56 06/17/25 14:56 06/17/25 14:56 06/17/25 14:56 06/17/25 14:56 Oxygen Delivery Method Room Air Charges/Coding Procedures Integumentary 111xxx-113xx: 31072 Connie subq tissue 20 sq cm/< (23.78 sqcm) Physical Exam Const alert, oriented x3 and no apparent distress General Appearance: cooperative and anxious HEENT normocephalic, head/scalp atraumatic, hearing grossly normal bilaterally, external ears normal and external nose normal Eyes EOMs intact bilaterally General Eye: normal appearance of both eyes Neck General: normal visual inspection and trachea midline Resp normal respiratory effort Effort and Inspection: able to speak in complete sentences Extremity Extremity Narrative: Bilateral lower extremity pitting edema, trace right leg and trace left leg. Skin Wounds: wounds noted Wound Narrative: Posterior left calf ulceration cluster with pink wound base with moderate slough, there is an enlarging island of healed skin centrally which has been steadily expanding outward. There is mild erythema around the inferior wound edge with slightly increased warmth. No foul odor, excess drainage. Neuro oriented x3, CN's II-XII intact bilaterally and moves all extremities Speech: speech normal Psych mental status grossly normal Appearance: grossly normal Attitude: engaged Speech: normal speech Mood & Affect: euthymic mood Judgement: judgement good Debridement Note Debridement Note Wound debrided: L posterior calf Laterality: Left Type of Debridement: Excisional debridement Anesthesia Used: 4% Lidocaine Solution Depth: Down to and including healthy tissue and in the subcutaneous layer Percentage of wound debrided: 100 Instrument Used: 5mm curette Tissue Removed: slough Severity: Fat Layer Exposed Amount of bleeding with debridement: Mild Bleeding Controlled with: Pressure Patient tolerated procedure: Patient tolerated procedure well Post-Debridement Measurements and Additional Note: Post-Debridement Measurements/Treatment - Nurse 1 - General Ulcer Assessment Start: 05/27/25 14:56 Freq: Status: Active Protocol: [email or web address] Activity Type Activity Date Activity User E-sign Co-sign Detail Recorded Client Recorded Date Recorded By Document 05/27/25 14:57 [id number] 05/27/25 15:09 KW Document 06/17/25 14:56 [id number] 06/17/25 15:03 KW 05/27/25 06/17/25 14:57 14:56 - Today's Visit Information Type of service Follow-up Visit 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-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 ) ) Arrival Mode Ambulatory Ambulatory Accompanied by Patient Identification Verified (Name & Yes Yes ) Vital Signs Temperature (97.8 F-99.1 F) 98.1 F 96.9 F L Temperature Source Temporal Temporal Pulse Rate (60-100) 102 H 105 H Pulse Location Monitor Monitor Respiratory Rate (12-18) 18 18 Respiratory rate source Observation Observation Oxygen Delivery Method Room Air Room Air Blood Pressure (90/60-120/80) 156/74 H 155/78 H Blood Pressure Mean (mm Hg) 101 103 Source Monitor Monitor Position Semi-Fowlers Semi-Fowlers Blood Pressure Location Left Arm Left Arm History Since Last Visit- (Skip if this is Patient's initial visit) Have you changed medications since your No No last visit? Any new allergies or adverse reactions No No Had a fall/change in ADL's that may No No increase risk of falls Signs or symptoms of abuse and/or No No neglect since last visit Have you been in the hospital since your No No last visit? Has dressing in place as prescribed Yes Yes Has compression in place as prescribed Yes Yes Has offloadiing in place as prescribed N/A N/A Experienced any changes in pain level or No No management Left Footwear Regular Shoe Regular Shoe Right Footwear Regular Shoe Regular Shoe Pain Scale: 0-10 Numeric Is Patient Pain Free? Yes Yes WC - Nurse 1 - General Ulcer Measurement Start: 05/27/25 14:56 Freq: Status: Active Protocol: Activity Type Activity Date Activity User E-sign Co-sign Detail Recorded Client Recorded Date Recorded By Document 05/27/25 14:57 KW [id number] 05/27/25 15:09 KW Document 06/17/25 14:56 KW [id number] 06/17/25 15:03 KW 05/27/25 06/17/25 14:57 14:56 Wound Center Nurse 1 #1 LT POST LE -Current Size (cm) - Length 3 4 -Current Size (cm) - Width 6 6 -Current Size (cm) - Depth 0.2 0.1 -Total Square Cm 18 24 -Date of Last Picture (Recall this 05/27/25 06/17/25 field) -Exudate Amt Medium Large -Exudate Type Serosanguineous Serosanguineous -Wound Margin Distinct, Distinct, Outline Outline Attached Attached -Granulation Amt Large (67-100%) Large (67-100%) -Granulation Quality [place] -Necrosis Amt Small (1-33%) Small (1-33%) -Necrotic Tissue Type Adherent Slough Adherent Slough -Texture (Radha-wound Skin Appearance) Assessed Assessed -Moisture (Radha-wound Skin Appearance) Assessed Assessed, Maceration -Color (Radha-wound Skin Appearance) Assessed, Assessed, Erythema Erythema -Temperature (Radha-wound Skin No Abnormality No Abnormality Appearance) (Pt Warm) (Pt Warm) -Tenderness on Palpation (Radha-wound No No Skin Appearance) -Ulcer Cleansing Soap and Water Soap and Water -Foul Odor after Cleansing No No -Anesthetic Used 5% Lidocaine 5% Lidocaine Gel Gel Left Calf (cm) 48 Left Ankle (cm) 27 WC - Nurse 2 - General Ulcer CM Notes Start: 05/27/25 14:56 Freq: Status: Active Protocol: Activity Type Activity Date Activity User E-sign Co-sign Detail Recorded Client Recorded Date Recorded By Document 05/27/25 15:45 [id number] 05/27/25 15:48 Document 06/17/25 15:20 [id number] 06/17/25 15:21 05/27/25 06/17/25 15:45 15:20 Wound Center Nurse 2 #1 LT POST LE -Time 15:45 15:20 -Correct Patient Yes Yes -Correct Side, Site, Position Yes Yes -Correct Procedure Yes Yes -Procedure Performed Yes Yes -Type of Procedure Debridement Debridement -Clinical Debridement Subcutaneous Subcutaneous -Tissue Removed Subcutaneous Subcutaneous -Post Debridement (cm) - Length 4.5 4.1 -Post Debridement (cm) - Width 6.0 5.8 -Post Debridement (cm) - Depth 0.2 0.1 -Total Square (Post) (cm) 27.00 23.78 -Area of Debridement (cm) - Length 4.5 4.1 -Area of Debridement (cm) - Width 6.0 5.8 -Total Square (Area) (cm) 27.00 23.78 -Tunneling No No -Undermining/Tunneling No No -Circular Undermining No No -Wound/Ulcer Outcome Not Healed Not Healed -Ulcer Cleansing Rinsed/ Rinsed/ Irrigated with Irrigated with Saline Saline -Foul Odor after Cleansing No No -Bioengineered Tissue No No -Bleeding Controlled with Pressure Pressure -Treatment Response Procedure Procedure Tolerated Well Tolerated Well -Offloading No No -Debridement - Subq, 1st 20sq cm Yes Yes -Debridement, SubQ, ea addt'l 20sq cm 1 or part thereof Pain Scale: 0-10 Numeric Is Patient Pain Free? Yes Yes - Nurse 3 - General Ulcer D/C NN Start: 05/27/25 14:56 Freq: Status: Active Protocol: Activity Type Activity Date Activity User E-sign Co-sign Detail Recorded Client Recorded Date Recorded By Document 06/17/25 15:26 [id number] 06/17/25 15:27 06/17/25 15:26 Wound Care Center Nurse 3 #1 LT POST LE -Primary Dressing Applied Aquacel Extra, Silicone Border Foam 6x6 -Other Dressing atb ointment -Aquacel Extra 1 -Silicone Border Foam 6x6 1 Pain Scale: 0-10 Numeric Is Patient Pain Free? Yes - Visit Discharge Discharge Condition Stable Ambulatory Status Ambulatory Transportation Private Auto Medication Reconcilliation completed & No provided to patient/care provider Clinical Summary of Care Provided Yes Assessment/Plan Assessment/Plan (1) Ulcer of left calf with fat layer exposed: CODE(S): L97.222 - Non-pressure chronic ulcer of left calf with fat layer exposed (2) Type 2 diabetes mellitus: CODE(S): E11.9 - Type 2 diabetes mellitus without complications (3) Bilateral lower extremity edema: CODE(S): R60.0 - Localized edema PLAN: Plan No signs/symptoms of infection on exam today. Her wound continues to improve in size. For wound care: (1) Cleanse the area of the wound with antibacterial soap and water (2) Apply gentamicin ointment (3) Apply Aquacel (4) Cover with ABD and soft gauze wrap (5) Apply Tubigrips for compression (6) Change twice daily, more often as needed to keep clean and dry. She will use the gentamicin ointment until she runs out then proceed with just Aquacel and remaineder of dressings as above. She is encouraged to continue with leg elevation at all times of rest and to optimize glycemic control. Return to the clinic in 2 weeks, sooner as needed.
--- NOTE | 2025-06-18 09:39 | WC ---
PHOTO-LEFT POST LE 06/17/25
== END 2025-06-17 23:59 | disposition home or self-care (01) ==
LOC: WC 14:45
PROVIDERS: PCP Family Medicine; Referring Provider Family Medicine; Visit Provider Physician Assistant
DX: E11.622 Type 2 diabetes mellitus with other skin ulcer (principal); L97.222 Non-pressure chronic ulcer of left calf with fat layer exposed; Z79.4 Long term (current) use of insulin; S80.822S Blister (nonthermal), left lower leg, sequela; X58.XXXS Exposure to other specified factors, sequela; R60.0 Localized edema; Z79.899 Other long term (current) drug therapy
CPT/HCPCS: 11042; 11045

== ENCOUNTER → 2025-06-17 | Outpatient (CLI) | payer BC, SELFPAY ==
[2025-06-17 12:31] LABS: Mucous, Urine 0 SEEN /hpf (<or=2+)
[2025-06-17 15:30] LABS: Hematocrit 41.7 % (37-47); Hemoglobin 14.1 g/dL (12.0-15.0); Immature Granulocytes Count 0.020 X10^3/uL (0.0-0.0); Mean Corp Hgb Conc 33.8 g/dL (32-36); Mean Corpuscular Volume 89.5 fL (81-99); Mean Platelet Vol. 11.3 fl (6.2-12.0); NRBC Flagged by Analyzer 0 % (0-5); Platelet Count 225 K/mm3 (150-450); RBC Distribution Width CV 13.2 % (11.6-14.6); RBC Distribution Width SD 43.2 fl (35.1-43.9); Red Blood Count 4.66 M/mm3 (4.2-5.4); White Blood Count 7.7 K/mm3 (4.4-11.0)
[2025-06-17 16:06] LABS: Creatinine, Urine (random) 29.00 mg/dL (28.00-217.00); Microalbumin,Random Urine < 12.0 mg/L (<20 mg/L)
[2025-06-17 16:07] LABS: AST(SGOT) 21 U/L (<=31); Alanine Aminotransfer ALT/SGPT 37 U/L (<=34); Albumin, Serum 4.0 g/dL (3.4-4.8); Alkaline Phosphatase 81 U/L (35-104); Anion Gap 13 (5-15); BUN 13 mg/dL (4-19); BUN/Creat Ratio 17.0 RATIO (10-20); Calcium,Total 9.8 mg/dL (7.6-11.0); Carbon Dioxide 25.4 mmol/L (21.0-32.0); Chloride 98 mmol/L (98-108); Cholesterol 133 mg/dL (<=200); Globulin 3.0 g/dL (2.2-4.2); Glucose 181 mg/dL (70-99); Low Density Lipoprotein Calc. 64 mg/dL; Potassium 4.5 mmol/L (3.3-5.1); Triglycerides 118 mg/dL; Very Low Density Lipoprotein 24 mg/dL (5-40); cholesterol:hdl ratio screen 2.92
[2025-06-17 22:13] LABS: Color, Urine Straw (Yellow); Glucose, Dipstick Normal (Normal); Ketone-Dipstick Negative (Negative); Leukocyte Esterase-Dipstick Negative /ul (Negative); Nitrite-Dipstick Negative (Negative); Occult Blood-Urine Negative /ul (Negative); Protein-Dipstick 15 mg/dl (Negative); Specific Gravity, Urine 1.010 (1.002-1.030); Urine Bilirubin Dipstick Negative (Negative)
[2025-06-17 22:41] LABS: Red Blood Cells-Urine 0-5 SEEN /hpf (0-5); Squamous Epithelial Cells - UA 0-5 SEEN /hpf (5-10)
== END | disposition home or self-care (01) ==
LOC: MFPLAB 12:28
PROVIDERS: PCP Family Medicine; Referring Provider Family Medicine; Visit Provider Family Medicine
DX: E11.8 Type 2 diabetes mellitus with unspecified complications (principal)
CPT/HCPCS: 36415; 80053; 80061; 81001; 82043; 82570; 83036; 85025

== ENCOUNTER 2025-07-15 14:45 | Outpatient (RCR) | payer BC, SELFPAY ==
[2025-07-01 14:34] VITALS: BP 167/87; PULSE 108; RESP 16; TEMP 36.6
--- NOTE | 2025-07-01 15:04 | PCM.WC.PN ---
History of Present Illness Date of Service: 07/01/25 Chief Complaint: Left posterior calf wound History of Wound: Josy Smith is a 70-year-old female who was initially referred and seen in August 2024 for evaluation and management of a left posterior calf wound as referred by her primary care Dr. Vazquez. The ulceration has been present since the end of May 2024. She reports that around that time her AC had gone out in her house and was out for several weeks so her house was very warm and she noticed significantly increased lower extremity edema. Eventually, a blister formed on her posterior calf and after rupturing left behind this ulceration. She does have significant bilateral lower extremity edema at baseline and this has been ongoing for several years. She is diabetic, last A1c was 7.7. She does not smoke. She denies any history of VTE. She did not wear compression previously. Subjective Subjective Josy returns today for her 2 week f/u. She is very pleased as she is really starting to see how much it is healing and seeing all the new skin that has filled in. She continues to have less pain overall. She has not particular concerns today other than she is low on supplies and needs a new order for this. Objective Data Objective Data Vital Signs: Vital Signs Temp Pulse Resp BP O2 Del Method 98 F 108 H 16 167/87 H Room Air 07/01/25 14:34 07/01/25 14:34 07/01/25 14:34 07/01/25 14:34 07/01/25 14:34 Oxygen Delivery Method Room Air Charges/Coding Procedures Integumentary 111xxx-113xx: [id number] Connie subq tissue 20 sq cm/< (21.39 sqcm) Physical Exam Const alert, oriented x3 and no apparent distress General Appearance: cooperative and anxious HEENT normocephalic, head/scalp atraumatic, hearing grossly normal bilaterally, external ears normal and external nose normal Eyes EOMs intact bilaterally General Eye: normal appearance of both eyes Neck General: normal visual inspection and trachea midline Resp normal respiratory effort Effort and Inspection: able to speak in complete sentences Extremity Extremity Narrative: Bilateral lower extremity pitting edema, trace right leg and trace left leg. Skin Wounds: wounds noted Wound Narrative: Posterior left calf ulceration cluster with pink wound base with moderate slough, there is an enlarging island of healed skin centrally which has been steadily expanding outward. No foul odor, excess drainage, erythema. Neuro oriented x3, CN's II-XII intact bilaterally and moves all extremities Speech: speech normal Psych mental status grossly normal Appearance: grossly normal Attitude: engaged Speech: normal speech Mood & Affect: euthymic mood Judgement: judgement good Debridement Note Debridement Note Wound debrided: L posterior calf Laterality: Left Type of Debridement: Excisional debridement Anesthesia Used: 4% Lidocaine Solution Depth: Down to and including healthy tissue and in the subcutaneous layer Percentage of wound debrided: 100 Instrument Used: 5mm curette Tissue Removed: slough Severity: Fat Layer Exposed Amount of bleeding with debridement: Mild Bleeding Controlled with: Pressure Patient tolerated procedure: Patient tolerated procedure well Post-Debridement Measurements and Additional Note: Post-Debridement Measurements/Treatment - Nurse 1 - General Ulcer Assessment Start: 07/01/25 14:34 Freq: Status: Active Protocol: [place] Activity Type Activity Date Activity User E-sign Co-sign Detail Recorded Client Recorded Date Recorded By Document 07/01/25 14:34 [facility] [id number] 07/01/25 14:45 [facility] 07/01/25 14:34 WC - Today's Visit Information Type of service 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-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 ) Arrival Mode Ambulatory Transfer Assistance None Patient Identification Verified (Name & Yes ) Patient Requires Transmission-Based No Precautions Vital Signs Temperature (97.8 F-99.1 F) 98 F Temperature Source Temporal Pulse Rate (60-100) 108 H Pulse Location Monitor Respiratory Rate (12-18) 16 Respiratory rate source Observation Oxygen Delivery Method Room Air Blood Pressure (90/60-120/80) 167/87 H Blood Pressure Mean (mm Hg) 113 Source Monitor Position Sitting Blood Pressure Location Left Arm History Since Last Visit- (Skip if this is Patient's initial visit) Have you changed medications since your No last visit? Any new allergies or adverse reactions No Had a fall/change in ADL's that may No increase risk of falls Left Footwear Regular Shoe Right Footwear Regular Shoe Pain Scale: 0-10 Numeric Is Patient Pain Free? Yes [facility] Nurse 1 - General Ulcer Measurement Start: 07/01/25 14:34 Freq: Status: Active Protocol: Activity Type Activity Date Activity User E-sign Co-sign Detail Recorded Client Recorded Date Recorded By Document 07/01/25 14:34 [facility] [id number] 07/01/25 14:45 [email or web address] 07/01/25 14:34 Wound Center Nurse 1 #1 LT POST LE -Combined with other wound No -Current Size (cm) - Length 2.2 -Current Size (cm) - Width 5.6 -Current Size (cm) - Depth 0.1 -Total Square Cm 12.32 -Date of Last Picture (Recall this 07/01/25 field) -Photo Taken Yes -Epithelialization Small 1-33% -Tunneling No -Undermining/Tunneling No -Circular Undermining No -Exudate Amt Medium -Exudate Type Serosanguineous -Wound Margin Flat & Intact -Granulation Amt Small (1-33%) -Granulation Quality Red -Slough/Fibrin Yes -Necrosis Amt Medium (34-66%) -Necrotic Tissue Type Adherent Slough -Texture (Radha-wound Skin Appearance) Assessed -Moisture (Radha-wound Skin Appearance) Assessed -Color (Radha-wound Skin Appearance) Assessed, Erythema -Temperature (Radha-wound Skin No Abnormality Appearance) (Pt Warm) -Tenderness on Palpation (Radha-wound No Skin Appearance) -Ulcer Cleansing Soap and Water -Foul Odor after Cleansing No -Anesthetic Used 5% Lidocaine Gel Lower Limb Edema Present Yes Left Calf (cm) 40.6 Left Ankle (cm) 26.7 WC - Nurse 2 - General Ulcer CM Notes Start: 07/01/25 14:34 Freq: Status: Active Protocol: Activity Type Activity Date Activity User E-sign Co-sign Detail Recorded Client Recorded Date Recorded By Document 07/01/25 14:57 [id number] 07/01/25 15:01 07/01/25 14:57 Wound Center Nurse 2 #1 LT POST LE -Time 14:57 -Correct Patient Yes -Correct Side, Site, Position Yes -Correct Procedure Yes -Procedure Performed Yes -Type of Procedure Debridement -Clinical Debridement Subcutaneous -Tissue Removed Subcutaneous -Post Debridement (cm) - Length 3.1 -Post Debridement (cm) - Width 6.9 -Post Debridement (cm) - Depth 0.1 -Total Square (Post) (cm) 21.39 -Area of Debridement (cm) - Length 3.1 -Area of Debridement (cm) - Width 6.9 -Total Square (Area) (cm) 21.39 -Tunneling No -Undermining/Tunneling No -Circular Undermining No -Wound/Ulcer Outcome Not Healed -Ulcer Cleansing Rinsed/ Irrigated with Saline -Foul Odor after Cleansing No -Bioengineered Tissue No -Bleeding Controlled with Pressure -Treatment Response Procedure Tolerated Well -Offloading No -Debridement - Subq, 1st 20sq cm Yes Pain Scale: 0-10 Numeric Is Patient Pain Free? Yes Assessment/Plan Assessment/Plan (1) Ulcer of left calf with fat layer exposed: CODE(S): L97.222 - Non-pressure chronic ulcer of left calf with fat layer exposed (2) Type 2 diabetes mellitus: CODE(S): E11.9 - Type 2 diabetes mellitus without complications (3) Bilateral lower extremity edema: CODE(S): R60.0 - Localized edema PLAN: Plan No signs/symptoms of infection on exam today. Her wound continues to improve in size. For wound care: (1) Cleanse the area of the wound with antibacterial soap and water (2) Apply gentamicin ointment (3) Apply Aquacel (4) Cover with ABD and soft gauze wrap (5) Apply Tubigrips for compression (6) Change twice daily, more often as needed to keep clean and dry. She is encouraged to continue with leg elevation at all times of rest and to optimize glycemic control. Return to the clinic in 2 weeks, sooner as needed.
--- NOTE | 2025-07-02 08:36 | WC ---
PHOTO-LEFT POST LE CLUSTER 07/01/25
[2025-07-15 14:38] VITALS: BP 150/77; PULSE 113; RESP 16; TEMP 36.1
--- NOTE | 2025-07-16 09:04 | WC ---
PHOTO-LEFT POST LE 07/15/25
== END 2025-07-18 23:59 | disposition home or self-care (01) ==
LOC: WC 14:45
PROVIDERS: PCP Family Medicine; Referring Provider Family Medicine; Visit Provider Physician Assistant
DX: E11.622 Type 2 diabetes mellitus with other skin ulcer (principal); L97.222 Non-pressure chronic ulcer of left calf with fat layer exposed; Z79.4 Long term (current) use of insulin; R60.0 Localized edema; S80.822S Blister (nonthermal), left lower leg, sequela; X58.XXXS Exposure to other specified factors, sequela; Z79.899 Other long term (current) drug therapy
CPT/HCPCS: 11042; 11045

== ENCOUNTER 2025-08-05 15:30 | Outpatient (RCR) | payer BC, SELFPAY ==
[2025-07-29 15:25] VITALS: BP 156/74; PULSE 113; RESP 16; TEMP 36.4
--- NOTE | 2025-07-29 16:05 | PCM.WC.PN ---
History of Present Illness Date of Service: 07/29/25 Chief Complaint: Left posterior calf wound History of Wound: Josy Smith is a 70-year-old female who was initially referred and seen in August 2024 for evaluation and management of a left posterior calf wound as referred by her primary care Dr. Vazquez. The ulceration has been present since the end of May 2024. She reports that around that time her AC had gone out in her house and was out for several weeks so her house was very warm and she noticed significantly increased lower extremity edema. Eventually, a blister formed on her posterior calf and after rupturing left behind this ulceration. She does have significant bilateral lower extremity edema at baseline and this has been ongoing for several years. She is diabetic, last A1c was 7.7. She does not smoke. She denies any history of VTE. She did not wear compression previously. Subjective Subjective Josy returns today for her 2 week f/u. She continues to notice improvement in her wound and has no concerns today. Objective Data Objective Data Vital Signs: Vital Signs Temp Pulse Resp BP 97.6 F L 113 H 16 156/74 H 07/29/25 15:25 07/29/25 15:25 07/29/25 15:25 07/29/25 15:25 Charges/Coding Procedures Integumentary [id number]: [id number] Connie subq tissue 20 sq cm/< Physical Exam Const alert, oriented x3 and no apparent distress General Appearance: cooperative and anxious HEENT normocephalic, head/scalp atraumatic, hearing grossly normal bilaterally, external ears normal and external nose normal Eyes EOMs intact bilaterally General Eye: normal appearance of both eyes Neck General: normal visual inspection and trachea midline Resp normal respiratory effort Effort and Inspection: able to speak in complete sentences Extremity Extremity Narrative: Bilateral lower extremity pitting edema, trace right leg and trace left leg. Skin Wounds: wounds noted Wound Narrative: Posterior left calf ulceration cluster with pink wound base with moderate slough, there is an enlarging island of healed skin centrally which has been steadily expanding outward. No foul odor, excess drainage, erythema. Neuro oriented x3, CN's II-XII intact bilaterally and moves all extremities Speech: speech normal Psych mental status grossly normal Appearance: grossly normal Attitude: engaged Speech: normal speech Mood & Affect: euthymic mood Judgement: judgement good Debridement Note Debridement Note Wound debrided: L posterior calf Laterality: Left Type of Debridement: Excisional debridement Anesthesia Used: 4% Lidocaine Solution Depth: Down to and including healthy tissue and in the subcutaneous layer Percentage of wound debrided: 100 Instrument Used: 5mm curette Tissue Removed: slough Severity: Fat Layer Exposed Amount of bleeding with debridement: Mild Bleeding Controlled with: Pressure Patient tolerated procedure: Patient tolerated procedure well Post-Debridement Measurements and Additional Note: Post-Debridement Measurements/Treatment BIJAN - Nurse 1 - General Ulcer Assessment Start: 07/29/25 15:23 Freq: Status: Active Protocol: CAMILLA Activity Type Activity Date Activity User E-sign Co-sign Detail Recorded Client Recorded Date Recorded By Document 07/29/25 15:25 DL [id number] 07/29/25 15:32 DL 07/29/25 15:25 WC - Today's Visit Information Type of service Follow-up Visit (Physician/SODA MAKER ) Arrival Mode Ambulatory Transfer Assistance None Patient Identification Verified (Name & Yes ) Patient Requires Transmission-Based No Precautions Vital Signs Temperature (97.8 F-99.1 F) 97.6 F L Temperature Source Temporal Pulse Rate (60-100) 113 H Pulse Location Monitor Respiratory Rate (12-18) 16 Respiratory rate source Observation Blood Pressure (90/60-120/80) 156/74 H Blood Pressure Mean (mm Hg) 101 Source Monitor History Since Last Visit- (Skip if this is Patient's initial visit) Have you changed medications since your No last visit? Any new allergies or adverse reactions No Had a fall/change in ADL's that may No increase risk of falls Signs or symptoms of abuse and/or No neglect since last visit Have you been in the hospital since your No last visit? Has dressing in place as prescribed Yes Has compression in place as prescribed Yes Has offloadiing in place as prescribed N/A Experienced any changes in pain level or No management Pain Scale: 0-10 Numeric Is Patient Pain Free? Yes - Nurse 1 - General Ulcer Measurement Start: 07/29/25 15:23 Freq: Status: Active Protocol: Activity Type Activity Date Activity User E-sign Co-sign Detail Recorded Client Recorded Date Recorded By Document 07/29/25 15:25 DL [id number] 07/29/25 15:32 DL 07/29/25 15:25 Wound Center Nurse 1 #1 LT POST LE -Current Size (cm) - Length 2 -Current Size (cm) - Width 5.6 -Current Size (cm) - Depth 0.1 -Total Square Cm 11.2 -Exudate Amt Medium -Exudate Type Serosanguineous -Wound Margin Distinct, Outline Attached -Granulation Amt Medium (34-66%) -Granulation Quality Red -Necrosis Amt Medium (34-66%) -Necrotic Tissue Type Adherent Slough -Structure Exposed N/A -Texture (Radha-wound Skin Appearance) Scarring -Moisture (Radha-wound Skin Appearance) Maceration -Color (Radha-wound Skin Appearance) No Abnormality -Temperature (Radha-wound Skin No Abnormality Appearance) (Pt Warm) -Tenderness on Palpation (Radha-wound No Skin Appearance) -Ulcer Cleansing Soap and Water -Foul Odor after Cleansing No -Anesthetic Used 5% Lidocaine Gel Left Calf (cm) 38.7 Left Ankle (cm) 27 WC - Nurse 2 - General Ulcer CM Notes Start: 07/29/25 15:23 Freq: Status: Active Protocol: Activity Type Activity Date Activity User E-sign Co-sign Detail Recorded Client Recorded Date Recorded By Document 07/29/25 15:39 [id number] 07/29/25 15:41 07/29/25 15:39 Wound Center Nurse 2 #1 LT POST LE -Time 15:39 -Correct Patient Yes -Correct Side, Site, Position Yes -Correct Procedure Yes -Procedure Performed Yes -Type of Procedure Debridement -Clinical Debridement Subcutaneous -Tissue Removed Subcutaneous -Post Debridement (cm) - Length 2.0 -Post Debridement (cm) - Width 5.2 -Post Debridement (cm) - Depth 0.1 -Total Square (Post) (cm) 10.40 -Area of Debridement (cm) - Length 2.0 -Area of Debridement (cm) - Width 5.2 -Total Square (Area) (cm) 10.40 -Tunneling No -Undermining/Tunneling No -Circular Undermining No -Wound/Ulcer Outcome Not Healed -Ulcer Cleansing Not Cleansed -Foul Odor after Cleansing No -Bioengineered Tissue No -Bleeding Controlled with Pressure -Treatment Response Procedure Tolerated Well -Offloading No -Debridement - Subq, 1st 20sq cm Yes Pain Scale: 0-10 Numeric Is Patient Pain Free? Yes - Nurse 3 - General Ulcer D/C NN Start: 09/11/25 15:23 Freq: Status: Active Protocol: Activity Type Activity Date Activity User E-sign Co-sign Detail Recorded Client Recorded Date Recorded By Document 07/29/25 15:52 [id number] 07/29/25 15:53 07/29/25 15:52 Wound Care Center Nurse 3 #1 LT POST LE -Ulcer Cleansing Not Cleansed -Foul Odor after Cleansing No -Primary Dressing Applied Aquacel Extra, Silicone Border Foam 6x6 -Aquacel Extra 1 -Silicone Border Foam 6x6 1 BLE -Lotion applied to leg before No compression wrap -Tubular Bandage Single Layer -Size of Tubigrip Used Size E -Size E ($) 2 Pain Scale: 0-10 Numeric Is Patient Pain Free? Yes WC - Visit Discharge Discharge Condition Stable Ambulatory Status Ambulatory Transportation Private Auto Assessment/Plan Assessment/Plan (1) Ulcer of left calf with fat layer exposed: CODE(S): L97.222 - Non-pressure chronic ulcer of left calf with fat layer exposed (2) Type 2 diabetes mellitus: CODE(S): E11.9 - Type 2 diabetes mellitus without complications (3) Bilateral lower extremity edema: CODE(S): R60.0 - Localized edema PLAN: Plan No signs/symptoms of infection on exam today. Her wound continues to improve in size. For wound care: (1) Cleanse the area of the wound with antibacterial soap and water (2) Apply gentamicin ointment (3) Apply Aquacel (4) Cover with ABD and soft gauze wrap (5) Apply Tubigrips for compression (6) Change twice daily, more often as needed to keep clean and dry. She is encouraged to continue with leg elevation at all times of rest and to optimize glycemic control. Return to the clinic in 1 week, sooner as needed.
[2025-08-05 15:40] VITALS: BP 159/110; PULSE 108; RESP 16; TEMP 36.3
--- NOTE | 2025-08-05 16:28 | PCM.WC.PN ---
History of Present Illness Date of Service: 08/05/25 Chief Complaint: Left posterior calf wound History of Wound: Josy Smith is a 70-year-old female who was initially referred and seen in August 2024 for evaluation and management of a left posterior calf wound as referred by her primary care Dr. Vazquez. The ulceration has been present since the end of May 2024. She reports that around that time her AC had gone out in her house and was out for several weeks so her house was very warm and she noticed significantly increased lower extremity edema. Eventually, a blister formed on her posterior calf and after rupturing left behind this ulceration. She does have significant bilateral lower extremity edema at baseline and this has been ongoing for several years. She is diabetic, last A1c was 7.7. She does not smoke. She denies any history of VTE. She did not wear compression previously. Subjective Subjective She continues to notice improvement in her wound and has no concerns today. Objective Data Objective Data Vital Signs: Vital Signs Temp Pulse Resp BP 97.3 F L 108 H 16 159/110 H 08/05/25 15:40 08/05/25 15:40 08/05/25 15:40 08/05/25 15:40 Charges/Coding Visit Charges Office Visits / Consults: [id number] OV L3 Est 20min Physical Exam Const alert, oriented x3 and no apparent distress General Appearance: cooperative and anxious HEENT normocephalic, head/scalp atraumatic, hearing grossly normal bilaterally, external ears normal and external nose normal Eyes EOMs intact bilaterally General Eye: normal appearance of both eyes Neck General: normal visual inspection and trachea midline Resp normal respiratory effort Effort and Inspection: able to speak in complete sentences Extremity Extremity Narrative: Bilateral lower extremity pitting edema, trace right leg and trace left leg. Skin Wounds: wounds noted Wound Narrative: Posterior left calf ulceration cluster with pink wound base with moderate slough, there is an enlarging island of healed skin centrally which has been steadily expanding outward. No foul odor, excess drainage, erythema. Neuro oriented x3, CN's II-XII intact bilaterally and moves all extremities Speech: speech normal Psych mental status grossly normal Appearance: grossly normal Attitude: engaged Speech: normal speech Mood & Affect: euthymic mood Judgement: judgement good Debridement Note Debridement Note No debridement was completed: No debridement was completed today Post-Debridement Measurements and Additional Note: Post-Debridement Measurements/Treatment WC - Nurse 1 - General Ulcer Assessment Start: 07/29/25 15:23 Freq: Status: Active Protocol: CAMILLA Activity Type Activity Date Activity User E-sign Co-sign Detail Recorded Client Recorded Date Recorded By Document 07/29/25 15:25 DL [id number] 07/29/25 15:32 DL Document 08/05/25 15:40 DL [id number] 08/05/25 15:46 DL 07/29/25 08/05/25 15:25 15:40 WC - Today's Visit Information Type of service Follow-up Visit Follow-up Visit (Physician/ECONOMIC DEVELOPMENT SPECIALIST (Physician/ECONOMIC DEVELOPMENT SPECIALIST ) ) Arrival Mode Ambulatory Ambulatory Transfer Assistance None None Patient Identification Verified (Name & Yes Yes ) Patient Requires Transmission-Based No No Precautions Vital Signs Temperature (97.8 F-99.1 F) 97.6 F L 97.3 F L Temperature Source Temporal Temporal Pulse Rate (60-100) 113 H 108 H Pulse Location Monitor Monitor Respiratory Rate (12-18) 16 16 Respiratory rate source Observation Observation Blood Pressure (90/60-120/80) 156/74 H 159/110 H Blood Pressure Mean (mm Hg) 101 126 Source Monitor Monitor History Since Last Visit- (Skip if this is Patient's initial visit) Have you changed medications since your No No last visit? Any new allergies or adverse reactions No No Had a fall/change in ADL's that may No No increase risk of falls Signs or symptoms of abuse and/or No No neglect since last visit Have you been in the hospital since your No No last visit? Has dressing in place as prescribed Yes Yes Has compression in place as prescribed Yes Yes Has offloadiing in place as prescribed N/A N/A Experienced any changes in pain level or No No management Pain Scale: 0-10 Numeric Is Patient Pain Free? Yes Yes - Nurse 1 - General Ulcer Measurement Start: 07/29/25 15:23 Freq: Status: Active Protocol: Activity Type Activity Date Activity User E-sign Co-sign Detail Recorded Client Recorded Date Recorded By Document 07/29/25 15:25 DL [id number] 07/29/25 15:32 DL Document 08/05/25 15:40 DL [id number] 08/05/25 15:46 DL 07/29/25 08/05/25 15:25 15:40 Wound Center Nurse 1 #1 LT POST LE -Current Size (cm) - Length 2 2 -Current Size (cm) - Width 5.6 5.5 -Current Size (cm) - Depth 0.1 0.1 -Total Square Cm 11.2 11.0 -Exudate Amt Medium Large -Exudate Type Serosanguineous Serosanguineous -Wound Margin Distinct, Outline Attached -Granulation Amt Medium (34-66%) Medium (34-66%) -Granulation Quality Red Red -Necrosis Amt Medium (34-66%) Medium (34-66%) -Necrotic Tissue Type Adherent Slough Adherent Slough -Structure Exposed N/A N/A -Texture (Radha-wound Skin Appearance) Scarring Scarring -Moisture (Radha-wound Skin Appearance) Maceration Maceration -Color (Radha-wound Skin Appearance) No Abnormality No Abnormality -Temperature (Radha-wound Skin No Abnormality No Abnormality Appearance) (Pt Warm) (Pt Warm) -Tenderness on Palpation (Radha-wound No No Skin Appearance) -Ulcer Cleansing Soap and Water Soap and Water -Foul Odor after Cleansing No No -Anesthetic Used 5% Lidocaine 5% Lidocaine Gel Gel Left Calf (cm) 38.7 40 Left Ankle (cm) 27 27.3 WC - Nurse 2 - General Ulcer CM Notes Start: 07/29/25 15:23 Freq: Status: Active Protocol: Activity Type Activity Date Activity User E-sign Co-sign Detail Recorded Client Recorded Date Recorded By Document 07/29/25 15:39 [id number] 07/29/25 15:41 Document 08/05/25 15:53 [id number] 08/05/25 16:07 07/29/25 08/05/25 15:39 15:53 Wound Center Nurse 2 #1 LT POST LE -Time 15:39 15:56 -Correct Patient Yes Yes -Correct Side, Site, Position Yes Yes -Correct Procedure Yes No -Procedure Performed Yes No -Type of Procedure Debridement -Clinical Debridement Subcutaneous -Tissue Removed Subcutaneous -Post Debridement (cm) - Length 2.0 1.7 -Post Debridement (cm) - Width 5.2 5.4 -Post Debridement (cm) - Depth 0.1 0.1 -Total Square (Post) (cm) 10.40 9.18 -Area of Debridement (cm) - Length 2.0 -Area of Debridement (cm) - Width 5.2 -Total Square (Area) (cm) 10.40 -Tunneling No No -Undermining/Tunneling No No -Circular Undermining No No -Wound/Ulcer Outcome Not Healed Not Healed -Ulcer Cleansing Not Cleansed -Foul Odor after Cleansing No No -Bioengineered Tissue No No -Bleeding Controlled with Pressure NA -Treatment Response Procedure Tolerated Well -Offloading No -Debridement - Subq, 1st 20sq cm Yes Pain Scale: 0-10 Numeric Is Patient Pain Free? Yes Yes - Nurse 3 - General Ulcer D/C NN Start: 07/29/25 15:23 Freq: Status: Active Protocol: Activity Type Activity Date Activity User E-sign Co-sign Detail Recorded Client Recorded Date Recorded By Document 07/29/25 15:52 GM [id number] 07/29/25 15:53 Document 08/05/25 16:04 DL [id number] 08/05/25 16:06 DL 07/29/25 08/05/25 15:52 16:04 Wound Care Center Nurse 3 #1 LT POST LE -Ulcer Cleansing Not Cleansed Rinsed/ Irrigated with Saline -Foul Odor after Cleansing No No -Primary Dressing Applied Aquacel Extra, Aquacel Extra, Silicone Border Silicone Border Foam 6x6 Foam 4x4 -Other Dressing Bacitracin -Aquacel Extra 1 1 -Silicone Border Foam 4x4 1 -Silicone Border Foam 6x6 1 BLE -Lotion applied to leg before No compression wrap -Tubular Bandage Single Layer Single Layer -Size of Tubigrip Used Size E Size E -Size E ($) 2 1 Treatment Response Procedure Tolerated Well Pain Scale: 0-10 Numeric Is Patient Pain Free? Yes Yes - Visit Discharge Discharge Condition Stable Stable Ambulatory Status Ambulatory Ambulatory Transportation Private Auto Private Auto Assessment/Plan Assessment/Plan (1) Ulcer of left calf with fat layer exposed: CODE(S): L97.222 - Non-pressure chronic ulcer of left calf with fat layer exposed (2) Type 2 diabetes mellitus: CODE(S): E11.9 - Type 2 diabetes mellitus without complications (3) Bilateral lower extremity edema: CODE(S): R60.0 - Localized edema PLAN: Plan No signs/symptoms of infection on exam today. Her wound continues to improve in size. For wound care: (1) Cleanse the area of the wound with antibacterial soap and water (2) Apply gentamicin ointment (3) Apply Aquacel (4) Cover with gauze followed by [place]-SAP (5) Apply Tubigrips for compression (6) Change twice daily, more often as needed to keep clean and dry. She is encouraged to continue with leg elevation at all times of rest and to optimize glycemic control. Return to the clinic in 1 week, sooner as needed.
== END 2025-08-17 23:59 | disposition home or self-care (01) ==
LOC: WC 15:30
PROVIDERS: PCP Family Medicine; Referring Provider Family Medicine; Visit Provider Physician Assistant
DX: E11.622 Type 2 diabetes mellitus with other skin ulcer (principal); L97.222 Non-pressure chronic ulcer of left calf with fat layer exposed; R60.0 Localized edema
CPT/HCPCS: 11042; 99213; G0463

== ENCOUNTER 2025-09-16 15:15 | Outpatient (RCR) | payer BC, SELFPAY ==
[2025-08-19 16:11] VITALS: BP 143/81; PULSE 94; RESP 14; TEMP 36.6
--- NOTE | 2025-08-19 18:20 | PN.PCM_ITS ---
History of Present Illness Date of Service: 08/19/25 Chief Complaint: Left posterior calf wound History of Wound: Josy Smith is a 70-year-old female who was initially referred and seen in August 2024 for evaluation and management of a left posterior calf wound as referred by her primary care Dr. Vazquez. The ulceration has been present since the end of May 2024. She reports that around that time her AC had gone out in her house and was out for several weeks so her house was very warm and she noticed significantly increased lower extremity edema. Eventually, a blister formed on her posterior calf and after rupturing left behind this ulceration. She does have significant bilateral lower extremity edema at baseline and this has been ongoing for several years. She is diabetic, last A1c was 7.7. She does not smoke. She denies any history of VTE. She did not wear compression previously. Subjective Subjective She continues to notice improvement in her wound. She notes a newer reddened area with overlying appearance of skin peeling inferomedial to her wound. Objective Data Objective Data Vital Signs: Vital Signs Temp Pulse Resp BP 97.9 F 94 14 143/81 H 08/19/25 16:11 08/19/25 16:11 08/19/25 16:11 08/19/25 16:11 Charges/Coding Procedures Integumentary [id number]: [id number] Connie subq tissue 20 sq cm/< Physical Exam Const alert, oriented x3 and no apparent distress General Appearance: cooperative and anxious HEENT normocephalic, head/scalp atraumatic, hearing grossly normal bilaterally, external ears normal and external nose normal Eyes EOMs intact bilaterally General Eye: normal appearance of both eyes Neck General: normal visual inspection and trachea midline Resp normal respiratory effort Effort and Inspection: able to speak in complete sentences Extremity Extremity Narrative: Bilateral lower extremity pitting edema, trace right leg and trace left leg. Skin Wounds: wounds noted Wound Narrative: Posterior left calf ulceration cluster with pink wound base with moderate slough, there is an enlarging island of healed skin centrally which has been steadily expanding outward. No foul odor, excess drainage, erythema. Inferomedial to the ulceration there is an erythematous patch with overlying skin peeling/roughness without excess warmth, drainage, crusting, foul odor. No wound. Neuro oriented x3, CN's II-XII intact bilaterally and moves all extremities Speech: speech normal Psych mental status grossly normal Appearance: grossly normal Attitude: engaged Speech: normal speech Mood & Affect: euthymic mood Judgement: judgement good Debridement Note Debridement Note Wound debrided: L posterior calf Laterality: Left Type of Debridement: Excisional debridement Anesthesia Used: 4% Lidocaine Solution Depth: Down to and including healthy tissue and in the subcutaneous layer Percentage of wound debrided: 100 Instrument Used: 5mm curette Tissue Removed: slough Severity: Fat Layer Exposed Amount of bleeding with debridement: Mild Bleeding Controlled with: Pressure Patient tolerated procedure: Patient tolerated procedure well Post-Debridement Measurements and Additional Note: Post-Debridement Measurements/Treatment BIJAN - Nurse 1 - General Ulcer Assessment Start: 08/19/25 16:11 Freq: Status: Active Protocol: CAMILLA Activity Type Activity Date Activity User E-sign Co-sign Detail Recorded Client Recorded Date Recorded By Document 08/19/25 16:11 ML [id number] 08/19/25 16:14 ML 08/19/25 16:11 WC - Today's Visit Information Type of service Follow-up Visit (Physician/DRESS CAP MAKER ) Arrival Mode Ambulatory Transfer Assistance None Patient Identification Verified (Name & Yes ) Patient Requires Transmission-Based No Precautions Vital Signs Temperature (97.8 F-99.1 F) 97.9 F Temperature Source Temporal Pulse Rate (60-100) 94 Pulse Location Monitor Respiratory Rate (12-18) 14 Respiratory rate source Observation Blood Pressure (90/60-120/80) 143/81 H Blood Pressure Mean (mm Hg) 101 Source Manual Position Sitting Blood Pressure Location Left Arm History Since Last Visit- (Skip if this is Patient's initial visit) Have you changed medications since your No last visit? Any new allergies or adverse reactions No Had a fall/change in ADL's that may No increase risk of falls Signs or symptoms of abuse and/or No neglect since last visit Have you been in the hospital since your No last visit? Has dressing in place as prescribed No Has compression in place as prescribed Yes Has offloadiing in place as prescribed N/A Experienced any changes in pain level or No management Pain Scale: 0-10 Numeric Is Patient Pain Free? Yes BIJAN Welch Nurse 1 - General Ulcer Measurement Start: 08/19/25 16:11 Freq: Status: Active Protocol: Activity Type Activity Date Activity User E-sign Co-sign Detail Recorded Client Recorded Date Recorded By Document 08/19/25 16:11 ML [id number] 08/19/25 16:14 ML 08/19/25 16:11 Wound Center Nurse 1 #1 LT POST LE -Current Size (cm) - Length 4 -Current Size (cm) - Width 3.5 -Current Size (cm) - Depth 0.1 -Total Square Cm 14.0 -Exudate Amt Large -Exudate Type Yellow/Green -Wound Margin Distinct, Outline Attached -Granulation Amt Large (67-100%) -Necrosis Amt Medium (34-66%) -Necrotic Tissue Type Adherent Slough -Texture (Radha-wound Skin Appearance) Assessed -Moisture (Radha-wound Skin Appearance) Assessed -Color (Radha-wound Skin Appearance) Assessed -Temperature (Radha-wound Skin No Abnormality Appearance) (Pt Warm) -Tenderness on Palpation (Radha-wound No Skin Appearance) -Ulcer Cleansing Soap and Water -Foul Odor after Cleansing No -Anesthetic Used 5% Lidocaine Gel Right Calf (cm) 39 Right Ankle (cm) 24 Left Calf (cm) 38.5 Left Ankle (cm) 26 WC - Nurse 2 - General Ulcer CM Notes Start: 08/19/25 16:11 Freq: Status: Active Protocol: Activity Type Activity Date Activity User E-sign Co-sign Detail Recorded Client Recorded Date Recorded By Document 08/19/25 16:24 [id number] 08/19/25 16:29 08/19/25 16:24 Wound Center Nurse 2 #1 LT POST LE -Time 16:25 -Correct Patient Yes -Correct Side, Site, Position Yes -Correct Procedure Yes -Procedure Performed Yes -Type of Procedure Debridement -Clinical Debridement Subcutaneous -Tissue Removed Subcutaneous -Post Debridement (cm) - Length 5.5 -Post Debridement (cm) - Width 2.0 -Post Debridement (cm) - Depth 0.1 -Total Square (Post) (cm) 11.00 -Area of Debridement (cm) - Length 5.5 -Area of Debridement (cm) - Width 2.0 -Total Square (Area) (cm) 11.00 -Tunneling No -Undermining/Tunneling No -Circular Undermining No -Wound/Ulcer Outcome Not Healed -Ulcer Cleansing Rinsed/ Irrigated with Saline -Foul Odor after Cleansing No -Bioengineered Tissue No -Bleeding Controlled with Pressure -Treatment Response Procedure Tolerated Well -Offloading No -Debridement - Subq, 1st 20sq cm Yes Pain Scale: 0-10 Numeric Is Patient Pain Free? Yes WC - Nurse 3 - General Ulcer D/C NN Start: 08/19/25 16:11 Freq: Status: Active Protocol: Activity Type Activity Date Activity User E-sign Co-sign Detail Recorded Client Recorded Date Recorded By Document 08/19/25 16:33 DS [id number] 08/19/25 16:34 DS 08/19/25 16:33 Wound Care Center Nurse 3 #1 LT POST LE -Primary Dressing Applied Aquacel Extra, Silicone Border Foam 6x6 -Other Dressing antibiotic ointment -Aquacel Extra 1 -Silicone Border Foam 6x6 1 LLE -Tubular Bandage Single Layer -Size of Tubigrip Used Size E -Size E ($) 1 Pain Scale: 0-10 Numeric Is Patient Pain Free? Yes WC - Visit Discharge Discharge Condition Stable Ambulatory Status Ambulatory Transportation Private Auto Assessment/Plan Assessment/Plan (1) Ulcer of left calf with fat layer exposed: CODE(S): L97.222 - Non-pressure chronic ulcer of left calf with fat layer exposed (2) Type 2 diabetes mellitus: CODE(S): E11.9 - Type 2 diabetes mellitus without complications (3) Bilateral lower extremity edema: CODE(S): R60.0 - Localized edema PLAN: Plan No signs/symptoms of infection on exam today. Her wound continues to improve in size. This new erythematous patch on her L anterolateral nelson may be consistent with tinea/fungal infection which she is prone to. She is instructed to apply clotrimazole cream twice daily for a period of 2 weeks and continue to monitor. For wound care: (1) Cleanse the area of the wound with antibacterial soap and water (2) Apply gentamicin ointment (3) Apply Aquacel (4) Cover with gauze followed by [place]-SAP (5) Apply Tubigrips for compression (6) Change twice daily, more often as needed to keep clean and dry. She is encouraged to continue with leg elevation at all times of rest and to optimize glycemic control. Return to the clinic in 1 week, sooner as needed.
[2025-08-26 15:29] VITALS: BP 141/92; PULSE 92; RESP 18; TEMP 36.1
--- NOTE | 2025-08-26 17:49 | PN.PCM_ITS ---
History of Present Illness Date of Service: 08/26/25 Chief Complaint: Left posterior calf wound History of Wound: Josy Smith is a 70-year-old female who was initially referred and seen in August 2024 for evaluation and management of a left posterior calf wound as referred by her primary care Dr. Vazquze. The ulceration has been present since the end of May 2024. She reports that around that time her AC had gone out in her house and was out for several weeks so her house was very warm and she noticed significantly increased lower extremity edema. Eventually, a blister formed on her posterior calf and after rupturing left behind this ulceration. She does have significant bilateral lower extremity edema at baseline and this has been ongoing for several years. She is diabetic, last A1c was 7.7. She does not smoke. She denies any history of VTE. She did not wear compression previously. Subjective Subjective Josy returns this week as she had concerns over the newer skin irritation/redness inferior to her wound; earlier this week she felt it was enlarging though she admits it does look better today. She is also worried that her wound looks a bit bigger again; she has been using the gentamicin ointment still. Objective Data Objective Data Vital Signs: Vital Signs Temp Pulse Resp BP 97 F L 92 18 141/92 H 08/26/25 15:29 08/26/25 15:29 08/26/25 15:29 08/26/25 15:29 Charges/Coding Procedures Integumentary 111xxx-113xx: [id number] Connie subq tissue 20 sq cm/< Physical Exam Const alert, oriented x3 and no apparent distress General Appearance: cooperative and anxious HEENT normocephalic, head/scalp atraumatic, hearing grossly normal bilaterally, external ears normal and external nose normal Eyes EOMs intact bilaterally General Eye: normal appearance of both eyes Neck General: normal visual inspection and trachea midline Resp normal respiratory effort Effort and Inspection: able to speak in complete sentences Extremity Extremity Narrative: Bilateral lower extremity pitting edema, trace right leg and trace left leg. Skin Wounds: wounds noted Wound Narrative: Posterior left calf ulceration cluster with pink wound base with moderate slough, there is an enlarging island of healed skin centrally which has been steadily expanding outward. No foul odor, excess drainage, erythema. Inferomedial to the ulceration there is an erythematous patch with overlying skin peeling/roughness without excess warmth, drainage, crusting, foul odor. No wound. Neuro oriented x3, CN's II-XII intact bilaterally and moves all extremities Speech: speech normal Psych mental status grossly normal Appearance: grossly normal Attitude: engaged Speech: normal speech Mood & Affect: euthymic mood Judgement: judgement good Debridement Note Debridement Note Wound debrided: L posterior calf Laterality: Left Type of Debridement: Excisional debridement Anesthesia Used: 4% Lidocaine Solution Depth: Down to and including healthy tissue and in the subcutaneous layer Percentage of wound debrided: 100 Instrument Used: 5mm curette Tissue Removed: slough Severity: Fat Layer Exposed Amount of bleeding with debridement: Mild Bleeding Controlled with: Pressure Patient tolerated procedure: Patient tolerated procedure well Post-Debridement Measurements and Additional Note: Post-Debridement Measurements/Treatment - Nurse 1 - General Ulcer Assessment Start: 08/19/25 16:11 Freq: Status: Active Protocol: WC.[place] Activity Type Activity Date Activity User E-sign Co-sign Detail Recorded Client Recorded Date Recorded By Document 08/19/25 16:11 ML [id number] 08/19/25 16:14 ML Document 08/26/25 15:29 MT [id number] 08/26/25 15:35 WA 08/19/25 08/26/25 16:11 15:29 - Today's Visit Information Type of service Follow-up Visit Follow-up Visit (Physician/INSTRUMENT MAKER APPRENTICE (Physician/INSTRUMENT MAKER APPRENTICE ) ) Arrival Mode Ambulatory Ambulatory Transfer Assistance None Manual,None Patient Identification Verified (Name & Yes Yes ) Patient Requires Transmission-Based No No Precautions Vital Signs Temperature (97.8 F-99.1 F) 97.9 F 97 F L Temperature Source Temporal Temporal Pulse Rate (60-100) 94 92 Pulse Location Monitor Monitor Respiratory Rate (12-18) 14 18 Respiratory rate source Observation Observation Blood Pressure (90/60-120/80) 143/81 H 141/92 H Blood Pressure Mean (mm Hg) 101 108 Source Manual Monitor Position Sitting Sitting Blood Pressure Location Left Arm Right Arm History Since Last Visit- (Skip if this is Patient's initial visit) Have you changed medications since your No No last visit? Any new allergies or adverse reactions No No Had a fall/change in ADL's that may No No increase risk of falls Signs or symptoms of abuse and/or No No neglect since last visit Have you been in the hospital since your No No last visit? Has dressing in place as prescribed No Yes Has compression in place as prescribed Yes Yes Has offloadiing in place as prescribed N/A N/A Experienced any changes in pain level or No No management Left Footwear Regular Shoe Right Footwear Regular Shoe Pain Scale: 0-10 Numeric Is Patient Pain Free? Yes No LLE -Description Aching -Intensity 4 -Duration (hours) Acute -Pain Behavior Guarding, Irritability -Pain Aggravating Factors ADL's -Alleviating Factors/Interventions None WC - Nurse 1 - General Ulcer Measurement Start: 08/19/25 16:11 Freq: Status: Active Protocol: Activity Type Activity Date Activity User E-sign Co-sign Detail Recorded Client Recorded Date Recorded By Document 08/19/25 16:11 ML [id number] 08/19/25 16:14 ML Document 08/26/25 15:29 MT [id number] 08/26/25 15:35 MT 08/19/25 08/26/25 16:11 15:29 Wound Center Nurse 1 #1 LT POST LE -Combined with other wound No -Current Size (cm) - Length 4 2 -Current Size (cm) - Width 3.5 6 -Current Size (cm) - Depth 0.1 0.1 -Total Square Cm 14.0 12 -Photo Taken Yes -Tunneling No -Undermining/Tunneling No -Circular Undermining No -Exudate Amt Large Medium -Exudate Type Yellow/Green Serosanguineous -Wound Margin Distinct, Distinct, Outline Outline Attached Attached -Granulation Amt Large (67-100%) Medium (34-66%) -Granulation Quality [place] -Slough/Fibrin Yes -Necrosis Amt Medium (34-66%) Medium (34-66%) -Necrotic Tissue Type Adherent Slough Adherent Slough -Structure Exposed N/A -Texture (Radha-wound Skin Appearance) Assessed Assessed -Moisture (Radha-wound Skin Appearance) Assessed Assessed -Color (Radha-wound Skin Appearance) Assessed Erythema -Temperature (Radha-wound Skin No Abnormality No Abnormality Appearance) (Pt Warm) (Pt Warm) -Tenderness on Palpation (Radha-wound No No Skin Appearance) -Ulcer Cleansing Soap and Water Wound Cleanser -Foul Odor after Cleansing No No -Anesthetic Used 5% Lidocaine 5% Lidocaine Gel Gel Lower Limb Edema Present Yes Right Calf (cm) 39 Right Ankle (cm) 24 Left Calf (cm) 38.5 39 Left Ankle (cm) 26 27.5 - Nurse 2 - General Ulcer CM Notes Start: 08/19/25 16:11 Freq: Status: Active Protocol: Activity Type Activity Date Activity User E-sign Co-sign Detail Recorded Client Recorded Date Recorded By Document 08/19/25 16:24 GM [id number] 08/19/25 16:29 GM Document 08/26/25 15:51 GM [id number] 08/26/25 15:52 GM 08/19/25 08/26/25 16:24 15:51 Wound Center Nurse 2 #1 LT POST LE -Time 16: 15:51 -Correct Patient Yes Yes -Correct Side, Site, Position Yes Yes -Correct Procedure Yes Yes -Procedure Performed Yes Yes -Type of Procedure Debridement Debridement -Clinical Debridement Subcutaneous Subcutaneous -Tissue Removed Subcutaneous Subcutaneous -Post Debridement (cm) - Length 5.5 2.1 -Post Debridement (cm) - Width 2.0 5.9 -Post Debridement (cm) - Depth 0.1 5.9 -Total Square (Post) (cm) 11.00 12.39 -Area of Debridement (cm) - Length 5.5 2.1 -Area of Debridement (cm) - Width 2.0 5.9 -Total Square (Area) (cm) 11.00 12.39 -Tunneling No No -Undermining/Tunneling No No -Circular Undermining No No -Wound/Ulcer Outcome Not Healed Not Healed -Ulcer Cleansing Rinsed/ Rinsed/ Irrigated with Irrigated with Saline Saline -Foul Odor after Cleansing No No -Bioengineered Tissue No No -Bleeding Controlled with Pressure Pressure -Treatment Response Procedure Procedure Tolerated Well Tolerated Well -Offloading No No -Debridement - Subq, 1st 20sq cm Yes Yes Pain Scale: 0-10 Numeric Is Patient Pain Free? Yes Yes - Nurse 3 - General Ulcer D/C NN Start: 08/19/25 16:11 Freq: Status: Active Protocol: Activity Type Activity Date Activity User E-sign Co-sign Detail Recorded Client Recorded Date Recorded By Document 08/19/25 16:33 DS [id number] 08/19/25 16:34 DS Document 08/26/25 16:02 RB [id number] 08/26/25 16:04 RB 08/19/25 08/26/25 16:33 16:02 Wound Care Center Nurse 3 #1 LT POST LE -Ulcer Cleansing Rinsed/ Irrigated with Saline -Primary Dressing Applied Aquacel Extra, Aquacel Extra, Silicone Border Silicone Border Foam 6x6 Foam 4x4 -Other Dressing antibiotic ointment -Primary Dressing Covered/Secured with Dry Gauze -Aquacel Extra 1 1 -Silicone Border Foam 4x4 1 -Silicone Border Foam 6x6 1 LLE -Tubular Bandage Single Layer Single Layer -Size of Tubigrip Used Size E Size E -Size E ($) 1 1 Treatment Response Procedure Tolerated Well Pain Scale: 0-10 Numeric Is Patient Pain Free? Yes Yes WC - Visit Discharge Discharge Condition Stable Stable Ambulatory Status Ambulatory Ambulatory Transportation Private Auto Private Auto Medication Reconcilliation completed & No provided to patient/care provider Clinical Summary of Care Provided Yes Assessment/Plan Assessment/Plan (1) Ulcer of left calf with fat layer exposed: CODE(S): L97.222 - Non-pressure chronic ulcer of left calf with fat layer exposed (2) Type 2 diabetes mellitus: CODE(S): E11.9 - Type 2 diabetes mellitus without complications (3) Bilateral lower extremity edema: CODE(S): R60.0 - Localized edema PLAN: Plan No signs/symptoms of infection on exam today. Her wound continues to improve in size. This new erythematous patch on her L anterolateral nelson may be consistent with tinea/fungal infection which she is prone to. She has not seen much benefit with clotrimazole cream alone though only used a couple days; will switch to lotrisone and see if this offers improvement. Will stop gentamicin as she has completed >4 weeks of this, no recurrent signs of infection, and perhaps the ointment is increasing maceration. For wound care: (1) Cleanse the area of the wound with antibacterial soap and water (2) Apply Aquacel (4) Cover with gauze followed by [place]-SAP (5) Apply Tubigrips for compression (6) Change twice daily, more often as needed to keep clean and dry. She is encouraged to continue with leg elevation at all times of rest and to optimize glycemic control. Return to the clinic in 1 week, sooner as needed.
--- NOTE | 2025-08-27 10:41 | WC ---
PHOTO-LEFT LEG 08/26/25
[2025-09-02 15:38] VITALS: BP 137/95; PULSE 104; RESP 18; TEMP 35.9
--- NOTE | 2025-09-02 16:41 | PCM.WC.PN ---
History of Present Illness Date of Service: 09/02/25 Chief Complaint: Left posterior calf wound History of Wound: Josy Smith is a 70-year-old female who was initially referred and seen in August 2024 for evaluation and management of a left posterior calf wound as referred by her primary care Dr. Vazquez. The ulceration has been present since the end of May 2024. She reports that around that time her AC had gone out in her house and was out for several weeks so her house was very warm and she noticed significantly increased lower extremity edema. Eventually, a blister formed on her posterior calf and after rupturing left behind this ulceration. She does have significant bilateral lower extremity edema at baseline and this has been ongoing for several years. She is diabetic, last A1c was 7.7. She does not smoke. She denies any history of VTE. She did not wear compression previously. Subjective Subjective Josy has been doing well this past week. No new concerns. Objective Data Objective Data Vital Signs: Vital Signs Temp Pulse Resp BP 96.7 F L 104 H 18 137/95 H 09/02/25 15:38 09/02/25 15:38 09/02/25 15:38 09/02/25 15:38 Charges/Coding Procedures Integumentary [id number]: [id number] Connie subq tissue 20 sq cm/< Physical Exam Const alert, oriented x3 and no apparent distress General Appearance: cooperative and anxious HEENT normocephalic, head/scalp atraumatic, hearing grossly normal bilaterally, external ears normal and external nose normal Eyes EOMs intact bilaterally General Eye: normal appearance of both eyes Neck General: normal visual inspection and trachea midline Resp normal respiratory effort Effort and Inspection: able to speak in complete sentences Extremity Extremity Narrative: Bilateral lower extremity pitting edema, trace right leg and trace left leg. Skin Wounds: wounds noted Wound Narrative: Posterior left calf ulceration cluster with pink wound base with moderate slough, there is an enlarging island of healed skin centrally which has been steadily expanding outward. No foul odor, excess drainage, erythema. Inferomedial to the ulceration there is an erythematous patch with overlying skin peeling/roughness; improved in appearance. Neuro oriented x3, CN's II-XII intact bilaterally and moves all extremities Speech: speech normal Psych mental status grossly normal Appearance: grossly normal Attitude: engaged Speech: normal speech Mood & Affect: euthymic mood Judgement: judgement good Debridement Note Debridement Note Wound debrided: L posterior calf Laterality: Left Type of Debridement: Excisional debridement Anesthesia Used: 4% Lidocaine Solution Depth: Down to and including healthy tissue and in the subcutaneous layer Percentage of wound debrided: 100 Instrument Used: 3mm curette Tissue Removed: slough Severity: Fat Layer Exposed Amount of bleeding with debridement: Mild Bleeding Controlled with: Pressure Patient tolerated procedure: Patient tolerated procedure well Post-Debridement Measurements and Additional Note: Post-Debridement Measurements/Treatment - Nurse 1 - General Ulcer Assessment Start: 08/19/25 16:11 Freq: Status: Active Protocol: [email or web address] Activity Type Activity Date Activity User E-sign Co-sign Detail Recorded Client Recorded Date Recorded By Document 08/19/25 16:11 ML [id number] 08/19/25 16:14 ML Document 08/26/25 15:29 MT [id number] 08/26/25 15:35 MT Document 09/02/25 15:38 RB [id number] 09/02/25 15:41 RB 08/19/25 08/26/25 09/02/25 16:11 15:29 15:38 - Today's Visit Information Type of service Follow-up Visit Follow-up Visit Follow-up Visit (Physician/LEAD GAME DESIGNER (Physician/LEAD GAME DESIGNER (Physician/LEAD GAME DESIGNER ) ) ) Arrival Mode Ambulatory Ambulatory Ambulatory Transfer Assistance None Manual,None None Patient Identification Verified (Name & Yes Yes Yes ) Patient Requires Transmission-Based No No No Precautions Vital Signs Temperature (97.8 F-99.1 F) 97.9 F 97 F L 96.7 F L Temperature Source Temporal Temporal Temporal Pulse Rate (60-100) 94 92 104 H Pulse Location Monitor Monitor Monitor Respiratory Rate (12-18) 14 18 18 Respiratory rate source Observation Observation Observation Blood Pressure (90/60-120/80) 143/81 H 141/92 H 137/95 H Blood Pressure Mean (mm Hg) 101 108 109 Source Manual Monitor Monitor Position Sitting Sitting Sitting Blood Pressure Location Left Arm Right Arm Left Arm History Since Last Visit- (Skip if this is Patient's initial visit) Have you changed medications since your No No No last visit? Any new allergies or adverse reactions No No No Had a fall/change in ADL's that may No No No increase risk of falls Signs or symptoms of abuse and/or No No No neglect since last visit Have you been in the hospital since your No No No last visit? Has dressing in place as prescribed No Yes Yes Has compression in place as prescribed Yes Yes Yes Has offloadiing in place as prescribed N/A N/A N/A Experienced any changes in pain level or No No No management Left Footwear Regular Shoe Regular Shoe Right Footwear Regular Shoe Regular Shoe Pain Scale: 0-10 Numeric Is Patient Pain Free? Yes No No LLE -Description Aching Aching -Intensity 4 1 -Duration (hours) Acute Acute -Pain Behavior Guarding, Withdrawal from Irritability Touch -Pain Aggravating Factors ADL's Exercise/ Activity, Debridement -Alleviating Factors/Interventions None None WC - Nurse 1 - General Ulcer Measurement Start: 08/19/25 16:11 Freq: Status: Active Protocol: Activity Type Activity Date Activity User E-sign Co-sign Detail Recorded Client Recorded Date Recorded By Document 08/19/25 16:11 ML [id number] 08/19/25 16:14 ML Document 08/26/25 15:29 MT [id number] 08/26/25 15:35 MT Document 09/02/25 15:38 RB [id number] 09/02/25 15:41 RB 08/19/25 08/26/25 09/02/25 16:11 15:29 15:38 Wound Center Nurse 1 #1 LT POST LE -Combined with other wound No No -Current Size (cm) - Length 4 2 2.3 -Current Size (cm) - Width 3.5 6 5.5 -Current Size (cm) - Depth 0.1 0.1 0.1 -Total Square Cm 14.0 12 12.65 -Photo Taken Yes Yes -Tunneling No No -Undermining/Tunneling No No -Circular Undermining No No -Exudate Amt Large Medium Medium -Exudate Type Yellow/Green Serosanguineous Serosanguineous -Wound Margin Distinct, Distinct, Distinct, Outline Outline Outline Attached Attached Attached -Granulation Amt Large (67-100%) Medium (34-66%) Small (1-33%) -Granulation Quality [place] -Slough/Fibrin Yes Yes -Necrosis Amt Medium (34-66%) Medium (34-66%) Large (67-100%) -Necrotic Tissue Type Adherent Slough Adherent Slough Adherent Slough -Structure Exposed N/A N/A -Texture (Radha-wound Skin Appearance) Assessed Assessed Assessed -Moisture (Radha-wound Skin Appearance) Assessed Assessed Assessed -Color (Radha-wound Skin Appearance) Assessed Erythema Erythema -Temperature (Radha-wound Skin No Abnormality No Abnormality No Abnormality Appearance) (Pt Warm) (Pt Warm) (Pt Warm) -Tenderness on Palpation (Radha-wound No No No Skin Appearance) -Ulcer Cleansing Soap and Water Wound Cleanser Wound Cleanser -Foul Odor after Cleansing No No No -Anesthetic Used 5% Lidocaine 5% Lidocaine 5% Lidocaine Gel Gel Gel Lower Limb Edema Present Yes Yes Right Calf (cm) 39 Right Ankle (cm) 24 Left Calf (cm) 38.5 39 41 Left Ankle (cm) 26 27.5 28.2 WC - Nurse 2 - General Ulcer CM Notes Start: 08/19/25 16:11 Freq: Status: Active Protocol: Activity Type Activity Date Activity User E-sign Co-sign Detail Recorded Client Recorded Date Recorded By Document 08/19/25 16:24 [id number] 08/19/25 16:29 Document 08/26/25 15:51 [id number] 08/26/25 15:52 Document 09/02/25 16:02 [id number] 09/02/25 16:04 08/19/25 08/26/25 09/02/25 16:24 15:51 16:02 Wound Center Nurse 2 #1 LT POST LE -Time 16:25 15:51 16:02 -Correct Patient Yes Yes Yes -Correct Side, Site, Position Yes Yes Yes -Correct Procedure Yes Yes Yes -Procedure Performed Yes Yes Yes -Type of Procedure Debridement Debridement Debridement -Clinical Debridement Subcutaneous Subcutaneous Subcutaneous -Tissue Removed Subcutaneous Subcutaneous Subcutaneous -Post Debridement (cm) - Length 5.5 2.1 2.0 -Post Debridement (cm) - Width 2.0 5.9 5.6 -Post Debridement (cm) - Depth 0.1 5.9 0.1 -Total Square (Post) (cm) 11.00 12.39 11.20 -Area of Debridement (cm) - Length 5.5 2.1 2.0 -Area of Debridement (cm) - Width 2.0 5.9 5.6 -Total Square (Area) (cm) 11.00 12.39 11.20 -Tunneling No No No -Undermining/Tunneling No No No -Circular Undermining No No No -Wound/Ulcer Outcome Not Healed Not Healed Not Healed -Ulcer Cleansing Rinsed/ Rinsed/ Rinsed/ Irrigated with Irrigated with Irrigated with Saline Saline Saline -Foul Odor after Cleansing No No No -Bioengineered Tissue No No No -Bleeding Controlled with Pressure Pressure Pressure -Treatment Response Procedure Procedure Procedure Tolerated Well Tolerated Well Tolerated Well -Offloading No No No -Debridement - Subq, 1st 20sq cm Yes Yes Yes Pain Scale: 0-10 Numeric Is Patient Pain Free? Yes Yes Yes - Nurse 3 - General Ulcer D/C NN Start: 08/19/25 16:11 Freq: Status: Active Protocol: Activity Type Activity Date Activity User E-sign Co-sign Detail Recorded Client Recorded Date Recorded By Document 08/19/25 16:33 DS [id number] 08/19/25 16:34 DS Document 08/26/25 16:02 RB [id number] 08/26/25 16:04 RB Document 09/02/25 16:13 GM [id number] 09/02/25 16:13 08/19/25 08/26/25 09/02/25 16:33 16:02 16:13 Wound Care Center Nurse 3 #1 LT POST LE -Ulcer Cleansing Rinsed/ Not Cleansed Irrigated with Saline -Foul Odor after Cleansing No -Primary Dressing Applied Aquacel Extra, Aquacel Extra, Aquacel Extra, Silicone Border Silicone Border Optilok 5x5 1/2 Foam 6x6 Foam 4x4 -Other Dressing antibiotic ointment -Primary Dressing Covered/Secured with Dry Gauze -Aquacel Extra 1 1 1 -Optilok 5x5 1/2 1 -Silicone Border Foam 4x4 1 -Silicone Border Foam 6x6 1 LLE -Tubular Bandage Single Layer Single Layer Single Layer -Size of Tubigrip Used Size E Size E Size D -Size D ($) 1 -Size E ($) 1 1 Treatment Response Procedure Tolerated Well Pain Scale: 0-10 Numeric Is Patient Pain Free? Yes Yes Yes - Visit Discharge Discharge Condition Stable Stable Stable Ambulatory Status Ambulatory Ambulatory Ambulatory Transportation Private Auto Private Auto Private Auto Medication Reconcilliation completed & No provided to patient/care provider Clinical Summary of Care Provided Yes Assessment/Plan Assessment/Plan (1) Ulcer of left calf with fat layer exposed: CODE(S): L97.222 - Non-pressure chronic ulcer of left calf with fat layer exposed (2) Type 2 diabetes mellitus: CODE(S): E11.9 - Type 2 diabetes mellitus without complications (3) Bilateral lower extremity edema: CODE(S): R60.0 - Localized edema PLAN: Plan No signs/symptoms of infection on exam today. Her wound continues to improve in size. For wound care: (1) Cleanse the area of the wound with antibacterial soap and water (2) Apply Aquacel (4) Cover with gauze followed by Keyes-SAP (5) Apply Tubigrips for compression (6) Change twice daily, more often as needed to keep clean and dry. She is encouraged to continue with leg elevation at all times of rest and to optimize glycemic control. Return to the clinic in 2 weeks, sooner as needed.
--- NOTE | 2025-09-03 10:36 | WC ---
PHOTO-LLE POST 09/02/25
[2025-09-16 15:20] VITALS: BP 186/92; PULSE 100; RESP 17; TEMP 36.2
--- NOTE | 2025-09-16 19:46 | PCM.WC.PN ---
History of Present Illness Date of Service: 09/16/25 Chief Complaint: Left posterior calf wound History of Wound: Josy Smith is a 70-year-old female who was initially referred and seen in August 2024 for evaluation and management of a left posterior calf wound as referred by her primary care Dr. Vazquez. The ulceration has been present since the end of May 2024. She reports that around that time her AC had gone out in her house and was out for several weeks so her house was very warm and she noticed significantly increased lower extremity edema. Eventually, a blister formed on her posterior calf and after rupturing left behind this ulceration. She does have significant bilateral lower extremity edema at baseline and this has been ongoing for several years. She is diabetic, last A1c was 7.7. She does not smoke. She denies any history of VTE. She did not wear compression previously. Subjective Subjective Josy is doing well this week overall. Wound care progress has stalled a bit. Objective Data Objective Data Vital Signs: Vital Signs Temp Pulse Resp BP 97.1 F L 100 17 186/92 H 09/16/25 15:20 09/16/25 15:20 09/16/25 15:20 09/16/25 15:20 Charges/Coding Procedures Integumentary [id number]: [id number] Connie subq tissue 20 sq cm/< (selective debridement) Physical Exam Const alert, oriented x3 and no apparent distress General Appearance: cooperative and anxious HEENT normocephalic, head/scalp atraumatic, hearing grossly normal bilaterally, external ears normal and external nose normal Eyes EOMs intact bilaterally General Eye: normal appearance of both eyes Neck General: normal visual inspection and trachea midline Resp normal respiratory effort Effort and Inspection: able to speak in complete sentences Extremity Extremity Narrative: Bilateral lower extremity pitting edema, trace right leg and trace left leg. Skin Wounds: wounds noted Wound Narrative: Posterior left calf ulceration cluster with pink wound base with moderate slough, there is an enlarging island of healed skin centrally which has been steadily expanding outward. No foul odor, excess drainage, erythema. Inferomedial to the ulceration there is an erythematous patch with overlying skin peeling/roughness; improved in appearance. Neuro oriented x3, CN's II-XII intact bilaterally and moves all extremities Speech: speech normal Psych mental status grossly normal Appearance: grossly normal Attitude: engaged Speech: normal speech Mood & Affect: euthymic mood Judgement: judgement good Debridement Note Debridement Note Wound debrided: L posterior calf Laterality: Left Type of Debridement: Selective debridement Anesthesia Used: 4% Lidocaine Solution Depth: Down to and including healthy tissue Percentage of wound debrided: 60 Instrument Used: - (moistened gauze) Tissue Removed: slough Severity: Fat Layer Exposed Amount of bleeding with debridement: Mild Bleeding Controlled with: Pressure Patient tolerated procedure: Patient tolerated procedure well Post-Debridement Measurements and Additional Note: Post-Debridement Measurements/Treatment - Nurse 1 - General Ulcer Assessment Start: 08/19/25 16:11 Freq: Status: Active Protocol: CAMILLA Activity Type Activity Date Activity User E-sign Co-sign Detail Recorded Client Recorded Date Recorded By Document 08/19/25 16:11 ML [id number] 08/19/25 16:14 ML Document 08/26/25 15:29 MT [id number] 08/26/25 15:35 MT Document 09/02/25 15:38 RB [id number] 09/02/25 15:41 RB Document 09/16/25 15:20 TS [id number] 09/16/25 15:29 TS 08/19/25 08/26/25 09/02/25 16:11 15:29 15:38 - Today's Visit Information Type of service Follow-up Visit Follow-up Visit Follow-up Visit (Physician/PUBLIC INFORMATION OFFICER (Physician/PUBLIC INFORMATION OFFICER (Physician/PUBLIC INFORMATION OFFICER ) ) ) Arrival Mode Ambulatory Ambulatory Ambulatory Transfer Assistance None Manual,None None Patient Identification Verified (Name & Yes Yes Yes ) Patient Requires Transmission-Based No No No Precautions Safety Precautions Vital Signs Temperature (97.8 F-99.1 F) 97.9 F 97 F L 96.7 F L Temperature Source Temporal Temporal Temporal Pulse Rate (60-100) 94 92 104 H Pulse Location Monitor Monitor Monitor Respiratory Rate (12-18) 14 18 18 Respiratory rate source Observation Observation Observation Blood Pressure (90/60-120/80) 143/81 H 141/92 H 137/95 H Blood Pressure Mean (mm Hg) 101 108 109 Source Manual Monitor Monitor Position Sitting Sitting Sitting Blood Pressure Location Left Arm Right Arm Left Arm History Since Last Visit- (Skip if this is Patient's initial visit) Have you changed medications since your No No No last visit? Any new allergies or adverse reactions No No No Had a fall/change in ADL's that may No No No increase risk of falls Signs or symptoms of abuse and/or No No No neglect since last visit Have you been in the hospital since your No No No last visit? Has dressing in place as prescribed No Yes Yes Has compression in place as prescribed Yes Yes Yes Has offloadiing in place as prescribed N/A N/A N/A Experienced any changes in pain level or No No No management Left Footwear Regular Shoe Regular Shoe Right Footwear Regular Shoe Regular Shoe Pain Scale: 0-10 Numeric Is Patient Pain Free? Yes No No LLE -Description Aching Aching -Intensity 4 1 -Duration (hours) Acute Acute -Pain Behavior Guarding, Withdrawal from Irritability Touch -Pain Aggravating Factors ADL's Exercise/ Activity, Debridement -Alleviating Factors/Interventions None None 09/16/25 15:20 WC - Today's Visit Information Type of service Follow-up Visit (Physician/PUBLIC INFORMATION OFFICER ) Arrival Mode Ambulatory Transfer Assistance Patient Identification Verified (Name & No ) Patient Requires Transmission-Based Yes Precautions Safety Precautions Fall Prevention Vital Signs Temperature (97.8 F-99.1 F) 97.1 F L Temperature Source Temporal Pulse Rate (60-100) 100 Pulse Location Monitor Respiratory Rate (12-18) 17 Respiratory rate source Observation Blood Pressure (90/60-120/80) 186/92 H Blood Pressure Mean (mm Hg) 123 Source Monitor Position Sitting Blood Pressure Location Right Arm History Since Last Visit- (Skip if this is Patient's initial visit) Have you changed medications since your No last visit? Any new allergies or adverse reactions No Had a fall/change in ADL's that may No increase risk of falls Signs or symptoms of abuse and/or No neglect since last visit Have you been in the hospital since your No last visit? Has dressing in place as prescribed Yes Has compression in place as prescribed Yes Has offloadiing in place as prescribed N/A Experienced any changes in pain level or No management Left Footwear Regular Shoe Right Footwear Regular Shoe Pain Scale: 0-10 Numeric Is Patient Pain Free? Yes LLE -Description -Intensity -Duration (hours) -Pain Behavior -Pain Aggravating Factors -Alleviating Factors/Interventions WC - Nurse 1 - General Ulcer Measurement Start: 08/19/25 16:11 Freq: Status: Active Protocol: Activity Type Activity Date Activity User E-sign Co-sign Detail Recorded Client Recorded Date Recorded By Document 08/19/25 16:11 ML [id number] 08/19/25 16:14 ML Document 08/26/25 15:29 MT [id number] 08/26/25 15:35 MT Document 09/02/25 15:38 RB [id number] 09/02/25 15:41 RB Document 09/16/25 15:20 TS [id number] 09/16/25 15:29 TS 08/19/25 08/26/25 09/02/25 16:11 15:29 15:38 Wound Center Nurse 1 #1 LT POST LE -Combined with other wound No No -Current Size (cm) - Length 4 2 2.3 -Current Size (cm) - Width 3.5 6 5.5 -Current Size (cm) - Depth 0.1 0.1 0.1 -Total Square Cm 14.0 12 12.65 -Date of Last Picture (Recall this field) -Photo Taken Yes Yes -Tunneling No No -Undermining/Tunneling No No -Circular Undermining No No -Exudate Amt Large Medium Medium -Exudate Type Yellow/Green Serosanguineous Serosanguineous -Wound Margin Distinct, Distinct, Distinct, Outline Outline Outline Attached Attached Attached -Granulation Amt Large (67-100%) Medium (34-66%) Small (1-33%) -Granulation Quality George George -Slough/Fibrin Yes Yes -Necrosis Amt Medium (34-66%) Medium (34-66%) Large (67-100%) -Necrotic Tissue Type Adherent Slough Adherent Slough Adherent Slough -Structure Exposed N/A N/A -Texture (Radha-wound Skin Appearance) Assessed Assessed Assessed -Moisture (Radha-wound Skin Appearance) Assessed Assessed Assessed -Color (Radha-wound Skin Appearance) Assessed Erythema Erythema -Temperature (Radha-wound Skin No Abnormality No Abnormality No Abnormality Appearance) (Pt Warm) (Pt Warm) (Pt Warm) -Tenderness on Palpation (Radha-wound No No No Skin Appearance) -Ulcer Cleansing Soap and Water Wound Cleanser Wound Cleanser -Foul Odor after Cleansing No No No -Anesthetic Used 5% Lidocaine 5% Lidocaine 5% Lidocaine Gel Gel Gel Lower Limb Edema Present Yes Yes Right Calf (cm) 39 Right Ankle (cm) 24 Left Calf (cm) 38.5 39 41 Point of measurement (cm from the medial instep) Left Ankle (cm) 26 27.5 28.2 Point of Measurement (cm from the medial instep) 09/16/25 15:20 Wound Center Nurse 1 #1 LT POST LE -Combined with other wound -Current Size (cm) - Length 3 -Current Size (cm) - Width 5.5 -Current Size (cm) - Depth 0.1 -Total Square Cm 16.5 -Date of Last Picture (Recall this 09/16/25 field) -Photo Taken Yes -Tunneling No -Undermining/Tunneling No -Circular Undermining No -Exudate Amt Medium -Exudate Type Yellow/Green -Wound Margin Distinct, Outline Attached -Granulation Amt Small (1-33%) -Granulation Quality -Slough/Fibrin Yes -Necrosis Amt -Necrotic Tissue Type Adherent Slough -Structure Exposed None/Limited to Skin Breakdown -Texture (Radha-wound Skin Appearance) Assessed -Moisture (Radha-wound Skin Appearance) Assessed, Maceration -Color (Radha-wound Skin Appearance) Assessed -Temperature (Radha-wound Skin No Abnormality Appearance) (Pt Warm) -Tenderness on Palpation (Radha-wound No Skin Appearance) -Ulcer Cleansing Soap and Water -Foul Odor after Cleansing No -Anesthetic Used 5% Lidocaine Gel Lower Limb Edema Present No Right Calf (cm) Right Ankle (cm) Left Calf (cm) Point of measurement (cm from the medial 34 instep) Left Ankle (cm) Point of Measurement (cm from the medial 23 instep) WC - Nurse 2 - General Ulcer CM Notes Start: 08/19/25 16:11 Freq: Status: Active Protocol: Activity Type Activity Date Activity User E-sign Co-sign Detail Recorded Client Recorded Date Recorded By Document 08/19/25 16:24 [id number] 08/19/25 16:29 Document 08/26/25 15:51 [id number] 08/26/25 15:52 GM Document 09/02/25 16:02 [id number] 09/02/25 16:04 GM Document 09/16/25 15:44 [id number] 09/16/25 15:47 GM 08/19/25 08/26/25 09/02/25 16:24 15:51 16:02 Wound Center Nurse 2 #1 LT POST LE -Time 16: 15:51 16:02 -Correct Patient Yes Yes Yes -Correct Side, Site, Position Yes Yes Yes -Correct Procedure Yes Yes Yes -Procedure Performed Yes Yes Yes -Type of Procedure Debridement Debridement Debridement -Clinical Debridement Subcutaneous Subcutaneous Subcutaneous -Tissue Removed Subcutaneous Subcutaneous Subcutaneous -Post Debridement (cm) - Length 5.5 2.1 2.0 -Post Debridement (cm) - Width 2.0 5.9 5.6 -Post Debridement (cm) - Depth 0.1 5.9 0.1 -Total Square (Post) (cm) 11.00 12.39 11.20 -Area of Debridement (cm) - Length 5.5 2.1 2.0 -Area of Debridement (cm) - Width 2.0 5.9 5.6 -Total Square (Area) (cm) 11.00 12.39 11.20 -Tunneling No No No -Undermining/Tunneling No No No -Circular Undermining No No No -Wound/Ulcer Outcome Not Healed Not Healed Not Healed -Ulcer Cleansing Rinsed/ Rinsed/ Rinsed/ Irrigated with Irrigated with Irrigated with Saline Saline Saline -Foul Odor after Cleansing No No No -Bioengineered Tissue No No No -Bleeding Controlled with Pressure Pressure Pressure -Treatment Response Procedure Procedure Procedure Tolerated Well Tolerated Well Tolerated Well -Offloading No No No -Debridement - Open, 1st 20sq cm -Debridement - Subq, 1st 20sq cm Yes Yes Yes Pain Scale: 0-10 Numeric Is Patient Pain Free? Yes Yes Yes 09/16/25 15:44 Wound Center Nurse 2 #1 LT POST LE -Time 15:46 -Correct Patient Yes -Correct Side, Site, Position Yes -Correct Procedure Yes -Procedure Performed Yes -Type of Procedure Debridement -Clinical Debridement Epidermis / Dermis -Tissue Removed Epidermis -Post Debridement (cm) - Length 1.6 -Post Debridement (cm) - Width 5.0 -Post Debridement (cm) - Depth 0.1 -Total Square (Post) (cm) 8.00 -Area of Debridement (cm) - Length -Area of Debridement (cm) - Width -Total Square (Area) (cm) -Tunneling No -Undermining/Tunneling No -Circular Undermining No -Wound/Ulcer Outcome Not Healed -Ulcer Cleansing Rinsed/ Irrigated with Saline -Foul Odor after Cleansing No -Bioengineered Tissue No -Bleeding Controlled with Pressure -Treatment Response Procedure Tolerated Well -Offloading No -Debridement - Open, 1st 20sq cm Yes -Debridement - Subq, 1st 20sq cm Pain Scale: 0-10 Numeric Is Patient Pain Free? Yes - Nurse 3 - General Ulcer D/C NN Start: 08/19/25 16:11 Freq: Status: Active Protocol: Activity Type Activity Date Activity User E-sign Co-sign Detail Recorded Client Recorded Date Recorded By Document 08/19/25 16:33 DS [id number] 08/19/25 16:34 DS Document 08/26/25 16:02 RB [id number] 08/26/25 16:04 RB Document 09/02/25 16:13 GM [id number] 09/02/25 16:13 GM Document 09/16/25 16:03 RB [id number] 09/16/25 16:04 RB 08/19/25 08/26/25 09/02/25 16:33 16:02 16:13 Wound Care Center Nurse 3 #1 LT POST LE -Ulcer Cleansing Rinsed/ Not Cleansed Irrigated with Saline -Foul Odor after Cleansing No -Primary Dressing Applied Aquacel Extra, Aquacel Extra, Aquacel Extra, Silicone Border Silicone Border Optilok 5x5 1/2 Foam 6x6 Foam 4x4 -Other Dressing antibiotic ointment -Primary Dressing Covered/Secured with Dry Gauze -Aquacel Extra 1 1 1 -Optilok 5x5 1/2 1 -Promogran Linda Matter -Silicone Border Foam 4x4 1 -Silicone Border Foam 6x6 1 LLE -Tubular Bandage Single Layer Single Layer Single Layer -Size of Tubigrip Used Size E Size E Size D -Size D ($) 1 -Size E ($) 1 1 Treatment Response Procedure Tolerated Well Pain Scale: 0-10 Numeric Is Patient Pain Free? Yes Yes Yes - Visit Discharge Discharge Condition Stable Stable Stable Ambulatory Status Ambulatory Ambulatory Ambulatory Transportation Private Auto Private Auto Private Auto Medication Reconcilliation completed & No provided to patient/care provider Clinical Summary of Care Provided Yes 09/16/25 16:03 Wound Care Center Nurse 3 #1 LT POST LE -Ulcer Cleansing Rinsed/ Irrigated with Saline -Foul Odor after Cleansing -Primary Dressing Applied Promogran Linda Matter, Silicone Border Foam 4x4 -Other Dressing -Primary Dressing Covered/Secured with -Aquacel Extra -Optilok 5x5 1/2 -Promogran Linda Matter 1 -Silicone Border Foam 4x4 1 -Silicone Border Foam 6x6 LLE -Tubular Bandage Single Layer -Size of Tubigrip Used Size E -Size D ($) -Size E ($) 1 Treatment Response Procedure Tolerated Well Pain Scale: 0-10 Numeric Is Patient Pain Free? Yes WC - Visit Discharge Discharge Condition Stable Ambulatory Status Ambulatory Transportation Private Auto Medication Reconcilliation completed & No provided to patient/care provider Clinical Summary of Care Provided Yes Assessment/Plan Assessment/Plan (1) Ulcer of left calf with fat layer exposed: CODE(S): L97.222 - Non-pressure chronic ulcer of left calf with fat layer exposed (2) Type 2 diabetes mellitus: CODE(S): E11.9 - Type 2 diabetes mellitus without complications (3) Bilateral lower extremity edema: CODE(S): R60.0 - Localized edema PLAN: Plan No signs/symptoms of infection on exam today. Wound healing progress has stalled a bit. For wound care: (1) Cleanse the area of the wound with antibacterial soap and water (2) Apply Linda (4) Cover with gauze followed by [facility] (5) Apply Tubigrips for compression (6) Change every other day or more often as needed to keep clean and dry. She is encouraged to continue with leg elevation at all times of rest and to optimize glycemic control. Return to the clinic in 2 weeks, sooner as needed.
--- NOTE | 2025-09-17 07:55 | WC ---
PHOTO-LEFT POST LEG 09/16/25
== END 2025-09-17 23:59 | disposition home or self-care (01) ==
LOC: WC 15:15
PROVIDERS: PCP Family Medicine; Referring Provider Family Medicine; Visit Provider Physician Assistant
DX: E11.622 Type 2 diabetes mellitus with other skin ulcer (principal); L97.222 Non-pressure chronic ulcer of left calf with fat layer exposed; R60.0 Localized edema
CPT/HCPCS: 11042; 97597

== ENCOUNTER → 2025-09-23 | Outpatient (CLI) | payer BC, SELFPAY ==
[2025-09-23 13:03] LABS: Hematocrit 41.9 % (37-47); Hemoglobin 14.1 g/dL (12.0-15.0); Immature Granulocytes Count 0.030 X10^3/uL (0.0-0.0); Mean Corp Hgb Conc 33.7 g/dL (32-36); Mean Corpuscular Volume 88.8 fL (81-99); Mean Platelet Vol. 11.3 fl (6.2-12.0); NRBC Flagged by Analyzer 0 % (0-5); Platelet Count 240 K/mm3 (150-450); RBC Distribution Width CV 13.0 % (11.6-14.6); RBC Distribution Width SD 42.5 fl (35.1-43.9); Red Blood Count 4.72 M/mm3 (4.2-5.4); White Blood Count 7.7 K/mm3 (4.4-11.0)
[2025-09-23 15:26] LABS: AST(SGOT) 25 U/L (<=31); Alanine Aminotransfer ALT/SGPT 41 U/L (<=34); Albumin, Serum 4.1 g/dL (3.4-4.8); Alkaline Phosphatase 75 U/L (35-104); Anion Gap 12 (5-15); BUN 16 mg/dL (4-19); BUN/Creat Ratio 21.2 RATIO (10-20); Calcium,Total 9.6 mg/dL (7.6-11.0); Carbon Dioxide 25.6 mmol/L (21.0-32.0); Chloride 100 mmol/L (98-108); Cholesterol 133 mg/dL (<=200); Globulin 3.0 g/dL (2.2-4.2); Glucose 145 mg/dL (70-99); Low Density Lipoprotein Calc. 66 mg/dL; Potassium 4.1 mmol/L (3.3-5.1); Triglycerides 132 mg/dL; Very Low Density Lipoprotein 26 mg/dL (5-40); cholesterol:hdl ratio screen 3.03
== END | disposition home or self-care (01) ==
LOC: MFPLAB 11:08
PROVIDERS: PCP Family Medicine; Visit Provider Family Medicine
DX: E11.59 Type 2 diabetes mellitus with other circulatory complications (principal)
CPT/HCPCS: 36415; 80053; 80061; 83036; 84443; 85025

== ENCOUNTER 2025-10-07 15:15 | Outpatient (RCR) | payer BC, SELFPAY ==
[2025-09-30 15:32] VITALS: BP 153/74; PULSE 106; RESP 18; TEMP 36.4
--- NOTE | 2025-09-30 17:37 | PCM.WC.PN ---
History of Present Illness Date of Service: 09/30/25 Chief Complaint: Left posterior calf wound History of Wound: Josy Smith is a 70-year-old female who was initially referred and seen in August 2024 for evaluation and management of a left posterior calf wound as referred by her primary care Dr. Vazquez. The ulceration has been present since the end of May 2024. She reports that around that time her AC had gone out in her house and was out for several weeks so her house was very warm and she noticed significantly increased lower extremity edema. Eventually, a blister formed on her posterior calf and after rupturing left behind this ulceration. She does have significant bilateral lower extremity edema at baseline and this has been ongoing for several years. She is diabetic, last A1c was 7.7. She does not smoke. She denies any history of VTE. She did not wear compression previously. Subjective Subjective Josy is doing well this week. She has no new concerns. She has been doing well with wound care as instructed. Objective Data Objective Data Vital Signs: Vital Signs Temp Pulse Resp BP O2 Del Method 97.6 F L 106 H 18 153/74 H Room Air 09/30/25 15:32 09/30/25 15:32 09/30/25 15:32 09/30/25 15:32 09/30/25 15:32 Oxygen Delivery Method Room Air Charges/Coding Procedures Integumentary [id number]: [id number] Connie subq tissue 20 sq cm/< Physical Exam Const alert, oriented x3 and no apparent distress General Appearance: cooperative and anxious HEENT normocephalic, head/scalp atraumatic, hearing grossly normal bilaterally, external ears normal and external nose normal Eyes EOMs intact bilaterally General Eye: normal appearance of both eyes Neck General: normal visual inspection and trachea midline Resp normal respiratory effort Effort and Inspection: able to speak in complete sentences Extremity Extremity Narrative: Bilateral lower extremity pitting edema, trace right leg and trace left leg. Skin Wounds: wounds noted Wound Narrative: Posterior left calf ulceration cluster with pink wound base with moderate slough, there is an enlarging island of healed skin centrally which has been steadily expanding outward. No foul odor, excess drainage, erythema. Inferomedial to the ulceration there is an erythematous patch with overlying skin peeling/roughness; improved in appearance. Neuro oriented x3, CN's II-XII intact bilaterally and moves all extremities Speech: speech normal Psych mental status grossly normal Appearance: grossly normal Attitude: engaged Speech: normal speech Mood & Affect: euthymic mood Judgement: judgement good Debridement Note Debridement Note Wound debrided: L posterior calf Laterality: Left Type of Debridement: Excisional debridement Anesthesia Used: 4% Lidocaine Solution Depth: Down to and including healthy tissue and in the subcutaneous layer Percentage of wound debrided: 100 Instrument Used: 3mm curette Tissue Removed: slough Severity: Fat Layer Exposed Amount of bleeding with debridement: Mild Bleeding Controlled with: Pressure Patient tolerated procedure: Patient tolerated procedure well Post-Debridement Measurements and Additional Note: Post-Debridement Measurements/Treatment WC - Nurse 1 - General Ulcer Assessment Start: 09/30/25 15:32 Freq: Status: Active Protocol: CAMILLA Activity Type Activity Date Activity User E-sign Co-sign Detail Recorded Client Recorded Date Recorded By Document 09/30/25 15:32 RB [id number] 09/30/25 15:34 RB 09/30/25 15:32 WC - Today's Visit Information 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 ) Arrival Mode Ambulatory Transfer Assistance None Patient Identification Verified (Name & Yes ) Patient Requires Transmission-Based No Precautions Vital Signs Temperature (97.8 F-99.1 F) 97.6 F L Temperature Source Temporal Pulse Rate (60-100) 106 H Pulse Location Monitor Respiratory Rate (12-18) 18 Respiratory rate source Observation Oxygen Delivery Method Room Air Blood Pressure (90/60-120/80) 153/74 H Blood Pressure Mean (mm Hg) 100 Source Monitor Position Sitting Blood Pressure Location Left Arm History Since Last Visit- (Skip if this is Patient's initial visit) Have you changed medications since your No last visit? Any new allergies or adverse reactions No Had a fall/change in ADL's that may No increase risk of falls Signs or symptoms of abuse and/or No neglect since last visit Have you been in the hospital since your No last visit? Has dressing in place as prescribed Yes Has compression in place as prescribed Yes Has offloadiing in place as prescribed N/A Experienced any changes in pain level or No management Pain Scale: 0-10 Numeric Is Patient Pain Free? Yes BIJAN - Nurse 1 - General Ulcer Measurement Start: 09/30/25 15:32 Freq: Status: Active Protocol: Activity Type Activity Date Activity User E-sign Co-sign Detail Recorded Client Recorded Date Recorded By Document 09/30/25 15:32 RB [id number] 09/30/25 15:34 RB 09/30/25 15:32 Wound Center Nurse 1 #1 LT POST LE -Combined with other wound No -Current Size (cm) - Length 2.7 -Current Size (cm) - Width 3.8 -Current Size (cm) - Depth 0.1 -Total Square Cm 10.26 -Date of Last Picture (Recall this 09/30/25 field) -Photo Taken Yes -Tunneling No -Undermining/Tunneling No -Circular Undermining No -Exudate Amt Medium -Exudate Type Serosanguineous -Wound Margin Indistinct, Non -Visible -Granulation Amt Medium (34-66%) -Granulation Quality [place],Red -Slough/Fibrin Yes -Necrosis Amt Medium (34-66%) -Necrotic Tissue Type Adherent Slough -Structure Exposed N/A -Texture (Radha-wound Skin Appearance) Assessed -Moisture (Radha-wound Skin Appearance) Maceration -Color (Radha-wound Skin Appearance) Assessed, Erythema -Temperature (Radha-wound Skin No Abnormality Appearance) (Pt Warm) -Tenderness on Palpation (Radha-wound No Skin Appearance) -Ulcer Cleansing Wound Cleanser -Foul Odor after Cleansing No -Anesthetic Used 5% Lidocaine Gel Lower Limb Edema Present Yes Left Calf (cm) 40 Left Ankle (cm) 27.7 WC - Nurse 2 - General Ulcer CM Notes Start: 09/30/25 15:32 Freq: Status: Active Protocol: Activity Type Activity Date Activity User E-sign Co-sign Detail Recorded Client Recorded Date Recorded By Document 09/30/25 15:46 [id number] 09/30/25 15:49 09/30/25 15:46 Wound Center Nurse 2 #1 LT POST LE -Time 15:46 -Correct Patient Yes -Correct Side, Site, Position Yes -Correct Procedure Yes -Procedure Performed Yes -Type of Procedure Debridement -Clinical Debridement Subcutaneous -Tissue Removed Subcutaneous -Post Debridement (cm) - Length 1.5 -Post Debridement (cm) - Width 5.2 -Post Debridement (cm) - Depth 0.1 -Total Square (Post) (cm) 7.80 -Area of Debridement (cm) - Length 1.5 -Area of Debridement (cm) - Width 5.2 -Total Square (Area) (cm) 7.80 -Tunneling No -Undermining/Tunneling No -Circular Undermining No -Wound/Ulcer Outcome Not Healed -Ulcer Cleansing Rinsed/ Irrigated with Saline -Foul Odor after Cleansing No -Bioengineered Tissue No -Bleeding Controlled with Pressure -Treatment Response Procedure Tolerated Well -Offloading No -Debridement - Subq, 1st 20sq cm Yes Pain Scale: 0-10 Numeric Is Patient Pain Free? Yes WC - Nurse 3 - General Ulcer D/C NN Start: 09/30/25 15:32 Freq: Status: Active Protocol: Activity Type Activity Date Activity User E-sign Co-sign Detail Recorded Client Recorded Date Recorded By Document 09/30/25 15:59 [id number] 09/30/25 16:00 GM 09/30/25 15:59 Wound Care Center Nurse 3 #1 LT POST LE -Ulcer Cleansing Rinsed/ Irrigated with Saline -Foul Odor after Cleansing No -Primary Dressing Applied Promogran Linda Matter, Silicone Border Foam 4x4 -Promogran Linda Matter 2 -Silicone Border Foam 4x4 1 LLE -Lotion applied to leg before Yes compression wrap -Tubular Bandage Single Layer -Size of Tubigrip Used Size E -Size E ($) 1 Pain Scale: 0-10 Numeric Is Patient Pain Free? Yes WC - Visit Discharge Discharge Condition Stable Ambulatory Status Ambulatory Transportation Private Auto Assessment/Plan Assessment/Plan (1) Ulcer of left calf with fat layer exposed: CODE(S): L97.222 - Non-pressure chronic ulcer of left calf with fat layer exposed (2) Type 2 diabetes mellitus: CODE(S): E11.9 - Type 2 diabetes mellitus without complications (3) Bilateral lower extremity edema: CODE(S): R60.0 - Localized edema PLAN: Plan No signs/symptoms of infection on exam today. Wound has improved in overall appearance, there is increased epithelialization centrally though length/width measurements remain stable. For wound care: (1) Cleanse the area of the wound with antibacterial soap and water (2) Apply Linda (4) Cover with gauze followed by [place] (5) Apply Tubigrips for compression (6) Change every other day or more often as needed to keep clean and dry. She is encouraged to continue with leg elevation at all times of rest and to optimize glycemic control. Return to the clinic in 1 week, call sooner with concerns.
--- NOTE | 2025-10-04 09:29 | WC ---
PHOTO-LLE 10/01/25
[2025-10-07 15:17] VITALS: BP 157/81; PULSE 106; RESP 18; TEMP 36.4
--- NOTE | 2025-10-07 16:27 | PCM.WC.PN ---
History of Present Illness Date of Service: 10/07/25 Chief Complaint: Left posterior calf wound History of Wound: Josy Smith is a 70-year-old female who was initially referred and seen in August 2024 for evaluation and management of a left posterior calf wound as referred by her primary care Dr. Vazquez. The ulceration has been present since the end of May 2024. She reports that around that time her AC had gone out in her house and was out for several weeks so her house was very warm and she noticed significantly increased lower extremity edema. Eventually, a blister formed on her posterior calf and after rupturing left behind this ulceration. She does have significant bilateral lower extremity edema at baseline and this has been ongoing for several years. She is diabetic, last A1c was 7.7. She does not smoke. She denies any history of VTE. She did not wear compression previously. Subjective Subjective Josy is doing well this week. No new concerns. Objective Data Objective Data Vital Signs: Vital Signs Temp Pulse Resp BP O2 Del Method 97.5 F L 106 H 18 157/81 H Room Air 10/07/25 15:17 10/07/25 15:17 10/07/25 15:17 10/07/25 15:17 10/07/25 15:17 Oxygen Delivery Method Room Air Charges/Coding Wound Center CF Procedures [id number]: [id number] RMVL DEVITAL TIS 20 CM/< Multi Select Codes Wound Center CF Procedures [id number]: [id number] RMVL DEVITAL TIS 20 CM/< Physical Exam Const alert, oriented x3 and no apparent distress General Appearance: cooperative and anxious HEENT normocephalic, head/scalp atraumatic, hearing grossly normal bilaterally, external ears normal and external nose normal Eyes EOMs intact bilaterally General Eye: normal appearance of both eyes Neck General: normal visual inspection and trachea midline Resp normal respiratory effort Effort and Inspection: able to speak in complete sentences Extremity Extremity Narrative: Bilateral lower extremity pitting edema, trace right leg and trace left leg. Skin Wounds: wounds noted Wound Narrative: Posterior left calf ulceration cluster with pink wound base with moderate slough, there is an enlarging island of healed skin centrally which has been steadily expanding outward. No foul odor, excess drainage, erythema. Inferomedial to the ulceration there is an erythematous patch with overlying skin peeling/roughness; improved in appearance. Neuro oriented x3, CN's II-XII intact bilaterally and moves all extremities Speech: speech normal Psych mental status grossly normal Appearance: grossly normal Attitude: engaged Speech: normal speech Mood & Affect: euthymic mood Judgement: judgement good Debridement Note Debridement Note Wound debrided: L posterior calf Laterality: Left Type of Debridement: Selective debridement Anesthesia Used: 4% Lidocaine Solution Depth: Down to and including healthy tissue Percentage of wound debrided: 100 Instrument Used: - (moistened gauze) Tissue Removed: devitalized tissue Severity: Fat Layer Exposed Amount of bleeding with debridement: Mild Bleeding Controlled with: Pressure Patient tolerated procedure: Patient tolerated procedure well Post-Debridement Measurements and Additional Note: Post-Debridement Measurements/Treatment - Nurse 1 - General Ulcer Assessment Start: 09/30/25 15:32 Freq: Status: Active Protocol: CAMILLA Activity Type Activity Date Activity User E-sign Co-sign Detail Recorded Client Recorded Date Recorded By Document 09/30/25 15:32 RB [id number] 09/30/25 15:34 RB Document 10/07/25 15:17 RB [id number] 10/07/25 15:19 RB 09/30/25 10/07/25 15:32 15:17 - Today's Visit Information Type of service Follow-up Visit 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 ) ) Arrival Mode Ambulatory Ambulatory Transfer Assistance None None Patient Identification Verified (Name & Yes Yes ) Patient Requires Transmission-Based No No Precautions Vital Signs Temperature (97.8 F-99.1 F) 97.6 F L 97.5 F L Temperature Source Temporal Temporal Pulse Rate (60-100) 106 H 106 H Pulse Location Monitor Monitor Respiratory Rate (12-18) 18 18 Respiratory rate source Observation Observation Oxygen Delivery Method Room Air Room Air Blood Pressure (90/60-120/80) 153/74 H 157/81 H Blood Pressure Mean (mm Hg) 100 106 Source Monitor Monitor Position Sitting Semi-Fowlers Blood Pressure Location Left Arm Left Arm History Since Last Visit- (Skip if this is Patient's initial visit) Have you changed medications since your No No last visit? Any new allergies or adverse reactions No No Had a fall/change in ADL's that may No No increase risk of falls Signs or symptoms of abuse and/or No No neglect since last visit Have you been in the hospital since your No No last visit? Has dressing in place as prescribed Yes Yes Has compression in place as prescribed Yes Yes Has offloadiing in place as prescribed N/A No Experienced any changes in pain level or No No management Pain Scale: 0-10 Numeric Is Patient Pain Free? Yes Yes - Nurse 1 - General Ulcer Measurement Start: 09/30/25 15:32 Freq: Status: Active Protocol: Activity Type Activity Date Activity User E-sign Co-sign Detail Recorded Client Recorded Date Recorded By Document 09/30/25 15:32 RB [id number] 09/30/25 15:34 RB Document 10/07/25 15:17 RB [id number] 10/07/25 15:19 RB 09/30/25 10/07/25 15:32 15:17 Wound Center Nurse 1 #1 LT POST LE -Combined with other wound No No -Current Size (cm) - Length 2.7 1 -Current Size (cm) - Width 3.8 5.5 -Current Size (cm) - Depth 0.1 0.1 -Total Square Cm 10.26 5.5 -Date of Last Picture (Recall this 09/30/25 10/07/25 field) -Photo Taken Yes Yes -Tunneling No No -Undermining/Tunneling No No -Circular Undermining No No -Exudate Amt Medium Large -Exudate Type Serosanguineous Serous -Wound Margin Indistinct, Non Indistinct, Non -Visible -Visible -Granulation Amt Medium (34-66%) Medium (34-66%) -Granulation Quality [place],Red [place] -Slough/Fibrin Yes Yes -Necrosis Amt Medium (34-66%) Large (67-100%) -Necrotic Tissue Type Adherent Slough Adherent Slough -Structure Exposed N/A N/A -Texture (Radha-wound Skin Appearance) Assessed Assessed -Moisture (Radha-wound Skin Appearance) Maceration Assessed, Weeping -Color (Radha-wound Skin Appearance) Assessed, Erythema Erythema -Temperature (Radha-wound Skin No Abnormality No Abnormality Appearance) (Pt Warm) (Pt Warm) -Tenderness on Palpation (Radha-wound No No Skin Appearance) -Ulcer Cleansing Wound Cleanser Wound Cleanser -Foul Odor after Cleansing No No -Anesthetic Used 5% Lidocaine 5% Lidocaine Gel Gel Lower Limb Edema Present Yes Yes Left Calf (cm) 40 39.5 Left Ankle (cm) 27.7 27.5 - Nurse 2 - General Ulcer CM Notes Start: 09/30/25 15:32 Freq: Status: Active Protocol: Activity Type Activity Date Activity User E-sign Co-sign Detail Recorded Client Recorded Date Recorded By Document 09/30/25 15:46 GM [id number] 09/30/25 15:49 GM Document 10/07/25 15:45 GM [id number] 10/07/25 15:46 GM 09/30/25 10/07/25 15:46 15:45 Wound Center Nurse 2 #1 LT POST LE -Time 15:46 15:46 -Correct Patient Yes Yes -Correct Side, Site, Position Yes Yes -Correct Procedure Yes Yes -Procedure Performed Yes Yes -Type of Procedure Debridement Debridement -Clinical Debridement Subcutaneous Epidermis / Dermis -Tissue Removed Subcutaneous Epidermis -Post Debridement (cm) - Length 1.5 1.5 -Post Debridement (cm) - Width 5.2 5.4 -Post Debridement (cm) - Depth 0.1 0.1 -Total Square (Post) (cm) 7.80 8.10 -Area of Debridement (cm) - Length 1.5 1.5 -Area of Debridement (cm) - Width 5.2 5.4 -Total Square (Area) (cm) 7.80 8.10 -Tunneling No No -Undermining/Tunneling No No -Circular Undermining No No -Wound/Ulcer Outcome Not Healed Not Healed -Ulcer Cleansing Rinsed/ Rinsed/ Irrigated with Irrigated with Saline Saline -Foul Odor after Cleansing No No -Bioengineered Tissue No No -Bleeding Controlled with Pressure Pressure -Treatment Response Procedure Procedure Tolerated Well Tolerated Well -Offloading No No -Debridement - Open, 1st 20sq cm Yes -Debridement - Subq, 1st 20sq cm Yes Pain Scale: 0-10 Numeric Is Patient Pain Free? Yes Yes WC - Nurse 3 - General Ulcer D/C NN Start: 09/30/25 15:32 Freq: Status: Active Protocol: Activity Type Activity Date Activity User E-sign Co-sign Detail Recorded Client Recorded Date Recorded By Document 09/30/25 15:59 GM [id number] 09/30/25 16:00 GM Document 10/07/25 15:57 GM(2) [id number] 10/07/25 16:00 GM(2) 11/13/25 11/20/25 15:59 15:57 Wound Care Center Nurse 3 #1 LT POST LE -Ulcer Cleansing Rinsed/ Rinsed/ Irrigated with Irrigated with Saline Saline -Foul Odor after Cleansing No -Primary Dressing Applied Promogran Promogran Linda Matter, Linda Matter, Silicone Border Silicone Border Foam 4x4 Foam 4x4 -Patient Supplied Dressing Yes -Promogran Linda Matter 2 1 -Silicone Border Foam 4x4 1 1 LLE -Lotion applied to leg before Yes No compression wrap -Tubular Bandage Single Layer Single Layer -Size of Tubigrip Used Size E Size F -Size E ($) 1 -Size F ($) 1 -Stockings No Pain Scale: 0-10 Numeric Is Patient Pain Free? Yes Yes WC - Visit Discharge Discharge Condition Stable Stable Ambulatory Status Ambulatory Ambulatory Transportation Private Auto Private Auto Medication Reconcilliation completed & No provided to patient/care provider Clinical Summary of Care Provided Yes Assessment/Plan Assessment/Plan (1) Ulcer of left calf with fat layer exposed: CODE(S): L97.222 - Non-pressure chronic ulcer of left calf with fat layer exposed (2) Type 2 diabetes mellitus: CODE(S): E11.9 - Type 2 diabetes mellitus without complications (3) Bilateral lower extremity edema: CODE(S): R60.0 - Localized edema PLAN: Plan No signs/symptoms of infection on exam today. Wound has improved in overall appearance, there is increased epithelialization centrally though length/width measurements remain stable. For wound care: (1) Cleanse the area of the wound with antibacterial soap and water (2) Apply Linda (4) Cover with gauze followed by [place] (5) Apply Tubigrips for compression (6) Change every other day or more often as needed to keep clean and dry. She is encouraged to continue with leg elevation at all times of rest and to optimize glycemic control. Next week is Thanksgiving so the wound center will be closed, she will return in 2 weeks and call sooner with concerns.
--- NOTE | 2025-10-08 09:06 | WC ---
PHOTO-LEFT POST LEG 10/07/25
== END 2025-10-17 23:59 | disposition home or self-care (01) ==
LOC: WC 15:15
PROVIDERS: PCP Family Medicine; Referring Provider Family Medicine; Visit Provider Physician Assistant
DX: E11.622 Type 2 diabetes mellitus with other skin ulcer (principal); L97.222 Non-pressure chronic ulcer of left calf with fat layer exposed; R60.0 Localized edema
CPT/HCPCS: 11042; 97597